=== PATIENT | female | born 1955 | race Caucasian/White ===

== ENCOUNTER 2019-08-27 11:19 | Outpatient (CLI) | payer MEDICARE, SELFPAY ==
--- NOTE | ~2019-08-27 | MM_ITS ---
EXAMINATION: MM diagnostic prashanth BI w tosha HISTORY: Breast pain. Left breast lump. TECHNIQUE: ML, MLO and cc 3-D tomosynthesis images of both breasts were performed and synthetic 2-D i mages were generated. CAD analysis was submitted and interpreted. COMPARISON: Serial mammographic examinations dating back to 05/24/2014 BREAST PARENCHYMAL COMPOSITION: There are scattered areas of fibroglandular density. FINDINGS: There is a circumscribed stable 7.5 mm mass situated anteriorly in the inner aspect of the lower outer quadrant of the right breast, not significantly changed since 05/24/2014. There are some b enign calcifications associated with this mass. This is likely a benign calcified fibroadenoma. No suspicious mass, architectural distortion, malignant calcification, skin thickening or retraction of either breast is evident. There is a biopsy marker in the upper outer quadrant of the right breast. There are occasional benign calcifications of each breast. IMPRESSION: 1. No mammographic evidence of malignancy 2. Routine annual mammographic screening follow-up is recommended BI-RADS Category 2: Benign finding(s). Reviewed, dictated and finalized at location A.
== END 2019-08-27 11:20 | disposition home or self-care (01) ==
LOC: ANHIMG 11:24
PROVIDERS: Visit Provider Family Medicine
DX: N64.4 Mastodynia (principal)
CPT/HCPCS: 77062; 77066; G0279

== ENCOUNTER 2020-08-30 08:37 | Outpatient (CLI) | payer MEDICARE, SELFPAY ==
--- NOTE | ~2020-08-30 | MM_ITS ---
EXAMINATION: MM screening prashanth BI w tosha HISTORY: Screening TECHNIQUE: Craniocaudal and mediolateral oblique 3-D tomosynthesis images were obtained and synthetic 2-D images were generated. CAD analysis was submitted and interpreted. COMPARISON: Comparison to multiple prior studies sequentially, with oldest reviewed study dated 05/24. BREAST PARENCHYMAL COMPOSITION: Breast composed of scattered areas of fibroglandular density FINDINGS: There are developing bilateral breast masses in the lower central right breast anteriorly i n the subareolar location of the left breast. IMPRESSION: 1. Developing bilateral breast masses. 2. Additional mammographic views and possible breast ultrasound are recommended. BI-RADS Category 0: Incomplete: Needs additional imaging evaluation. Reviewed, dictated and finalized at location A. IMPRESSION: 1. Developing bilateral breast masses. 2. Additional mammographic views and possible breast ultrasound are recommended . BI-RADS Category 0: Incomplete: Needs additional imaging evaluation.
== END 2020-08-30 08:38 | disposition home or self-care (01) ==
LOC: ANHIMG 08:41
PROVIDERS: Visit Provider Family Medicine
DX: Z12.31 Encounter for screening mammogram for malignant neoplasm of breast (principal); R92.8 Other abnormal and inconclusive findings on diagnostic imaging of breast
CPT/HCPCS: 77063; 77067

== ENCOUNTER 2020-09-29 13:13 | Outpatient (CLI) | payer MEDICARE, SELFPAY ==
--- NOTE | ~2020-09-29 | MM_ITS ---
EXAMINATION: MM diagnostic mammo BI HISTORY: Bilateral breast masses on screening mammogram TECHNIQUE: Additional 3-D tomosynthesis images of the breasts were performed and synthetic 2-D images were generated. CAD analysis was submitted and interpreted. COMPARISON: Prior mammograms dating back to 02/14/2011 BREAST PARENCHYMAL COMPOSITION: There are scattered areas of fibroglandular density. FINDINGS: Spot compression views of the breasts demonstrate bilateral stable masses in the anterior t hirds of the breasts without suspicious interval change. No suspicious mass, calcification, or angie ectural distortion are identified. IMPRESSION: 1. No mammographic evidence of malignancy. 2. Recommend routine screening mammography in one year. BI-RADS Category 2: Benign finding(s). Reviewed, dictated and finalized at location A.
== END 2020-09-29 13:14 | disposition home or self-care (01) ==
PROVIDERS: Visit Provider Family Medicine
DX: R92.8 Other abnormal and inconclusive findings on diagnostic imaging of breast (principal)
CPT/HCPCS: 77066

== ENCOUNTER 2020-10-13 16:21 | Outpatient (CLI) | payer MEDICARE, SELFPAY ==
--- NOTE | ~2020-10-13 | US_ITS ---
EXAMINATION: US thyroid EXAM DATE: 10/13/2020 17:09 INDICATION: Single thyroid nodule. Follow-up. TECHNIQUE: Multiple grayscale and Doppler images of the thyroid were obtained (by a technologist who performed the scan) and subsequently reviewed. Individual nodules and recommendations may be reporte d in accordance with TI-RADS system as designated by the 2017 ACR White Paper TI-RADS committee. Comp rosalino is made to prior examination from 08/14/2012. FINDINGS: The right thyroid lobe measures 3.9 x 2.0 x 1.3 cm, the left measuring 4.9 x 1.9 x 1.7 cm. Moderately diffusely heterogeneous thyroid echogenicity with multiple scattered thyroid nodules measuring up to 1.2 cm, category TR 3 and 4 lesions. Most demonstrated modest interval increase in size along with g eneralized thyroid parenchyma, except for the largest solid nodule on the left measuring up to 1.3 cm which appears unchanged. IMPRESSION: 1. Multinodular goiter, likely benign. Reviewed, dictated and finalized at location A.
== END 2020-10-13 16:22 | disposition home or self-care (01) ==
PROVIDERS: Visit Provider Family Medicine
DX: E04.2 Nontoxic multinodular goiter (principal)
CPT/HCPCS: 76536

== ENCOUNTER → 2021-04-11 02:35 | Outpatient (CLI) | payer MEDICARE, SELFPAY ==
[2021-04-11 21:06] LABS: SARS-CoV-2 RNA PCR Negative
== END ==
PROVIDERS: Visit Provider Nurse Practitioner Adult Health
DX: R68.89 Other general symptoms and signs (principal); Z20.822 Contact with and (suspected) exposure to COVID-19
CPT/HCPCS: C9803; U0003; U0005

== ENCOUNTER → 2021-04-25 03:01 | Outpatient (CLI) | payer MEDICARE, SELFPAY ==
[2021-04-25 21:18] LABS: SARS-CoV-2 RNA PCR Positive
== END ==
PROVIDERS: Visit Provider Family Medicine
DX: U07.1 COVID-19 (principal)
CPT/HCPCS: C9803; U0003; U0005

== ENCOUNTER → 2021-08-22 12:48 | Outpatient (CLI) | payer MEDICARE, SELFPAY ==
--- NOTE | ~2021-08-22 | CT_ITS ---
EXAMINATION: CT abdomen pelvis wo con DATE: 08/22/2021 13:05 INDICATION: Abdominal pain. Nausea. Umbilical and pelvic pain. Abdominal bloating. TECHNIQUE: Computed tomography (CT) of the abdomen and pelvis was performed without intravenous contr ast. Automated exposure control and iterative reconstruction technique were employed. Exam dose: 428 .66 mGy-cm total exam DLP. COMPARISON: 04/02/2019 PET/CT/CT scan 09/25/2012 CT abdomen pelvis FINDINGS: The lung bases are clear of infiltrate or consolidation. Normal heart size. No pericardial or pleural effusion. Approximately 1.4 x 1.9 cm right hepatic dome hypoattenuating lesion, likely a cyst. Smaller approxim ately 4 mm probable medial segment left hepatic cyst. The gallbladder is present. No gallbladder wall thickening or pericholecystic fluid or fat stranding. No bile duct or pancreatic duct dilatation. No pancreatic mass lesion or calcification. Normal splen ic size. Normal morphology of the adrenal glands. Approximately 2.5 mm nonobstructing lower pole right renal calculus. There are 2 lower pole right renal cyst measuring approximately 11 mm or smaller, stable since 013. Up to approximately 2 x 5.5 mm nonobstructing lower pole left renal calculus. Several small cysts of the left kidney noted on 09/25/2012 are not readily demonstrated on this limited noncontrast examinati on. No ureteral calculus or hydroureteronephrosis is noted on either side. There is calcification but normal caliber of the abdominal aorta and iliac arteries. No intraperitone al or retroperitoneal or pelvic mass lesion or adenopathy or ascites. Moderately prominent right fat-containing inguinal hernia. Very small fat-containing umbilical hernia. Retroverted uterus. The urinary bladder is relatively evacuated. No bowel obstruction, bowel wall thickening, pneumatosis or intraperitoneal free air is evident. Norm al appendix. There is degenerative change at the apophyseal joints with associated grade 1 anterolisthesis at L4-5 and to a lesser extent L5-S1. No suspicious osteolytic or osteoblastic lesions are noted. IMPRESSION: Normal appendix Probable hepatic and renal cysts Minimal bilateral nonobstructive nephrolithiasis Retroverted uterus Moderately prominent right fat-containing inguinal hernia Reviewed, dictated and finalized at Location A. Reviewed, dictated and finalized at location B.
== END ==
PROVIDERS: PCP Family Medicine; Visit Provider Family Medicine
DX: M47.817 Spondylosis without myelopathy or radiculopathy, lumbosacral region (principal); R10.9 Unspecified abdominal pain; N85.4 Malposition of uterus; K40.90 Unilateral inguinal hernia, without obstruction or gangrene, not specified as recurrent
CPT/HCPCS: 74176

== ENCOUNTER 2021-11-02 08:33 | Outpatient (CLI) | payer MEDICARE, SELFPAY ==
--- NOTE | ~2021-11-02 | MM_ITS ---
EXAMINATION: MM screening [facility] BI w tosha HISTORY: Screening TECHNIQUE: Craniocaudal and mediolateral oblique 3-D tomosynthesis images were obtained and synthetic 2-D images were generated. CAD analysis was submitted and interpreted. COMPARISON: Comparison to multiple prior studies sequentially, with oldest reviewed study dated 09/27. BREAST PARENCHYMAL COMPOSITION: There are scattered areas of fibroglandular density. FINDINGS: Bilateral benign-appearing breast masses are stable. There is no evidence of suspicious mas s, calcification, or architectural distortion to suggest malignancy in either breast. There has been no suspicious interval change. IMPRESSION: 1. No mammographic evidence of malignancy. 2. Recommend routine screening mammography in one year. BI-RADS Category 2: Benign finding(s). Reviewed, dictated and finalized at location A.
== END 2021-11-02 08:34 | disposition home or self-care (01) ==
LOC: ANHIMG 08:34
PROVIDERS: PCP Family Medicine; Visit Provider Family Medicine
DX: Z12.31 Encounter for screening mammogram for malignant neoplasm of breast (principal)
CPT/HCPCS: 77063; 77067

== ENCOUNTER 2022-07-26 10:28 | Inpatient (IN) | payer MEDICARE, SELFPAY ==
--- NOTE | 2022-07-19 09:33 | PC.NURSE ---
Report to the Outpatient Waiting Room, entrance under the green pavilion located off [facility], at time __1130 on date __07/25/22 . Planned Procedure Time: ___1330 . Time changes happen often and if your time is changed the preop area will call you the afternoon before. - You and your visitor will be asked to self-screen and do not enter if you have any COVID symptoms. - A mask is optional within the hospital at this time. Patients may have clear liquids (water, carbonated beverages, clear teas, apple juice) until 3 hours prior to surgery with a maximum of 20 ounces. - No food from midnight until time of surgery - Infants may have breast milk until 4 hours before surgery, infant formula 6 hours prior to surgery. - Children will be allowed to drink immediately following surgery. If applicable, please bring a bottle or sippy cup to assist with drinking. Juice, water, soda, and popsicles are readily available. For infants on formula, please bring formula the day of surgery. Pacifiers are allowed. Take the following medications with a SIP of water the morning of surgery: ___CAPECTIABINE,_FLUOXETINE,AND CLONAZEPAM IF NEEDED DO NOT STOP ANY OF YOUR OTHER PRESCRIPTION MEDICATIONS PRIOR TO SURGERY ?EXCEPT THE FOLLOWING Medications to discontinue per physician NONE Date to take last dose Please no make-up, nail luxembourgish, hairspray, perfume, deodorant, or body powder the day of surgery. No jewelry (including any body piercings) or valuables the day of surgery, leave them at home. Please take a shower or bath the night before, or the morning of, surgery with an antibacterial soap. Wear comfortable, loose fitting clothing. Children are encouraged to wear pajamas. - Jewelry must be removed prior to entering the operating room. Rings and piercings that are not removed may be cut off. - The hospital will not accept responsibility for valuables. - Please leave all valuables, including medications, at home the day of surgery. If you are going home after surgery, a licensed water truck driver must drive you home. - NO public transportation without another adult if you receive anesthesia. - We recommend that an adult stay with you for 24 hours following discharge. - We also recommend that you do not drive, make important decision, drink alcoholic beverages, or take any drugs that were not prescribed by your health care provider for at least 24 hours after your discharge time. For Pediatric surgeries, we recommend two adults accompany the child home. Follow any additional instructions given to you from your surgeon. If you or anyone in your household have experienced Covid symptoms in the past week, please notify your surgeon or the nurse liaison at the phone number below for possible testing. Telephone instructions given to __PATIENT and asked if any additional questions and then verbalized understanding. Patient advised to call surgeon office or pre surgery nurse liaison [phone] if any additional questions.
[2022-07-19 09:42] VITALS: BMI 21.6
--- NOTE | 2022-07-23 14:40 | PM.SD2 ---
Same Day Admit/Disch: HPI History of Present Illness Chief complaint: malignant neoplasm ascending colon Narrative: Loulou Lanier is a 67 year old female who has stage III invasive colon cancer of the ascending colon. She is to have chemotherapy. She is taken to surgery now for placement of a Port-A-Cath for chemotherapy administration. [facility] Past Medical History Medical History (Updated 07/27/22 @ 13:32 by Eyal Hood MD) Anxiety Arthritis Colon cancer Depression Hyperlipidemia Malignant neoplasm of ascending colon Surgical History Surgical History H/O foot surgery History of colon resection Family History Family History Mother Hypertension Sibling Patient's sister is in good health Father Family history of heart disease in male family member before age 55 Other Family history of cardiovascular disease Social History Social History Smoking status: Never smoker Second hand tobacco smoke exposure: No Alcohol intake: never Alcohol use details: seldom Substance use: never Substance use type: does not use Lack of Transportation: No Lack of Food: Never True Current Housing: I Have Housing Concerned About Future Housing: No Difficulty Paying Gas/Electric Bills: No Difficulty Paying for Meds: No Currently Unemployed: No Education: High School Diploma/GED Difficulty w/ Childcare or Family Care: No Living arrangements: with family Gender identity (if verbalized by the patient): Female Sexual Orientation (if Verbalized by the Patient): Straight or Heterosexual Spiritual care concerns: No Same Day Admit/Disch: Med Pre-admit Medications Home Medications Medication Instructions Recorded Confirmed Type fluoxetine 10 mg capsule 30 mg PO DAILY 04/03/22 07/19/22 History omeprazole 40 mg capsule,delayed 40 mg PO DAILY 04/03/22 07/19/22 History release simvastatin 40 mg tablet 40 mg PO DAILY 04/03/22 07/19/22 History trazodone 50 mg tablet 50 mg PO QHS PRN Insomnia 04/03/22 07/25/22 History capecitabine 150 mg tablet 900 mg PO BID 07/19/22 07/25/22 History capecitabine 500 mg tablet 500 mg PO BID 07/19/22 07/19/22 History clonazepam 0.5 mg tablet 0.5 mg PO PRN PRN Anxiety 07/19/22 07/19/22 History ibuprofen 600 mg tablet 600 mg PO Q6H PRN pain #14 tabs 07/25/22 Rx oxycodone-acetaminophen 5 mg-325 1 - 2 tablet PO Q6H PRN pain #15 07/25/22 Rx mg tablet (Percocet) tabs metronidazole 500 mg tablet 500 mg PO Q8H 10 days #30 tabs 07/27/22 Rx Exam Const: General: comfortable, no acute distress, alert and awake HENMT: Head: normocephalic and atraumatic Mouth: Yes Normal oral and palatal mucosa present Eyes: Conjunctivae: conjunctivae normal Pupils: Equal, round and reactive pupils present EOM: EOMs intact bilaterally Neck: Neck: normal visual inspection, no lymphadenopathy and nontender Resp: Effort & Inspection: normal respiratory effort Auscultation: clear to auscultation bilaterally Cardio: Rate: regular rate Rhythm: regular rhythm Heart sounds: no gallops, no murmurs and no rubs GI: Inspection: non-distended GI Palp: Yes Soft to palpation, No Tenderness to palpation present (GI), No Hepatomegaly present and No Splenomegaly present Skin: Lesions: no lesions Rashes: no rashes Neuro: General: no focal motor deficits and CN's II-XI intact bilaterally Cranial nerves: Yes Equal, round and reactive pupils present, Yes Bilaterally intact EOM present, Yes facial symmetry and Yes Midline tongue present Speech: normal speech Motor exam (neuro): 5/5 motor strength present throughout and Motor abnormalities not present Extrem: General: no clubbing, cyanosis or edema and edema Psych: Affect: normal affect Thought process: Normal thought process present Insight: Good insight present (Psych)
[2022-07-25] VITALS (12 sets, daily range): BP systolic 104–138; BP diastolic 68–88; PULSE 76–88; RESP 12–20; TEMP 36.4–36.6; O2SAT 97–100; BMI 22.2
--- NOTE | 2022-07-25 11:27 | P.PNAN_ITS ---
Anes - Initial Pre Proc Eval Procedure: Operation Date: 07/25/22 13:30 Proposed Procedures p Insertion Santhosh Cath - Kamron Erwin MD Date/Time: 07/25/22 11:27 Surgeon: Kamron Erwin MD Pre Op Diagnosis: malignant neoplasm ascending colon Patient Data Age: 67 Gender: F Height: 1.57 m Weight: 53.55 kg Allergies Allergy/AdvReac Type Severity Reaction Status Date / Time poison randi extract Allergy Unknown Rash Verified 07/19/22 09:22 Home Medications Medication Instructions Recorded Confirmed Type fluoxetine 10 mg capsule 30 mg PO DAILY 04/03/22 07/19/22 History omeprazole 40 mg capsule,delayed 40 mg PO DAILY 04/03/22 07/19/22 History release simvastatin 40 mg tablet 40 mg PO DAILY 04/03/22 07/19/22 History trazodone 50 mg tablet 25 mg PO QHS PRN Insomnia 04/03/22 07/19/22 History capecitabine 150 mg tablet 150 mg PO BID 07/19/22 07/19/22 History capecitabine 500 mg tablet 500 mg PO BID 07/19/22 07/19/22 History clonazepam 0.5 mg tablet 0.5 mg PO PRN PRN Anxiety 07/19/22 07/19/22 History Patient hx anesthesia problems: none Family hx anesthesia problems: none Results Review: All pre-operative results and documents have been reviewed as part of the pre- operative evaluation. [facility] Past Medical History Medical History (Updated 07/25/22 @ 11:28 by Eze Lakhani MD) Anxiety Arthritis Colon cancer Depression Hyperlipidemia Malignant neoplasm of ascending colon Surgical History Surgical History H/O foot surgery Family History Family History Mother Hypertension Sibling Patient's sister is in good health Father Family history of heart disease in male family member before age 55 Other Family history of cardiovascular disease Social History Social History Smoking status: Never smoker Second hand tobacco smoke exposure: No Alcohol intake: current Alcohol use details: seldom Substance use: never Living arrangements: with family Gender identity (if verbalized by the patient): Female Sexual Orientation (if Verbalized by the Patient): Straight or Heterosexual Spiritual care concerns: No Anes - Eval Final PreProcedure Day of Procedure 07/25/22 11:27 Patient weight: normal Heart: regular rate and rhythm Lungs: clear to auscultation and normal air movement Airway: Mallampati scale class II Neurological: alert and oriented Last oral intake: >/= 8 hours ASA classification: III Emergent: no Anesthetic plan: proceed Anesthesia type and monitoring: general GIVS Results Review: All pre-operative results and documents have been reviewed as part of the pre- operative evaluation. Informed Consent: The patient's anesthetic plan and its attendant risks and benefits were discussed with the patient/family/POA. Questions were solicited and answers provided to the satisfaction of the patient/family/POA.
--- NOTE | 2022-07-25 12:21 | WPDHPUPDATE1 ---
History and Physical Update Update Date/Time: 07/25/22 12:21 History and Physical has been reviewed, including an updated exam of the patient. There are NO changes in the patient's condition. Risks, benefits, and alternatives have been discussed and questions answered. Patient agrees to proceed with procedure.
[2022-07-25 12:36] LABS: INR 1.1; Partial Thromboplastin Time 26.9 SECONDS (22.3-36.8); Prothrombin Time 13.6 Seconds (11.1-14.7)
[2022-07-25] MEDS: LACTATED RINGERS 1,000 ML 30 ML IV CONT ×2 (13:00→15:40)
[2022-07-25] MEDS: KETOROLAC 15 MG/ML VIAL (*BKC) IV PUSH (13:00)
[2022-07-25] MEDS: ceFAZolin 2 GM/D5W 50 ML 2 GM/50 ML BAG IVPB (13:50)
[2022-07-25] MEDS: HEPARIN SODIUM 5,000 UNITS/ML VIAL 1000 UNITS IRRIGATION (14:12)
[2022-07-25] MEDS: BUPIVACAINE/EPINEPHRINE 0.5% 50 ML VIAL INFILTRATE (14:12)
--- NOTE | 2022-07-25 15:44 | W.PM.PROC2 ---
Procedure Note - Detailed Date of Procedure 07/25/22 Pre-op Diagnosis Stage III colon cancer, inadequate venous access Post-op Diagnosis Same Procedure Performed Placement left subclavian Port-A-Cath under fluoroscopy, ultrasound utilization Surgeon Kamron Erwin MD Bottom Turning Lathe Tender Helen Mora METAL PAINTER Anesthesia MAC and Local (0.5% Marcaine with epinephrine) Indications Patient underwent colon resection and found to have stage III colon cancer. She will be having chemotherapy. She is taken to surgery now for placement of a Port-A-Cath as requested by her oncologist. Findings This was a very difficult placement. The subclavian vein was cannulated more laterally than usual. The initial placement resulted in more of an angulation of the Port-A-Cath tubing than is usually seen. This was however working well until the wound was closed at which time we were unable to aspirate blood and the wound had to be reopened. I attempted to replace the Port-A-Cath by repositioning the reservoir but this did not work either. I then removed the initial Port-A-Cath and additional subclavian puncture and, with ultrasound guidance, internal jugular puncture was performed. Internal jugular vein was on top of the carotid artery and despite Trendelenburg I could not get a guidewire to pass. Eventually subclavian puncture was again performed with good placement of a guidewire and satisfactory positioning of the Port-A-Cath. The procedure was much more bloody and lasted 3 times longer than usual. The procedure lasted almost 90 minutes which typically this procedure takes 20-30 minutes. The incision had to be lengthened in the subclavian position. Blood loss was also 3 or 4 times more than usual. The procedure was exceptionally more difficult and lengthy than usual. Description of Procedure Patient was taken to surgery and placed in a supine position. IV sedation was administered. Prep and drape of the left subclavian and left neck was carried out. The proposed left subclavian incision was marked on the skin. Local anesthetic was infiltrated into the skin and the deeper subcutaneous tissues. Cautery was used for hemostasis. Incision was made dissection was carried down through the subcutaneous and through the pectoralis major fascia. I dissected the pectoralis major fascia off the pectoralis muscle and then created a subfascial pocket. Additional local was infiltrated into the area under the left clavicle as well as into the pectoralis and the subcutaneous pocket. I then made several attempts but finally cannulated the left subclavian vein somewhat laterally in the pocket. C-arm fluoroscopy was then used and the guidewire was passed through the needle and into the superior vena cava. I then used fluoroscopy to measure the length of Port-A-Cath that would be needed. Port-A-Cath was cut to the appropriate length. Under fluoroscopy, an introducer and sheath were passed over the guidewire. The introducer and the guidewire removed. The Port-A-Cath was passed through the sheath and into the superior vena cava. The sheath was removed in the Port-A-Cath tip was in good position. However there was some angulation of the Port-A-Cath from the reservoir towards the shoulder and then back towards the mediastinum. We straightened this and manipulated the tubing of the Port-A-Cath to minimize this angulation. Port-A-Cath aspirated blood and flushed easily with heparin. I went ahead and sutured the Port-A-Cath to the pectoralis major muscle. I recheck the Port-A-Cath and again it aspirated blood and flushed easily with heparin. I closed the wound with layered closure of 2-0 Vicryl. I recheck the Port-A-Cath again cannulating it through the skin and on this occasion I had difficulty aspirating blood. I tried to or 3 times in got the same result. I then reopened the wound and removed the sutures that had been placed persist previously. I then infiltrated additional l
--- NOTE | 2022-07-25 16:11 | SUR.PHASEII ---
1555 PORTABLE CXR DONE.
--- NOTE | 2022-07-25 16:43 | SUR.PHASEII ---
[address] AND BACK TO ROOM 16 VIA STRETCHER. PT TOLERATED CT WITHOUT DIFFICULTY. PATIENT HAS DECREASED ABILITY TO MOVE EXTREMITIES BUT IS ABLE TO SQUEEZE HANDS, FLEX AND EXTEND ANKLES AND ANSWER QUESTIONS APPROPRIATELY.
--- NOTE | 2022-07-25 17:07 | SUR.PHASEII ---
DR. KONG HERE TO DISCUSS PLAN TO ADMIT TO IMU. MEDICAL TRANSCRIPTIONIST CALLED.
--- NOTE | 2022-07-25 17:35 | SUR.PHASEII ---
DINNER ORDERED. AWAITING ROOM ASSIGNMENT.
--- NOTE | 2022-07-25 19:37 | PHAR ---
RX [id number] IDENTIFIED TO CONTAIN: DRUG NAME: CAPECITABINE INGREDIENTS: CAPECITABINE -- 500 MG COLOR: LIGHT ORANGE SHAPE: OVAL IMPRINT: 500 FORM: ORAL TABLET RX [id number] IDNEIFIED TO CONTAIN: DRUG NAME: CAPECITABINE INGREDIENTS: CAPECITABINE -- 150 MG COLOR: LIGHT ORANGE SHAPE: OVAL IMPRINT: 150 FORM: ORAL TABLET
--- NOTE | 2022-07-25 20:27 | ADMGEN ---
This patient, Loulou Lanier, was admitted to IMU Room 206-02. Patient/family oriented to hospital policies and general routines including ID bracelet, bed and alarms, visiting hours, pain management, procedures, bathroom and other care routines, personal items, smoking policy, room service/diet, and visiting hours. Information on how to activate the Rapid Response Team has been discussed. Patient/Family are encouraged to report perceived risks to care and to ask questions if they do not understand what they are told or what they should do.
[2022-07-25] MEDS: HYDROcodone/acetaminophen (*CRX) 7.5-325 MG TABLET 1 TAB PO (21:44)
[2022-07-25] MEDS: clonazePAM (*CRX) 0.5 MG TABLET PO (21:44)
[2022-07-25] MEDS: LACTATED RINGERS 1,000 ML 100 ML IV CONT (21:45)
[2022-07-25] MEDS: traZODone HCL 50 MG TABLET PO (21:50)
[2022-07-25 22:44] LABS: Hematocrit 28.8 % (37.0-47.0); Hemoglobin 9.4 g/dL (12.0-15.0)
[2022-07-26] VITALS (15 sets, daily range): BP systolic 112–130; BP diastolic 70–98; PULSE 81–131; RESP 16–20; TEMP 36.2–37.1; O2SAT 97–99; BMI 22.2
--- NOTE | ~2022-07-26 | XR_ITS ---
EXAMINATION: XR chest 1V portable 07/26/2022 16:21 INDICATION: Follow-up pneumothorax. PROCEDURE: AP portable chest COMPARISON: 07/26/2022 FINDINGS: The lungs are clear. Stable small left apical pneumothorax. Portacatheter tip in the SVC. T he cardiomediastinal silhouette is within normal limits. There are no pleural effusions. There is n o pneumothorax suspected. Mildly prominent mediastinum less apparent on current examination. IMPRESSION: 1: Stable small left apical pneumothorax.. Reviewed, dictated and finalized at location B.
--- NOTE | ~2022-07-26 | XR_ITS ---
EXAMINATION: XR chest 1V portable INDICATION: Mediastinal hematoma, pneumothorax TECHNIQUE: Portable AP chest at 0536 hours COMPARISON: 07/26/2022 FINDINGS: There is a small persistent left apical pneumothorax without significant change. There is s table widening of the superior mediastinum, consistent with hematoma. The heart size is normal. There are minimal airspace opacities of the left lung base. A left subclavian Port-A-Cath ends with its ti p in the superior vena cava. No pleural effusion is identified. IMPRESSION: 1. Small left apical pneumothorax without significant change. 2. Stable widening of the superior mediastinum, consistent with hematoma. Reviewed, dictated and finalized at location A.
--- NOTE | ~2022-07-26 | CT_ITS ---
EXAMINATION: CT diagnostic chest w con DATE: 07/25/2022 16:38 INDICATION: Abnormal chest radiograph post Port-A-Cath insertion TECHNIQUE: Transaxial computed tomographic images of the chest were obtained after the administration of 75 cc of Omnipaque 350 intravenous contrast. The dose-length product (DLP) was 145.83 mGy-cm. Ite rative reconstruction was used. COMPARISON: None FINDINGS: A left subclavian Port-A-Cath ends with its tip in the distal superior vena cava. There is ill-defined fat stranding in the anterior aspect of the left upper mediastinum. No definite active co ntrast extravasation is identified. There is mild dependent atelectasis. There is a tiny left-sided p neumothorax. No pleural effusion is identified. There is subcutaneous gas in the left upper chest wal l surrounding the Port-A-Cath insertion site. The heart size is normal. There are no pathologically e nlarged thoracic lymph nodes. There is a 1.8 cm cyst of the liver. IMPRESSION: 1. Findings suspicious for acute hematoma in the anterior mediastinum. Although no active contrast ex travasation is identified, observation and repeat imaging are recommended. 2. Small left pneumothorax. These findings and recommendations were discussed with Dr. Kamron patrick MD at 1653 hours on 07/25/2022. Reviewed, dictated and finalized at location F. IMPRESSION: 1. Findings suspicious for acute hematoma in the anterior mediastinum. Although no active contrast extravasation is identified, observation and repeat imaging are recommended. 2. Small left pneumothorax. These findings and recommendations [facility] Kamron Erwin MD at 1653 hours on 07/25/2022.
--- NOTE | ~2022-07-26 | XR_ITS ---
Portable chest x-ray Comparison: 07/25/2022 Clinical History: Mediastinal hematoma Findings: Left-sided Mediport is unchanged. Stable abnormal density silhouetting the aortic knob. Le ft apical pneumothorax present. Right lung is clear. Bones and soft tissues are unremarkable. Impression: Stable density somewhat silhouetting the aortic knob. This could be consistent with a cephalhematoma as seen on recent CT scan. Left apical pneumothorax. Left-sided Mediport. Reviewed, dictated and finalized at [facility]. Impression: Stable density somewhat silhouetting the aortic knob. This could be consistent with a cephalhematoma as seen on recent CT scan. Left apical pneumothorax. Left-sided Mediport.
--- NOTE | ~2022-07-26 | XR_ITS ---
EXAMINATION: XR chest 1V portable DATE: 07/26/2022 10:23 INDICATION: Left pneumothorax. TECHNIQUE: A single frontal view of the chest was obtained. COMPARISON: Chest single view at 5:36 AM FINDINGS: There is a small left pneumothorax. No pneumonia or pleural effusion. The heart size is nor mal. There is widening of the superior mediastinum. There is a left subclavian port with tip in super ior vena cava. IMPRESSION: 1. Stable small left pneumothorax. 2. Stable widening of the superior mediastinum, consistent with hematoma. Reviewed, dictated and finalized at location A.
--- NOTE | ~2022-07-26 | XR_ITS ---
XR chest port-a-cath/central, XR fl guide central line place 07/25/2022 15:55 (accession [id number]), 07/25/2022 15:46 (accession [id number]) Indication: Insertion of portacatheter Procedure: Single fluoroscopic view of the chest. Postprocedure portable chest. Comparison: Pet/CT dated 04/06/2019 Findings: Portacatheter tip in the SVC. Heart size normal. There is prominence of the AP window. Jonah ot exclude vascular abnormality or lymph node enlargement. Recommend correlation with CT with contras t. Left basilar atelectasis. No pneumothorax. No acute osseous abnormality. Impression: 1: Prominent AP window soft tissue which may be due to lymphadenopathy or vascular abnormality. Recom mend correlation with contrast-enhanced CT chest. 2: Left basilar atelectasis/scarring. Reviewed, dictated and finalized at location L. Impression: 1: Prominent AP window soft tissue which may be due to lymphadenopathy or vascu lar abnormality. Recommend correlation with contrast-enhanced CT chest. 2: Left basilar atelectasis/scarring. Impression: 1: Prominent AP window soft tissue which may be due to lymphadenopathy or vascu lar abnormality. Recommend correlation with contrast-enhanced CT chest. 2: Left basilar atelectasis/scarring.
[2022-07-26 04:53] LABS: Hemoglobin 9.5 g/dL (12.0-15.0); Mean Corpuscular HGB Conc 31.7 g/dl (32-36); Mean Corpuscular Hemoglobin 27.6 pg (26-34); Mean Corpuscular Volume 87.2 fl (80-100); Mean Platelet Volume 9.1 fl (7.4-10.4); Platelet Count Result 264 k/mm3 (150-375); Red Blood Count 3.44 M/mm3 (4.2-5.4); Red Cell Distribution Width 14.3 % (11.5-14.5); White Blood Count 6.6 K/mm3 (4.5-10.0)
[2022-07-26 05:02] LABS: Anion Gap 4 mmol/L (8-16); Blood Urea Nitrogen 15 mg/dL (7-17); Calcium 8.1 mg/dL (8.4-10.2); Carbon Dioxide 27 mmol/L (22-30); Chloride 106 mmol/L (98-107); Estimated CRCL calculation 74 ml/min; Estimated Glomerular Filt Rate > 60; Glucose 100 mg/dL (65-110); Potassium 3.1 mmol/L (3.4-5.0); Sodium 137 mmol/L (137-145)
[2022-07-26] MEDS: HYDROcodone/acetaminophen (*CRX) 5-325 MG TABLET 1 TAB PO (06:13)
[2022-07-26] MEDS: POTASSIUM CHLORIDE 20 MEQ PACKET (FOR LIQUID) 40 MEQ PO (06:14)
[2022-07-26] MEDS: LACTATED RINGERS 1,000 ML 100 ML IV CONT (08:08)
[2022-07-26] MEDS: PANTOPRAZOLE 40 MG TABLET PO (08:09)
[2022-07-26] MEDS: FLUoxetine HCL 10 MG CAPSULE 30 MG PO (08:09)
[2022-07-26] MEDS: SIMVASTATIN 20 MG TABLET 40 MG PO (08:09)
--- NOTE | 2022-07-26 09:40 | PM.PNGS ---
Progress Note: A&P Assessment and Plan (1) Mediastinal hematoma: Code(s): S27.892A - Contusion of other specified intrathoracic organs, initial encounter Status: Acute Assessment and Plan: Stable from yesterday. Today's film actually looks less dense in the mediastinum than yesterday's chest x-ray did. No evidence of extravasation on CT scan. No evidence of worsening on today's plain film. No symptoms of mediastinal injury (2) Pneumothorax on left: Code(s): J93.9 - Pneumothorax, unspecified Status: Acute Assessment and Plan: Larger from yesterday but still less than 20%. Will get follow-up film at 2:00 p.m. today. Explained to patient that she may need chest tube and will need to stay in the hospital again tonight. (3) History of infusaport central venous catheter insertion: Code(s): Z98.890 - Other specified postprocedural states Status: Acute Assessment and Plan: Tender. Patient was taking Percocet at home. Will change her [place] to Percocet for better pain control. Up walking today. Port-A-Cath in good position by chest x-ray. (4) Malignant neoplasm of ascending colon: Code(s): C18.2 - Malignant neoplasm of ascending colon Status: Chronic Assessment and Plan: Receiving oral chemotherapy agents. Subjective Subjective Date/Time Seen: 07/26/22 09:40 Post Op day: 1 Patient reports: still having pain (Pain is at Port-A-Cath insertion site, no substernal chest pain, back pain, or pain on deep breath.), no bowel movement, diarrhea (Had some loose stools after pain medication) and afebrile Review of Systems Review of Systems: All systems reviewed & are unremarkable except as noted in HPI and below (HPI) Exam Const: General: comfortable and no acute distress; No confusion Orientation/consciousness: patient oriented x3 and No confusion Neck: Neck: normal visual inspection, trachea midline, no anterior neck swelling and nontender Chest: Chest palpation & inspection: abnormal inspection of the chest (Port-A-Cath site healing normally), no crepitus and tenderness (Very tender at Port-A-Cath site and incision) Resp: Effort & Inspection: normal respiratory effort Auscultation: clear to auscultation bilaterally Cardio: Rate: regular rate Rhythm: regular rhythm Neuro: General: patient oriented x3, no focal motor deficits and No confusion Extrem: General: no calf tenderness and no edema Psych: Affect: normal affect Insight: Good insight present (Psych) Judgement: Good judgement present (Psych) Objective Data Vital Signs Vital Signs: Vital Signs - 24 hr 07/25/22 12:30 07/25/22 15:40 07/25/22 16:10 Temperature 36.6 C 36.4 C Pulse Rate 84 82 77 Respiratory Rate 14 12 12 Blood Pressure 129/88 104/68 117/70 Pulse Oximetry 100 97 98 Oxygen Delivery Room Air Room Air Room Air 07/25/22 16:40 07/25/22 17:10 07/25/22 17:40 Temperature Pulse Rate 78 77 80 Respiratory Rate 12 12 12 Blood Pressure 130/71 130/71 135/73 Pulse Oximetry 98 98 98 Oxygen Delivery Room Air Room Air Room Air 07/25/22 18:10 07/25/22 18:45 07/25/22 20:41 Temperature 36.4 C Pulse Rate 78 84 76 Respiratory Rate 14 12 20 Blood Pressure 128/68 114/78 111/79 Pulse Oximetry 100 100 98 Oxygen Delivery Room Air Room Air 07/25/22 22:00 07/25/22 20:00 07/25/22 23:34 Temperature 36.5 C Pulse Rate 88 76 Respiratory Rate 20 Blood Pressure 138/73 Pulse Oximetry 98 Oxygen Delivery Room Air 07/25/22 20:00 07/26/22 00:00 07/26/22 00:00 Temperature Pulse Rate 87 81 Respiratory Rate Blood Pressure Pulse Oximetry Oxygen Delivery Room Air 07/26/22 02:00 07/26/22 04:32 07/26/22 04:00 Temperature 36.4 C Pulse Rate 128 H 84 86 Respiratory Rate 20 Blood Pressure 128/75 Pulse Oximetry 99 Oxygen Delivery 07/26/22 04:00 07/26/22 06:00 07/26/22 08:00 Temperature 37.1 C Pulse Rate 90 102 H Respiratory Rate
[2022-07-26] MEDS: LOPERAMIDE HCL 2 MG CAPSULE PO ×4 (10:30→20:16)
[2022-07-26] MEDS: POTASSIUM CHLORIDE 20 MEQ TABLET 40 MEQ PO (10:31)
[2022-07-26] MEDS: oxyCODONE/ACETAMINOPHEN (*CRX) 5-325 MG TABLET 1 TABLET PO (10:36)
[2022-07-26] MEDS: clonazePAM (*CRX) 0.5 MG TABLET PO ×2 (10:36→20:16)
--- NOTE | 2022-07-26 13:40 | WPDANESPN ---
Anes - Prog Note Post-Op Date/Time: 07/26/22 13:40 Cardiovascular status: normal Respiratory status: normal Airway patency: baseline Mental status: baseline Post-Op hydration status: normal Vital Signs: Last Vital Signs Temp 97.3 F L 07/26/22 12:00 Pulse 104 H 07/26/22 12:00 Resp 18 07/26/22 12:00 BP 112/70 07/26/22 12:00 Pulse Ox 97 07/26/22 12:00 O2 Del Method Room Air 07/26/22 04:00 Pain Score (VAS): 3 I/O: Intake & Output 07/25/22 07/26/22 07/26/22 23:59 07:59 15:59 Intake Total 1000 1400 Output Total 1000 Balance 1000 400 Laboratory Tests 07/26/22 04:43 07/26/22 04:43 07/25/22 07/26/22 07/26/22 22:28 04:43 04:43 WBC 6.6 RBC 3.44 L Hgb 9.4 L 9.5 L Hct 28.8 L 30.0 L MCV 87.2 MCH 27.6 MCHC 31.7 L RDW 14.3 Plt Count 264 MPV 9.1 Sodium 137 Potassium 3.1 L Chloride 106 Carbon Dioxide 27 Anion Gap 4 L BUN 15 D Creatinine 0.50 L Estim Creat Clear Calc 74 Estimated GFR > 60 Glucose 100 Calcium 8.1 L Patient Feedback: Patient satisfied with anesthetic care.pt continues to be monitored for pneumothorax
[2022-07-26] MEDS: ONDANSETRON INJ 4 MG/2 ML VIAL IV PUSH (15:02)
--- NOTE | 2022-07-26 16:38 | PM.IMCN ---
Assessment and Plan Assessment and plan (1) History of infusaport central venous catheter insertion: Code(s): Z98.890 - Other specified postprocedural states Status: Acute (2) Pneumothorax on left: Code(s): J93.9 - Pneumothorax, unspecified Status: Acute (3) Mediastinal hematoma: Code(s): S27.892A - Contusion of other specified intrathoracic organs, initial encounter Status: Acute (4) Colon cancer: Code(s): C18.9 - Malignant neoplasm of colon, unspecified Status: Acute (5) Diarrhea: Code(s): R19.7 - Diarrhea, unspecified Status: Acute Plan Patient has been admitted to IMU for close observation from the mediastinal hematoma. Hemoglobin was 11.5 prior to admission but was 9.4 on admission. This may be confusing since patient has started chemotherapy so he anemia may be related somewhat to the chemotherapy. Repeat hemoglobin has been stable at 9.5. Will continue to closely monitor H and H. Check stool for C diff and stool culture. Home medications have been resumed. She is on regular diet. She is already up ambulating. She is not on oxygen. Continue supportive care. Thank you so much for allowing me to be a part of this patient's care. Will continue to follow along with you. HPI Data of Consult Consult date: 07/26/22 Requesting Physician: Kamron Eriwn MD Primary Care Provider: Donal GranadosMD Consult Narrative Narrative: Loulou Lanier is a 67 year old female with colon cancer here for port-a-cath placement that was complicated by a PTX and mediastinal hematoma. Patient was diagnosed with colon cancer about 3 months ago. She has undergone a partial colon resection. She started her 1st round of chemotherapy about 2 weeks ago. She follows with Dr. Napoles for her oncology treatment. Patient was admitted yesterday for Port-A-Cath placement. It was a very difficult placement. Please see operative note for details. Post-procedure CXR showed prominent soft tissue and recommend CT of the chest. CT of the chest showed findings suspicious for acute hematoma in the anterior mediastinum. There is also small left pneumothorax. Repeat imaging showing persistent small left pneumothorax but mediastinum not enlarging. Hospital service was consulted for medical management. Patient complaining of stool urgency with diarrhea today. This began earlier today. Stools are watery. No melena or hematochezia. She has not had this before. No dysuria or hematuria. No nausea or vomiting. No recent antibiotic exposure. No recent travel. She does have a frontal headache as well. No fever or chills. No chest pain but she is sore in the left upper chest from the procedure. She has been up walking to the bathroom without difficulty. No ataxia or falls. She does mention that she has lost about 22 lb over the past 2 months. Review of Systems Review of Systems: All systems reviewed & are unremarkable except as noted in HPI and below PMFSH Past Medical History Medical History (Updated 07/26/22 @ 16:43 by Eyal Hood MD) Anxiety Arthritis Colon cancer Depression Hyperlipidemia Malignant neoplasm of ascending colon Surgical History Surgical History H/O foot surgery History of colon resection Family History Family History Mother Hypertension Sibling Patient's sister is in good health Father Family history of heart disease in male family member before age 55 Other Family history of cardiovascular disease Social History Social History Smoking status: Never smoker Second hand tobacco smoke exposure: No Alcohol intake: never Alcohol use details: seldom Substance use: never Substance use type: does not use Lack of Transportation: No Lack of Food: Never Josiah
[2022-07-26] MEDS: MORPHINE SULFATE (*CRX) 2 MG/ML INJ IV PUSH ×2 (17:02→20:17)
[2022-07-26] MEDS: POTASSIUM CHLORIDE 20 MEQ TABLET.ER PO (17:03)
[2022-07-26 17:43] LABS: IFOB Positive Control Positive; Immunochemical Fecal Occult Bl Positive (N)
[2022-07-26] MEDS: traZODone HCL 50 MG TABLET PO (20:16)
[2022-07-27] VITALS (8 sets, daily range): BP systolic 123–128; BP diastolic 74–83; PULSE 96–123; RESP 18–20; TEMP 36.3–37; O2SAT 96–98
[2022-07-27] MEDS: oxyCODONE/ACETAMINOPHEN (*CRX) 10-325 MG TABLET 1 TAB PO (00:06)
[2022-07-27] MEDS: LACTATED RINGERS 1,000 ML 60 ML IV CONT (00:08)
[2022-07-27 00:10] LABS: Toxigenic C. Diff POSITIVE (NEGATIVE)
[2022-07-27] MEDS: metroNIDAZOLE 250 MG TABLET 500 MG PO ×2 (00:50→05:31)
[2022-07-27 05:41] LABS: Hemoglobin 9.3 g/dL (12.0-15.0); Mean Corpuscular HGB Conc 32.1 g/dl (32-36); Mean Corpuscular Volume 84.3 fl (80-100); Mean Platelet Volume 8.8 fl (7.4-10.4); Platelet Count Result 279 k/mm3 (150-375); Red Blood Count 3.44 M/mm3 (4.2-5.4); Red Cell Distribution Width 14.3 % (11.5-14.5); White Blood Count 5.9 K/mm3 (4.5-10.0)
[2022-07-27] MEDS: ACETAMINOPHEN 500 MG TABLET PO (05:53)
[2022-07-27 05:58] LABS: Anion Gap 2 mmol/L (8-16); Blood Urea Nitrogen 9 mg/dL (7-17); Calcium 7.9 mg/dL (8.4-10.2); Carbon Dioxide 29 mmol/L (22-30); Chloride 107 mmol/L (98-107); Estimated CRCL calculation 74 ml/min; Estimated Glomerular Filt Rate > 60; Glucose 98 mg/dL (65-110); Potassium 3.4 mmol/L (3.4-5.0); Sodium 138 mmol/L (137-145)
[2022-07-27] MEDS: VANCOMYCIN ORAL 500 MG/10 ML SYRUP PO ×2 (09:55→12:47)
[2022-07-27] MEDS: FLUoxetine HCL 10 MG CAPSULE 30 MG PO (09:57)
[2022-07-27] MEDS: POTASSIUM CHLORIDE 20 MEQ TABLET.ER PO (09:57)
[2022-07-27] MEDS: PANTOPRAZOLE 40 MG TABLET PO (09:57)
[2022-07-27] MEDS: SIMVASTATIN 20 MG TABLET 40 MG PO (09:57)
[2022-07-27] MEDS: LOPERAMIDE HCL 2 MG CAPSULE PO (12:48)
[2022-07-27] MEDS: ONDANSETRON INJ 4 MG/2 ML VIAL IV PUSH (12:48)
--- NOTE | 2022-07-27 13:21 | PM.IMPN ---
Progress Note: A&P Assessment and Plan (1) C. difficile diarrhea: Code(s): A04.72 - Enterocolitis due to Clostridium difficile, not specified as recurrent Status: Acute (2) History of infusaport central venous catheter insertion: Code(s): Z98.890 - Other specified postprocedural states Status: Acute (3) Pneumothorax on left: Code(s): J93.9 - Pneumothorax, unspecified Status: Acute (4) Mediastinal hematoma: Code(s): S27.892A - Contusion of other specified intrathoracic organs, initial encounter Status: Acute (5) Colon cancer: Code(s): C18.9 - Malignant neoplasm of colon, unspecified Status: Acute Plan Patient stools are positive for C diff. Stools also positive occult blood but is not unexpected given her history of colon cancer and ongoing infection. Her diarrhea has improved since starting Flagyl last evening. Will switch to the oral vancomycin. Chest x-ray shows no change in the small left apical pneumothorax and the widened mediastinum. Offered patient continued monitoring here in the hospital for another day to ensure that her diarrhea continues to improve but patient is agreeable with discharge. She feels she can manage this at home affectively. Discussed concerns that would prompt her to return to the emergency room such as rectal bleeding, abdominal distension, increasing abdominal pain, or worsening diarrhea. She voices understanding of this. Okay for discharge from medical standpoint and should be discharged with oral vancomycin to complete a 10 day course. I did educate her about the fact that this infection could return after stopping antibiotics and to contact her physician if she has recurrent diarrhea off antibiotics. Thank you so much for allowing me be part of patient's care Subjective Date/time seen: 07/27/22 13:21 Interval history: 67yo female with colon cancer here for port-a-cath placement that was complicated by a PTX and mediastinal hematoma.? She feels well. She had 15 bowel movements yesterday. she has had only 2 today. still having liquid stool but feels it is better. Exam Narrative: AF 97.7 128/80 98 18 98% ra Gen - NARD Chest - CTA bilaterally. Left upper chest incision is clean, dry and intact CV - RRR S1/S2. Tele showing no significant dysrhythmias Abd - soft, mild diffuse tenderness. +BS Ext - no pedal edema Psych - depressed mood Skin - warm and dry. Objective Data Vital Signs Vital Signs: Vital Signs - 24 hr 07/26/22 16:00 07/26/22 14:00 07/26/22 16:00 Temperature 98.6 F Pulse Rate 103 H 98 121 H Respiratory Rate 16 Blood Pressure 124/98 H Pulse Oximetry 97 Oxygen Delivery 07/26/22 16:00 07/26/22 18:00 07/26/22 21:08 Temperature 97.2 F L Pulse Rate 98 104 H Respiratory Rate 20 Blood Pressure 130/78 Pulse Oximetry 97 Oxygen Delivery Room Air 07/26/22 20:00 07/26/22 20:00 07/26/22 22:00 Temperature Pulse Rate 115 H 99 Respiratory Rate Blood Pressure Pulse Oximetry Oxygen Delivery Room Air 07/26/22 23:30 07/27/22 00:00 07/27/22 00:00 Temperature 97.3 F L Pulse Rate 89 98 Respiratory Rate 20 Blood Pressure 128/74 Pulse Oximetry 97 Oxygen Delivery Room Air 07/27/22 02:00 07/27/22 04:41 07/27/22 04:00 Temperature 97.3 F L Pulse Rate 96 96 Respiratory Rate 20 Blood Pressure 123/74 Pulse Oximetry 98 Oxygen Delivery Room Air 07/27/22 04:00 07/27/22 06:00 07/27/22 08:00 Temperature Pulse Rate 100 97 123 H Respiratory Rate Blood Pressure Pulse Oximetry Oxygen Delivery 07/27/22 08:00 07/27/22 10:00 07/27/22 12:00 Temperature 98.6 F Pulse Rate 106 H 98 117 H Respiratory Rate 18 Blood Pressure 128/83 Pulse Oximetry 96 Oxygen Delivery 07/27/22 12:00 Temperature 97.7 F Pulse Rate 98 Respiratory Rate 18 Blood Pressure 128/80 Pulse Oximetry 98 Oxygen Delivery Inta
--- NOTE | 2022-08-02 08:28 | PC.NURSE ---
Stool cx is negative. Dr. Erwin condon.
== END 2022-07-27 16:20 | disposition home or self-care (01) | DRG 372 ==
LOC: ANHSURGERY 11:02 → ANHIMU 11:02
PROVIDERS: Internal Medicine; Admitting Provider Surgery; PCP Family Medicine; Visit Provider Surgery
PROC: 0JH63WZ Insertion of Totally Implantable Vascular Access Device into Chest Subcutaneous Tissue and Fascia, Percutaneous Approach (ICD-10-PCS; principal; 2022-07-25 13:30)
DX: A04.72 Enterocolitis due to Clostridium difficile, not specified as recurrent (principal); C18.2 Malignant neoplasm of ascending colon; J93.9 Pneumothorax, unspecified; S27.892A Contusion of other specified intrathoracic organs, initial encounter; Z98.890 Other specified postprocedural states
CPT/HCPCS: 36415; 71045; 71260; 77001; 80048; 82274; 85014; 85018; 85027; 85610; 85730; 87045; 87427; 87493; A9270; C1788; J0690; J1644; J1885; J2250; J2270; J2405; J2704; J3010; J7030; J7050; J7120; Q9967

== ENCOUNTER 2023-02-17 15:06 | Outpatient (CLI) | payer MEDICARE, SELFPAY ==
--- NOTE | ~2023-02-17 | CT_ITS ---
CT of the Abdomen and Pelvis: Indication: Colon cancer Technique: 2.5 mm axial scans were obtained through the abdomen and pelvis following intravenous adm inistration of 100 cc of Omnipaque 350. Dose reduction technique was used on this scan by utilizing a utomated exposure control and iterative reconstruction technique. The dose-length product (DLP) was 1 72.99 mGy-cm. COMPARISON: 08/22/2021 Findings: Scans through the lung bases are unremarkable. Stable hepatic cysts are noted. The spleen, pancreas, gallbladder, adrenals and kidneys are within no rmal limits. There are atherosclerotic calcifications of the aorta. No lymphadenopathy. No bowel obstruction or bowel wall thickening. There is evidence of prior partial right colectomy. Images through the pelvis were performed. Urinary bladder unremarkable. No adnexal mass seen. No asci oanh. Small fat-containing right inguinal hernia noted. Impression: No evidence for active malignancy or metastatic disease. Prior partial right colectomy. Small fat-containing right inguinal hernia. Reviewed, dictated and finalized at location . 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 Prior partial right co lectomy. Small fat-containing right inguinal hernia.
[2023-02-17 15:30] LABS: Estimated Glomerular Filt Rate > 60
== END 2023-02-17 15:07 | disposition home or self-care (01) ==
PROVIDERS: PCP Family Medicine; Visit Provider Internal Medicine Hematology & Oncology
DX: C18.2 Malignant neoplasm of ascending colon (principal); K40.90 Unilateral inguinal hernia, without obstruction or gangrene, not specified as recurrent
CPT/HCPCS: 74177; Q9967

== ENCOUNTER 2023-06-16 00:53 | Day surgery (SDC) | payer MEDICARE, SELFPAY ==
[2023-05-23 09:58] VITALS: BMI 19.8
--- NOTE | 2023-06-13 12:25 | SUR.PREOP ---
Patient called regarding upcoming procedure. Reviewed preop instructions, appointment times, and procedure prep.
--- NOTE | 2023-06-13 14:42 | PM.HPGS ---
History of Present Illness History of Present Illness Consent: Risks, benefits, and alternatives have been discussed and questions answered. Patient agrees to proceed with procedure. Chief complaint: Malignant neoplasm of ascending colon Narrative: Loulou Lanier is a 68 year old female Referred for colon cancer screening. She had carcinoma of the ascending colon diagnosed and resected 1 year ago. Review of Systems Review of Systems: All systems reviewed & are unremarkable except as noted in HPI and below PMFSH Past Medical History Medical History Anxiety Arthritis Colon cancer Depression Hyperlipidemia Malignant neoplasm of ascending colon Surgical History Surgical History H/O foot surgery History of colon resection Family History Family History Mother Hypertension Sibling Patient's sister is in good health Father Family history of heart disease in male family member before age 55 Other Family history of cardiovascular disease Social History Social History Smoking status: Never smoker Second hand tobacco smoke exposure: No Alcohol intake: never Alcohol use details: seldom Substance use: never Substance use type: does not use Lack of Transportation: No Lack of Food: Never True Current Housing: I Have Housing Concerned About Future Housing: No Difficulty Paying Gas/Electric Bills: No Difficulty Paying for Meds: No Currently Unemployed: No Education: High School Diploma/GED Difficulty w/ Childcare or Family Care: No Living arrangements: with family Gender identity (if verbalized by the patient): Female Sexual Orientation (if Verbalized by the Patient): Straight or Heterosexual Spiritual care concerns: No Meds Home Medications and Allergies Home Medications Medication Instructions Recorded Confirmed Type fluoxetine 10 mg capsule 30 mg PO DAILY 04/03/22 06/16/23 History omeprazole 40 mg capsule,delayed 40 mg PO DAILY 04/03/22 06/16/23 History release trazodone 50 mg tablet 50 mg PO QHS PRN Insomnia 04/03/22 06/16/23 History clonazepam 0.5 mg tablet 0.5 mg PO PRN PRN Anxiety 07/19/22 06/16/23 History ibuprofen 600 mg tablet 600 mg PO Q6H PRN pain #14 tabs 07/25/22 06/16/23 Rx Allergies Allergy/AdvReac Type Severity Reaction Status Date / Time poison randi extract Allergy Unknown Rash Verified 06/16/23 09:27 Exam Const: General: alert Orientation/consciousness: patient oriented x3 Resp: Auscultation: clear to auscultation bilaterally Cardio: Rhythm: regular rhythm GI: GI Palp: Yes Soft to palpation and No Tenderness to palpation present (GI) Neuro: General: patient oriented x3 Assessment and Plan Assessment and plan (1) Family history of colon cancer: Code(s): Z80.0 - Family history of malignant neoplasm of digestive organs Status: Acute Assessment and Plan: Colonoscopy with possible biopsy or polypectomy or cautery or injection of substances. (2) Malignant neoplasm of ascending colon: Code(s): C18.2 - Malignant neoplasm of ascending colon Status: Chronic
[2023-06-16 09:29] VITALS: BP 112/81; PULSE 92; RESP 16; TEMP 36.1; O2SAT 100
[2023-06-16] MEDS: LACTATED RINGERS 1,000 ML 150 ML IV CONT (09:39)
--- NOTE | 2023-06-16 10:26 | WPDANESEPPF ---
Anes - Initial Pre Proc Eval Procedure: Operation Date: 06/16/23 10:30 Proposed Procedures p Colonoscopy - Eduardo Schuler MD Date/Time: 06/16/23 10:26 Surgeon: Eduardo Schuler MD Pre Op Diagnosis: Malignant neoplasm of ascending colon Patient Data Age: 68 Gender: F Height: 1.57 m Weight: 54.9 kg Last Vital Signs Temp 97.0 F L 06/16/23 09:29 Pulse 92 06/16/23 09:29 Resp 16 06/16/23 09:29 BP 112/81 06/16/23 09:29 Pulse Ox 100 06/16/23 09:29 O2 Del Method Room Air 06/16/23 09:29 Allergies Allergy/AdvReac Type Severity Reaction Status Date / Time poison randi extract Allergy Unknown Rash Verified 06/16/23 09:27 Home Medications Medication Instructions Recorded Confirmed Type fluoxetine 10 mg capsule 30 mg PO DAILY 04/03/22 06/16/23 History omeprazole 40 mg capsule,delayed 40 mg PO DAILY 04/03/22 06/16/23 History release trazodone 50 mg tablet 50 mg PO QHS PRN Insomnia 04/03/22 06/16/23 History clonazepam 0.5 mg tablet 0.5 mg PO PRN PRN Anxiety 07/19/22 06/16/23 History ibuprofen 600 mg tablet 600 mg PO Q6H PRN pain #14 tabs 07/25/22 06/16/23 Rx Patient hx anesthesia problems: none Family hx anesthesia problems: none Results Review: All pre-operative results and documents have been reviewed as part of the pre-operative evaluation. [facility] Past Medical History Medical History Anxiety Arthritis Colon cancer Depression Hyperlipidemia Malignant neoplasm of ascending colon Surgical History Surgical History H/O foot surgery History of colon resection Family History Family History Mother Hypertension Sibling Patient's sister is in good health Father Family history of heart disease in male family member before age 55 Other Family history of cardiovascular disease Social History Social History Smoking status: Never smoker Second hand tobacco smoke exposure: No Alcohol intake: never Alcohol use details: seldom Substance use: never Substance use type: does not use Lack of Transportation: No Lack of Food: Never True Current Housing: I Have Housing Concerned About Future Housing: No Difficulty Paying Gas/Electric Bills: No Difficulty Paying for Meds: No Currently Unemployed: No Education: High School Diploma/GED Difficulty w/ Childcare or Family Care: No Living arrangements: with family Gender identity (if verbalized by the patient): Female Sexual Orientation (if Verbalized by the Patient): Straight or Heterosexual Spiritual care concerns: No Anes - Eval Final PreProcedure Day of Procedure 06/16/23 10:26 Patient weight: normal Heart: regular rate and rhythm Lungs: clear to auscultation Airway: Mallampati scale class II Neurological: alert and oriented Last oral intake: >/= 8 hours ASA classification: III Emergent: no Anesthetic plan: proceed Anesthesia type and monitoring: general GIVS and standard monitoring Results Review: All pre-operative results and documents have been reviewed as part of the pre-operative evaluation. Informed Consent: The patient's anesthetic plan and its attendant risks and benefits were discussed with the patient/family/POA. Questions were solicited and answers provided to the satisfaction of the patient/family/POA.
[2023-06-16 10:47] VITALS: BP 116/74; PULSE 78; RESP 18; O2SAT 97
[2023-06-16 10:57] VITALS: BP 121/76; PULSE 68; RESP 18; O2SAT 100
[2023-06-16 11:07] VITALS: BP 130/83; PULSE 70; RESP 18; O2SAT 100
== END 2023-06-16 11:25 | disposition home or self-care (01) ==
PROVIDERS: PCP Family Medicine; Visit Provider Internal Medicine Gastroenterology
PROC: 0DJD8ZZ Inspection of Lower Intestinal Tract, Via Natural or Artificial Opening Endoscopic (ICD-10-PCS; CPT 45378; principal; 2023-06-16 10:30)
DX: Z08 Encounter for follow-up examination after completed treatment for malignant neoplasm (principal); K62.1 Rectal polyp; D12.8 Benign neoplasm of rectum; K64.8 Other hemorrhoids; F41.9 Anxiety disorder, unspecified; F32.A Depression, unspecified; E78.5 Hyperlipidemia, unspecified; Z98.890 Other specified postprocedural states; Z85.038 Personal history of other malignant neoplasm of large intestine; Z82.49 Family history of ischemic heart disease and other diseases of the circulatory system
CPT/HCPCS: 45380; 88305; J2704; J7120

== ENCOUNTER 2023-06-30 10:34 | Outpatient (CLI) | payer MEDICARE, SELFPAY ==
--- NOTE | ~2023-06-30 | CT_ITS ---
Clinical Indication: Colon cancer CT Scan of the Chest, Abdomen, and Pelvis with Contrast: Technique: Contiguous sections were acquired throughout the chest, abdomen, and pelvis after intraven ous administration of 100 cc of Omnipaque 350. Dose reduction technique was used on this scan by alejandrina barnes automated exposure control and iterative reconstruction technique. The dose-length product (DL P) was 305.91 mGy-cm. COMPARISON: 02/17/2023 Findings: There is no evidence of any significant mediastinal, hilar or axillary lymphadenopathy. The mediastin al soft tissues and vascular structures appear normal. Left-sided Mediport present. There is no evidence of pleural or pericardial effusion. The lungs are clear. No pulmonary nodules or infiltrates are noted. Stable hepatic cyst. The spleen, pancreas, gallbladder, and adrenal glands are within normal limits. Stable probable renal cysts. There are atherosclerotic calcifications of the aorta. No lymphadenopat hy. No bowel obstruction. Questionable mild wall thickening of the gastric antrum versus peristalsis. Griselda dence of prior right partial colectomy. Urinary bladder is unremarkable. No pelvic mass evident. No ascites. Impression: No evidence for active malignancy or metastatic disease. Prior partial right colectomy. Reviewed, dictated and finalized at location . Impression: No evidence for active malignancy or metastatic disease. Prior partial right co lectomy.
[2023-06-30 11:00] LABS: Estimated Glomerular Filt Rate > 60
== END 2023-06-30 10:35 | disposition home or self-care (01) ==
PROVIDERS: PCP Family Medicine; Visit Provider Internal Medicine Hematology & Oncology
DX: C18.2 Malignant neoplasm of ascending colon (principal)
CPT/HCPCS: 36415; 71260; 74177; Q9967

== ENCOUNTER 2023-11-07 10:48 | Outpatient (CLI) | payer MEDICARE, SELFPAY ==
[2023-11-07 11:07] LABS: Basophils Percent Auto 0.6 % (0.2-1.2); Eosinophils Absolute Auto 0.1 K/mm3 (0-0.3); Eosinophils Percent Auto 1.2 % (0-4.4); Hematocrit 39.2 % (37.0-47.0); Hemoglobin 12.5 g/dL (12.0-15.0); Immature Granulocyte Absolute 0.01 K/mm3 (0.00-0.031); Immature Granulocyte Percent A 0.2 % (0-0.5); Lymphocytes Absolute Auto 3.14 K/mm3 (0.9-3.2); Lymphocytes Percent Auto 47.5 % (18.3-44.2); Mean Corpuscular HGB Conc 31.9 g/dl (32-36); Mean Corpuscular Hemoglobin 29.8 pg (26-34); Mean Corpuscular Volume 93.3 fl (80-100); Mean Platelet Volume 9.7 fl (7.4-10.4); Monocytes Absolute Auto 0.4 K/mm3 (0.1-0.6); Monocytes Percent Auto 5.6 % (2.6-8.5); Neutrophils Percent Auto 44.9 % (45.5-73.1); Platelet Count Result 325 k/mm3 (150-375); Red Cell Distribution Width 13.9 % (11.5-14.5); White Blood Count 6.6 K/mm3 (4.5-10.0)
[2023-11-07 11:13] LABS: Blood Urea Nitrogen 23 mg/dL (8-26); Carbon Dioxide 26 mmol/L (22-30); Chloride 105 mmol/L (98-109); Estimated Glomerular Filt Rate > 60; Glucose 113 mg/dL (70-105); Ionized Calcium (POC) 1.19 mmol/L (1.11-1.31); Sodium 142 mmol/L (138-146)
[2023-11-07 15:29] LABS: Alanine Aminotransferase 14 U/L (6-35); Albumin Level 4.5 g/dL (3.5-5.1); Alkaline Phosphatase 67 U/L (38-126); Anion Gap 10 mmol/L (4-12); Aspartate Amino Transferase 22 U/L (14-36); Bilirubin,Total 0.4 mg/dL (0.2-1.3); Blood Urea Nitrogen 25 mg/dL (7-17); Calcium 9.4 mg/dL (8.4-10.2); Carbon Dioxide 28 mmol/L (22-30); Chloride 102 mmol/L (98-107); Estimated Glomerular Filt Rate > 60; Glucose 108 mg/dL (65-110); Potassium 4.1 mmol/L (3.4-5.0); Sodium 140 mmol/L (137-145)
[2023-11-07 16:01] LABS: Carcinoembryonic Antigen 0.9 ng/mL (0.0-3.0)
== END 2023-11-07 10:49 | disposition home or self-care (01) ==
LOC: ANHLAB 10:50
PROVIDERS: PCP Family Medicine; Visit Provider Internal Medicine Hematology & Oncology
DX: C18.2 Malignant neoplasm of ascending colon (principal)
CPT/HCPCS: 36415; 80047; 80053; 82378; 85025

== ENCOUNTER 2024-03-29 09:02 | Outpatient (CLI) | payer MEDICARE, SELFPAY ==
--- NOTE | ~2024-03-29 | CT_ITS ---
CT of the Abdomen and Pelvis: Indication: Colon cancer Technique: 2.5 mm axial scans were obtained through the abdomen and pelvis following intravenous adm inistration of 100 cc of Omnipaque 350. Dose reduction technique was used on this scan by utilizing a utomated exposure control and iterative reconstruction technique. The dose-length product (DLP) was 2 09.13 mGy-cm. COMPARISON: 06/30/2023 Findings: Scans through the lung bases are unremarkable. Hepatic cyst present. The spleen, pancreas, gallbladder, adrenals and kidneys are within normal limit s. No evidence of aortic aneurysm. No lymphadenopathy. No bowel obstruction or bowel wall thickening. Status post partial right colectomy. Images through the pelvis were performed. Urinary bladder unremarkable. No pelvic mass seen. No ascit es. Very small right inguinal hernia contains fat. Impression: No acute abnormality. No evidence for active malignancy or metastatic disease. Small fat-containing right inguinal hernia. Reviewed, dictated and finalized at location . 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 No evidence for active malignancy or metastatic disease. Small fat-containing right inguinal hernia.
[2024-03-29 09:26] LABS: Estimated Glomerular Filt Rate > 60
--- OUTSIDE RECORDS SUMMARY | 2024-04-04 23:28 | XMS_ITS | Encounter Summary ---
Author Organization [facility] Address [address] [place] [address] Care Team Providers Care Extension Edger Name Role Phone Bc Samuels MD Unavailable [phone] Donal Granados MD Primary Care Provider [phone] Encounter Details Date Type Department Care Team (Late st Contact Info) Description 08/18/2022 Orders Only [facility] [address] [place] [address] Bc Samuels MD [address] [place] [address] Malignant neoplasm of hepatic flexure (HCC) Social History Tobacco Use Types Packs/Day Years Used Date Smoking Tobacco: Never Smokeless Tobacco: Never Alcohol Use Standard Drinks/Week Comments Never 0 (1 standard drink = 0.6 oz pur e alcohol) Overall Financial Resource Strain (CARDIA) Answe r Date Recorded How hard is it for you to pa y for the very basics like food, housing, medical care, and heating? Not hard at all 05/27/2022 [facility] - Occupational Stress Questionnaire Answer Date Recorded Do you feel stress - tense, restless, nervous, or anxious, or unable to sleep at night because your mind is troubled all the time - these days? Only a little 05/27/2022 Hunger Vital Sign Answer Date Recorded Within the past 12 months, y ou worried that your food would run out before you got the money to buy more. Never true 02/13/20 23 Within the past 12 months, t he food you bought just didn't last and you didn't have money to get more. Never true 05/27/2022 PRAPARE - Transportation Answer Date Re corded In the past 12 months, has l ack of transportation kept you from medical appointments or from getting medications? No 05/15 In the past 12 months, has l ack of transportation kept you from meetings, work, or from getting things needed for daily living? No 05/27/2022 Housing Stability Vital Sign Answer Maurice e Recorded In the last 12 months, was t here a time when you were not able to pay the mortgage or rent on time? No 05/27/2022 In the last 12 months, how many places have you lived? 1 05/27/2022 In the last 12 months, was t here a time when you did not have a steady place to sleep or slept in a long-term (including now)? No 05/27/2022 Sex and Gender Information Value Date Recorded Sex Assigned at Not on file Gender Identity Not on file Sexual Orientation Not on file documented as of this encounter Functional Status Functional Status Response Date of Assess ment Is person deaf or have serious hearing difficult y? No 05/27/2022 Is person blind or have serious difficulty seein g? No 05/27/2022 Does person have serious dif ficulty walking/climbing stairs? No 05/27/2022 Does person have difficulty dressing/bathing? No 05/27/2022 Does person have difficulty doing errands alone? No 05/27/2022 Cognitive Status Response Date of Assessm ent Does person have difficulty concentrating/remembering/making decisions? No 05/27/2022 documented as of this encounter Plan of Treatment Not on file documented as of this encounter Visit Diagnoses Diagnosis Malignant neoplasm of hepatic flexure (HCC) Malignant neoplasm of hepatic flexure documented in this encounter Care Teams Extension Edger Relationship Specialty Start Date End Date Donal Granados MD [facility] [place] [address] PCP - General Family Medicine 06/18/22 Bc Samuels MD [address] [place] [phone] Surgeon Colon and Rectal Surgery 04/09/22 documented as of this encounter
--- OUTSIDE RECORDS SUMMARY | 2024-04-04 23:28 | XMS_ITS | Encounter Summary ---
Author Organization [facility] Address [address] [place] [address] Care Team Providers Care Insecticide Expert Name Role Phone Bc Samuels MD Unavailable [phone] Donal Granados MD Primary Care Provider [phone] Reason for Visit * Auth/Cert (Routine) Specialty Diagnoses / Procedures Referred By Angie vidal Referred To Contact Procedures LAPAROSCOPIC PARTIAL/ELEUTERIO COLECTOMY Referral ID Status Reason Start Date Expiration Date Visits Re quested Visits Authorized [id number] 1 1 Encounter Details Date Type Department Care Team (Late st Contact Info) Description 05/27/2022 1:43 PM SALES CLERK SUPERVISOR - 05/27/2022 3:26 PM SALES CLERK SUPERVISOR Surgery [facility] Op [address] [place] [address] Bc Samuels MD [address] [facility] [address] [phone] LAPAROSCOPIC ASCENDING COLECTOMY Surgery Details Date/Time Status Location OR Service Patient Class Case Class Case Type Trauma Case? 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 Not hard at all 05/27/2022 [facility] - Occupational Stress [...] the money to buy more. Never true 05/27/19 23 Within the past 12 months, t [...] place to sleep or slept in a long term (including now)? No 05/27/2022 Sex and Gender Information Value Date Recorded Sex Assigned at Not on file Gender Identity Not on file Sexual Orientation Not on file COVID-19 Exposure Response Date Recorded In the last 10 days, have yo u been in contact with someone who was confirmed or suspected to have Coronavirus/COVID-19? Unable to assess 05/17/2022 8:40 AM SALES CLERK SUPERVISOR documented as of this encounter Last Filed Vital Signs Vital Sign Reading Time Taken Comments Blood Pressure 129/64 05/27/2022 3:25 PM SALES CLERK SUPERVISOR Pulse 57 05/27/2022 3:25 PM SALES CLERK SUPERVISOR Temperature 36.9 ??C (98.5 ??F) 05/27/2022 3:00 PM CS T Respiratory Rate 14 05/27/2022 3:25 PM SALES CLERK SUPERVISOR Oxygen Saturation 100% 05/27/2022 3:25 PM SALES CLERK SUPERVISOR Inhaled Oxygen Concentration - - Weight 59.9 kg (132 lb) 05/27/2022 11:54 AM SALES CLERK SUPERVISOR Height 157.5 cm (5' 2 ) 05/27/2022 11:54 AM SALES CLERK SUPERVISOR Body Mass Index 24.14 05/27/2022 11:54 AM SALES CLERK SUPERVISOR documented in this encounter Functional Status Functional Status Response [...] No 05/27/2022 documented as of this encounter Discharge Summaries * Khoi Alexis APRN-CNP - 06/01/2022 6:43 PM CST Images from the original note were not included. Hospitalist Discharge Summary Patient ID: Loulou Leger. female. [id number] JANE: [id number] Admit date: 05/27/2022 10:14 AM Discharge date: 06/01/22 Admitting Physician: Bc Samuels MD Attending Physician: Bc Samuels MD Primary Care Physician: Donal Granados MD Discharge Physician: JANNET Velazquez Discharged Condition: Stable Indication for Admission: No chief complaint on file. Reason for hospitalization: colon mass Discharge Diagnosis: Colon mass Status post colon resection Discharge Disposition: home Follow up Instructions: follow up with Dr. Samuels as OP Risk Factors for Mortality Present at Time of Admission This patient does not have diagnoses most commonly associated with increased mortality risk Hospital Course: Loulou Leger??is a 67 year old??female, who?has a past medical history of Anal pruritus, Anemia, Anxiety disorder, Colonoscopy (04/17/2022), Depression, GERD (gastroesophageal reflux disease), Hematochezia, Hemorrhoids, High cholesterol, and Personal history of colonic polyps.,?has a past surgical history that includes colonoscopy (02/28/2022); colonoscopy (04/2022); and foot surgery (Right, 2007).??Who presents for a laparoscopic ascending colectomy secondary to a colon tumor.?? Patient advanced to full liquid diet on 05.29.22 and became nauseous and had emesis x1 subsequently placed back on clear liquid diet. A/P Pt now able to advance diet to low residue diet. GS ok to be discharged home. Will follow up in theoffice as instructed. Discharge Exam: BP 154/85 Pulse 75 Temp 97.7 ??F (36.5 ??C) (Oral) Resp 18 Ht 1.575 m (5' 2 ) Wt 59.9 kg (132 lb) SpO2 96% General: No acute distress, speaking in full sentences, no use of accessory muscles HEENT: Pupils equal and reactive to light and accommodation, oropharynx is clear Neck: Supple, no lymphadenopathy, no JVD Lungs: Clear to auscultation bilaterally Cardiovascular: Regular rate and rhythm with normal S1 and S2 Abdomen: Soft, nontender, nondistended, normoactive bowel sounds. Surgical incision intact Extremities: No cyanosis clubbing or edema Neuro: Nonfocal, A&O x3 Psych: Normal affect Consults: IP CONSULT TO NUTRITIONAL SERV IP CONSULT TO HOSPITALIST Code Status: Prior Significant Diagnostic Studies: Recent Labs Lab Units 06/01/22 0554 05/31/22 0430 05/30/22 04305/29/22 0441 SODIUM mmol/L 143 143 142 141 POTASSIUM mmol/L 3.6 3.8 3.4* 3.5 CHLORIDE mmol/L 107 105 103 105 CO2 mmol/L 23 30 27 27 BUN mg/dL 17 19 18 10 CREATININE mg/dL 0.65 0.69 0.71 0.72 GLUCOSE mg/dL 88 108* 100 108* CALCIUM mg/dL 8.3* 8.8 8.9 9.2 MAGNESIUM mg/dL -- -- -- 1.9 Recent Labs Lab Units 06/01/22 0553 05/31/22 0430 02/16/23 0437 WBC x10E9/L 7.6 8.7 12.6* RBC x10E12/L 3.30* 3.41* 3.55* HGB gm/dL 9.3* 9.4* 10.0* HCT % 29.5* 30.2* 31.4* MCV fl 89.4 88.6 88.5 MCH pg 28.2 27.6 28.2 MCHC gm/dL 31.5 31.1 31.8 MPV fl 9.6 9.8 10.7 No results for input(s): CK, CKTOTAL, CKMB, CKMBUL, CKMBNGML, TROPONIN, TROPONINI, TROPONINT in thelast 168 hours. No results for input(s): CHOLESTEROL, TRIGLYCERIDE, HDL, LDL, NONHDL in the last 168 hours. No results for input(s): HGBA1C, A1C, TGMEJVBZJ2Y, EAG in the last 168 hours. No results for input(s): AST, ALT in the last 168 hours. Invalid input(s): TOTALBILLIRUBIN, ALK No results for input(s): APT, INR, PTT in the last 168 hours. No results for input(s): FIO2, PH, PCO2, BE, HCO3, PO2, O2SAT in the last 168 hours. No results for input(s): LACTICACID in the last 168 hours. Invalid input(s): PROCT Social Determinants of Health Tobacco Use: Low Risk ??? Smoking Tobacco Use: Never ??? Smokeless Tobacco Use: Never ??? Passive Exposure: Not on file Alcohol Use: Not on file Financial Resource Strain: Low Risk ??? Difficulty of Paying Living Expenses: Not hard at all Food Insecurity: No Food Insecurity ??? Worried About Running Out of Food in the Last Year: Never true ??? Ran Out of Food in the Last Year: Never true Transportation Needs: No Transportation Needs ??? Lack of Transportation (Medical): No ??? Lack of Transportation (Non-Medical): No Stress: No Stress Concern Present ??? Feeling of Stress : Only a little Depression: Not on file Housing Stability: Low Risk ??? Unable to Pay for Housing in the Last Year: No ??? Number of Places Lived in the Last Year: 1 ??? Unstable Housing in the Last Year: No Radiology Reports : No results found. Discharge Medications: Medication List START taking these medications HYDROcodone-acetaminophen 5-325 MG tablet Commonly known as: Boling Take 1 (one) tablet by mouth every 6 hours as needed for Pain CONTINUE taking these medications CALCIUM PO clonazePAM 0.5 MG tablet Commonly known as: KlonoPIN FLUoxetine 20 MG capsule Commonly known as: PROzac multivitamin daily tablet oxwtmehl-dsvmmsldb-hhlyqshn ophthalmic suspension Commonly known as: Maxitrol omeprazole 40 MG capsule Commonly known as: PriLOSEC ondansetron 4 MG tablet Commonly known as: Zofran Take one tablet at 12:00pm and 7:00pm the day before surgery simvastatin 40 MG tablet Commonly known as: Zocor traZODone 50 MG tablet Commonly known as: Desyrel STOP taking these medications Advil 200 MG tablet Generic drug: ibuprofen metroNIDAZOLE 500 MG tablet Commonly known as: Flagyl Where to Get Your Medications These medications were sent to [place] [address] [place] [address] ?? HYDROcodone-acetaminophen 5-325 MG tablet Medications Discontinued during this hospitalization: Medications Discontinued During This Encounter Medication Reason ??? lactated ringers infusion Patient Transfer ??? alvimopan (Entereg) capsule 12 mg Patient Transfer ??? lidocaine (Xylocaine) 1 % injection 0.2 mL Patient Transfer ??? naloxone (Narcan) injection 0.04 mg Patient Transfer ??? fentaNYL (PF) (Sublimaze) injection 25 mcg Patient Transfer ??? HYDROmorphone (Dilaudid) injection 0.2 mg Patient Transfer ??? HYDROmorphone (Dilaudid) injection 0.5 mg Patient Transfer ??? 0.9% NaCl infusion Patient Transfer ??? morphine 50 mg/50 mL STAVE SAW OPERATOR ??? morphine injection 2 mg ??? ibandronate (Boniva) 150 MG tablet No Pharm No AVS ??? neomycin (Mycifradin) 500 MG tablet No Pharm No AVS ??? metroNIDAZOLE (Flagyl) 500 MG tablet Yes Pharm/AVS ??? ibuprofen (Advil) 200 MG tablet Yes Pharm/AVS ??? pantoprazole EC (Protonix) tablet 40 mg Patient Discharge ??? xswxbvgb-igxqadise-dglcowstgmp (Maalox; Mylanta) suspension 15 mL Patient Discharge ??? oxyCODONE-acetaminophen (Percocet) 5-325 MG tablet 1 tablet Patient Discharge ??? metoclopramide (Reglan) injection 10 mg Patient Discharge ??? enoxaparin (Lovenox) injection 40 mg Patient Discharge ??? ondansetron (Zofran) injection 4 mg Patient Discharge ??? ondansetron (disintegrating) (Zofran ODT) tablet 4 mg Patient Discharge ??? acetaminophen (Tylenol) tablet 1,000 mg Patient Discharge ??? 0.9% NaCl injection 1-10 mL Patient Discharge ??? 0.9% NaCl injection 3 mL Patient Discharge ??? lactated ringers infusion Patient Discharge ??? naloxone (Narcan) injection 0.2 mg Patient Discharge ??? traZODone (Desyrel) tablet 50 mg Patient Discharge ??? FLUoxetine (PROzac) capsule 30 mg Patient Discharge ??? clonazePAM (KlonoPIN) tablet 0.5 mg Patient Discharge Patient Instructions: Activity: as tolerated. Diet: DIETARY NUTRITION SUPPLEMENTS DIET LOW FIBER Therapy Ordered: No therapy plan of the specified type found. Follow-up appointments: No follow-ups on file. Time Spent on discharge was greater than 30 minutes. [facility]se Provider Update ?(Yes/No/Not applicable) No Khoi Alexis APRN-MADDISON 06/02/2022 11:49 AM S CLERK SUPERVISOR Associated attestation - Dayron Holt MD - 06/02/2022 12:15 PM SALES CLERK SUPERVISOR I have personally and independently examined the patient and reviewed the chart and all pertinent data including imaging and labs. I agree with the Advanced Practic Provider with the note and treatment plan for this patient. documented in this encounter Discharge Instructions * Discharge Instr - Diet* Bruce Bellamy Graduate Nurse - 06/01/2022 5:17 PM SALES CLERK SUPERVISOR Assessment/Plan Post op day #5 for colon resection Low residue diet for dinner. If ok after that then can leave F/U with Dr. Samuels in about 1 week (call [phone] for appt) Low residue diet at home No lifting over 10 lbs for 6 weeks from surgery. Call MD for temp >101, pain uncontrolled with medications, Nausea, Vomiting or redness or discharge from incisions S CLERK SUPERVISOR documented in this encounter Medications at Time of Discharge Medication Sig Dispensed Refills Start Date End Date CALCIUM PO Take 1 tablet by mouth once daily clonazePAM (KlonoPIN) 0.5 MG tablet clonazepam 0.5 mg tablet TAKE ONE TABLET TWICE DAILY NEEDED FLUoxetine (PROzac) 20 MG capsule Take 30 mg by mouth once daily multivitamin daily tablet Take 1 (one) tablet by mouth daily with food lsgluehy-lymawgrht-hmc ameth (Maxitrol) ophthalmic suspension Instill 1 (one) drop into both eyes once daily omeprazole (PriLOSEC) 40 MG capsule Take 1 (one) capsule by mouth at bedtime ondansetron (Zofran) 4 MG tablet Take one tablet at 12:00pm and 7:00pm the day before surgery 2 tablet 05/02/2022 simvastatin (Zocor) 40 MG tablet Take 1 (one) tablet by mouth at bedtime traZODone (Desyrel) 50 MG tablet Take 1 (one) tablet by mouth at bedtime HYDROcodone-acetaminop hen (Boling) 5-325 MG tabletIndications: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),Diagnosis unknown,Ileus (HCC) Take 1 (one) tablet by mouth every 6 hours as needed for Pain 12 tablet 06/01/2022 07/01/2022 documented as of this encounter Progress Notes * Bruce Bellamy Graduate Nurse - 06/01/2022 6:42 PM CST Problem: Pain/Discomfort Goal: Patient exhibits reduced pain/discomfort as evidenced by pain scores 06/01/20221841 by Bruce Bellamy Graduate Nurse Outcome: Adequate for Discharge 06/01/2022 184 by Bruce Bellamy Graduate Nurse Outcome: Adequate for Discharge 06/01/2022 1518 by Bruce Bellamy Graduate Nurse Outcome: Progressing Goal: Patient uses pharmacological and non-pharmacological pain management strategies. 06/01/2022 184 by Bruce Bellamy Graduate Nurse Outcome: Adequate for Discharge 06/01/2022 184 by Bruce Bellamy Graduate Nurse Outcome: Adequate for Discharge 06/01/2022 1518 by Bruce Bellamy Graduate Nurse Outcome: Progressing Goal: Patient verbalizes acceptable level of pain relief and ability to engage in desired activity. 06/01/2022 184 by Bruce Bellamy Graduate Nurse Outcome: Adequate for Discharge 06/01/2022 184 by Bruce Bellamy Graduate Nurse Outcome: Adequate for Discharge 06/01/2022 1518 by Bruce Bellamy Graduate Nurse Outcome: Progressing Problem: Fall Risk Goal: Fall risk and fall related injury risk are minimized (interventions related to the fall risk can be found in the flowsheet documentation) 06/01/20221841 by Bruce Bellamy Graduate Nurse Outcome: Adequate for Discharge 06/01/2022 184 by Bruce Bellamy Graduate Nurse Outcome: Adequate for Discharge 06/01/2022 1518 by Bruce Bellamy Graduate Nurse Outcome: Adequate for Discharge Problem: Mobility Goal: STG - Patient will ambulate Description: Without AD for at least 150ft. Independently 06/01/20221841 by Bruce Bellamy Graduate Nurse Outcome: Adequate for Discharge 06/01/2022 184 by Bruce Bellamy Graduate Nurse Outcome: Adequate for Discharge Goal: STG - Patient will ascend and descend four to six stairs Description: With rails and Mod. Independently 06/01/20221841 by Bruce Bellamy Graduate Nurse Outcome: Adequate for Discharge 06/01/2022 184 by Bruce Bellamy Graduate Nurse Outcome: Adequate for Discharge Problem: General Goal: STG-Patient will Description: Complete LBD with SBA with adapted tech, LH a/e prn. 06/01/20221841 by Bruce Bellamy Graduate Nurse Outcome: Adequate for Discharge 06/01/20221841 by Bruce Bellamy Graduate Nurse Outcome: Adequate for Discharge Goal: STG-Patient will Description: Complete toilet transfers with SBA or better with equipment. 06/01/2022 184 by Bruce Bellamy Graduate Nurse Outcome: Adequate for Discharge 06/01/2022 184 by Bruce Bellamy Graduate Nurse Outcome: Adequate for Discharge Problem: Nutrient: Increased nutrient needs (specify) Goal: Total intake will meet estimated nutrient needs Description: Estimated Needs: KCAL: 2277-1882 (25-30 kcal/kg ABW) Protein (g): 72-84 (1.2-1.4 g/kg ABW) 06/01/2022 184 by Bruce Bellamy Graduate Nurse Outcome: Adequate for Discharge 06/01/2022 184 by Bruce Bellamy Graduate Nurse Outcome: Adequate for Discharge 06/01/2022 1518 by Bruce Bellamy Graduate Nurse Outcome: Progressing Problem: Procedural Site (Incision) Care Goal: Incision remains intact with edges well approximated 06/01/20221841 by Bruce Bellamy Graduate Nurse Outcome: Adequate for Discharge 06/01/2022 184 by Bruce Bellamy Graduate Nurse Outcome: Adequate for Discharge 06/01/2022 1518 by Bruce Bellamy Graduate Nurse Outcome: Adequate for Discharge Goal: Incision is free of infection. 06/01/2022 184 by Bruce Bellamy Graduate Nurse Outcome: Adequate for Discharge 06/01/2022 184 by Bruce Bellamy Graduate Nurse Outcome: Adequate for Discharge 06/01/2022 1518 by Bruce Bellamy Graduate Nurse Outcome: Adequate for Discharge Problem: Oxygenation/Respiratory Function Goal: Patient will achieve/maintain baseline respiratory rate/effort 06/01/2022 184 by Bruce Bellamy Graduate Nurse Outcome: Adequate for Discharge 06/01/2022 184 by Bruce Bellamy Graduate Nurse Outcome: Adequate for Discharge 06/01/2022 1518 by Bruce Bellamy Graduate Nurse Outcome: Adequate for Discharge Problem: Mobility Goal: Early mobilization is achieved 06/01/2022 184 by Bruce Bellamy Graduate Nurse Outcome: Adequate for Discharge 06/01/2022 1842 by Bruce Bellamy Graduate Nurse Outcome: Adequate for Discharge Problem: Elimination--Bowel Goal: Elimination patterns are normal or improving 06/01/20221841 by Bruce Bellamy Graduate Nurse Outcome: Adequate for Discharge 06/01/20221841 by Bruce Bellamy Graduate Nurse Outcome: Adequate for Discharge S CLERK SUPERVISOR * Bruce Bellamy Graduate Nurse - 06/01/2022 3:20 PM CST Problem: Pain/Discomfort Goal: Patient exhibits reduced pain/discomfort as evidenced by pain scores Outcome: Progressing Goal: Patient uses pharmacological and non-pharmacological pain management strategies. Outcome: Progressing Goal: Patient verbalizes acceptable level of pain relief and ability to engage in desired activity. Outcome: Progressing Problem: Nutrient: Increased nutrient needs (specify) Goal: Total intake will meet estimated nutrient needs Description: Estimated Needs: KCAL: 4549-5446 (25-30 kcal/kg ABW) Protein (g): 72-84 (1.2-1.4 g/kg ABW) Outcome: Progressing Problem: Fall Risk Goal: Fall risk and fall related injury risk are minimized (interventions related to the fall risk can be found in the flowsheet documentation) Outcome: Adequate for Discharge Problem: Procedural Site (Incision) Care Goal: Incision remains intact with edges well approximated Outcome: Adequate for Discharge Goal: Incision is free of infection. Outcome: Adequate for Discharge Problem: Oxygenation/Respiratory Function Goal: Patient will achieve/maintain baseline respiratory rate/effort Outcome: Adequate for Discharge S CLERK SUPERVISOR * Bc Samuels MD - 06/01/2022 3:12 PM CST Colorectal Surgery Progress Note Admit Date: 05/27/2022 10:14 AM Hospital Day: 5 Subjective Doing ok Moving bowels No nausea by her report On full liqudis Objective No data found.Supplemental Oxygen (last filed value): O2 L/M: 2 (05/28/22 0433) Intake/Output Summary (Last 24 hours) at 06/01/2022 1513 Last data filed at 06/01/2022 1330 Gross per 24 hour Intake 660 ml Output -- Net 660 ml Recent Labs Component Name 06/01/22 0553 05/31/22 0430 05/30/227 WBC 7.6 8.7 12.6* HGB 9.3* 9.4* 10.0* HCT 29.5* 30.2* 31.4* PLTCOUNT 389 384 367 Recent Labs Component Name 06/01/22 0554 05/31/22 0430 05/30/22436 SODIUM 143 143 142 POTASSIUM 3.6 3.8 3.4* CHLORIDE 107 105 103 CO2 23 30 27 BUN 17 18 CREATININE 0.65 0.69 0.71 GLUCOSE 88 108* 100 CALCIUM 8.3* 8.8 8.9 REVIEW OF SYSTEMS: A comprehensive review of systems was negative except as described in HPI. Physical Exam Patient Vitals for the past 24 hrs: Temp Pulse Resp BP 06/01/22 1110 97.7 ??F (36.5 ??C) 75 18 154/85 06/01/22 0805 97.8 ??F (36.6 ??C) 80 18 146/79 06/01/22 0237 98.5 ??F (36.9 ??C) 75 16 142/71 05/31/22 2333 98.7 ??F (37.1 ??C) 74 16 123/64 05/31/22 1930 98.2 ??F (36.8 ??C) 79 18 141/80 05/31/22 1537 97.8 ??F (36.6 ??C) 66 18 153/85 Abd soft/ND/JESSICA Incisions C/D/I Assessment/Plan Post op day #5 for colon resection Low residue diet for dinner. If ok after that then can leave F/U with Dr. Samuels in about 1 week (call [phone] for appt) Low residue diet at home No lifting over 10 lbs for 6 weeks from surgery. Call for temp >101, pain uncontrolled with medications, Nausea, Vomiting or redness or discharge from incisions Bc Samuels MD FACS FASCRS associate professor of kinesiology [facility] [address] S CLERK SUPERVISOR * Khoi Alexis APRN-MADDISON - 06/01/2022 12:07 PM CST Images from the original note were not included. Hospitalist Service Progress Note JANE: [id number] Chief Complaint : No chief complaint on file. Subjective: Loulou Leger is a 67 year old female, who has a past medical history of Anal pruritus, Anemia, Anxiety disorder, Colonoscopy (04/17/2022), Depression, GERD (gastroesophageal reflux disease), Hematochezia, Hemorrhoids, High cholesterol, and Personal history of colonic polyps., has a past surgical history that includes colonoscopy (02/28/2022); colonoscopy (04/2022); and foot surgery (Right, 2007). Who presents for a laparoscopic ascending colectomy secondary to a colon tumor. Patient advanced to full liquid diet on 05.29.22 and became nauseous and had emesis x1 subsequently placed back on clear liquid diet. 05/29: pt c/o left abd gas pains this AM. Encouraged ambulation > she has ambulated multiple times already. Unable to tolerate FLD 2/2 pain > back to CLD. 05/31/2022 I resumed care from MORENA Carrera under supervision of Dr. Topete. Pt is sitting up in chair. +flattus. On full liquid today. 06/01/2022 sleeping in bed. Abdominal pain has been improving but appetite has been poor. Assessment / Plan: Ascending Colon Tumor s/p R Colectomy on 05/27/2022 - on full liquid diet - Encourage mobility - Management per colorectal surgery - pain control on oral pain medication Hypokalemia, resolved - K+ 3.8 - Replacing - BMP in the AM GERD/GI PPX: - PPI NGOC - Cont home meds VTE Prophylaxis: VTE Chemical Prophylaxis Orders (From admission, onward) Ordered Start Stop 05/27/22 1637 enoxaparin (Lovenox) injection 40 mg 40 mg, Subcutaneous, DAILY 05/28/22 0900 -- VTE Mechanical Prophylaxis Orders (From admission, onward) Ordered Start 05/27/22 1637 SEQUENTIAL COMPRESSION DEVICE (IMPLEMENT) CONTINUOUS Start Time: 05/27/221644 Order ID: [id number] Status: Sent 05/27/221644 Social Determinants of Health Tobacco Use: Low Risk ??? Smoking Tobacco Use: Never ??? Smokeless Tobacco Use: Never ??? Passive Exposure: Not on file Alcohol Use: Not on file Financial Resource Strain: Low Risk ??? Difficulty of Paying Living Expenses: Not hard at all Food Insecurity: No Food Insecurity ??? Worried About Running Out of Food in the Last Year: Never true ??? Ran Out of Food in the Last Year: Never true Transportation Needs: No Transportation Needs ??? Lack of Transportation (Medical): No ??? Lack of Transportation (Non-Medical): No Stress: No Stress Concern Present ??? Feeling of Stress : Only a little Depression: Not on file Housing Stability: Low Risk ??? Unable to Pay for Housing in the Last Year: No ??? Number of Places Lived in the Last Year: 1 ??? Unstable Housing in the Last Year: No Objective: BP 146/79 Pulse 80 Temp 97.8 ??F (36.6 ??C) (Oral) Resp 18 Ht 1.575 m (5' 2 ) Wt 59.9 kg (132 lb) SpO2 94% Vital Signs Temp: 97.8 ??F (36.6 ??C) Temp src: Oral Pulse: 80 Resp: 18 BP: 146/79 Physical Exam: General: No acute distress, speaking in full sentences, no use of accessory muscles HEENT: Pupils equal and reactive to light and accommodation, oropharynx is clear Neck: Supple, no lymphadenopathy, no JVD Lungs: Clear to auscultation bilaterally Cardiovascular: Regular rate and rhythm with normal S1 and S2 Abdomen: Soft, distended, left sided TTP, Incision CDI, open to air. Hypoactive bs x 4. Extremities: No cyanosis clubbing or edema Neuro: Nonfocal, A&O x3 Psych: Normal affect MEDICATIONS FOR CURRENT ENCOUNTER: SCHEDULED MEDICATIONS: 0.9% NaCl injection 3 mL, Intracatheter, q8h acetaminophen (Tylenol) tablet 1,000 mg, Oral, q6h enoxaparin (Lovenox) injection 40 mg, Subcutaneous, QDAY FLUoxetine (PROzac) capsule 30 mg, Oral, QDAY metoclopramide (Reglan) injection 10 mg, Intravenous, q6h pantoprazole EC (Protonix) tablet 40 mg, Oral, QDAY traZODone (Desyrel) tablet 50 mg, Oral, AT BEDTIME ?? [COMPLETED] gabapentin (Neurontin) capsule 300 mg, Oral, AT BEDTIME CONTINUOUS MEDICATIONS: ?? lactated ringers infusion, Intravenous, Continuous PRN MEDICATIONS: Or 0.9% NaCl injection 1-10 mL, Intracatheter, PRN dblflctx-fplsceoxn-idoqfqxhlpq (Maalox; Mylanta) suspension 15 mL, Oral, q6h PRN clonazePAM (KlonoPIN) tablet 0.5 mg, Oral, BID PRN naloxone (Narcan) injection 0.2 mg, Intravenous, PRN ondansetron (disintegrating) (Zofran ODT) tablet 4 mg, Oral, q6h PRN ondansetron (Zofran) injection 4 mg, Intravenous, q6h PRN ?? oxyCODONE-acetaminophen (Percocet) 5-325 MG tablet 1 tablet, Oral, q4h PRN LAB: Recent Labs Lab Units 06/01/22 0554 05/31/22 0430 05/30/22 0437 05/29/2244005/28/22 0429 SODIUM mmol/L 143 143 142 141 140 POTASSIUM mmol/L 3.6 3.8 3.4* 3.5 3.8 CHLORIDE mmol/L 107 105 103 105 106 CO2 mmol/L 23 30 27 27 24 BUN mg/dL 17 19 18 10 16 CREATININE mg/dL 0.65 0.69 0.71 0.72 0.69 GLUCOSE mg/dL 88 108* 100 108* 136* CALCIUM mg/dL 8.3* 8.8 8.9 9.2 8.8 MAGNESIUM mg/dL -- -- -- 1.9 -- Recent Labs Lab Units 06/01/22 0553 05/31/22 0430 05/30/22 0437 05/29/22 0441 05/28/22 0429 WBC x10E9/L 7.6 8.7 12.6* 11.6* 14.5* RBC x10E12/L 3.30* 3.41* 3.55* 3.57* 3.46* HGB gm/dL 9.3* 9.4* 10.0* 10.2* 9.8* HCT % 29.5* 30.2* 31.4* 31.9* 31.0* MCV fl 89.4 88.6 88.5 89.4 89.6 MCH pg 28.2 27.6 28.2 28.6 28.3 MCHC gm/dL 31.5 31.1 31.8 32.0 31.6 MPV fl 9.6 9.8 10.7 10.3 10.4 No results for input(s): CK, CKTOTAL, CKMB, CKMBUL, CKMBNGML, TROPONIN, TROPONINI, TROPONINT in thelast 168 hours. No results for input(s): CHOLESTEROL, TRIGLYCERIDE, HDL, LDL, NONHDL in the last 168 hours. No results for input(s): HGBA1C, A1C, JQINNVQIW2U, EAG in the last 168 hours. No results for input(s): AST, ALT in the last 168 hours. Invalid input(s): TOTALBILLIRUBIN, ALK No results for input(s): APT, INR, PTT in the last 168 hours. No results for input(s): FIO2, PH, PCO2, BE, HCO3, PO2, O2SAT in the last 168 hours. No results for input(s): LACTICACID in the last 168 hours. Invalid input(s): PROCT IMAGING: No results found. [facility] Provider Update Khoi Alexis APRN-MADDISON 06/01/2022 12:07 PM S CLERK SUPERVISOR Associated attestation - Dayron Holt MD - 06/01/2022 1:26 PM SALES CLERK SUPERVISOR I have personally and independently examined the patient and reviewed the chart and all pertinent data including imaging and labs. I agree with the Advanced Practic Provider with the note and treatment plan for this patient. * Whitney Boland RN - 05/31/2022 8:40 PM CST Problem: Pain/Discomfort Goal: Patient exhibits reduced pain/discomfort as evidenced by pain scores Outcome: Progressing Goal: Patient uses pharmacological and non-pharmacological pain management strategies. Outcome: Progressing Goal: Patient verbalizes acceptable level of pain relief and ability to engage in desired activity. Outcome: Progressing Problem: Fall Risk Goal: Fall risk and fall related injury risk are minimized (interventions related to the fall risk can be found in the flowsheet documentation) Outcome: Progressing Problem: Procedural Site (Incision) Care Goal: Incision remains intact with edges well approximated Outcome: Progressing Goal: Incision is free of infection. Outcome: Progressing Problem: Mobility Goal: Early mobilization is achieved Outcome: Progressing Problem: Elimination--Bowel Goal: Elimination patterns are normal or improving Outcome: Progressing S CLERK SUPERVISOR * Cathi Kothari, PT - 05/31/2022 5:52 PM CST Physical Therapy Treatment Summary Chart review completed. Nursing consented for PT. Explained purpose of PT and patient consented to participate in therapy. PPE worn by staff: gloves;mask - procedural PPE worn by patient: mask - procedural SUBJECTIVE: Subjective: Pt. agreeable to PT Patient's Primary Concern: abdominal pain/tightness Patient's Goal for the Day: None stated Pain Assessment: Pain Location #1 Pain Scale/Observation: Numeric (0-10) Pain Rating Score #1: 8 Goal Numeric Pain Scale: 2 Pain Location : Abdomen Pain Orientation: Right;Left;Lower Pain Quality: Discomfort (tightness) Aggravating Factors: Movement;Activity Relieved By: Medications OBJECTIVE: Orientation Level: Oriented X4 Precautions: Fall risk is minimal Abdominal precautions Bed Mobility: Pt. Had performed before I arrived Transfers: Sit to Stand: Complete Bates Stand to Sit: Supervision Mobility: Distance Ambulated: 500 FEET Ambulation: Assistive Device: Gait Belt;Walker-2 Wheeled Ambulation: Level of Assistance: Supervision Ambulation: Gait Deviations: Antalgic;Elsa - Decreased;Increased Weight Bearing through Upper Extremity;Hip/knee flexion during swing phase-- decreased;Step Length - Decreased Balance: Sitting - Static: Good Standing - Static: Good Standing - Dynamic: Good -;With Both Upper Extremity's Support Activity Tolerance and O2 Requirements: Activity Tolerance: Tolerates ADLs without rest breaks $ O2 DEVICE: Room Air ASSESSMENT: Pt. Responded to this therapy session well. She was initially amb. Out of her room and into the hallway when I arrived. She amb. an additional 500ft with the ww and supervision. She was independent for sit to stand and supervision only for stand to sit. She reported having no trouble with log rolling and supine to sit transfers. She amb. Later in the day with her and no ww. Call light and phone in reach. All lines, monitors, IV's, equipment in place and intact pre and post visit. Pt re- educated in PT plan of care, fall precautions, and benefits of OOB activity. RN, Danish, notified of patient's performance/location end of session.. Please refer to the Filed Flowsheet for further details. Refer to Plan of Care for PT goals. RECOMMENDATIONS/PLAN: Pt. Will continue to amb. On her own and at this time, no further PT recommended due to her level of independence. If there should be a change in her status, please feel free toreorder our service. If this is the last Physical Therapy visit, this note serves as the discharge summary. Cathi Kothari PT x [phone] S CLERK SUPERVISOR * Cathi Kothari, PT - 05/31/2022 5:52 PM CST Problem: Mobility Goal: STG - Patient will ambulate Description: Without AD for at least 150ft. Independently Outcome: Progressing Goal: STG - Patient will ascend and descend four to six stairs Description: With rails and Mod. Independently Outcome: Progressing S CLERK SUPERVISOR * Alison Vences RN - 05/31/2022 2:44 PM CST Case Management Progress Note Anticipated level of care at discharge: Home Discharge Plan: Home Chart reviewed. Patient continues on a full liquid diet today. Plans are that patient will be goinghome once medically stable for discharge. Patient voices no concerns for any discharge needs at this time. [facility] will continue to follow for any discharge needs. Readmission: No Readmission Risk: READMISSION RISK SCORE is 7 at 2:44 PM 05/31/2022. Anticipated Discharge Date: Anticipated Discharge Date: 06/02/22 Patient/Family provided with list of resources? Yes Preferred Provider / High Quality Network List given?: Yes Reason for provider choice: Pt. choice - Pt. choice Transportation at Discharge: Family ( -- Nikos at [phone]) Transportation to MD:Drives self Equipment at Home: Equipment at Home: None Hunger Screening: Within the past 12 months, you worried that your food would run out before you got the money to buymore.: Never true Within the past 12 months, the food you bought just didn't last and you didn't have money to get more.: Never true [employer] Resources Provided: Not offered to the patient Medication affordability concerns: No Auth Number (if required) NH: DME: Medications: Transportation: Name: Alison Vences RN S CLERK SUPERVISOR * Khoi Alexis, GRANULATOR MACHINE OPERATOR-DIRECTOR OF SOCIAL MEDIA MARKETING - 05/31/2022 12:28 PM CST Images from the original note were not included. Hospitalist Service Progress Note JANE: [id number] Chief Complaint : No chief complaint on file. Subjective: Loulou Leger is a 67 year old female, who has a past medical history of Anal pruritus, Anemia, Anxiety disorder, Colonoscopy (04/17/2022), Depression, GERD (gastroesophageal reflux disease), Hematochezia, Hemorrhoids, High cholesterol, and Personal history of colonic polyps., has a past surgical history that includes colonoscopy (02/28/2022); colonoscopy (04/2022); and foot surgery (, 2007). Who presents for a laparoscopic ascending colectomy secondary to a colon tumor. Patient advanced to full liquid diet on 05.29.22 and became nauseous and had emesis x1 subsequently placed back on clear liquid diet. 05/29: pt c/o left abd gas pains this AM. Encouraged ambulation > she has ambulated multiple times already. Unable to tolerate FLD 2/2 pain > back to CLD. 05/31/2022 I resumed care from MORENA Carrera under supervision of Dr. Topete. Pt is sitting up in chair. +flattus. On full liquid today. Assessment / Plan: Ascending Colon Tumor s/p R Colectomy on 05/27/2022 - on full liquid diet - Encourage mobility - Management per colorectal surgery - pain control on oral pain medication Hypokalemia, resolved - K+ 3.8 - Replacing - BMP in the AM GERD/GI PPX: - PPI NGOC - Cont home meds VTE Prophylaxis: VTE Chemical Prophylaxis Orders (From admission, onward) Ordered Start Stop 05/27/22 1637 enoxaparin (Lovenox) injection 40 mg 40 mg, Subcutaneous, DAILY 05/28/22 0900 -- VTE Mechanical Prophylaxis Orders (From admission, onward) Ordered Start 05/27/22 1637 SEQUENTIAL COMPRESSION DEVICE (IMPLEMENT) CONTINUOUS Start Time: 05/27/22 1645 Order ID: [id number] Status: Sent 05/27/22 1645 Social Determinants of Health Tobacco Use: Low Risk ??? Smoking Tobacco Use: Never ??? Smokeless Tobacco Use: Never ??? Passive Exposure: Not on file Alcohol Use: Not on file Financial Resource Strain: Low Risk ??? Difficulty of Paying Living Expenses: Not hard at all Food Insecurity: No Food Insecurity ??? Worried About Running Out of Food in the Last Year: Never true ??? Ran Out of Food in the Last Year: Never true Transportation Needs: No Transportation Needs ??? Lack of Transportation (Medical): No ??? Lack of Transportation (Non-Medical): No Stress: No Stress Concern Present ??? Feeling of Stress : Only a little Depression: Not on file Housing Stability: Low Risk ??? Unable to Pay for Housing in the Last Year: No ??? Number of Places Lived in the Last Year: 1 ??? Unstable Housing in the Last Year: No Objective: BP 137/74 Pulse 74 Temp 98.7 ??F (37.1 ??C) (Oral) Resp 18 Ht 1.575 m (5' 2 ) Wt 59.9 kg (132 lb) SpO2 92% Vital Signs Temp: 98.7 ??F (37.1 ??C) Temp src: Oral Pulse: 74 Resp: 18 BP: 137/74 Physical Exam: General: No acute distress, speaking in full sentences, no use of accessory muscles HEENT: Pupils equal and reactive to light and accommodation, oropharynx is clear Neck: Supple, no lymphadenopathy, no JVD Lungs: Clear to auscultation bilaterally Cardiovascular: Regular rate and rhythm with normal S1 and S2 Abdomen: Soft, distended, left sided TTP, Incision CDI, open to air. Hypoactive bs x 4. Extremities: No cyanosis clubbing or edema Neuro: Nonfocal, A&O x3 Psych: Normal affect MEDICATIONS FOR CURRENT ENCOUNTER: SCHEDULED MEDICATIONS: 0.9% NaCl injection 3 mL, Intracatheter, q8h acetaminophen (Tylenol) tablet 1,000 mg, Oral, q6h enoxaparin (Lovenox) injection 40 mg, Subcutaneous, QDAY FLUoxetine (PROzac) capsule 30 mg, Oral, QDAY gabapentin (Neurontin) capsule 300 mg, Oral, AT BEDTIME metoclopramide (Reglan) injection 10 mg, Intravenous, q6h traZODone (Desyrel) tablet 50 mg, Oral, AT BEDTIME ?? [COMPLETED] potassium chloride ER (Klor-Con) tablet 40 mEq, Oral, Once CONTINUOUS MEDICATIONS: ?? lactated ringers infusion, Intravenous, Continuous PRN MEDICATIONS: Or 0.9% NaCl injection 1-10 mL, Intracatheter, PRN lbsrzckc-ifzxsqapk-fqksovbsktb (Maalox; Mylanta) suspension 15 mL, Oral, q6h PRN clonazePAM (KlonoPIN) tablet 0.5 mg, Oral, BID PRN naloxone (Narcan) injection 0.2 mg, Intravenous, PRN ondansetron (disintegrating) (Zofran ODT) tablet 4 mg, Oral, q6h PRN ondansetron (Zofran) injection 4 mg, Intravenous, q6h PRN ?? oxyCODONE-acetaminophen (Percocet) 5-325 MG tablet 1 tablet, Oral, q4h PRN LAB: Recent Labs Lab Units 05/31/22 0430 05/30/22 0437 05/29/22 0441 05/28/22 0429 SODIUM mmol/L 143 142 141 140 POTASSIUM mmol/L 3.8 3.4* 3.5 3.8 CHLORIDE mmol/L 105 103 105 106 CO2 mmol/L 30 27 27 24 BUN mg/dL 19 18 10 16 CREATININE mg/dL 0.69 0.71 0.72 0.69 GLUCOSE mg/dL 108* 100 108* 136* CALCIUM mg/dL 8.8 8.9 9.2 8.8 MAGNESIUM mg/dL -- -- 1.9 -- Recent Labs Lab Units 05/31/22 0430 05/30/22 0437 05/29/22 0441 05/28/22 0429 WBC x10E9/L 8.7 12.6* 11.6* 14.5* RBC x10E12/L 3.41* 3.55* 3.57* 3.46* HGB gm/dL 9.4* 10.0* 10.2* 9.8* HCT % 30.2* 31.4* 31.9* 31.0* MCV fl 88.6 88.5 89.4 89.6 MCH pg 27.6 28.2 28.6 28.3 MCHC gm/dL 31.1 31.8 32.0 31.6 MPV fl 9.8 10.7 10.3 10.4 No results for input(s): CK, CKTOTAL, CKMB, CKMBUL, CKMBNGML, TROPONIN, TROPONINI, TROPONINT in thelast 168 hours. No results for input(s): CHOLESTEROL, TRIGLYCERIDE, HDL, LDL, NONHDL in the last 168 hours. No results for input(s): HGBA1C, A1C, [id number], EAG in the last 168 hours. No results for input(s): AST, ALT in the last 168 hours. Invalid input(s): TOTALBILLIRUBIN, ALK No results for input(s): APT, INR, PTT in the last 168 hours. No results for input(s): FIO2, PH, PCO2, BE, HCO3, PO2, O2SAT in the last 168 hours. No results for input(s): LACTICACID in the last 168 hours. Invalid input(s): PROCT IMAGING: No results found. [facility] Provider Update JANNET Velazquez 05/31/2022 7:22 AM S CLERK SUPERVISOR Associated attestation - Zee Topete MD - 06/04/2022 6:55 AM SALES CLERK SUPERVISOR Collaborating Physician Supervisory Note Patient was evaluated and cared for in conjunction with an Advanced Practice Provider Khoi Alexis CNP on 05/31. I have personally and independently examined the patient and reviewed the chart and allpertinent data including imaging and labs and agree and discussed with the Advanced Practice Provider. Please refer to her progress note for complete assessment, testing results and agreed upon plan of care for the patient. Zee Topete MD * Bc Samuels MD - 05/31/2022 9:29 AM CST Colorectal Surgery Progress Note Admit Date: 05/27/2022 10:14 AM Hospital Day: 4 Subjective Some nausea Pain controlled Some BMs and flatus Objective No data found.Supplemental Oxygen (last filed value): O2 L/M: 2 (05/28/22432) Intake/Output Summary (Last 24 hours) at 05/31/2022 0930 Last data filed at 05/30/20222024 Gross per 24 hour Intake 350 ml Output -- Net 350 ml Recent Labs Component Name 05/31/2242905/30/2243605/29/22440 WBC 8.7 12.6* 11.6* HGB 9.4* 10.0* 10.2* HCT 30.2* 31.4* 31.9* PLTCOUNT 384 367 343 Recent Labs Component Name 05/31/2242905/30/2243605/29/22440 SODIUM 143 142 141 POTASSIUM 3.8 3.4* 3.5 CHLORIDE 105 103 105 CO2 30 27 27 BUN 19 18 10 CREATININE 0.69 0.71 0.72 GLUCOSE 108* 100 108* CALCIUM 8.8 8.9 9.2 REVIEW OF SYSTEMS: A comprehensive review of systems was negative except as described in HPI. Physical Exam Patient Vitals for the past 24 hrs: Temp Pulse Resp BP 05/31/22436 98.7 ??F (37.1 ??C) 74 18 137/74 05/30/22 2302 98.4 ??F (36.9 ??C) 96 18 138/89 05/30/222028 98.1 ??F (36.7 ??C) -- -- -- 05/30/222024 -- 81 18 141/91 05/30/22 1601 98.2 ??F (36.8 ??C) 81 16 142/89 05/30/22 1150 98.4 ??F (36.9 ??C) 83 18 143/86 Abd soft/ND/JESSICA Incisions C/D/I Assessment/Plan Post op day #4 for colon resection Ambulate Repeat OBS Liquids for now. Will review films Bc Samuels MD FACS FASCCANDACE associate professor of kinesiology [place] [phone] S CLERK SUPERVISOR * Carolyn Cortes RN - 05/31/2022 12:00 AM CST Problem: Pain/Discomfort Goal: Patient exhibits reduced pain/discomfort as evidenced by pain scores Outcome: Progressing Goal: Patient uses pharmacological and non-pharmacological pain management strategies. Outcome: Progressing Goal: Patient verbalizes acceptable level of pain relief and ability to engage in desired activity. Outcome: Progressing Problem: Fall Risk Goal: Fall risk and fall related injury risk are minimized (interventions related to the fall risk can be found in the flowsheet documentation) Outcome: Progressing Problem: Mobility Goal: STG - Patient will ambulate Description: Without AD for at least 150ft. Independently Outcome: Progressing Goal: STG - Patient will ascend and descend four to six stairs Description: With rails and Mod. Independently Outcome: Progressing Problem: Transfers Goal: STG - Patient to transfer to and from sit to supine Description: Log roll technique independently Outcome: Progressing Goal: STG - Patient will perform bed mobility Description: Log rolling left and right independently Outcome: Progressing Goal: STG - Patient will transfer sit to and from stand Description: Mod Independently Outcome: Progressing Problem: General Goal: STG-Patient will Description: Complete LBD with SBA with adapted tech, LH a/e prn. Outcome: Progressing Goal: STG-Patient will Description: Complete toilet transfers with SBA or better with equipment. Outcome: Progressing Problem: Nutrient: Increased nutrient needs (specify) Goal: Total intake will meet estimated nutrient needs Description: Estimated Needs: KCAL: [id number] (25-30 kcal/kg ABW) Protein (g): 72-84 (1.2-1.4 g/kg ABW) Outcome: Progressing Problem: Procedural Site (Incision) Care Goal: Incision remains intact with edges well approximated Outcome: Progressing Goal: Incision is free of infection. Outcome: Progressing Problem: Oxygenation/Respiratory Function Goal: Patient will achieve/maintain baseline respiratory rate/effort Outcome: Progressing Problem: Mobility Goal: Early mobilization is achieved Outcome: Progressing Problem: Elimination--Bowel Goal: Elimination patterns are normal or improving Outcome: Progressing S CLERK SUPERVISOR * Aminah Johnson, OT - 05/30/2022 2:54 PM CST OK per RN for OT this date and pt agreed, lights out and pt resting in bed upon OT's entry. Pt agreed to increasing activity and mobility, reporting she needed to use the bathroom. Sup>sit: min A for R LE per pt's request while logrolling. Sit>stand from EOB: SBA, from tall toilet with L grabbar: min A with cues. Stand>sit: min A to toilet and EOB with cues for ww placement and to back up to both surfaces prior to sitting. Pt completed toileting with min A with ww standing, SBA seated. Pt flushed the toilet before OT could check for BM and pt reported having gas, reporting a little BM today, less than yesterday, however, OT could not check. Hand hygiene at the sink: min A with ww initially with cues for ww placement progressing to SBA, then pt leaned on elbows when brushing teeth. Pt required min A with ww and cues for ww placement during turns as pt got ww stuck on the leg ofthe 3-in-1 in the bathroom and when amb past the bed to make room for ww, pt scissoring LE's at time, but no LOB. Pt presented with decreased motor planning with ww and pt attributed it to having theIV pole which OT was managing. Sit>sup: SBA. Call light, phone, and table in reach, with bed alarm on. Pt declined a splint or ice when OT offered. Pt requested lights off upon OT's departure, although rec lights on and increased activity during the day. RN aware of amb with pt again which pt reported she would do when not needing IV. Details of pt's functional status in doc flow sheet. Thank you. ([id number]) S CLERK SUPERVISOR * Moni Carrera APRN-MADDISON - 05/30/2022 1:47 PM CST Images from the original note were not included. Hospitalist Service Progress Note JANE: [id number] Chief Complaint : No chief complaint on file. Subjective: Loulou Leger is a 67 year old female, who has a past medical history of Anal pruritus, Anemia, Anxiety disorder, Colonoscopy (04/17/2022), Depression, GERD (gastroesophageal reflux disease), Hematochezia, Hemorrhoids, High cholesterol, and Personal history of colonic polyps., has a past surgical history that includes colonoscopy (02/28/2022); colonoscopy (04/2022); and foot surgery (, 2007). Who presents for a laparoscopic ascending colectomy secondary to a colon tumor. Patient advanced to full liquid diet on 05.29.22 and became nauseous and had emesis x1 subsequently placed back on clear liquid diet. 05/29: pt c/o left abd gas pains this AM. Encouraged ambulation > she has ambulated multiple times already. Unable to tolerate FLD 2/2 pain > back to CLD. Assessment / Plan: Ascending Colon Tumor s/p R Colectomy - remains on clear - Encourage mobility - Management per colorectal surgery - pain control Hypokalemia - K+ 3.4 - Replacing - BMP in the AM - Check Mg+ GERD/GI PPX: - PPI NGOC - Cont home meds VTE PPX - Lovenox VTE Prophylaxis: VTE Chemical Prophylaxis Orders (From admission, onward) Ordered Start Stop 05/27/22 1637 enoxaparin (Lovenox) injection 40 mg 40 mg, Subcutaneous, DAILY 05/28/22 0900 -- VTE Mechanical Prophylaxis Orders (From admission, onward) Ordered Start 05/27/22 163 SEQUENTIAL COMPRESSION DEVICE (IMPLEMENT) CONTINUOUS Start Time: 05/27/221644 Order ID: [id number] Status: Sent 05/27/221644 Social Determinants of Health Tobacco Use: Low Risk ??? Smoking Tobacco Use: Never ??? Smokeless Tobacco Use: Never ??? Passive Exposure: Not on file Alcohol Use: Not on file Financial Resource Strain: Low Risk ??? Difficulty of Paying Living Expenses: Not hard at all Food Insecurity: No Food Insecurity ??? Worried About Running Out of Food in the Last Year: Never true ??? Ran Out of Food in the Last Year: Never true Transportation Needs: No Transportation Needs ??? Lack of Transportation (Medical): No ??? Lack of Transportation (Non-Medical): No Stress: No Stress Concern Present ??? Feeling of Stress : Only a little Depression: Not on file Housing Stability: Low Risk ??? Unable to Pay for Housing in the Last Year: No ??? Number of Places Lived in the Last Year: 1 ??? Unstable Housing in the Last Year: No Objective: BP 143/86 Pulse 83 Temp 98.4 ??F (36.9 ??C) (Oral) Resp 18 Ht 1.575 m (5' 2 ) Wt 59.9 kg (132 lb) SpO2 93% Vital Signs Temp: 98.4 ??F (36.9 ??C) Temp src: Oral Pulse: 83 Resp: 18 BP: 143/86 Physical Exam: General: No acute distress, speaking in full sentences, no use of accessory muscles HEENT: Pupils equal and reactive to light and accommodation, oropharynx is clear Neck: Supple, no lymphadenopathy, no JVD Lungs: Clear to auscultation bilaterally Cardiovascular: Regular rate and rhythm with normal S1 and S2 Abdomen: Soft, distended, left sided TTP, Incision CDI. Hypoactive bs x 4. Extremities: No cyanosis clubbing or edema Neuro: Nonfocal, A&O x3 Psych: Normal affect MEDICATIONS FOR CURRENT ENCOUNTER: SCHEDULED MEDICATIONS: 0.9% NaCl injection 3 mL, Intracatheter, q8h acetaminophen (Tylenol) tablet 1,000 mg, Oral, q6h enoxaparin (Lovenox) injection 40 mg, Subcutaneous, QDAY FLUoxetine (PROzac) capsule 30 mg, Oral, QDAY gabapentin (Neurontin) capsule 300 mg, Oral, AT BEDTIME metoclopramide (Reglan) injection 10 mg, Intravenous, q6h traZODone (Desyrel) tablet 50 mg, Oral, AT BEDTIME ?? [COMPLETED] potassium chloride ER (Klor-Con) tablet 40 mEq, Oral, Once CONTINUOUS MEDICATIONS: ?? lactated ringers infusion, Intravenous, Continuous PRN MEDICATIONS: Or 0.9% NaCl injection 1-10 mL, Intracatheter, PRN clonazePAM (KlonoPIN) tablet 0.5 mg, Oral, BID PRN naloxone (Narcan) injection 0.2 mg, Intravenous, PRN ondansetron (disintegrating) (Zofran ODT) tablet 4 mg, Oral, q6h PRN ondansetron (Zofran) injection 4 mg, Intravenous, q6h PRN ?? oxyCODONE-acetaminophen (Percocet) 5-325 MG tablet 1 tablet, Oral, q4h PRN LAB: Recent Labs Lab Units 05/30/2243605/29/2244005/28/22 042 SODIUM mmol/L 142 141 140 POTASSIUM mmol/L 3.4* 3.5 3.8 CHLORIDE mmol/L 103 105 106 CO2 mmol/L 27 27 24 BUN mg/dL 18 10 16 CREATININE mg/dL 0.71 0.72 0.69 GLUCOSE mg/dL 100 108* 136* CALCIUM mg/dL 8.9 9.2 8.8 MAGNESIUM mg/dL -- 1.9 -- Recent Labs Lab Units 05/30/2243605/29/2244005/28/229 WBC x10E9/L 12.6* 11.6* 14.5* RBC x10E12/L 3.55* 3.57* 3.46* HGB gm/dL 10.0* 10.2* 9.8* HCT % 31.4* 31.9* 31.0* MCV fl 88.5 89.4 89.6 MCH pg 28.2 28.6 28.3 MCHC gm/dL 31.8 32.0 31.6 MPV fl 10.7 10.3 10.4 No results for input(s): CK, CKTOTAL, CKMB, CKMBUL, CKMBNGML, TROPONIN, TROPONINI, TROPONINT in thelast 168 hours. No results for input(s): CHOLESTEROL, TRIGLYCERIDE, HDL, LDL, NONHDL in the last 168 hours. No results for input(s): HGBA1C, A1C, [id number], EAG in the last 168 hours. No results for input(s): AST, ALT in the last 168 hours. Invalid input(s): TOTALBILLIRUBIN, ALK No results for input(s): APT, INR, PTT in the last 168 hours. No results for input(s): FIO2, PH, PCO2, BE, HCO3, PO2, O2SAT in the last 168 hours. No results for input(s): LACTICACID in the last 168 hours. Invalid input(s): PROCT IMAGING: No results found. [facility] Provider Update Moni Carrera APRN-MADDISON 05/30/2022 1:48 PM S CLERK SUPERVISOR Associated attestation - Zee Topete MD - 05/31/2022 7:10 AM SALES CLERK SUPERVISOR Collaborating Physician Supervisory Note Patient was evaluated and cared for in conjunction with an Advanced Practice Provider Moni Herr. I have personally and independently examined the patient and reviewed the chart and all pertinent data including imaging and labs and agree and discussed with the Advanced Practice Provider. Please refer to her progress note for complete assessment, testing results and agreed upon plan of carefor the patient. Zee Topete MD * Flor Dsouza RN - 05/30/2022 12:10 PM CST Problem: Pain/Discomfort Goal: Patient exhibits reduced pain/discomfort as evidenced by pain scores Outcome: Progressing Goal: Patient uses pharmacological and non-pharmacological pain management strategies. Outcome: Progressing Goal: Patient verbalizes acceptable level of pain relief and ability to engage in desired activity. Outcome: Progressing Problem: Fall Risk Goal: Fall risk and fall related injury risk are minimized (interventions related to the fall risk can be found in the flowsheet documentation) Outcome: Progressing Problem: Procedural Site (Incision) Care Goal: Incision remains intact with edges well approximated Outcome: Progressing Goal: Incision is free of infection. Outcome: Progressing Problem: Oxygenation/Respiratory Function Goal: Patient will achieve/maintain baseline respiratory rate/effort Outcome: Progressing Problem: Mobility Goal: Early mobilization is achieved Outcome: Progressing Problem: Elimination--Bowel Goal: Elimination patterns are normal or improving Outcome: Progressing S CLERK SUPERVISOR * Cathi Kothari, PT - 05/30/2022 10:42 AM CST Physical Therapy Treatment Summary Chart review completed. Nursing consented for PT. Explained purpose of PT and patient consented to participate in therapy. PPE worn by staff: gloves;mask - procedural PPE worn by patient: mask - procedural SUBJECTIVE:Subjective: Pt. agreeable to PT Patient's Primary Concern: abdominal pain/tightness Patient's Goal for the Day: To walk Pain Assessment: Pain Location #1 Pain Scale/Observation: Numeric (0-10) Pain Rating Score #1: 8 Goal Numeric Pain Scale: (pt. did not rate her pain this visit, but reported vomitting earlier thisAM and recently having an xray) Pain Location : Abdomen Pain Orientation: Right;Left;Lower Pain Quality: Discomfort (tightness) Aggravating Factors: Activity (and rest) Relieved By: Medications (she declined ice) OBJECTIVE: Orientation Level: Oriented X4 Precautions: Fall and Abdominal precautions Bed Mobility: Rolling: Stand By Assist (use of rail and log roll technique) Supine to Sit: Stand By Assist Transfers: Sit to Stand: Stand By Assist Stand to Sit: Stand By Assist Mobility: Distance Ambulated: 500 FEET Ambulation: Assistive Device: Gait Belt;Walker-2 Wheeled (and for short distance, pt. amb. without the AD and reported feeling more comfortable with the ww and she was more guarded without the deviceas well.) Ambulation: Level of Assistance: Stand By Assist Ambulation: Gait Deviations: Antalgic;Elsa - Decreased;Base of Support - Decreased;Increased Weight Bearing through Upper Extremity;Step Length - Decreased Stairs: Number: 4 Stairs: Assistive Device: Gait Belt Stairs: Use of Rails: Both Stairs: Level of Assistance: Contact Guard Assist Curb: Assistive Device: Gait Belt;Walker-2 Wheeled Curb: Level of Assistance: Contact Guard Assist Balance: Sitting - Static: Good Standing - Static: With Both Upper Extremity's Support;Good - Standing - Dynamic: With Both Upper Extremity's Support;Good - Activity Tolerance and O2 Requirements: Activity Tolerance: Tolerates ADLs without rest breaks $ O2 DEVICE: Room Air ASSESSMENT: Pt. Responded to PT fairly well with tightness and pressure in her abdomen. She performed log rolling to her left with use of bed rail and sba and then came to sit with sba. She amb. In the hallway with ww and sba with smoother, more comfortable gait pattern. She amb. Some without the ww and she had a more guarded gait pattern and was more cautious with smaller step length. She preferred the ww for comfort. She declined ice for her abdomen at elaine of this session.Call light and phonein reach All lines, monitors, IV's, equipment in place and intact pre and post visit. Pt. educated in PT plan of care, fall precautions, and benefits of OOB activity. RNKlaus, notified of patient's performance/location end of session. Please refer to the Filed Flowsheet for further details. Refer to Plan of Care for PT goals. RECOMMENDATIONS/PLAN: Pt. Will continue with PT per plan and she was again encouraged to amb. Frequently in the hallway with her or nursing and to sit up more often in the chair. If this is the last Physical Therapy visit, this note serves as the discharge summary. Cathi Kothari, PT x [phone] S CLERK SUPERVISOR * Bc Samuels MD - 05/30/2022 8:37 AM CST Colorectal Surgery Progress Note Admit Date: 05/27/2022 10:14 AM Hospital Day: 3 Subjective Some nausea last night with emesis Neuro: A colorectal surgery Pain controlled Ambulating Some bowel function Objective Patient Vitals for the past 2 hrs: BP Temp Pulse Resp SpO2 $ O2 DEVICE 05/30/22 0728 124/77 98.4 ??F (36.9 ??C) 84 18 91 % Room Air Supplemental Oxygen (last filed value): O2 L/M: 2 (05/28/22432) Intake/Output Summary (Last 24 hours) at 05/30/2022 0838 Last data filed at 05/29/2022 1705 Gross per 24 hour Intake 480 ml Output 200 ml Net 280 ml Recent Labs Component Name 05/30/22 0437 05/29/22 0441 05/28/22 0429 WBC 12.6* 11.6* 14.5* HGB 10.0* 10.2* 9.8* HCT 31.4* 31.9* 31.0* PLTCOUNT 367 343 328 Recent Labs Component Name 05/30/22 0437 05/29/22 0441 05/28/22 0429 SODIUM 142 141 140 POTASSIUM 3.4* 3.5 3.8 CHLORIDE 103 105 106 CO2 27 27 24 BUN 18 10 16 CREATININE 0.71 0.72 0.69 GLUCOSE 100 108* 136* CALCIUM 8.9 9.2 8.8 REVIEW OF SYSTEMS: A comprehensive review of systems was negative except as described in HPI. Physical Exam Patient Vitals for the past 24 hrs: Temp Pulse Resp BP 05/30/22 0728 98.4 ??F (36.9 ??C) 84 18 124/77 05/30/22 0449 97.9 ??F (36.6 ??C) 79 18 127/70 05/30/22 0021 98.7 ??F (37.1 ??C) 83 18 134/84 05/29/22 2018 97.5 ??F (36.4 ??C) 104 18 (!) 150/100 05/29/22 1710 -- -- -- 147/99 05/29/22 1654 98.5 ??F (36.9 ??C) 104 18 (!) 148/111 05/29/22 1130 97.5 ??F (36.4 ??C) 108 16 137/94 Abdomen soft, nondistended, incisional tenderness only Incisions clean dry and intact Assessment/Plan Post op day #3 for colon resection Obstructive series Liquids only for now Ambulate Morphine discontinued Bc Samuels MD [facility] associate professor of kinesiology [place] [phone] S CLERK SUPERVISOR * Jose Chavira RN - 05/30/2022 1:26 AM CST Problem: Pain/Discomfort Goal: Patient exhibits reduced pain/discomfort as evidenced by pain scores 05/30/2022124 by Jose Chavira, PALOMO Outcome: Progressing 05/30/2022124 by Jose Chavira RN Outcome: Progressing Goal: Patient uses pharmacological and non-pharmacological pain management strategies. 05/30/2022124 by Jose Chavira RN Outcome: Progressing 05/30/2022124 by Jose Chavira RN Outcome: Progressing Goal: Patient verbalizes acceptable level of pain relief and ability to engage in desired activity. 05/30/2022124 by Jose Chavira RN Outcome: Progressing 05/30/2022124 by Jose Chavira RN Outcome: Progressing Problem: Fall Risk Goal: Fall risk and fall related injury risk are minimized (interventions related to the fall risk can be found in the flowsheet documentation) 05/30/2022124 by Jose Chavira RN Outcome: Progressing 05/30/2022124 by Jose Chavira RN Outcome: Progressing Problem: Mobility Goal: STG - Patient will ambulate Description: Without AD for at least 150ft. Independently 05/30/2022124 by Jose Chavira RN Outcome: Progressing 05/30/2022124 by Jose Chavira RN Outcome: Progressing Goal: STG - Patient will ascend and descend four to six stairs Description: With rails and Mod. Independently 05/30/2022124 by Jose Chavira RN Outcome: Progressing 05/30/2022124 by Jose Chavira RN Outcome: Progressing Problem: Transfers Goal: STG - Patient to transfer to and from sit to supine Description: Log roll technique independently 05/30/2022124 by Jose Chavira RN Outcome: Progressing 05/30/2022124 by Jose Chavira RN Outcome: Progressing Goal: STG - Patient will perform bed mobility Description: Log rolling left and right independently 05/30/2022124 by Jose Chavira RN Outcome: Progressing 05/30/2022124 by Jose Chavira RN Outcome: Progressing Goal: STG - Patient will transfer sit to and from stand Description: Mod Independently 05/30/2022124 by Jose Chavira RN Outcome: Progressing 05/30/2022124 by Jose Chavira RN Outcome: Progressing Problem: General Goal: STG-Patient will Description: Complete LBD with SBA with adapted tech, LH a/e prn. 05/30/2022124 by Jose Chavira RN Outcome: Progressing 05/30/2022124 by Jose Chavira RN Outcome: Progressing Goal: STG-Patient will Description: Complete toilet transfers with SBA or better with equipment. 05/30/2022124 by Jose Chavira RN Outcome: Progressing 05/30/2022124 by Jose Chavira RN Outcome: Progressing Problem: Nutrient: Increased nutrient needs (specify) Goal: Total intake will meet estimated nutrient needs Description: Estimated Needs: KCAL: 5153-2940 (25-30 kcal/kg ABW) Protein (g): 72-84 (1.2-1.4 g/kg ABW) 05/30/2022124 by Jose Chavira RN Outcome: Progressing 05/30/2022124 by Jose Chavira RN Outcome: Progressing Problem: Procedural Site (Incision) Care Goal: Incision remains intact with edges well approximated 05/30/2022124 by Jose Chavira RN Outcome: Progressing 05/30/2022124 by Jose Chavira RN Outcome: Progressing Goal: Incision is free of infection. 05/30/2022124 by Jose Chavira RN Outcome: Progressing 05/30/2022124 by Jose Chavira RN Outcome: Progressing Problem: Oxygenation/Respiratory Function Goal: Patient will achieve/maintain baseline respiratory rate/effort 05/30/2022124 by Jose Chavira RN Outcome: Progressing 05/30/2022124 by Jose Chavira RN Outcome: Progressing Problem: Mobility Goal: Early mobilization is achieved 05/30/2022124 by Jose Chavira RN Outcome: Progressing 05/30/2022124 by Jose Chavira RN Outcome: Progressing Problem: Elimination--Bowel Goal: Elimination patterns are normal or improving 05/30/2022124 by Jose Chavira RN Outcome: Progressing 05/30/2022124 by Jose Chavira RN Outcome: Progressing S CLERK SUPERVISOR * Flor Dsouza RN - 05/29/2022 12:27 PM CST Problem: Pain/Discomfort Goal: Patient exhibits reduced pain/discomfort as evidenced by pain scores Outcome: Progressing Goal: Patient uses pharmacological and non-pharmacological pain management strategies. Outcome: Progressing Goal: Patient verbalizes acceptable level of pain relief and ability to engage in desired activity. Outcome: Progressing Problem: Fall Risk Goal: Fall risk and fall related injury risk are minimized (interventions related to the fall risk can be found in the flowsheet documentation) Outcome: Progressing Problem: Nutrient: Increased nutrient needs (specify) Goal: Total intake will meet estimated nutrient needs Description: Estimated Needs: KCAL: 5154-5586 (25-30 kcal/kg ABW) Protein (g): 72-84 (1.2-1.4 g/kg ABW) Outcome: Progressing S CLERK SUPERVISOR * Cheyenne Mendoza, EVELINE-DIRECTOR OF SOCIAL MEDIA MARKETING - 05/29/2022 10:53 AM CST Images from the original note were not included. Hospitalist Service Progress Note JANE: [id number] Chief Complaint : No chief complaint on file. Subjective: Loulou Leger is a 67 year old female, who has a past medical history of Anal pruritus, Anemia, Anxiety disorder, Colonoscopy (04/17/2022), Depression, GERD (gastroesophageal reflux disease), Hematochezia, Hemorrhoids, High cholesterol, and Personal history of colonic polyps., has a past surgical history that includes colonoscopy (02/28/2022); colonoscopy (04/2022); and foot surgery (, 2007). Who presents for a laparoscopic ascending colectomy secondary to a colon tumor. Patient is resting bed denies postoperative nausea vomiting. She has been sipping fluid. Reports abdominal pain of 5/10, taken Tylenol, encouraged her to use the STAVE SAW OPERATOR pump. She denies chest pains and shortness of breath. She is on CO2 monitor. 05/29: pt c/o left abd gas pains this AM. Encouraged ambulation > she has ambulated multiple times already. Unable to tolerate FLD 2/2 pain > back to [facility]. Assessment / Plan: Ascending Colon Tumor s/p R Colectomy - Unable to tolerate FLD > back to [facility] - Encourage mobility - Mgmt per CRS Hypokalemia - K+ 3.5 - Replacing - BMP in the AM - Check Mg+ GERD - PPI NGOC - Cont home meds PPX - Lovenox VTE Prophylaxis: VTE Chemical Prophylaxis Orders (From admission, onward) Ordered Start Stop 05/27/22 1637 enoxaparin (Lovenox) injection 40 mg 40 mg, Subcutaneous, DAILY 05/28/22 0900 -- VTE Mechanical Prophylaxis Orders (From admission, onward) Ordered Start 05/27/22 163 SEQUENTIAL COMPRESSION DEVICE (IMPLEMENT) CONTINUOUS Start Time: 05/27/22 164 Order ID: [id number] Status: Sent 05/27/22 1645 Social Determinants of Health Tobacco Use: Low Risk ??? Smoking Tobacco Use: Never ??? Smokeless Tobacco Use: Never ??? Passive Exposure: Not on file Alcohol Use: Not on file Financial Resource Strain: Low Risk ??? Difficulty of Paying Living Expenses: Not hard at all Food Insecurity: No Food Insecurity ??? Worried About Running Out of Food in the Last Year: Never true ??? Ran Out of Food in the Last Year: Never true Transportation Needs: No Transportation Needs ??? Lack of Transportation (Medical): No ??? Lack of Transportation (Non-Medical): No Stress: No Stress Concern Present ??? Feeling of Stress : Only a little Depression: Not on file Housing Stability: Low Risk ??? Unable to Pay for Housing in the Last Year: No ??? Number of Places Lived in the Last Year: 1 ??? Unstable Housing in the Last Year: No Objective: BP 123/89 Comment: after amb. with PT Pulse 102 Temp 97.9 ??F (36.6 ??C) (Oral) Resp 18 Ht 1.575 m (5' 2 ) Wt 59.9 kg (132 lb) SpO2 95% Vital Signs Temp: 97.9 ??F (36.6 ??C) Temp src: Oral Pulse: 102 Resp: 18 BP: 123/89 (after amb. with PT) Physical Exam: General: No acute distress, speaking in full sentences, no use of accessory muscles HEENT: Pupils equal and reactive to light and accommodation, oropharynx is clear Neck: Supple, no lymphadenopathy, no JVD Lungs: Clear to auscultation bilaterally Cardiovascular: Regular rate and rhythm with normal S1 and S2 Abdomen: Soft, distended, left sided TTP, normoactive bowel sounds. Incision CDI. Extremities: No cyanosis clubbing or edema Neuro: Nonfocal, A&O x3 Psych: Normal affect MEDICATIONS FOR CURRENT ENCOUNTER: ?? SCHEDULED MEDICATIONS: ?? 0.9% NaCl injection 3 mL, Intracatheter, q8h ?? acetaminophen (Tylenol) tablet 1,000 mg, Oral, q6h ?? enoxaparin (Lovenox) injection 40 mg, Subcutaneous, QDAY ?? FLUoxetine (PROzac) capsule 30 mg, Oral, QDAY ?? gabapentin (Neurontin) capsule 300 mg, Oral, AT BEDTIME ?? metoclopramide (Reglan) injection 10 mg, Intravenous, q6h ?? traZODone (Desyrel) tablet 50 mg, Oral, AT BEDTIME ?? [COMPLETED] lactated ringers IV bolus, Intravenous, Once ?? CONTINUOUS MEDICATIONS: ?? lactated ringers infusion, Intravenous, Continuous ?? PRN MEDICATIONS: ?? Or ?? 0.9% NaCl injection 1-10 mL, Intracatheter, PRN ?? clonazePAM (KlonoPIN) tablet 0.5 mg, Oral, BID PRN ?? morphine injection 2 mg, Intravenous, q4h PRN ?? naloxone (Narcan) injection 0.2 mg, Intravenous, PRN ?? ondansetron (disintegrating) (Zofran ODT) tablet 4 mg, Oral, q6h PRN ?? ondansetron (Zofran) injection 4 mg, Intravenous, q6h PRN ?? oxyCODONE-acetaminophen (Percocet) 5-325 MG tablet 1 tablet, Oral, q4h PRN LAB: Recent Labs Lab Units 05/29/2244005/28/22 0429 SODIUM mmol/L 141 140 POTASSIUM mmol/L 3.5 3.8 CHLORIDE mmol/L 105 106 CO2 mmol/L 27 24 BUN mg/dL 10 16 CREATININE mg/dL 0.72 0.69 GLUCOSE mg/dL 108* 136* CALCIUM mg/dL 9.2 8.8 Recent Labs Lab Units 05/29/2244005/28/22 0429 WBC x10E9/L 11.6* 14.5* RBC x10E12/L 3.57* 3.46* HGB gm/dL 10.2* 9.8* HCT % 31.9* 31.0* MCV fl 89.4 89.6 MCH pg 28.6 28.3 MCHC gm/dL 32.0 31.6 MPV fl 10.3 10.4 No results for input(s): CK, CKTOTAL, CKMB, CKMBUL, CKMBNGML, TROPONIN, TROPONINI, TROPONINT in thelast 168 hours. No results for input(s): CHOLESTEROL, TRIGLYCERIDE, HDL, LDL, NONHDL in the last 168 hours. No results for input(s): HGBA1C, A1C, VEUOVIKIK8R, EAG in the last 168 hours. No results for input(s): AST, ALT in the last 168 hours. Invalid input(s): TOTALBILLIRUBIN, ALK No results for input(s): APT, INR, PTT in the last 168 hours. No results for input(s): FIO2, PH, PCO2, BE, HCO3, PO2, O2SAT in the last 168 hours. No results for input(s): LACTICACID in the last 168 hours. Invalid input(s): PROCT IMAGING: No results found. [facility] Provider Update Cheyenne Mendoza APRN-MADDISON 05/29/2022 10:49 AM S CLERK SUPERVISOR Associated attestation - Zee Topete MD - 05/29/2022 2:47 PM SALES CLERK SUPERVISOR Collaborating Physician Supervisory Note Patient was evaluated and cared for in conjunction with an Advanced Practice Provider Cheyenne Mendoza CNP. I have personally and independently examined the patient and reviewed the chart and all pertinent data including imaging and labs and agree and discussed with the Advanced Practice Provider. Please refer to her progress note for complete assessment, testing results and agreed upon plan of care for the patient. Zee Topete MD * Cathi Kothari, PT - 05/29/2022 8:45 AM CST Problem: Mobility Goal: STG - Patient will ambulate Description: Without AD for at least 150ft. Independently Outcome: Progressing Goal: STG - Patient will ascend and descend four to six stairs Description: With rails and Mod. Independently Outcome: Progressing Problem: Transfers Goal: STG - Patient to transfer to and from sit to supine Description: Log roll technique independently Outcome: Progressing Goal: STG - Patient will perform bed mobility Description: Log rolling left and right independently Outcome: Progressing Goal: STG - Patient will transfer sit to and from stand Description: Mod Independently Outcome: Progressing S CLERK SUPERVISOR * Cathi Kothari PT - 05/29/2022 8:41 AM CST Physical Therapy Treatment Summary Chart review completed. Nursing consented for PT. Explained purpose of PT and patient consented to participate in therapy. PPE worn by staff: gloves;mask - procedural PPE worn by patient: mask - procedural SUBJECTIVE: Subjective: Pt. agreeable to PT Patient's Primary Concern: abdominal pain and pressure Patient's Goal for the Day: To feel better with amb. encouraged Pain Assessment: Pain Location #1 Pain Scale/Observation: Numeric (0-10) Pain Rating Score #1: 8 Pain Location : Abdomen Pain Orientation: Right;Left;Lower Pain Quality: Pressure Aggravating Factors: Activity (and rest) Relieved By: Medications (she declined ice) OBJECTIVE: Orientation Level: Oriented X4 Precautions: Fall and Abdominal Precautions, IV Bed Mobility: Rolling: Stand By Assist;Requires Verbal Cues for Safety;Requires Verbal Cues for Technique (use ofbed rail and log roll technique) Supine to Sit: Activity Does Not Occur Transfers: Sit to Stand: Stand By Assist;Requires Verbal Cues for Safety;Requires Verbal Cues for Technique Stand to Sit: Stand By Assist;Requires Verbal Cues for Technique;Requires Verbal Cues for Safety Mobility: Distance Ambulated: 350 FEET Ambulation: Assistive Device: Gait Belt;Walker-2 Wheeled Ambulation: Level of Assistance: Stand By Assist;Requires Verbal Cues for Safety;Requires Verbal Cues for Technique Ambulation: Gait Deviations: Antalgic;Base of Support - Decreased;Elsa - Decreased;Heel Strike -Decreased;Hip/knee flexion during swing phase-- decreased;Increased Trunk Flexion;Increased Weight Bearing through Upper Extremity;Step Length - Decreased (improved gait distance) Balance: Sitting - Static: Good Standing - Static: Fair +;With Both Upper Extremity's Support Standing - Dynamic: Fair +;With Both Upper Extremity's Support Activity Tolerance and O2 Requirements: Activity Tolerance: Tolerates ADLs without rest breaks $ O2 DEVICE: Room Air Vital Signs: SpO2: 95 % Pulse: 102 BP: 123/89 (after amb. with PT) Exercise: Pt. Instructed in AP, LAQ, and sitting hip flex. To also help increase gas release and bowel function ASSESSMENT:Pt. Responded to this therapy session fair with moderate lower abdominal pain at rest and with activity. She was also nauseated earlier and her RN provided meds. she transferred sit to/from stand with sba and she amb. In the hallway with improved distance noted. She continued to use the ww for comfort and support and with sba of 1. She was reinstructed in use of ice, splinting her pain, and use of IS and log rolling for bed mobility. She declined ice at the end of the session. Call light and phone in reach with chair alarm activated. All lines, monitors, IV's, equipment in place and intact pre and post visit. Pt re- educated in PT plan of care, fall precautions, and benefits of OOB activity. RNKlaus, notified of patient's performance/location end of session. Please refer to the Filed Flowsheet for further details. Refer to Plan of Care for PT goals. RECOMMENDATIONS/PLAN: Pt. Will be seen for PT per plan and pt. Encouraged to amb. More throughout the day with her nursing staff. If this is the last Physical Therapy visit, this note serves as the discharge summary. Cathi Kothari, PT x [phone] S CLERK SUPERVISOR * Bc Samuels MD - 05/29/2022 7:19 AM CST Colorectal Surgery Progress Note Admit Date: 05/27/2022 10:14 AM Hospital Day: 2 Subjective Doing ok Pain controlled Some belching No N/v/F/C Objective No data found.Supplemental Oxygen (last filed value): O2 L/M: 2 (05/28/22 0433) Intake/Output Summary (Last 24 hours) at 05/29/2022 0720 Last data filed at 05/28/20222010 Gross per 24 hour Intake 1200 ml Output 1650 ml Net -450 ml Recent Labs Component Name 05/29/22 0441 05/28/22 0429 05/22/22 0907 WBC 11.6* 14.5* 7.2 HGB 10.2* 9.8* 11.7* HCT 31.9* 31.0* 37.0 PLTCOUNT 343 328 382 Recent Labs Component Name 05/29/22 0441 05/28/22 0429 05/22/22 0907 SODIUM 141 140 142 POTASSIUM 3.5 3.8 4.3 CHLORIDE 105 106 104 CO2 27 24 27 BUN 10 16 18 CREATININE 0.72 0.69 0.77 GLUCOSE 108* 136* 84 CALCIUM 9.2 8.8 9.5 REVIEW OF SYSTEMS: A comprehensive review of systems was negative except as described in HPI. Physical Exam Patient Vitals for the past 24 hrs: Temp Pulse Resp BP 05/29/228 98.7 ??F (37.1 ??C) 74 16 135/75 05/29/22 0037 98.1 ??F (36.7 ??C) 78 16 118/71 05/28/22 1958 99.2 ??F (37.3 ??C) 66 16 107/64 05/28/22 1601 98.5 ??F (36.9 ??C) 79 20 125/71 05/28/22 1537 98.5 ??F (36.9 ??C) 79 -- 125/71 05/28/22 1201 98.6 ??F (37 ??C) 77 22 124/72 05/28/22 0907 -- 68 -- 121/70 05/28/22 0854 -- 72 -- 124/72 05/28/22 0827 98.7 ??F (37.1 ??C) 62 24 119/62 Abd soft/ND/JESSICA Incisions C/D/I Assessment/Plan Post op day #2 for colon resection Ambulate Back down to clears Await bowel fxn AM labs Bc Samuels MD FACS [facility] associate professor of kinesiology [address] [id number] S CLERK SUPERVISOR * Abbie Billingsley RN - 05/29/2022 5:50 AM CST Patient complaining of increased gas like pressure/pain in abdomen and bilateral sides. Encouraged ambulation and patient did walk in chavira with this RN. Medication with morphine. Abdomen is soft but round. Belching often but no flatus. Problem: Pain/Discomfort Goal: Patient exhibits reduced pain/discomfort as evidenced by pain scores Outcome: Progressing Goal: Patient uses pharmacological and non-pharmacological pain management strategies. Outcome: Progressing Goal: Patient verbalizes acceptable level of pain relief and ability to engage in desired activity. Outcome: Progressing Problem: Fall Risk Goal: Fall risk and fall related injury risk are minimized (interventions related to the fall risk can be found in the flowsheet documentation) Outcome: Progressing S CLERK SUPERVISOR * Kiera Matos RN - 05/28/2022 6:01 PM CST VSS, on RA, no tele, c/o ABD.incisional pain and gas pain. Incisional pain covered with PRN pain meds, relief reported. Gas pain, educated pt on importance of ambulating frequently verbalized understanding, but reports no relief 3 walks taken in hallway with gait belt and walker, minimal 1 p assist. Denies passing gas, asked for a stool softener as she reports chronic constipation, MD notified ofpt request, request denied.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 [facility] CO2 30 23 - 31 mmol/L 05/31/2022 5:10 AM [facility] Calcium 8.8 8.4 - 10.4 mg/dL 05/31/2022 5:10 AM [facility] Anion Gap 8 8 - 18 mmol/L 05/31/2022 5:10 AM [facility] BUN 19 9.8 - 20.1 mg/dL 05/31/2022 5:10 AM [facility] Creatinine 0.69 0.57 - 1.11 mg/dL 05/31/2022 5:10 AM [facility] eGFR by CKD-EPI >90 >=90 mL/min/1.7 3 m2 05/31/2022 5:10 AM [facility] Blood BLOOD SPECIMEN / Unknown Lab Venipuncture / Unknown 05/31/2022 4:30 AM SALES CLERK SUPERVISOR 05/31/2022 4:47 AM SALES CLERK SUPERVISOR Bc Samuels MD LAB - CHEMISTRY DARLENE COY [facility] Organization Address City/State/ZIP Co de Phone Number [facility] [address] [place] [address] * XR ABD OBSTRUCTION SERIES 2VW (05/30/2022 9:32 AM SALES CLERK SUPERVISOR) Anatomical Region Laterality Modality Abdomen Radiographic Pratibha ging 05/30/2022 9:41 AM SALES CLERK SUPERVISOR Impressions 05/30/2022 9:42 AM SALES CLERK SUPERVISOR IMPRESSION: Small bowel distention with air-fluid levels present and little distal bowel gas observed findings are suggestive of early or partial small bowel obstruction. No free intraperitoneal air is seen. > Interpreting Provider: Ashley Arana MD on 05/30/2022 9:42 AM Narrative 05/30/2022 9:42 AM SALES CLERK SUPERVISOR PROCEDURE: ??XR ABD OBSTRUCTION SERIES 2VW, DATE/TIME OF EXAM: ??05/30/2022 9:32 AM, LOCATION ??[facility] INDICATION: K56.7: Ileus, unspecified (CMS/HCC) ADDITIONAL CLINICAL INFORMATION: Ordering Provider Reason For Exam: Technologist Note: Additional: COMPARISON: None. FINDINGS: Distended small bowel loops are seen throughout the abdomen. Small amount of gas is present in the distal colon. Air-fluid levels are seen in the small bowel. No free intraperitoneal air is evident. Findings are suggestive of early or partial small bowel obstruction. Procedure Note Ashley Arana MD - 05/30/2022 PROCEDURE: XR ABD OBSTRUCTION SERIES 2VW, DATE/TIME OF EXAM: 05/30/2022 9:32 AM, LOCATION [facility] INDICATION: K56.7: Ileus, unspecified ([facility]) ADDITIONAL CLINICAL INFORMATION: Ordering Provider Reason For Exam: Technologist Note: Additional: COMPARISON: None. FINDINGS: Distended small bowel loops are seen throughout the abdomen. Smallamount of gas is present in the distal colon. Air-fluid levels are seen in the small bowel. No free intraperitoneal air is evident. Findings are suggestive of early or partial small bowel obstruction. IMPRESSION: Small bowel distention with air-fluid levels present and little distal bowel gas observed findings are suggestive of early or partial smallbowel obstruction. No free intraperitoneal air is seen. > Interpreting Provider: Ashley Arana MD on 05/30/2022 9:42 AM Bc Samuels MD DIAGNOSTIC IMAGING O RDERABLES * (ABNORMAL) BASIC METABOLIC PANEL (CALCIUM TOTAL) (05/30/2022 4:37 AM SALES CLERK SUPERVISOR) Glucose 100 70 - 105 mg/dL 05/30/2022 6:05 AM [facility] Sodium 142 136 - 145 mmol/L 05/30/2022 6:05 AM [facility] Potassium 3.4(L) 3.5 - 5.1 mmol/L 05/30/2022 6:05 AM [facility] Chloride 103 98 - 107 mmol/L 05/30/2022 6:05 AM [facility] CO2 27 23 - 31 mmol/L 05/30/2022 6:05 AM [facility] Calcium 8.9 8.4 - 10.4 mg/dL 05/30/2022 6:05 AM [facility] Anion Gap 12 8 - 18 mmol/L 05/30/2022 6:05 AM [facility] BUN 18 9.8 - 20.1 mg/dL 05/30/2022 6:05 AM [facility] Creatinine 0.71 0.57 - 1.11 mg/dL 05/30/2022 6:05 AM [facility] eGFR by CKD-EPI >90 >=90 mL/min/1.7 3 m2 05/30/2022 6:05 AM [facility] Blood BLOOD SPECIMEN / Unknown Lab Venipuncture / Unknown 05/30/2022 4:37 AM SALES CLERK SUPERVISOR 05/30/2022 5:41 AM SALES CLERK SUPERVISOR Bc Samuels MD LAB - CHEMISTRY DARLENE COY [facility] Organization Address City/State/ZIP Co de Phone Number [facility] [address] [place] [address] * (ABNORMAL) CBC W AUTO DIFFERENTIAL (05/30/2022 4:37 AM [facility] [[email or web address]]) WBC 12.6(H) 4.4 - 10.7 x10E9/L 05/30/2022 5:45 AM [facility] WBC Corrected 05/30/2022 5:45 AM [facility] RBC 3.55(L) 3.80 - 5.20 x10E12/L 05/30/2022 5:45 AM [facility] Hemoglobin 10.0(L) 12.0 - 15.6 gm/dL 05/30/2022 5:45 AM [facility] Hematocrit 31.4(L) 35.9 - 45.5 % 05/30/2022 5:45 AM [facility] MCV 88.5 80.7 - 98.3 fl 05/30/2022 5:45 AM [facility] MCH 28.2 26.7 - 34.0 pg 05/30/2022 5:45 AM [facility] MCHC 31.8 30.8 - 35.9 gm/dL 05/30/2022 5:45 AM [facility] Platelet Count 367 153 - 416 x10E9/L 05/30/2022 5:45 AM [facility] RDW-CV 13.8 12.1 - 14.9 % 05/30/2022 5:45 AM [facility] MPV 10.7 9.4 - 12.9 fl 05/30/2022 5:45 AM [facility] Neutrophils % 72.0 44.0 - 73.0 % 05/30/2022 5:45 AM [facility] Lymphocytes % 19.8(L) 20.0 - 43.0 % 05/30/2022 5:45 AM [facility] Monocytes % 7.4 5.0 - 13.0 % 05/30/2022 5:45 AM [facility] Eosinophils % 0.1 0.0 - 6.0 % 05/30/2022 5:45 AM [facility] Basophils % 0.2 0.0 - 2.0 % 05/30/2022 5:45 AM [facility] Immature Granulocytes 0.5 0 - 1 % 05/30/2022 5:45 AM [facility] Neutrophil Absolute 9.04(H) 2.01 - 7.14 x10E9/L 05/30/2022 5:45 AM [facility] Lymphocytes Absolute 2.49 1.07 - 3.94 x10E9/L 05/30/2022 5:45 AM [facility] Monocytes Absolute 0.93 0.26 - 1.07 x10E9/L 05/30/2022 5:45 AM [facility] Eosinophils Absolute 0.01 0 - 0.47 x10E9/L 05/30/2022 5:45 AM [facility] Basophils Absolute 0.03 0 - 0.08 x10E9/L 05/30/2022 5:45 AM [facility] Immature Granulocytes Absolute 0.06 0.00 - 0.06 x10E9/L 05/30/2022 5:45 AM [facility] nRBC Auto 0 /100 WBC 05/30/2022 5:45 AM [facility] Blood BLOOD SPECIMEN / Unknown Lab Venipuncture / Unknown 05/30/2022 4:37 AM SALES CLERK SUPERVISOR 05/30/2022 5:41 AM [facility] [[email or web address]] Bc Samuels MD LAB - HEMATOLOGY ORD ERABLES [facility] [address] [address] * MAGNESIUM BLOOD (05/29/2022 4:41 AM [facility] [[email or web address]]) Pathologist [facility] Magnesium 1.9 1.6 - 2.6 mg/dL 05/29/2022 11:11 AM [facility] Blood BLOOD SPECIMEN / Unknown Lab Venipuncture / Unknown 05/29/2022 4:41 AM SALES CLERK SUPERVISOR 05/29/2022 4:54 AM SALES CLERK SUPERVISOR Cheyenne Mendoza GRANULATOR MACHINE OPERATOR-DIRECTOR OF SOCIAL MEDIA MARKETING LAB - JOB COST ESTIMATOR RY ORDERABLES [facility] [address] [place] [address] * (ABNORMAL) CBC W AUTO DIFFERENTIAL (05/29/2022 4:41 AM [facility] [[email or web address]]) [facility] WBC 11.6(H) 4.4 - 10.7 x10E9/L 05/29/2022 5:06 AM [facility] WBC Corrected 05/29/2022 5:06 AM [facility] RBC 3.57(L) 3.80 - 5.20 x10E12/L 05/29/2022 5:06 AM [facility] Hemoglobin 10.2(L) 12.0 - 15.6 gm/dL 05/29/2022 5:06 AM [facility] Hematocrit 31.9(L) 35.9 - 45.5 % 05/29/2022 5:06 AM [facility] MCV 89.4 80.7 - 98.3 fl 05/29/2022 5:06 AM [facility] MCH 28.6 26.7 - 34.0 pg 05/29/2022 5:06 AM [facility] MCHC 32.0 30.8 - 35.9 gm/dL 05/29/2022 5:06 AM [facility] Platelet Count 343 153 - 416 x10E9/L 05/29/2022 5:06 AM [facility] RDW-CV 13.7 12.1 - 14.9 % 05/29/2022 5:06 AM [facility] MPV 10.3 9.4 - 12.9 fl 05/29/2022 5:06 AM [facility] Neutrophils % 70.0 44.0 - 73.0 % 05/29/2022 5:06 AM [facility] Lymphocytes % 22.9 20.0 - 43.0 % 05/29/2022 5:06 AM [facility] Monocytes % 6.2 5.0 - 13.0 % 05/29/2022 5:06 AM [facility] Eosinophils % 0.3 0.0 - 6.0 % 05/29/2022 5:06 AM [facility] Basophils % 0.3 0.0 - 2.0 % 05/29/2022 5:06 AM [facility] Immature Granulocytes 0.3 0 - 1 % 05/29/2022 5:06 AM [facility] Neutrophil Absolute 8.07(H) 2.01 - 7.14 x10E9/L 05/29/2022 5:06 AM [facility] Lymphocytes Absolute 2.65 1.07 - 3.94 x10E9/L 05/29/2022 5:06 AM [facility] Monocytes Absolute 0.72 0.26 - 1.07 x10E9/L 05/29/2022 5:06 AM [facility] Eosinophils Absolute 0.03 0 - 0.47 x10E9/L 05/29/2022 5:06 AM [facility] Basophils Absolute 0.04 0 - 0.08 x10E9/L 05/29/2022 5:06 AM [facility] Immature Granulocytes Absolute 0.04 0.00 - 0.06 x10E9/L 05/29/2022 5:06 AM [facility] nRBC Auto 0 /100 WBC 05/29/2022 5:06 AM [facility] Blood BLOOD SPECIMEN / Unknown Lab Venipuncture / Unknown 05/29/2022 4:41 AM SALES CLERK SUPERVISOR 05/29/2022 4:54 AM [facility] [[email or web address]] Bc Samuels MD LAB - HEMATOLOGY ORD ERABLES [facility] [address] [place] [address] * (ABNORMAL) BASIC METABOLIC PANEL (CALCIUM TOTAL) (05/29/2022 4:41 AM [facility] [[email or web address]]) Glucose 108(H) 70 - 105 mg/dL 05/29/2022 5:12 AM [facility] Sodium 141 136 - 145 mmol/L 05/29/2022 5:12 AM [facility] Potassium 3.5 3.5 - 5.1 mmol/L 05/29/2022 5:12 AM [facility] Chloride 105 98 - 107 mmol/L 05/29/2022 5:12 AM [facility] CO2 27 23 - 31 mmol/L 05/29/2022 5:12 AM [facility] Calcium 9.2 8.4 - 10.4 mg/dL 05/29/2022 5:12 AM [facility] Anion Gap 9 8 - 18 mmol/L 05/29/2022 5:12 AM [facility] BUN 10 9.8 - 20.1 mg/dL 05/29/2022 5:12 AM [facility] Creatinine 0.72 0.57 - 1.11 mg/dL 05/29/2022 5:12 AM [facility] eGFR by CKD-EPI >90 >=90 mL/min/1.7 3 m2 05/29/2022 5:12 AM [facility] Blood BLOOD SPECIMEN / Unknown Lab Venipuncture / Unknown 05/29/2022 4:41 AM SALES CLERK SUPERVISOR 05/29/2022 4:54 AM [facility] [[email or web address]] Bc Samuels MD LAB - CHEMISTRY DARLENE COY [facility] Organization Address City/State/ZIP Co de Phone Number [facility] [place] [address] * (ABNORMAL) CBC W AUTO DIFFERENTIAL (05/28/2022 4:29 AM [facility] [[email or web address] WBC 14.5(H) 4.4 - 10.7 x10E9/L 05/28/2022 4:58 AM [facility] WBC Corrected 05/28/2022 4:58 AM [facility] RBC 3.46(L) 3.80 - 5.20 x10E12/L 05/28/2022 4:58 AM [facility] Hemoglobin 9.8(L) 12.0 - 15.6 gm/dL 05/28/2022 4:58 AM [facility] Hematocrit 31.0(L) 35.9 - 45.5 % 05/28/2022 4:58 AM [facility] MCV 89.6 80.7 - 98.3 fl 05/28/2022 4:58 AM [facility] MCH 28.3 26.7 - 34.0 pg 05/28/2022 4:58 AM [facility] MCHC 31.6 30.8 - 35.9 gm/dL 05/28/2022 4:58 AM [facility] Platelet Count 328 153 - 416 x10E9/L 05/28/2022 4:58 AM [facility] RDW-CV 13.4 12.1 - 14.9 % 05/28/2022 4:58 AM [facility] MPV 10.4 9.4 - 12.9 fl 05/28/2022 4:58 AM [facility] Neutrophils % 80.2(H) 44.0 - 73.0 % 05/28/2022 4:58 AM [facility] Lymphocytes % 12.4(L) 20.0 - 43.0 % 05/28/2022 4:58 AM [facility] Monocytes % 6.9 5.0 - 13.0 % 05/28/2022 4:58 AM [facility] Eosinophils % 0.0 0.0 - 6.0 % 05/28/2022 4:58 AM [facility] Basophils % 0.1 0.0 - 2.0 % 05/28/2022 4:58 AM [facility] Immature Granulocytes 0.4 0 - 1 % 05/28/2022 4:58 AM [facility] Neutrophil Absolute 11.61(H) 2.01 - 7.14 x10E9/L 05/28/2022 4:58 AM [facility] Lymphocytes Absolute 1.80 1.07 - 3.94 x10E9/L 05/28/2022 4:58 AM [facility] Monocytes Absolute 1.00 0.26 - 1.07 x10E9/L 05/28/2022 4:58 AM [facility] Eosinophils Absolute 0.00 0 - 0.47 x10E9/L 05/28/2022 4:58 AM [facility] Basophils Absolute 0.02 0 - 0.08 x10E9/L 05/28/2022 4:58 AM [facility] Immature Granulocytes Absolute 0.06 0.00 - 0.06 x10E9/L 05/28/2022 4:58 AM [facility] nRBC Auto 0 /100 WBC 05/28/2022 4:58 AM [facility] Blood BLOOD SPECIMEN / Unknown Lab Venipuncture / Unknown 05/28/2022 4:29 AM SALES CLERK SUPERVISOR 05/28/2022 4:55 AM [facility] [[email or web address]] Bc Samuels MD LAB - HEMATOLOGY ORD ERABLES [facility] [address] [place] [address] * (ABNORMAL) BASIC METABOLIC PANEL (CALCIUM TOTAL) (05/28/2022 4:29 AM [facility] [[email or web address] Glucose 136(H) 70 - 105 mg/dL 05/28/2022 5:16 AM [facility] Sodium 140 136 - 145 mmol/L 05/28/2022 5:16 AM [facility] Potassium 3.8 3.5 - 5.1 mmol/L 05/28/2022 5:16 AM [facility] Chloride 106 98 - 107 mmol/L 05/28/2022 5:16 AM [facility] CO2 24 23 - 31 mmol/L 05/28/2022 5:16 AM [facility] Calcium 8.8 8.4 - 10.4 mg/dL 05/28/2022 5:16 AM [facility] Anion Gap 10 8 - 18 mmol/L 05/28/2022 5:16 AM [facility] BUN 16 9.8 - 20.1 mg/dL 05/28/2022 5:16 AM [facility] Creatinine 0.69 0.57 - 1.11 mg/dL 05/28/2022 5:16 AM [facility] eGFR by CKD-EPI >90 >=90 mL/min/1.7 3 m2 05/28/2022 5:16 AM [facility] Blood BLOOD SPECIMEN / Unknown Lab Venipuncture / Unknown 05/28/2022 4:29 AM SALES CLERK SUPERVISOR 05/28/2022 4:55 AM SALES CLERK SUPERVISOR Bc Samuels MD LAB - CHEMISTRY DARLENE GALLARDOALIE [facility] [address] [address] * PATHOLOGY TISSUE EXAM (STL) (05/27/2022 2:17 PM SALES CLERK SUPERVISOR) Case Report Surgical Pathology Report ? Case: [id number] ? Authorizing Provider: ??Bc Samuels MD ? Collected: ? 05/27/2022 02:17 PM ? Ordering Location: ? [facility] ? Received: ?05/28/2022 10:48 AM ? Pathologist: ? Juliana Arzola MD ? Specimen: ?Colon Ascending, Ascending colon ? 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 The external surface of the small bowel is smooth. The external surface of the large bowel is smooth. The small bowel is opened to show unremarkable mucosal folds. The large bowel is opened to show a 3.5 x 3.5 x 0.6 cm pale maddox, firm, centrally ulcerated mass that is 5 cm from the distal resection margin and 15 cm from the proximal resection margin. Sectioning through the mass shows it grossly appears to extend through the muscularis propria and into the attached pericolonic fat. The mass is 0.3 cm from the serosal surface and 4.5 cm from the mesenteric resection margin. The remainder of the large bowel consists of unremarkable mucosal folds. The external surface of the appendix has a 1.5 x 1.5 x 1 cm markedly firm distal tip that is adhesed to the attached adipose tissue. The mesenteric resection margin corresponding to the appendix is marked with blue ink. The appendix is sectioned to show a markedly firm pale maddox distal tip that comes to within 2.5 cm from the appendiceal orifice. The remainder of the appendix is grossly unremarkable. Sectioning through the attached pericolonic fat shows several lymph node candidates measuring up to 1.0 cm in greatest dimension. Cassette Summary: A1 - Proximal resection margin en face and sales representative church furniture sections of unremarkable omentum. A2 - Distal resection margin en face. A3 - Mesenteric resection margin en face. A4 - Mass to serosal surface. A5 - Mass possibly extending into attached pericolonic fat. A6 - Mass to unremarkable large bowel. A7 - Distal tip of appendix with blue inked probable mesenteric margin. A8 - Additional sections of appendix. A9 - Six possible lymph nodes. A10 - Six possible lymph nodes. Kitty 05/31/2022 9:41 AM [facility] Microscopic Description Histologic sections show 3.5 cm in greatest dimension invasive moderately differentiated adenocarcinoma composed of expanded and cribriform glandular structures with enlarged nuclei and prominent nucleoli. Tumor focally invades through the muscularis propria into pericolonic soft tissue. Lymph-vascular invasion is not identified. The surgical resection margins are negative. Metastatic adenocarcinoma is identified in one of fifteen identified pericolonic lymph nodes. There is an incidental small periappendiceal abscess at the distal tip of the appendix with patchy acute inflammation of the appendiceal mucosa. 05/31/2022 9:41 AM [facility] Disclaimer All histochemical and/or immunohistochemical results are interpreted with controls that demonstrate appropriate staining reactions before reporting results. Note on use of immunocytochemistry reagents: This test was developed and its performance characteristic determined by [facility], Department of Laboratory Medicine. It has not been cleared or approved by the [place]. Food and Drug Administration (FDA). The FDA has determined that such clearance or approval is not necessary. The test is used for clinical purpose. It should not be regarded as investigational or for research. This laboratory is certified to perform high complexity testing. The performance characteristics of the IHC/KINGA assays have been validated on formalin-fixed paraffin embedded tissues only. The assays have not been validated on decalcified tissues. Results should be interpreted with caution. 05/31/2022 9:41 AM [facility] Synoptic Report COLON AND RECTUM: Resection, Including Transanal Disk Excision of Rectal Neoplasms COLON AND RECTUM: RESECTION - All Specimens 8th Edition - Protocol posted: 10/03/2021 SPECIMEN ?? Procedure: ?laparoscopic ascending colectomy TUMOR ?? Tumor Site: ?Hepatic flexure ?? Histologic Type: ?Adenocarcinoma ?? Histologic Grade: ?G2, moderately differentiated ?? Tumor Size: ?Greatest dimension (Centimeters): 3.5 cm ?? Tumor Extent: ?Invades through muscularis propria into the pericolonic or perirectal tissue ?? Macroscopic Tumor Perforation: ?Not identified ?? Lymphovascular Invasion: ?Not identified ?? Perineural Invasion: ?Not identified ?? Treatment Effect: ?No known presurgical therapy MARGINS ?? Margin Status for Invasive Carcinoma: ?All margins negative for invasive carcinoma ? Closest Margin(s) to Invasive Carcinoma: ?Radial (circumferential) or mesenteric ? Distance from Invasive Carcinoma to Closest Margin: ?4.5 cm ? Distance from Invasive Carcinoma to Radial (Circumferential) Margin: ?Distance already reported as closest margin ?? Margin Status for Non-Invasive Tumor: ?All margins negative for high-grade dysplasia / intramucosal carcinoma and low-grade dysplasia REGIONAL LYMPH NODES ?? Regional Lymph Node Status: ? : ?Tumor present in regional lymph node(s) ? Number of Lymph Nodes with Tumor: ?1 ? Number of Lymph Nodes Examined: ?15 ?? Tumor Deposits: ?Not identified PATHOLOGIC STAGE CLASSIFICATION (pTNM, AJCC 8th Edition) ?? Reporting of pT, pN, and (when applicable) pM categories is based on information available to the pathologist at the time the report is issued. As per the AJCC (Chapter 1, 8th Ed.) it is the managing physician's responsibility to establish the final pathologic stage based upon all pertinent information, including but potentially not limited to this pathology report. ?? pT Category: ?pT3 ?? pN Category: ?pN1a 05/31/2022 9:41 AM SALES CLERK SUPERVISOR [facility] Embedded Images 05/31/2022 9:41 AM SALES CLERK SUPERVISOR [facility] Pathology/Cytolo gy ASCENDING COLON STRUCTURE / Unknown 05/27/2022 2:17 PM SALES CLERK SUPERVISOR 05/28/2022 10:48 AM SALES CLERK SUPERVISOR Bc Samuels MD LAB - PATHOLOGY/CYTO LOGY ORDERABLES Performing Organization Address City/State/[facility] Co de Phone Number [facility] [place] [address] * TYPE + SCREEN PANEL (05/27/2022 12:16 PM SALES CLERK SUPERVISOR) ABO Rh A POS 05/27/2022 1:44 PM SALES CLERK SUPERVISOR [facility] Comment:No history; collect retype. Antibody Screen NEG 1:44 PM [facility] Blood Bank BLOOD SPECIMEN / Unknown Venipuncture / Unknown 05/27/2022 12:16 PM SALES CLERK SUPERVISOR 05/27/2022 12:23 PM SALES CLERK SUPERVISOR Bc Samuels MD LAB - BLOOD BANK ORD ERABLES [facility] [address] [place] [address], [facility] [phone] * BLOOD TYPE VERIFICATION (05/27/2022 12:00 PM SALES CLERK SUPERVISOR) ABO Rh A POS 05/27/2022 1:4 4 PM SALES CLERK SUPERVISOR [facility] Blood Bank BLOOD SPECIMEN / Unknown Lab Venipuncture / Unknown 05/27/2022 12:00 PM SALES CLERK SUPERVISOR 05/27/2022 12:40 PM SALES CLERK SUPERVISOR Bc Samuels MD LAB - BLOOD BANK ORD ERABLES [facility] [address] [address], [facility] [phone] documented in this encounter Visit Diagnoses Not on filedocumented in this encounter Administered Medications Inactive Administered Medications - up to 3 most recent administrations Medication Order MAR Action Action Date Dose Rate Site 0.9% NaCl injection 1-10 mL 1-10 mL, Intracatheter, PRN, Other, peripheral line flush, Starting on Fri05/27/22 at 1637, Until 06/01/22 at 1943, Flush peripheral IV catheter with 1-10 mL of normal saline before and after medications and prn to clear blood from the line or to verify patency., Post-op 0.9% NaCl injection 3 mL 3 mL, Intracatheter, EVERY 8 HOURS, First dose on Fri05/27/22 at 1645, Until Discontinued, Flush peripheral IV catheter with 3 mL of normal saline every 8 hours., Post-op $ Given 06/01/2022 2:32 PM SALES CLERK SUPERVISOR 3 mL $ Given 06/01/2022 6:56 AM SALES CLERK SUPERVISOR 3 mL $ Given 05/31/2022 8:38 PM SALES CLERK SUPERVISOR 3 mL ierhyahp-etpylfvsx-rvxtmapdtbr (Maalox; Mylanta) suspension 15 mL 15 mL, Oral, EVERY 6 HOURS PRN, Heartburn, Starting on Fri05/31/22 at 0236, Until 06/01/22 at 1943, Shake well before using. $ Given 05/31/2022 2:12 PM SALES CLERK SUPERVISOR 15 mL $ Given 05/31/2022 2:51 AM SALES CLERK SUPERVISOR 15 mL clonazePAM (KlonoPIN) tablet 0.5 mg 0.5 mg, Oral, 2 TIMES DAILY PRN, Anxiety, Starting on Fri05/27/22 at 1637, Until 06/01/22 at 1943 $ Given 06/01/2022 2:55 AM SALES CLERK SUPERVISOR 0.5 mg $ Given 05/31/2022 6:17 PM SALES CLERK SUPERVISOR 0.5 mg $ Given 05/30/2022 8:25 PM SALES CLERK SUPERVISOR 0.5 mg enoxaparin (Lovenox) injection 40 mg 40 mg, Subcutaneous, DAILY, First dose on Fri05/28/22 at 0900, Until Discontinued, (for prefilled syringes) do not expel air bubble from the syringe prior to the injection Remind Patient to not rub injection site. Could cause hematoma., Post-op $ Given 06/01/2022 8:46 AM SALES CLERK SUPERVISOR 40 mg Abdominal Tissue $ Given 05/31/2022 8:11 AM SALES CLERK SUPERVISOR 40 mg Ab dominal Tissue $ Given 05/30/2022 8:45 AM SALES CLERK SUPERVISOR 40 mg Ab dominal Tissue FLUoxetine (PROzac) capsule 30 mg 30 mg, Oral, DAILY, First dose on Fri05/27/22 at 1645, Until Discontinued $ Given 06/01/2022 8:46 AM SALES CLERK SUPERVISOR 30 mg $ Given 05/31/2022 8:11 AM SALES CLERK SUPERVISOR 30 mg $ Given 05/30/2022 8:45 AM SALES CLERK SUPERVISOR 30 mg lactated ringers infusion at 50 mL/hr, Intravenous, CONTINUOUS, Starting on Fri05/27/22 at 1645, Until 06/01/22 at 1943, Post-op $ New Bag/Syringe 05/31/2022 5:22 AM SALES CLERK SUPERVISOR 5 0 mL/hr $ New Bag/Syringe 05/30/2022 11:03 AM SALES CLERK SUPERVISOR 50 mL /hr $ New Bag/Syringe 05/29/2022 2:01 PM SALES CLERK SUPERVISOR 50 mL/ hr metoclopramide (Reglan) injection 10 mg 10 mg, Intravenous, EVERY 6 HOURS, First dose on Fri05/27/22 at 1800, Until Discontinued $ Given 06/01/2022 12:26 PM SALES CLERK SUPERVISOR 10 mg $ Given 06/01/2022 6:56 AM SALES CLERK SUPERVISOR 10 mg $ Given 06/01/2022 12:03 AM SALES CLERK SUPERVISOR 10 mg ondansetron (disintegrating) (Zofran ODT) tablet 4 mg 4 mg, Oral, EVERY 6 HOURS PRN, Nausea/Vomiting, Starting on Fri05/27/22 at 1637, Until 06/01/22 at 1943, Dissolved orally on tongue Dissolved orally on tongue, Post-op ondansetron (Zofran) injection 4 mg 4 mg, Intravenous, EVERY 6 HOURS PRN, Nausea/Vomiting, Starting on Fri05/27/22 at 1637, Until 06/01/22 at 1943, Administer IV if patient is NPO, actively vomiting, or unable to swallow., Post-op $ Given 05/31/2022 8:16 AM SALES CLERK SUPERVISOR 4 mg $ Given 05/30/2022 8:32 PM SALES CLERK SUPERVISOR 4 mg $ Given 05/29/2022 7:52 PM SALES CLERK SUPERVISOR 4 mg oxyCODONE-acetaminophen (Percocet) 5-325 MG tablet 1 tablet 1 tablet, Oral, EVERY 4 HOURS PRN, Moderate Pain, Starting on Fri05/28/22 at 0832, Until 06/01/22 at 1943, Patient preference for lesser PRN pain meds may be honored when the patient requests a less strong medication, a lower dose, or a less intrusive route of administration when the lesser drug, dose and route have been ordered for the patient. This patient request must be documented in the MAR. $ Given 06/01/2022 6:15 PM SALES CLERK SUPERVISOR 1 tablet $ Given 05/31/2022 8:39 PM SALES CLERK SUPERVISOR 1 tablet $ Given 05/31/2022 5:20 AM SALES CLERK SUPERVISOR 1 tablet pantoprazole EC (Protonix) tablet 40 mg 40 mg, Oral, DAILY, First dose on Fri05/31/22 at 1500, Until Discontinued, Do not crush, chew, or cut in half. $ Given 06/01/2022 8:46 AM SALES CLERK SUPERVISOR 40 mg $ Given 05/31/2022 6:17 PM SALES CLERK SUPERVISOR 40 mg traZODone (Desyrel) tablet 50 mg 50 mg, Oral, AT BEDTIME, First dose on Fri05/27/22 at 2100, Until Discontinued $ Given 05/31/2022 8:39 PM SALES CLERK SUPERVISOR 50 mg $ Given 05/30/2022 8:25 PM SALES CLERK SUPERVISOR 50 mg $ Given 05/29/2022 8:59 PM SALES CLERK SUPERVISOR 50 mg documented in this encounter Active and Recently Administered Medications Times are shown in SALES CLERK SUPERVISOR. Scheduled Medication Order 05/30/2022 05/31/2022 06/01/2022 0.9% NaCl injection 3 mL(Linked Group 1) 3 mL, Intracatheter, EVERY 8 HOURS, First dose on Fri05/27/22 at 1645, Until Discontinued, Flush peripheral IV catheter with 3 mL of normal saline every 8 hours., Post-op 0444 ($ Given - Provider: Jose Chavira RN)1202 (Not Administered - Provider: Flor Dsouza RN - Reason: IV Currently Infusing)2025 (Canceled Entry - Provider: Carolyn Cortes RN) 0519 (Canceled Entry - Provider: Carolyn Cortes RN)1413 ($ Given - Provider: Danish Su RN)2037 ($ Given - Provider: Whitney Boland RN) 0656 ($ Given - Provider: Whitney Boland RN)1432 ($ Given - Provider: Bruce Bellamy, Graduate Nurse) acetaminophen (Tylenol) tablet 1,000 mg (CANCELED) 1,000 mg, Oral, EVERY 6 HOURS, 20 doses, First dose on Fri05/27/22 at 1900, Last dose on Fri06/01/22 at 1300, Patient preference for lesser PRN pain meds may be honored when the patient requests a less strong medication, a lower dose, or a less intrusive route of administration when the lesser drug, dose and route have been ordered for the patient. This patient request must be documented in the MAR., Post-op 0020 ($ Given - Provider: Jose Chavira RN)0626 ($ Given - Provider: Jose Chavira RN)1202 (Not Administered - Provider: Flor Dsouza RN - Reason: Refused-Patient)2024 ($ Given - Provider: Carolyn Cortes RN)2348 (Canceled Entry - Provider: Carolyn Cortes RN) 0811 ($ Given - Provider: Caren Scanlon)1410 ($ Given - Provider: Danish Su, PALOMO)203 ($ Given - Provider: Whitney Boland RN) 0004 ($ Given - Provider: Whitney Boland, RN)0655 ($ Given - Provider: Whitney Boland RN)1224 (Held - Provider: Bruce Bellamy, Graduate Nurse - Reason: Per Administration Instructions) enoxaparin (Lovenox) injection 40 mg 40 mg, Subcutaneous, DAILY, First dose on Fri05/28/22 at 0900, Until Discontinued, (for prefilled syringes) do not expel air bubble from the syringe prior to the injection Remind Patient to not rub injection site. Could cause hematoma., Post-op 0845 ($ Given - Provider: Flor Dsouza RN) 0811 ($ Given - Provider: Caren Scanlon) 0846 ($ Given - Provider: Umu Yoder, PALOMO) FLUoxetine (PROzac) capsule 30 mg 30 mg, Oral, DAILY, First dose on Fri05/27/22 at 1645, Until Discontinued 0845 ($ Given - Provider: Flor Dsouza RN) 0811 ($ Given - Provider: Caren Scanlon) 0846 ($ Given - Provider: Umu Yoder, PALOMO) gabapentin (Neurontin) capsule 300 mg (COMPLETED) 300 mg, Oral, AT BEDTIME, 5 doses, First dose on Fri05/27/22 at 2100, Last dose on Fri05/31/22 at 2100, Post-op 2024 ($ Given - Provider: Carolyn Cortes RN) 2038 ($ Given - Provider: Whitney Boland RN) metoclopramide (Reglan) injection 10 mg 10 mg, Intravenous, EVERY 6 HOURS, First dose on Fri05/27/22 at 1800, Until Discontinued 0020 ($ Given - Provider: Jose Chavira RN)0443 ($ Given - Provider: Jose Chavira RN)1102 ($ Given - Provider: Flor Dsouza RN)1722 ($ Given - Provider: Flor sDouza RN)2301 ($ Given - Provider: Carolyn Cortes RN) 0520 ($ Given - Provider: Carolyn Cortes RN)1410 ($ Given - Provider: Danish Su RN)2038 ($ Given - Provider: Whitney Boland RN) 0003 ($ Given - Provider: Whitney Boland RN)0656 ($ Given - Provider: Whitney Boland RN)1226 ($ Given - Provider: Bruce Bellamy, Graduate Nurse)1816 (Not Administered - Provider: Bruce Bellamy, Graduate Nurse - Reason: Loss of Access) pantoprazole EC (Protonix) tablet 40 mg 40 mg, Oral, DAILY, First dose on Fri05/31/22 at 1500, Until Discontinued, Do not crush, chew, or cut in half. 181 ($ Given - Provider: Caren Scanlon) 0846 ($ Given - Provider: Umu Yoder, PALOMO) potassium chloride ER (Klor-Con) tablet 40 mEq (COMPLETED) 40 mEq, Oral, ONCE, 1 dose, On Annette 05/30/22 at 0730, Swallow whole, do not crush, chew or break. 0845 ($ Given - Provider: Flor Dsouza RN) traZODone (Desyrel) tablet 50 mg 50 mg, Oral, AT BEDTIME, First dose on Fri05/27/22 at 2100, Until Discontinued 2024 ($ Given - Provider: Carolyn Cortes RN) 2038 ($ Given - Provider: Whitney Boland, PALOMO) Continuous Medication Order 05/30/2022 05/31/2022 06/01/2022 lactated ringers infusion at 50 mL/hr, Intravenous, CONTINUOUS, Starting on Fri05/27/22 at 1645, Until 06/01/22 at 1943, Post-op 1103 ($ New Bag/Syringe - Provider: Flor Dsouza RN) 0522 ($ New Bag/Syringe - Provider: Carolyn Cortes RN) PRN Medication Order 05/30/2022 05/31/2022 06/01/2022 0.9% NaCl injection 1-10 mL(Linked Group 1) 1-10 mL, Intracatheter, PRN, Other, peripheral line flush, Starting on Fri05/27/22 at 1637, Until 06/01/22 at 1943, Flush peripheral IV catheter with 1-10 mL of normal saline before and after medications and prn to clear blood from the line or to verify patency., Post-op liasdnuh-rumlebqek-ohepn hicone (Maalox; Mylanta) suspension 15 mL 15 mL, Oral, EVERY 6 HOURS PRN, Heartburn, Starting on Fri05/31/22 at 0236, Until 06/01/22 at 194, Shake well before using. 0251 ($ Given - Provider: Carolyn Cortes RN)1412 ($ Given - Provider: Danish Su RN) clonazePAM (KlonoPIN) tablet 0.5 mg 0.5 mg, Oral, 2 TIMES DAILY PRN, Anxiety, Starting on Fri05/27/22 at 1637, Until 06/01/22 at [id number] ($ Given - Provider: Carolyn Cortes, PALOMO) 181 ($ Given - Provider: Caren Scanlon) 0255 ($ Given - Provider: Whitney Boland, PALOMO) morphine injection 2 mg (CANCELED) 2 mg, Intravenous, EVERY 4 HOURS PRN, Severe Pain, Starting on Tu05/28/22 at 0832, Until Annette 05/30/22 at 0837, Patient preference for lesser PRN pain meds may be honored when the patient requests a less strong medication, a lower dose, or a less intrusive route of administration when the lesser drug, dose and route have been ordered for the patient. This patient request must be documented in the MAR. 0023 ($ Given - Provider: Jose Chavira, PALOMO)0443 ($ Given - Provider: Jose Chavira RN) naloxone (Narcan) injection 0.2 mg 0.2 mg, Intravenous, PRN, Other, If unable to arouse patient or if respiratory depression is present., 4 doses, Starting on Fri05/27/22 at 1637, Until 06/01/22 at 194, Mix 0.4 mg Naloxone in 9 mL Normal Saline for slow IV push. Administer dilute Naloxone solution IV very slowly (5 mL over 2 minutes) while observing the patient response and titrating to effect. If no response, call Rapid Response, continue IV Naloxone at the same rate up to a total of 0.8 mg or 20 mL of diluted Naloxone, and notify physician immediately. ondansetron (disintegrating) (Zofran ODT) tablet 4 mg(Linked Group 2) 4 mg, Oral, EVERY 6 HOURS PRN, Nausea/Vomiting, Starting on Fri05/27/22 at 1637, Until 06/01/22 at 194, Dissolved orally on tongue Dissolved orally on tongue, Post-op 2031 (See Alternative - Provider: Carolyn Cortes RN) 0816 (See Alternative - Provider: Caren Scanlon) ondansetron (Zofran) injection 4 mg(Linked Group 2) 4 mg, Intravenous, EVERY 6 HOURS PRN, Nausea/Vomiting, Starting on Fri05/27/22 at 1637, Until 06/01/22 at 1943, Administer IV if patient is NPO, actively vomiting, or unable to swallow., Post-op 2031 ($ Given - Provider: Carolyn Cortes RN) 0816 ($ Given - Provider: Caren Scanlon) oxyCODONE-acetaminophen (Percocet) 5-325 MG tablet 1 tablet 1 tablet, Oral, EVERY 4 HOURS PRN, Moderate Pain, Starting on Fri05/28/22 at 0832, Until 06/01/22 at 1943, Patient preference for lesser PRN pain meds may be honored when the patient requests a less strong medication, a lower dose, or a less intrusive route of administration when the lesser drug, dose and route have been ordered for the patient. This patient request must be documented in the MAR. 134 ($ Given - Provider: Flor Dsouza RN)2301 ($ Given - Provider: Carolyn Cortes RN) 0520 ($ Given - Provider: Carolyn Cortes RN)203 ($ Given - Provider: Whitney Boland, PALOMO) 1815 ($ Given - Provider: Bruce Bellamy, Graduate Nurse) Linked Groups Order Group 1: SALINE LOCK, INSERT AND MAINTAIN (CANCELED) Routine, CONTINUOUS, Starting on Fri05/27/22 at 1645, Until Specified, Post-op, New collection And 0.9% NaCl injection 3 mLJump to med 3 mL, Intracatheter, EVERY 8 HOURS, First dose on Fri05/27/22 at 1645, Until Discontinued, Flush peripheral IV catheter with 3 mL of normal saline every 8 hours., Post-op And 0.9% NaCl injection 1-10 mLJump to med 1-10 mL, Intracatheter, PRN, Other, peripheral line flush, Starting on Fri05/27/22 at 1637, Until 06/01/22 at 1943, Flush peripheral IV catheter with 1-10 mL of normal saline before and after medications and prn to clear blood from the line or to verify patency., Post-op Group 2: ondansetron (disintegrating) (Zofran ODT) tablet 4 mgJump to med 4 mg, Oral, EVERY 6 HOURS PRN, Nausea/Vomiting, Starting on 05/27/22 at 1637, Until 06/01/22 at 1943, Dissolved orally on tongue Dissolved orally on tongue, Post-op Or ondansetron (Zofran) injection 4 mgJump to med 4 mg, Intravenous, EVERY 6 HOURS PRN, Nausea/Vomiting, Starting on 05/27/22 at 1637, Until 06/01/22 at 1943, Administer IV if patient is NPO, actively vomiting, or unable to swallow., Post-op documented in this encounter Care Teams Insecticide Expert Relationship Specialty Start Date End Date Donal Granados MD [facility] [place] [address] PCP - General Family Medicine 05/22/22 06/17/22 Bc Samuels MD [address] [place] [address] Surgeon Colon and Rectal Surgery 04/09/22 documented as of this encounter
--- OUTSIDE RECORDS SUMMARY | 2024-04-04 23:28 | XMS_ITS | Referral Summary ---
Author Organization [facility] Address [address] [place] [address] Care Team Providers Care Principal Examiner Name Role Phone Bc Samuels MD Unavailable [phone] Donal Granados MD Primary Care Provider [phone] Source Comments [facility],non-owned Affiliates and Associated Physician Practices is amultiple site organization consisting of ambulatory clinics and hospital sitesin [place], [place], [place] and [place]. This disclosure is being madepursuant to the Care Everywhere program and may not contain all information available regarding this patient. Last updated 18.[facility] Allergies No known active allergies Medications * Be aware that medications may not be up to date on this document. Alwaysverify current medications with the patient. Medication Sig Dispensed Refills Start Date End Date Status omeprazole (PriLOSEC) 40 MG capsule Take 1 (one) capsule by mouth at bedtime Active simvastatin (Zocor) 40 MG tablet Take 1 (one) tablet by mouth at bedtime Active traZODone (Desyrel) 50 MG tablet Take 1 (one) tablet by mouth at bedtime Active clonazePAM (KlonoPIN) 0.5 MG tablet clonazepam 0.5 mg tablet TAKE ONE TABLET TWICE DAILY NEEDED Active FLUoxetine (PROzac) 20 MG capsule Take 30 mg by mouth once daily Active ondansetron (Zofran) 4 MG tablet Take one tablet at 12:00pm and 7:00pm the day before surgery 2 tablet 05/02/2022 Active fbpnawfq-eliddwxqg-j exameth (Maxitrol) ophthalmic suspension Instill 1 (one) drop into both eyes once daily Active multivitamin daily tablet Take 1 (one) tablet by mouth daily with food Active CALCIUM PO Take 1 tablet by mouth once daily Active Active Problems Problem Noted Date Diagnosed Date 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 Not hard at all 05/27/2022 [facility] - Occupational Stress [...] place to sleep or slept in a jail (including now)? No 05/27/2022 Sex and Gender Information Value Date Recorded Sex Assigned at Not on file Gender Identity Not on file Sexual Orientation Not on file Last Filed Vital Signs Vital Sign Reading Time Taken Comments Blood Pressure 154/85 06/01/2022 11:10 AM NAILER OPERATOR Pulse 75 06/01/2022 11:10 AM NAILER OPERATOR Temperature 36.5 ??C (97.7 ??F) 06/01/2022 11:[address] Respiratory Rate 18 06/01/2022 11:10 AM NAILER OPERATOR Oxygen Saturation 96% 06/01/2022 11:10 AM NAILER OPERATOR Inhaled Oxygen Concentration - - Weight 56.7 kg (125 lb) 06/18/2022 9:29 AM NAILER OPERATOR Height 157.5 cm (5' 2 ) 06/18/2022 9:29 AM NAILER OPERATOR Body Mass Index 22.86 06/18/2022 9:29 AM NAILER OPERATOR Functional Status Functional Status Response Date of [...] person have difficulty concentrating/remembering/making decisions? No 05/27/2022 Plan of Treatment Not on file Procedures Procedure Name Priority Date/Time Associated Diagnosis Comments COLONOSCOPY Routine 04/17/2022 from Last 3 Months or Most Recently Relevant to Health Maintenance Results * COLONOSCOPY (04/17/2022) Historical Provider MD SCANNING ONLY from Last 3 Months or Most Recently Relevant to Health Maintenance Advance Directives * Full Code (Latest Code Status on File) Date Activated Date Inactivated Comments 05/27/2022 4:37 PM 06/01/2022 7:48 PM Care Teams Principal Examiner Relationship Specialty Start Date End Date Donal Granados MD [address] [place] [address] [address] [place] [id number] PCP - General Family Medicine 06/18/22 Bc Samuels MD [address] [place] [address] [address] [address] Surgeon Colon and Rectal Surgery 04/09/22
--- OUTSIDE RECORDS SUMMARY | 2024-04-04 23:28 | XMS_ITS | Encounter Summary ---
Author Organization [facility] Address [address] [place] [address] Care Team Providers Care Box Office Agent Name Role Phone Bc Samuels MD Unavailable [phone] Donal Granados MD Primary Care Provider [phone] Reason for Visit * Reason Comments Post-Op Encounter Details Date Type Department Care Team (Late st Contact Info) Description 06/18/2022 9:45 AM C CONSULTANT Office Visit [facility] [address] [place] [address] Bc Samuels MD [address] [place] [address] Malignant neoplasm of hepatic flexure (HCC) (Primary Dx) Social History Tobacco Use Types Packs/Day Years [...] and heating? Not hard at all 05/27/2022 [facility] Occupat ional [facility] - Occupational Stress [...] place to sleep or slept in a chcf (including now)? No 05/27/2022 Sex and Gender Information Value Date Recorded Sex Assigned at Not on file Gender Identity Not on file Sexual Orientation Not on file documented as of this encounter Last Filed Vital Signs Vital Sign Reading Time Taken Comments Blood Pressure - - Pulse - - Temperature - - Respiratory Rate - - Oxygen Saturation - - Inhaled Oxygen Concentration - - Weight 56.7 kg (125 lb) 06/18/2022 9:29 AM C CONSULTANT Height 157.5 cm (5' 2 ) 06/18/2022 9:29 AM C CONSULTANT Body Mass Index 22.86 06/18/2022 9:29 AM C CONSULTANT documented in this encounter Functional Status Functional [...] No 05/27/2022 documented as of this encounter Patient Instructions * Patient Instructions* Pily Hale MA - 06/18/2022 9:32 AM C CONSULTANT Thank you for visiting [facility]. We appreciate your confidence in allowing us to participate in your health care. You may receive a survey about your visit with us today. Making our patients happy isn't just happy talk; it's our mission. Please tell us if we made the right impression on you and how we can serve you better. Please SAVE the information below, it will assist you when it's time for you to contact us. To MAKE - CHANGE - CANCEL an office appointment If you become ill, need to be seen before your next scheduled appointment, or need to cancel or reschedule an appointment, please call our office at [phone] Friday through 8:30 am to 4:30 pm. and Friday from 8:30 am to 4:00 pm. You can also request a routine appointment through your my chart.[employer] account. Prescription Refills Contact your pharmacy to request all refills. The pharmacy will need to fax the request to us at . Please allow a minimum of 48-72 hours for your prescription to be completed. Your pharmacy will notify you when your prescription is ready to be picked up. Medical Emergency / After Hours Contact Information If you have a medical emergency, please call 911 or go to the nearest emergency room. For urgent medical calls which cannot wait until the office opens, please call the medical exchangeat and ask the interceptor operator to page the Col[facility]Rectal physician consumer lending manager. *Caller ID blocking service will need to be turned off for your call to be returned. We specialize in anorectal disease, cancers, surgeries, and so much more. Visit our website at [email or web address] for information about our practice and an interactive health encyclopedia. C CONSULTANT documented in this encounter Progress Notes * Pily Hale MA - 06/18/2022 9:45 AM CST Colorectal H&P Note Bc Samuels MD [facility] Board Certified Colorectal Surgeon 06/18/2022 Patient's Primary Care Physician: Wilian Berkowitz MD Patient Name: Loulou Lanier Age: [age] year old Sex: female Surgical procedure: Laparoscopic and Right colectomy The procedure was performed on 05/27/2022. Time from surgery: a little over 3 week(s) Diagnosis: colon cancer Cancer pathology: moderately-differentiated adenocarcinoma Disease location: ascending colon TNM: T3 and N1a AJCC: Stage IIIB Status: having some pain and having some nausea Bowel function: having some bowel difficulty Inpatient complications: none Pt stated since her surgery she is having a hard time mentally. She is having a hard time eating and completing her daily activities. Past Medical History: Diagnosis Date ??? Anal [...] Social Determinants of Health Financial Resource Strain: Low Risk ??? Difficulty [...] Feeling of Stress : Only a little Housing Stability: Low Risk ??? Unable to Pay for Housing in the Last Year: No ??? Number of Places Lived in the Last Year: 1 ??? Unstable Housing in the Last Year: No Current Outpatient Medications: ??? CALCIUM PO, Take 1 tablet by mouth once daily, Disp: , Rfl: ??? clonazePAM (KlonoPIN) 0.5 MG tablet, clonazepam 0.5 mg tablet TAKE ONE TABLET TWICE DAILY NEEDED, Disp: , Rfl: ??? FLUoxetine (PROzac) 20 MG capsule, Take 30 mg by mouth once daily, Disp: , Rfl: ??? HYDROcodone-acetaminophen ([place]) 5-325 MG tablet, Take 1 (one) tablet by mouth every 6 hours as needed for Pain, Disp: 12 tablet, Rfl: 0 ??? multivitamin daily tablet, Take 1 (one) tablet by mouth daily with food, Disp: , Rfl: ??? gadddair-zfogkpltu-yghpjncf (Maxitrol) ophthalmic suspension, Instill 1 (one) drop [...] except as described in HPI. PHYSICAL EXAM: General appearance: alert, cooperative, no distress Neck: range of motion is intact, no masses, thyroid not enlarged, no adenopathy Lungs: breath sounds normal and symmetric; no rales or wheezes Heart: regular rhythm, normal S1 and S2, without murmurs, gallops or rubs Abdomen: soft without mass, non-tender, with normal bowel sounds. Incisions are clean dry and intact Extremities: no clubbing, cyanosis or edema Circulation: Carotid, femoral and pedal pulses are intact and symmetrical, aorta is not enlarged, no carotid bruits Neurologic: mental status normal; alert and oriented X 3; cranial nerves II - XII are grossly intact Labs: Lab Results Component Value Date WBC 7.6 06/01/2022 HGB 9.3 (L) 06/01/2022 HCT 29.5 (L) 06/01/2022 MCV 89.4 06/01/2022 Lab Results Component Value Date CO2 23 06/01/2022 Lab Results Component Value Date CREATININE 0.65 06/01/2022 I have reviewed the admission labs, imaging studies, Assessment/Plan: Status post laparoscopic ascending colectomy. She does have stage III cancer. She will need to see Oncology. She wants to stay closer to her house. I will see her back in 3 months Bc Samuels MD [facility] reclamation furnace operator [place] [phone] C CONSULTANT documented in this encounter Miscellaneous Notes * Addendum Note - Tamara Workman - 06/18/2022 9:43 AM CSTAddended by: TAMARA WORKMAN on: 06/18/2022 09:43 AM Modules accepted: Orders C CONSULTANT documented in this encounter Plan of Treatment Scheduled Orders Name Type Priority Associated Diagnoses Orde r Schedule CBC WITH DIFFERENTIAL Lab Routine Malignant neoplasm of hepatic flexure (HCC) Expected: 08/18/2022, Expires: 07/13/2023 COMPREHENSIVE METABOLIC PANEL Lab Routine Malignant neoplasm of hepatic flexure (HCC) Expected: 08/18/2022, Expires: 07/13/2023 CEA BLOOD Lab Routine Malignant neoplasm of hepatic flexure (HCC) Expected: 08/18/2022, Expires: 07/20/2023 documented as of this encounter Visit Diagnoses Diagnosis Malignant neoplasm of hepatic flexure (HCC)- Primary Malignant neoplasm of hepatic flexure documented in this encounter Care Teams Box Office Agent Relationship Specialty Start Date End Date Donal Granados MD [address] [place] [address] PCP - General Family Medicine 06/18/22 Bc Samuels MD [address] [place] [id number] Surgeon Colon and Rectal Surgery 04/09/22 documented as of this encounter
--- OUTSIDE RECORDS SUMMARY | 2024-04-04 23:28 | XMS_ITS | Encounter Summary ---
Author Organization [facility] Address [address] [place] [address] Care Team Providers Care Weld Engineer Name Role Phone Bc Samuels MD Unavailable [phone] Donal Granados MD Primary Care Provider [phone] Reason for Visit * Auth/Cert (Routine) Specialty Diagnoses / Procedures Referred By Contfarzad t Referred To Contact Procedures LAPAROSCOPIC PARTIAL/ELEUTERIO COLECTOMY Referral ID Status Reason Start Date Expiration Date Visits Re quested Visits Authorized [id number] 1 1 Encounter Details Date Type Department Care Team (Latest Contact Info) Description 05/27/2022 10:14 AM MANAGER PIPELINE - 06/01/2022 6:43 PM MANAGER PIPELINE Hospital Encounter [facility] [address] [phone] Bc Samuels MD [address] [place] [address] [address] [phone] Surgery General Discharge Disposition: Home or Self Care Social History Tobacco Use Types Packs/Day Years [...] and heating? Not hard at all 05/27/2022 [facility] Occupat ional Health - Occupational Stress [...] Coronavirus/COVID-19? Unable to assess 05/17/2022 8:40 AM MANAGER PIPELINE documented as of this encounter Last Filed Vital Signs Vital Sign Reading Time Taken Comments Blood Pressure 154/85 06/01/2022 11:10 AM MANAGER PIPELINE Pulse 75 06/01/2022 11:10 AM MANAGER PIPELINE Temperature 36.5 ??C (97.7 ??F) 06/01/2022 11:[address] Respiratory Rate 18 06/01/2022 11:10 AM MANAGER PIPELINE Oxygen Saturation 96% 06/01/2022 11:10 AM MANAGER PIPELINE Inhaled Oxygen Concentration - - Weight 59.9 kg (132 lb) 05/27/2022 11:54 AM MANAGER PIPELINE Height 157.5 cm (5' 2 ) 05/27/2022 11:54 AM MANAGER PIPELINE Body Mass Index 24.14 05/27/2022 11:54 AM MANAGER PIPELINE documented in this encounter Functional Status Functional [...] Summary Patient ID: Loulou Leger. female. [id number]. [id number] JANE: [id number] Admit date: 05/27/2022 10:14 AM Discharge date: [...] (02/28/2022); colonoscopy (04/2022); and foot surgery (, 2007).??Who presents for a laparoscopic ascending colectomy [...] Units 06/01/22 0554 05/31/22 0430 05/30/22 0437 05/29/22 0441 SODIUM mmol/L 143 143 142 141 POTASSIUM mmol/L 3.6 3.8 3.4* 3.5 CHLORIDE mmol/L 107 105 103 105 CO2 mmol/L 23 30 27 27 BUN mg/dL 17 19 18 10 CREATININE mg/dL 0.65 0.69 0.71 0.72 GLUCOSE mg/dL 88 108* 100 108* CALCIUM mg/dL 8.3* 8.8 8.9 9.2 MAGNESIUM mg/dL -- -- -- 1.9 Recent Labs Lab Units 06/01/22 0553 05/31/22 0430 05/30/22436 WBC x10E9/L 7.6 8.7 12.6* RBC x10E12/L [...] hours. No results for input(s): HGBA1C, A1C, MDCUGKSYB1E, EAG in the last 168 hours. No [...] HYDROcodone-acetaminophen 5-325 MG tablet Commonly known as: [place] Take 1 (one) tablet by mouth every 6 hours as needed for Pain CONTINUE taking these medications CALCIUM PO clonazePAM 0.5 MG tablet Commonly known as: KlonoPIN FLUoxetine 20 MG capsule Commonly known as: PROzac multivitamin daily tablet srhrebht-hjhuuomzi-iwrimhpf ophthalmic suspension Commonly known as: Maxitrol omeprazole [...] Your Medications These medications were sent to [place] [address] [place] [facility] [address] [place], [place] [id number] [address] [place] [address] ?? HYDROcodone-acetaminophen 5-325 MG tablet Medications Discontinued [...] Patient Transfer ??? morphine 50 mg/50 mL SALES COORDINATOR ??? morphine injection 2 mg ??? ibandronate (Boniva) 150 MG tablet No Pharm No AVS ??? neomycin (Mycifradin) 500 MG tablet No Pharm No AVS ??? metroNIDAZOLE (Flagyl) 500 MG tablet Yes Pharm/AVS ??? ibuprofen (Advil) 200 MG tablet Yes Pharm/AVS ??? pantoprazole EC (Protonix) tablet 40 mg Patient Discharge ??? qxwwtqyo-aimsmwlut-tygbwqvkngy (Maalox; Mylanta) suspension 15 mL Patient Discharge [...] No Khoi Alexis APRN-MADDISON 06/02/2022 11:49 AM GER PIPELINE Associated attestation - Dayron Holt MD - 06/02/2022 12:15 PM MANAGER PIPELINE I have personally and independently examined the patient and reviewed the chart and all pertinent data including imaging and labs. I agree with the Advanced Practic Provider with the note and treatment plan for this patient. documented in this encounter Discharge Instructions * Discharge Instr - Diet* Bruce Bellamy Graduate Nurse - 06/01/2022 5:17 PM MANAGER PIPELINE Assessment/Plan Post op day #5 for colon resection Low residue diet for dinner. If ok after that then can leave F/U with Dr. Samuels in about 1 week (call [phone] for appt) Low residue diet at home No lifting over 10 lbs for 6 weeks from surgery. Call MD for temp >101, pain uncontrolled with medications, Nausea, Vomiting or redness or discharge from incisions GER PIPELINE documented in this encounter Medications at Time [...] (one) tablet by mouth daily with food vjptunol-obfvqybmm-xxv ameth (Maxitrol) ophthalmic suspension Instill 1 (one) [...] tablet by mouth at bedtime HYDROcodone-acetaminop hen ([place]) 5-325 MG tabletIndications:Analy gnant neoplasm of hepatic [...] uses pharmacological and non-pharmacological pain management strategies. 06/01/20221841 by Bruce Bellamy Graduate Nurse Outcome: [...] can be found in the flowsheet documentation) 06/01/2022 184 by Bruce Bellamy Graduate Nurse Outcome: Adequate for Discharge 06/01/2022 184 by Bruce Bellamy Graduate Nurse Outcome: Adequate for Discharge 06/01/2022 151 by Bruce Bellamy Graduate Nurse Outcome: Adequate [...] transfers with SBA or better with equipment. 06/01/20221841 by Bruce Bellamy Graduate Nurse Outcome: Adequate for Discharge 06/01/20221841 by Bruce Bellamy Graduate Nurse Outcome: Adequate for Discharge Problem: Nutrient: Increased nutrient needs (specify) Goal: Total intake will meet estimated nutrient needs Description: Estimated Needs: KCAL: [id number] (25-30 kcal/kg ABW) Protein (g): 72-84 (1.2-1.4 g/kg ABW) 06/01/2022 1842 by Bruce Bellamy Graduate Nurse Outcome: Adequate for Discharge 06/01/2022 1842 by Bruce Bellamy Graduate Nurse Outcome: Adequate for Discharge 06/01/2022 1518 by Bruce Bellamy Graduate Nurse Outcome: Progressing Problem: Procedural Site (Incision) Care Goal: Incision remains intact with edges well approximated 06/01/2022 184 by Bruce Bellamy Graduate Nurse Outcome: Adequate for Discharge 06/01/2022 1842 by Bruce Bellamy Graduate Nurse Outcome: Adequate for Discharge 06/01/2022 1518 by Bruce Bellamy Graduate Nurse Outcome: Adequate for Discharge Goal: Incision is free of infection. 06/01/2022 1842 by Bruce Bellamy Graduate Nurse [...] Goal: Elimination patterns are normal or improving 06/01/2022 184 by Bruce Bellamy Graduate Nurse Outcome: Adequate for Discharge 06/01/2022 1842 by Bruce Bellamy Graduate Nurse Outcome: Adequate for Discharge GER PIPELINE * Bruce Bellamy Graduate Nurse - 06/01/2022 [...] estimated nutrient needs Description: Estimated Needs: KCAL: [phone] (25-30 kcal/kg ABW) Protein (g): 72-84 (1.2-1.4 [...] baseline respiratory rate/effort Outcome: Adequate for Discharge GER PIPELINE * Bc Samuels MD - 06/01/2022 3:12 PM CST Colorectal Surgery Progress Note Admit Date: 05/27/2022 10:14 AM Hospital Day: 5 Subjective Doing ok Moving bowels No nausea by her report On full liqudis Objective No data found.Supplemental Oxygen (last filed value): O2 L/M: 2 (05/28/22 043) Intake/Output Summary (Last 24 hours) at 06/01/2022 1513 Last data filed at 06/01/2022 1330 Gross per 24 hour Intake 660 ml Output -- Net 660 ml Recent Labs Component Name 06/01/22 0553 05/31/22 0430 05/30/22 0437 WBC 7.6 8.7 12.6* HGB 9.3* 9.4* 10.0* HCT 29.5* 30.2* 31.4* PLTCOUNT 389 384 367 Recent Labs Component Name 06/01/22 0554 05/31/22 0430 05/30/22 0437 SODIUM 143 143 142 POTASSIUM 3.6 3.8 3.4* CHLORIDE 107 105 103 CO2 23 30 27 BUN 17 19 18 CREATININE 0.65 0.69 0.71 GLUCOSE 88 [...] Dr. Samuels in about 1 week (call [phone] for appt) Low residue diet at home No lifting over 10 lbs for 6 weeks from surgery. Call MD for temp >101, pain uncontrolled with medications, Nausea, Vomiting or redness or discharge from incisions Bc Samuels MD FACS FASCRS schedule clerk [place] [phone] GER PIPELINE * Khoi Alexis APRN-OPTICAL BRIGHTENER MAKER HELPER - 06/01/2022 12:07 PM CST Images from the original note were not included. Hospitalist Service Progress Note JANE: [id number] Chief Complaint : No chief complaint on [...] Orders (From admission, onward) Ordered Start Stop 05/27/221636 enoxaparin (Lovenox) injection 40 mg 40 mg, Subcutaneous, DAILY 05/28/22 0900 -- VTE Mechanical Prophylaxis Orders (From admission, onward) Ordered Start 05/27/22 163 SEQUENTIAL COMPRESSION DEVICE (IMPLEMENT) CONTINUOUS Start Time: 05/27/221644 Order ID: [id number] Status: Sent 05/27/221644 Social Determinants of Health [...] 0.9% NaCl injection 1-10 mL, Intracatheter, PRN xtkmcbvq-sulnhasnt-mycrkwkmzgu (Maalox; Mylanta) suspension 15 mL, Oral, q6h PRN clonazePAM (KlonoPIN) tablet 0.5 mg, Oral, BID PRN naloxone (Narcan) injection 0.2 mg, Intravenous, PRN ondansetron (disintegrating) (Zofran ODT) tablet 4 mg, Oral, q6h PRN ondansetron (Zofran) injection 4 mg, Intravenous, q6h PRN ?? oxyCODONE-acetaminophen (Percocet) 5-325 MG tablet 1 tablet, Oral, q4h PRN LAB: Recent Labs Lab Units 06/01/22 0554 05/31/22 0430 05/30/22 0437 05/29/22 0441 05/28/22 0429 SODIUM mmol/L 143 143 142 141 [...] hours. No results for input(s): HGBA1C, A1C, OGAPQTAOL3F, EAG in the last 168 hours. No [...] Update Khoi Alexis APRN-MADDISON 06/01/2022 12:07 PM GER PIPELINE Associated attestation - Dayron Holt MD - 06/01/2022 1:26 PM MANAGER PIPELINE I have personally and independently examined the [...] patterns are normal or improving Outcome: Progressing GER PIPELINE * Cathi Kothari, PT - 05/31/2022 5:52 [...] I arrived Transfers: Sit to Stand: Complete Marble Stand to Sit: Supervision Mobility: Distance Ambulated: [...] discharge summary. Cathi Kothari, PT x [phone] GER PIPELINE * Cathi Kothari, PT - 05/31/2022 5:52 PM CST Problem: Mobility Goal: STG - Patient will ambulate Description: Without AD for at least 150ft. Independently Outcome: Progressing Goal: STG - Patient will ascend and descend four to six stairs Description: With rails and Mod. Independently Outcome: Progressing GER PIPELINE * Alison Vences RN - 05/31/2022 2:44 PM CST Case Management Progress Note Anticipated level of care at discharge: Home Discharge Plan: Home Chart reviewed. Patient continues on a full liquid diet today. Plans are that patient will be goinghome once medically stable for discharge. Patient voices no concerns for any discharge needs at this time. County Or City Auditor will continue to follow for any discharge needs. Readmission: No Readmission Risk: READMISSION RISK SCORE is 7 at 2:44 PM 05/31/2022. Anticipated Discharge Date: Anticipated Discharge Date: 06/02/22 Patient/Family provided with list of resources? Yes Preferred Provider / High Quality Network List given?: Yes Reason for provider choice: Pt. choice - Pt. choice Transportation at Discharge: Family ( -- Nikos at [phone]) Transportation to MD:Drives self Equipment at Home: Equipment at Home: None Hunger Screening: Within the past 12 months, you worried that your food would run out before you got the money to buymore.: Never true Within the past 12 months, the food you bought just didn't last and you didn't have money to get more.: Never true Food Bank Resources Provided: Not offered to the patient Medication affordability concerns: No Auth Number (if required) NH: DME: Medications: Transportation: Name: Alison Vences RN GER PIPELINE * Khoi Alexis APRN-OPTICAL BRIGHTENER MAKER HELPER - 05/31/2022 12:28 PM CST Images from the original note were not included. Hospitalist Service Progress Note JANE: [id number] Chief Complaint : No chief complaint on [...] CONTINUOUS Start Time: 05/27/22 164 Order ID: [id number] Status: Sent 05/27/22 1645 Social Determinants of [...] 0.9% NaCl injection 1-10 mL, Intracatheter, PRN sysldtkv-qsdrqemzh-azpuzbkbzqm (Maalox; Mylanta) suspension 15 mL, Oral, q6h PRN clonazePAM (KlonoPIN) tablet 0.5 mg, Oral, BID PRN naloxone (Narcan) injection 0.2 mg, Intravenous, PRN ondansetron (disintegrating) (Zofran ODT) tablet 4 mg, Oral, q6h PRN ondansetron (Zofran) injection 4 mg, Intravenous, q6h PRN ?? oxyCODONE-acetaminophen (Percocet) 5-325 MG tablet 1 tablet, Oral, q4h PRN LAB: Recent Labs Lab Units 05/31/22 04305/30/22 04305/29/2244005/28/22 042 SODIUM mmol/L 143 142 141 140 POTASSIUM mmol/L 3.8 3.4* 3.5 3.8 CHLORIDE mmol/L 105 103 105 106 CO2 mmol/L 30 27 27 24 BUN mg/dL 19 18 10 16 CREATININE mg/dL 0.69 0.71 0.72 0.69 GLUCOSE mg/dL 108* 100 108* 136* CALCIUM mg/dL 8.8 8.9 9.2 8.8 MAGNESIUM mg/dL -- -- 1.9 -- Recent Labs Lab Units 05/31/22 0430 05/30/22 04305/29/22 04405/28/22 042 WBC x10E9/L 8.7 12.6* 11.6* 14.5* RBC [...] hours. No results for input(s): HGBA1C, A1C, WMBOCNECG1C, EAG in the last 168 hours. No [...] Provider Update JANNET Velazquez 05/31/2022 7:22 AM GER PIPELINE Associated attestation - Zee Topete MD - 06/04/2022 6:55 AM MANAGER PIPELINE Collaborating Physician Supervisory Note Patient was evaluated [...] 384 367 343 Recent Labs Component Name 05/31/220 05/30/2243605/29/22440 SODIUM 143 142 141 POTASSIUM 3.8 3.4* [...] Will review films Bc Samuels MD FACS FASCRS schedule clerk [address] [address] GER PIPELINE * Carolyn Cortes RN - 05/31/2022 12:00 [...] estimated nutrient needs Description: Estimated Needs: KCAL: [phone] (25-30 kcal/kg ABW) Protein (g): 72-84 (1.2-1.4 [...] patterns are normal or improving Outcome: Progressing GER PIPELINE * Aminah Johnson OT - 05/30/2022 2:54 PM CST OK [...] status in doc flow sheet. Thank you. (2013) GER PIPELINE * Moni Carrera APRN-MADDISON - 05/30/2022 1:47 PM CST Images from the original note were not included. Hospitalist Service Progress Note JANE: [id number] Chief Complaint : No chief complaint on [...] multiple times already. Unable to tolerate FLD / pain > back to [facility]D. Assessment / [...] (From admission, onward) Ordered Start Stop 05/27/22 163 enoxaparin (Lovenox) injection 40 mg 40 mg, Subcutaneous, DAILY 05/28/22 0900 -- VTE Mechanical Prophylaxis Orders (From admission, onward) Ordered Start 05/27/22 1637 SEQUENTIAL COMPRESSION DEVICE (IMPLEMENT) CONTINUOUS Start Time: 05/27/221644 Order ID: [id number] Status: Sent 05/27/22 164 Social Determinants of [...] q4h PRN LAB: Recent Labs Lab Units 05/30/2243605/29/2244005/28/229 SODIUM mmol/L 142 141 140 POTASSIUM mmol/L 3.4* 3.5 3.8 CHLORIDE mmol/L 103 105 106 CO2 mmol/L 27 27 24 BUN mg/dL 18 10 16 CREATININE mg/dL 0.71 0.72 0.69 GLUCOSE mg/dL 100 108* 136* CALCIUM mg/dL 8.9 9.2 8.8 MAGNESIUM mg/dL -- 1.9 -- Recent Labs Lab Units 05/30/2243605/29/2244005/28/22428 WBC x10E9/L 12.6* 11.6* 14.5* RBC x10E12/L [...] hours. No results for input(s): HGBA1C, A1C, GSGIPIGBQ4C, EAG in the last 168 hours. No [...] Update Moni Carrera APRN-MADDISON 05/30/2022 1:48 PM GER PIPELINE Associated attestation - Zee Topete MD - 05/31/2022 7:10 AM MANAGER PIPELINE Collaborating Physician Supervisory Note Patient was evaluated [...] the patient. Zee Topete MD * Flor Dsouza, RN - 05/30/2022 12:10 PM CST Problem: [...] patterns are normal or improving Outcome: Progressing GER PIPELINE * Cathi Kothari PT - 05/30/2022 10:42 AM CST Physical [...] discharge summary. Cathi Kothari, PT x [phone] GER PIPELINE * Bc Samuels MD - 05/30/2022 8:37 [...] Net 280 ml Recent Labs Component Name 05/30/2243605/29/2244005/28/22428 WBC 12.6* 11.6* 14.5* HGB 10.0* 10.2* 9.8* HCT 31.4* 31.9* 31.0* PLTCOUNT 367 343 328 Recent Labs Component Name 05/30/2243605/29/2244005/28/22428 SODIUM 142 141 140 POTASSIUM 3.4* 3.5 [...] now Ambulate Morphine discontinued Bc Samuels MD [place] [address] GER PIPELINE * Jose Chavira RN - 05/30/2022 1:26 AM CST Problem: Pain/Discomfort Goal: Patient exhibits reduced pain/discomfort as evidenced by pain scores 05/30/2022124 by Jose Chavira RN Outcome: Progressing [...] estimated nutrient needs Description: Estimated Needs: KCAL: 4714-9780 (25-30 kcal/kg ABW) Protein (g): 72-84 (1.2-1.4 [...] 05/30/2022124 by Jose Chavira RN Outcome: Progressing GER PIPELINE * Flor Dsouza RN - 05/29/2022 12:27 [...] estimated nutrient needs Description: Estimated Needs: KCAL: 4973-4129 (25-30 kcal/kg ABW) Protein (g): 72-84 (1.2-1.4 g/kg ABW) Outcome: Progressing GER PIPELINE * Reji Cheyenne Butts, WEB PRESS ROLL TENDER-OPTICAL BRIGHTENER MAKER HELPER - 05/29/2022 10:53 AM CST Images from the original note were not included. Hospitalist Service Progress Note JANE: [id number] Chief Complaint : No chief complaint on [...] taken Tylenol, encouraged her to use the SALES COORDINATOR pump. She denies chest pains and shortness [...] (IMPLEMENT) CONTINUOUS Start Time: 05/27/221644 Order ID: [id number] Status: Sent 05/27/221644 Social Determinants of Health [...] q4h PRN LAB: Recent Labs Lab Units 05/29/22 0441 05/28/22 0429 SODIUM mmol/L 141 140 POTASSIUM mmol/L 3.5 3.8 CHLORIDE mmol/L 105 106 CO2 mmol/L 27 24 BUN mg/dL 10 16 CREATININE mg/dL 0.72 0.69 GLUCOSE mg/dL 108* 136* CALCIUM mg/dL 9.2 8.8 Recent Labs Lab Units 05/29/22 0441 05/28/22 0429 WBC x10E9/L 11.6* 14.5* RBC x10E12/L [...] hours. No results for input(s): HGBA1C, A1C, RQEXMLEHO5E, EAG in the last 168 hours. No [...] Update Cheyenne Mendoza APRN-MADDISON 05/29/2022 10:49 AM GER PIPELINE Associated attestation - Zee Topete MD - 05/29/2022 2:47 PM MANAGER PIPELINE Collaborating Physician Supervisory Note Patient was evaluated [...] from stand Description: Mod Independently Outcome: Progressing GER PIPELINE * Cathi Kothari, PT - 05/29/2022 8:41 AM CST Physical [...] discharge summary. Cathi Kothari, PT x [phone] GER PIPELINE * Bc Samuels MD - 05/29/2022 7:19 AM CST Colorectal Surgery Progress Note Admit Date: 05/27/2022 10:14 AM Hospital Day: 2 Subjective Doing ok Pain controlled Some belching No N/v/F/C Objective No data found.Supplemental Oxygen (last filed value): O2 L/M: 2 (05/28/22432) Intake/Output Summary (Last 24 hours) at 05/29/2022 0720 Last data filed at 05/28/20222010 Gross per 24 hour Intake 1200 ml Output 1650 ml Net -450 ml Recent Labs Component Name 05/29/22 04405/28/22 04205/22/22 0907 WBC 11.6* 14.5* 7.2 HGB 10.2* 9.8* 11.7* HCT 31.9* 31.0* 37.0 PLTCOUNT 343 328 382 Recent Labs Component Name 05/29/22 0441 05/28/22 04205/22/22 0907 SODIUM 141 140 142 POTASSIUM 3.5 3.8 4.3 CHLORIDE 105 106 104 CO2 27 24 27 BUN 10 16 18 CREATININE 0.72 0.69 0.77 GLUCOSE 108* 136* 84 CALCIUM 9.2 8.8 9.5 REVIEW OF SYSTEMS: A comprehensive review of systems was negative except as described in HPI. Physical Exam Patient Vitals for the past 24 hrs: Temp Pulse Resp BP 05/29/22 0428 98.7 ??F (37.1 ??C) 74 16 135/75 [...] AM labs Bc Samuels MD FACS FASCRS schedule clerk [place] [phone] GER PIPELINE * Abbie Billingsley RN - 05/29/2022 5:50 [...] found in the flowsheet documentation) Outcome: Progressing GER PIPELINE * Kiera Matos RN - 05/28/2022 6:01 [...] LR running @ 50 ml/hr through PIV. GER PIPELINE * Gladis Renteria MD - 05/28/2022 12:19 PM CST Images from the original note were not included. Hospitalist Service Progress Note JANE: [id number] Chief Complaint : elective rt colectomy Subjective: [...] CONTINUOUS Start Time: 05/27/22 1645 Order ID: [id number] Status: Sent 05/27/22 1645 Social Determinants of [...] PRN LAB: Recent Labs Lab Units 05/28/22 04205/22/22 0907 SODIUM mmol/L 140 142 POTASSIUM mmol/L [...] hours. No results for input(s): HGBA1C, A1C, DTXJELPXB5I, EAG in the last 168 hours. Recent [...] applicable) Gladis Renteria MD 05/28/2022 12:19 PM GER PIPELINE * Aminah Johnson, OT - 05/28/2022 10:52 AM CST Order [...] without any surface for UE support, active EMERGENCY PHYSICIAN. Functional Impairments: LE dressing, Toileting and Mobility [...] stated understanding and agreed. Aminah Johnson OTR/L GER PIPELINE * Cathi Kothari, PT - 05/28/2022 9:24 [...] is assistance provided?: pt. has been independent EMERGENCY PHYSICIAN Activity at Home: Active Oxygen at Home: [...] place and intact pre and post visit. [place], notified of patient's performance/location end of session. [...] discharge summary. Cathi Kothari, PT x [phone] GER PIPELINE * Bc Samuels MD - 05/28/2022 8:32 AM CST Colorectal Surgery Progress Note Admit Date: 05/27/2022 10:14 AM Hospital Day: 1 September Pain control No nausea, vomiting, fevers or chills Received a bolus for decreased urine output Objective No data found.Supplemental Oxygen (last filed value): O2 L/M: 2 (05/28/22 043) Intake/Output Summary (Last 24 hours) at 05/28/2022 0833 Last data filed at 05/28/2022 0615 Gross per 24 hour Intake 1400 ml Output 220 ml Net 1180 ml Recent Labs Component Name 05/28/2242805/22/22 0907 WBC 14.5* 7.2 HGB 9.8* 11.7* HCT 31.0* 37.0 PLTCOUNT 328 382 Recent Labs Component Name 05/28/2242805/22/22 0907 SODIUM 140 142 POTASSIUM 3.8 4.3 [...] Morning labs Trial full liquid diet Discontinue SALES COORDINATOR Oral pain medications Bc Samuels MD [place] [address] GER PIPELINE * Abbie Billingsley RN - 05/28/2022 4:00 AM CST Denies pain this shift. Verbalized some feelings of pressure in abdomen after drinking protein drink. Lap sites intact and ROSIO with skin glue. SALES COORDINATOR still active although patient is using it minimally. Problem: Pain/Discomfort Goal: Patient exhibits reduced pain/discomfort as evidenced by pain scores Outcome: Progressing Problem: Fall Risk Goal: Fall risk and fall related injury risk are minimized (interventions related to the fall risk can be found in the flowsheet documentation) Outcome: Progressing GER PIPELINE * Angella Hernandez RN - 05/27/2022 4:55 [...] found in the flowsheet documentation) Outcome: Progressing GER PIPELINE * Alison Vences RN - 05/27/2022 4:49 PM CST Case Management Initial Assessment Case Management screen completed Anticipated Discharge Date: 05/29/22 Transportation at Discharge: Family ( -- Nikos at [phone]) Anticipated level of care at discharge: Home [...] for any discharge needs at this time. County Or City Auditor will callie shahanae to follow for any discharge needs. Lives with: Spouse;Daughter Physical Limitations: None Requires Assistance With: None Insurance: Payer/Plan Subscriber Name Rel Member # Group # [id number] * LOULOU LEGER Self [id number] [address] [address] Readmission: No Readmission Risk: READMISSION RISK SCORE is 3 at 4:51 PM 05/27/2022. Met with patient and spouse Family Support (name and phone): Extended Emergency Contact Information Primary Emergency Contact: Nikos Leger Mobile Relation: Spouse Patient or human resources representative requests care coordination reach out to family or caregiver listed above regarding discharge planning and at time of discharge? No Patient/Family provided with list of resources? Yes Preferred Provider / High Quality Network List given?: Yes Reason for provider choice: Pt. choice - Pt. choice Equipment at Home: None Rehabilitation Tech Referral: No Will continue to follow. For any questions or needs please contact: County Or City Auditor Name/Phone number: Alison Vences RN/County Or City Auditor ( ) GER PIPELINE documented in this encounter H&P Notes * [...] beforesurgery, Disp: 6 tablet, Rfl: 0 ??? hpphgyyp-oviwuyiyh-zimiwkmv (Maxitrol) ophthalmic suspension, Instill 1 (one) drop [...] and include but are not limited to [place], stroke, , other anesthesia complications, bleeding, infection, anastomotic leak, possible ostomy, DVT/PE, injuries to other organs and the need for further surgery. The patient does agree, understand and wishes to proceed. Bc Samuels MD FACS FASCRS schedule clerk [place] [address] [place] [address] GER PIPELINE documented in this encounter Consult Notes * DavidnidaEstelita, RD/LD - 05/28/2022 12:47 PM CSTAssociated Order(s): [...] to confirm. Education p rovided on Low Fiber/[place] diet s/p surgery along with increasing protein for healing and recovery.Provided Nutrition Guidelines for [place]-Rectal Surgery Recovery handout. Reports drinking Ensure Surgery [...] index is 24.14 kg/m??. Estimated Needs: KCAL: 2982-6589 (25-30 kcal/kg ABW) Protein (g): 72-84 (1.2-1.4 [...] results for input(s): PHOS in the last 94835 hours.No results for input(s): HGBA1C in the last 67267 hours. No results for input(s): PREALBUMIN in the last 36506 hours. No data found. PERTINENT MEDICATIONS FOR [...] of compliance: Good Education provided on Low Fiber/[place] diet s/p surgery along with increasing protein for healing and recovery. Provided Nutrition Guidelines for [place] Recovery handout. Discussed limiting acidic, spicy, [...] Goal Progress: New goal established Ulises Levy RD/LD 05/28/2022 12:51 PM Ascom [id number] GER PIPELINE * Tyrone Landaverde, WEB PRESS ROLL TENDER-OPTICAL BRIGHTENER MAKER HELPER - 05/27/2022 6:04 PM CSTAssociated Order(s): IP CONSULT TO HOSPITALIST Images from the original note were not included. Hospitalist Consult Note Patient: Loulou Leger Date: 05/27/2022 female, 67 year old Admit Date: 05/27/2022 Attending: Bc Samuels MD JANE: [phone] Assessment & Plan: Laparoscopic ascending colectomy: Lovenox [...] (IMPLEMENT) CONTINUOUS Start Time: 05/27/221644 Order ID: [id number] Status: Sent 05/27/221644 REASON FOR CONSULT: I [...] taken Tylenol, encouraged her to use the SALES COORDINATOR pump. She denies chest pains and shortness [...] Reported on 05/27/2022) 6 tablet 0 ??? [id number] (Maxitrol) ophthalmic suspension Instill 1 (one) drop [...] OF SYSTEMS: General: Drowsy GI: Abdominal pain 08/21 A 14 point review of systems was [...] patient. We shall follow with you. Tyrone Landaverde APRN-MADDISON 05/27/2022 6:04 PM GER PIPELINE Associated attestation - Arina Lopez MD - 05/27/2022 7:41 PM MANAGER PIPELINE Collaborating Physician Supervisory Note Patient was evaluated [...] Loulou Leger Female, 67 year old, 1955 E#:??[id number] Date of Surgery: 05-27-2022 PREPROCEDURE DIAGNOSIS: Colon [...] vessels at their base with a powered [place] 60 mm endovascular stapler with a vascular load. I then worked from medial to lateral approach and also sacrificed the mesentery of the terminal ileum with the EnSeal device. The terminal ileum itself was divided with a powered [place] 60 mm endovascular stapler with a blue load. The right branch of the middle colic vessels was sacrificed with an Eth[place] 60 mm endovascular stapler with a vascular load. I made a [id number] functional end-to-end anastomosis between theterminal ileum and [...] hemicolectomy - ileocolic, right colic (if present) GER PIPELINE * Brief Op Note - Bc Samuels [...] Samuels MD 05/27/2022 1417 Bc Samuels MD GER PIPELINE documented in this encounter Miscellaneous Notes * Coding Query - Bc Samuels MD - 06/01/2022 6:43 PM CST DOCUMENTATION CLARIFICATION REQUEST Select ???Edit note?? and use the F2 function rawls to complete the query. Click on ???Sign?? to file the note. TO: Dr. Samuels FROM: Rupali Hallman, Deputy Jailer Patient Name: Loulou Leger Please review the [...] CARDIAC RHYTHM STRIP ORDER 06/03/2022 10:55 PM MANAGER PIPELINE BASIC METABOLIC PANEL (CALCIUM TOTAL) AM Draw 06/01/2022 5:54 AM MANAGER PIPELINE CBC W AUTO DIFFERENTIAL AM Draw 06/01/2022 5:53 AM MANAGER PIPELINE XR ABD OBSTRUCTION SERIES 2VW STAT 05/31/2022 8:56 AM MANAGER PIPELINE Ileus (HCC) CBC W AUTO DIFFERENTIAL AM Draw 05/31/2022 4:30 AM MANAGER PIPELINE BASIC METABOLIC PANEL (CALCIUM TOTAL) AM Draw 05/31/2022 4:30 AM MANAGER PIPELINE XR ABD OBSTRUCTION SERIES 2VW STAT 05/30/2022 9:32 AM MANAGER PIPELINE Ileus (HCC) CBC W AUTO DIFFERENTIAL AM Draw 05/30/2022 4:37 AM MANAGER PIPELINE BASIC METABOLIC PANEL (CALCIUM TOTAL) AM Draw 05/30/2022 4:37 AM MANAGER PIPELINE CBC W AUTO DIFFERENTIAL AM Draw 05/29/2022 4:41 AM MANAGER PIPELINE BASIC METABOLIC PANEL (CALCIUM TOTAL) AM Draw 05/29/2022 4:41 AM MANAGER PIPELINE MAGNESIUM BLOOD Add on 05/29/2022 4:41 AM MANAGER PIPELINE CBC W AUTO DIFFERENTIAL AM Draw 05/28/2022 4:29 AM MANAGER PIPELINE BASIC METABOLIC PANEL (CALCIUM TOTAL) AM Draw 05/28/2022 4:29 AM MANAGER PIPELINE PATHOLOGY TISSUE EXAM (STL) Routine 05/27/2022 2:17 PM MANAGER PIPELINE Diagnosis unknown LAPAROSCOPIC PARTIAL/ELEUTERIO COLECTOMY 05/27/2022 1:30 PM MANAGER PIPELINE Special Needs 60 MINS, METERS SUPERINTENDENT, ERAS TYPE + SCREEN PANEL STAT 05/27/2022 1 2:16 PM MANAGER PIPELINE Pre-op testing BLOOD TYPE VERIFICATION Routine 05/27/2022 12:00 PM MANAGER PIPELINE documented in this encounter Results * CARDIAC RHYTHM STRIP ORDER (06/03/2022 10:55 PM MANAGER PIPELINE) Narrative 06/03/2022 10:55 PM MANAGER PIPELINE Ordered by an unspecified provider. Scanned Document CARDIAC SERVICES ORD ERABLES * (ABNORMAL) BASIC METABOLIC PANEL (CALCIUM TOTAL) (06/01/2022 5:54 AM MANAGER PIPELINE) Glucose 88 70 - 105 mg/dL 06/01/2022 6:26 AM MANAGER PIPELINE [facility] Sodium 143 136 - 145 mmol/L 06/01/2022 6:26 AM [facility] Potassium 3.6 3.5 - 5.1 mmol/L 06/01/2022 6:26 AM [facility] Chloride 107 98 - 107 mmol/L 06/01/2022 6:26 AM [facility] CO2 23 23 - 31 mmol/L 06/01/2022 6:26 AM [facility] Calcium 8.3(L) 8.4 - 10.4 mg/dL 06/01/2022 6:26 AM [facility] Anion Gap 13 8 - 18 mmol/L 06/01/2022 6:26 AM [facility] BUN 17 9.8 - 20.1 mg/dL 06/01/2022 6:26 AM [facility] Creatinine 0.65 0.57 - 1.11 mg/dL 06/01/2022 6:26 AM [facility] eGFR by CKD-EPI >90 >=90 mL/min/1.7 3 m2 06/01/2022 6:26 AM [facility] Blood BLOOD SPECIMEN / Unknown Lab Venipuncture / Unknown 06/01/2022 5:54 AM MANAGER PIPELINE 06/01/2022 6:04 AM [facility] Bc Samuels MD LAB - CHEMISTRY DARLENE COY [facility] Organization Address City/State/ZIP Co de Phone Number [facility] [address] [place] [address] * (ABNORMAL) CBC W AUTO DIFFERENTIAL (06/01/2022 5:53 AM [facility]) [facility] WBC 7.6 4.4 - 10.7 x10E9/L 06/01/2022 6:10 AM [facility] WBC Corrected 06/01/2022 6:10 AM [facility] RBC 3.30(L) 3.80 - 5.20 x10E12/L 06/01/2022 6:10 AM [facility] Hemoglobin 9.3(L) 12.0 - 15.6 gm/dL 06/01/2022 6:10 AM [facility] Hematocrit 29.5(L) 35.9 - 45.5 % 06/01/2022 6:10 AM [facility] MCV 89.4 80.7 - 98.3 fl 06/01/2022 6:10 AM [facility] MCH 28.2 26.7 - 34.0 pg 06/01/2022 6:10 AM [facility] MCHC 31.5 30.8 - 35.9 gm/dL 06/01/2022 6:10 AM [facility] Platelet Count 389 153 - 416 x10E9/L 06/01/2022 6:10 AM [facility] RDW-CV 14.0 12.1 - 14.9 % 06/01/2022 6:10 AM [facility] MPV 9.6 9.4 - 12.9 fl 06/01/2022 6:10 AM [facility] Neutrophils % 64.5 44.0 - 73.0 % 06/01/2022 6:10 AM [facility] Lymphocytes % 27.2 20.0 - 43.0 % 06/01/2022 6:10 AM [facility] Monocytes % 6.8 5.0 - 13.0 % 06/01/2022 6:10 AM [facility] Eosinophils % 0.7 0.0 - 6.0 % 06/01/2022 6:10 AM [facility] Basophils % 0.4 0.0 - 2.0 % 06/01/2022 6:10 AM [facility] Immature Granulocytes 0.4 0 - 1 % 06/01/2022 6:10 AM [facility] Neutrophil Absolute 4.91 2.01 - 7.14 x10E9/L 06/01/2022 6:10 AM [facility] Lymphocytes Absolute 2.07 1.07 - 3.94 x10E9/L 06/01/2022 6:10 AM [facility] Monocytes Absolute 0.52 0.26 - 1.07 x10E9/L 06/01/2022 6:10 AM [facility] Eosinophils Absolute 0.05 0 - 0.47 x10E9/L 06/01/2022 6:10 AM [facility] Basophils Absolute 0.03 0 - 0.08 x10E9/L 06/01/2022 6:10 AM [facility] Immature Granulocytes Absolute 0.03 0.00 - 0.06 x10E9/L 06/01/2022 6:10 AM MANAGER PIPELINE [facility] nRBC Auto 0 /100 WBC 06/01/2022 6:10 AM MANAGER PIPELINE [facility] Blood BLOOD SPECIMEN / Unknown Lab Venipuncture / Unknown 06/01/2022 5:53 AM MANAGER PIPELINE 06/01/2022 6:04 AM MANAGER PIPELINE Bc Samuels MD LAB - HEMATOLOGY ORD ERABLES [facility] [address] [id number] * XR ABD OBSTRUCTION SERIES 2VW (05/31/2022 8:56 AM MANAGER PIPELINE) Anatomical Region Laterality Modality Abdomen Radiographic Pratibha ging 05/31/2022 9:01 AM MANAGER PIPELINE Narrative 05/31/2022 9:03 AM MANAGER PIPELINE Exam: Supine and upright AP views of [...] CBC W AUTO DIFFERENTIAL (05/31/2022 4:30 AM MANAGER PIPELINE) [facility] WBC 8.7 4.4 - 10.7 x10E9/L 05/31/2022 4:50 AM [facility] WBC Corrected 05/31/2022 4:50 AM [facility] RBC 3.41(L) 3.80 - 5.20 x10E12/L 05/31/2022 4:50 AM [facility] Hemoglobin 9.4(L) 12.0 - 15.6 gm/dL 05/31/2022 4:50 AM [facility] Hematocrit 30.2(L) 35.9 - 45.5 % 05/31/2022 4:50 AM [facility] MCV 88.6 80.7 - 98.3 fl 05/31/2022 4:50 AM [facility] MCH 27.6 26.7 - 34.0 pg 05/31/2022 4:50 AM [facility] MCHC 31.1 30.8 - 35.9 gm/dL 05/31/2022 4:50 AM [facility] Platelet Count 384 153 - 416 x10E9/L 05/31/2022 4:50 AM [facility] RDW-CV 14.0 12.1 - 14.9 % 05/31/2022 4:50 AM [facility] MPV 9.8 9.4 - 12.9 fl 05/31/2022 4:50 AM [facility] Neutrophils % 75.8(H) 44.0 - 73.0 % 05/31/2022 4:50 AM [facility] Lymphocytes % 15.7(L) 20.0 - 43.0 % 05/31/2022 4:50 AM [facility] Monocytes % 7.8 5.0 - 13.0 % 05/31/2022 4:50 AM [facility] Eosinophils % 0.1 0.0 - 6.0 % 05/31/2022 4:50 AM [facility] Basophils % 0.3 0.0 - 2.0 % 05/31/2022 4:50 AM [facility] Immature Granulocytes 0.3 0 - 1 % 05/31/2022 4:50 AM [facility] Neutrophil Absolute 6.57 2.01 - 7.14 x10E9/L 05/31/2022 4:50 AM [facility] Lymphocytes Absolute 1.36 1.07 - 3.94 x10E9/L 05/31/2022 4:50 AM [facility] Monocytes Absolute 0.68 0.26 - 1.07 x10E9/L 05/31/2022 4:50 AM [facility] Eosinophils Absolute 0.01 0 - 0.47 x10E9/L 05/31/2022 4:50 AM [facility] Basophils Absolute 0.03 0 - 0.08 x10E9/L 05/31/2022 4:50 AM [facility] Immature Granulocytes Absolute 0.03 0.00 - 0.06 x10E9/L 05/31/2022 4:50 AM [facility] nRBC Auto 0 /100 WBC 05/31/2022 4:50 AM [facility] Blood BLOOD SPECIMEN / Unknown Lab Venipuncture / Unknown 05/31/2022 4:30 AM MANAGER PIPELINE 05/31/2022 4:47 AM [facility] Bc Samuels MD LAB - HEMATOLOGY ORD ERABLES [facility] [address] [place] [address] * (ABNORMAL) BASIC METABOLIC PANEL (CALCIUM TOTAL) (05/31/2022 4:30 AM [facility]) [facility] Signature Glucose 108(H) 70 - 105 mg/dL 05/31/2022 5:10 AM [facility] Sodium 143 136 - 145 mmol/L 05/31/2022 5:10 AM [facility] Potassium 3.8 3.5 - 5.1 mmol/L 05/31/2022 5:10 AM [facility] Chloride 105 98 - 107 mmol/L 05/31/2022 5:10 AM [facility] CO2 30 23 - 31 mmol/L 05/31/2022 5:10 AM [facility] Calcium 8.8 8.4 - 10.4 mg/dL 05/31/2022 5:10 AM [facility] Anion Gap 8 8 - 18 mmol/L 05/31/2022 5:10 AM [facility] BUN 19 9.8 - 20.1 mg/dL 05/31/2022 5:10 AM MANAGER PIPELINE [facility] Creatinine 0.69 0.57 - 1.11 mg/dL 05/31/2022 5:10 AM MANAGER PIPELINE [facility] eGFR by CKD-EPI >90 >=90 mL/min/1.7 3 m2 05/31/2022 5:10 AM MANAGER PIPELINE [facility] Blood BLOOD SPECIMEN / Unknown Lab Venipuncture / Unknown 05/31/2022 4:30 AM MANAGER PIPELINE 05/31/2022 4:47 AM MANAGER PIPELINE Bc Samuels MD LAB - CHEMISTRY DARLENE COY [facility] Organization Address City/State/ZIP Co de Phone Number [facility] [address] [place] [address] * XR ABD OBSTRUCTION SERIES 2VW (05/30/2022 9:32 AM MANAGER PIPELINE) Anatomical Region Laterality Modality Abdomen Radiographic Pratibha ging 05/30/2022 9:41 AM MANAGER PIPELINE Impressions 05/30/2022 9:42 AM MANAGER PIPELINE IMPRESSION: Small bowel distention with air-fluid levels present and little distal bowel gas observed findings are suggestive of early or partial small bowel obstruction. No free intraperitoneal air is seen. > Interpreting Provider: Ashley Arana MD on 05/30/2022 9:42 AM Narrative 05/30/2022 9:42 AM MANAGER PIPELINE PROCEDURE: ??XR ABD OBSTRUCTION SERIES 2VW, DATE/TIME OF EXAM: ??05/30/2022 9:32 AM, LOCATION ??[facility] INDICATION: K56.7: Ileus, unspecified (CMS/HCC) ADDITIONAL CLINICAL [...] DATE/TIME OF EXAM: 05/30/2022 9:32 AM, LOCATION [facility] INDICATION: K56.7: Ileus, unspecified (CMS/HCC) ADDITIONAL CLINICAL [...] METABOLIC PANEL (CALCIUM TOTAL) (05/30/2022 4:37 AM MANAGER PIPELINE) Glucose 100 70 - 105 mg/dL 05/30/2022 6:05 AM [facility] Sodium 142 136 - 145 mmol/L 05/30/2022 6:05 AM [facility] Potassium 3.4(L) 3.5 - 5.1 mmol/L 05/30/2022 6:05 AM [facility] Chloride 103 98 - 107 mmol/L 05/30/2022 6:05 AM [facility] CO2 27 23 - 31 mmol/L 05/30/2022 6:05 AM [facility] Calcium 8.9 8.4 - 10.4 mg/dL 05/30/2022 6:05 AM [facility] Anion Gap 12 8 - 18 mmol/L 05/30/2022 6:05 AM [facility] BUN 18 9.8 - 20.1 mg/dL 05/30/2022 6:05 AM [facility] Creatinine 0.71 0.57 - 1.11 mg/dL 05/30/2022 6:05 AM [facility] eGFR by CKD-EPI >90 >=90 mL/min/1.7 3 m2 05/30/2022 6:05 AM [facility] Blood BLOOD SPECIMEN / Unknown Lab Venipuncture / Unknown 05/30/2022 4:37 AM MANAGER PIPELINE 05/30/2022 5:41 AM MANAGER PIPELINE Bc Samuels MD LAB - CHEMISTRY DARLENE COY [facility] Organization Address City/State/ZIP Co de Phone Number [facility] [address] [id number] * (ABNORMAL) CBC W AUTO DIFFERENTIAL (05/30/2022 4:37 AM MANAGER PIPELINE) WBC 12.6(H) 4.4 - 10.7 x10E9/L 05/30/2022 5:45 AM [facility] WBC Corrected 05/30/2022 5:45 AM [facility] RBC 3.55(L) 3.80 - 5.20 x10E12/L 05/30/2022 5:45 AM [facility] Hemoglobin 10.0(L) 12.0 - 15.6 gm/dL 05/30/2022 5:45 AM [facility] Hematocrit 31.4(L) 35.9 - 45.5 % 05/30/2022 5:45 AM [facility] MCV 88.5 80.7 - 98.3 fl 05/30/2022 5:45 AM [facility] MCH 28.2 26.7 - 34.0 pg 05/30/2022 5:45 AM [facility] MCHC 31.8 30.8 - 35.9 gm/dL 05/30/2022 5:45 AM [facility] Platelet Count 367 153 - 416 x10E9/L 05/30/2022 5:45 AM [facility] RDW-CV 13.8 12.1 - 14.9 % 05/30/2022 5:45 AM [facility] MPV 10.7 9.4 - 12.9 fl 05/30/2022 5:45 AM [facility] Neutrophils % 72.0 44.0 - 73.0 % 05/30/2022 5:45 AM [facility] Lymphocytes % 19.8(L) 20.0 - 43.0 % 05/30/2022 5:45 AM [facility] Monocytes % 7.4 5.0 - 13.0 % 05/30/2022 5:45 AM [facility] Eosinophils % 0.1 0.0 - 6.0 % 05/30/2022 5:45 AM [facility] Basophils % 0.2 0.0 - 2.0 % 05/30/2022 5:45 AM [facility] Immature Granulocytes 0.5 0 - 1 % 05/30/2022 5:45 AM [facility] Neutrophil Absolute 9.04(H) 2.01 - 7.14 x10E9/L 05/30/2022 5:45 AM [facility] Lymphocytes Absolute 2.49 1.07 - 3.94 x10E9/L 05/30/2022 5:45 AM [facility] Monocytes Absolute 0.93 0.26 - 1.07 x10E9/L 05/30/2022 5:45 AM [facility] Eosinophils Absolute 0.01 0 - 0.47 x10E9/L 05/30/2022 5:45 AM [facility] Basophils Absolute 0.03 0 - 0.08 x10E9/L 05/30/2022 5:45 AM [facility] Immature Granulocytes Absolute 0.06 0.00 - 0.06 x10E9/L 05/30/2022 5:45 AM [facility] nRBC Auto 0 /100 WBC 05/30/2022 5:45 AM [facility] Blood BLOOD SPECIMEN / Unknown Lab Venipuncture / Unknown 05/30/2022 4:37 AM MANAGER PIPELINE 05/30/2022 5:41 AM MANAGER PIPELINE Bc Samuels MD LAB - HEMATOLOGY ORD ERABLES Performing Organization Address City/State/[facility] Co de Phone Number [facility] [address] [place] [address] * MAGNESIUM BLOOD (05/29/2022 4:41 AM MANAGER PIPELINE) Magnesium 1.9 1.6 - 2.6 mg/dL 05/29/2022 11:11 AM [facility] Blood BLOOD SPECIMEN / Unknown Lab Venipuncture / Unknown 05/29/2022 4:41 AM MANAGER PIPELINE 05/29/2022 4:54 AM MANAGER PIPELINE Cheyenne Mendoza WEB PRESS ROLL TENDER-OPTICAL BRIGHTENER MAKER HELPER LAB - RESIDUE FURNACE OPERATOR RY ORDERABLES [facility] [address] [id number] * (ABNORMAL) CBC W AUTO DIFFERENTIAL (05/29/2022 4:41 AM [facility]) WBC 11.6(H) 4.4 - 10.7 x10E9/L 05/29/2022 5:06 AM [facility] WBC Corrected 05/29/2022 5:06 AM [facility] RBC 3.57(L) 3.80 - 5.20 x10E12/L 05/29/2022 5:06 AM [facility] Hemoglobin 10.2(L) 12.0 - 15.6 gm/dL 05/29/2022 5:06 AM [facility] Hematocrit 31.9(L) 35.9 - 45.5 % 05/29/2022 5:06 AM [facility] MCV 89.4 80.7 - 98.3 fl 05/29/2022 5:06 AM [facility] MCH 28.6 26.7 - 34.0 pg 05/29/2022 5:06 AM [facility] MCHC 32.0 30.8 - 35.9 gm/dL 05/29/2022 5:06 AM [facility] Platelet Count 343 153 - 416 x10E9/L 05/29/2022 5:06 AM [facility] RDW-CV 13.7 12.1 - 14.9 % 05/29/2022 5:06 AM [facility] MPV 10.3 9.4 - 12.9 fl 05/29/2022 5:06 AM [facility] Neutrophils % 70.0 44.0 - 73.0 % 05/29/2022 5:06 AM [facility] Lymphocytes % 22.9 20.0 - 43.0 % 05/29/2022 5:06 AM [facility] Monocytes % 6.2 5.0 - 13.0 % 05/29/2022 5:06 AM [facility] Eosinophils % 0.3 0.0 - 6.0 % 05/29/2022 5:06 AM [facility] Basophils % 0.3 0.0 - 2.0 % 05/29/2022 5:06 AM [facility] Immature Granulocytes 0.3 0 - 1 % 05/29/2022 5:06 AM [facility] Neutrophil Absolute 8.07(H) 2.01 - 7.14 x10E9/L 05/29/2022 5:06 AM [facility] Lymphocytes Absolute 2.65 1.07 - 3.94 x10E9/L 05/29/2022 5:06 AM [facility] Monocytes Absolute 0.72 0.26 - 1.07 x10E9/L 05/29/2022 5:06 AM [facility] Eosinophils Absolute 0.03 0 - 0.47 x10E9/L 05/29/2022 5:06 AM [facility] Basophils Absolute 0.04 0 - 0.08 x10E9/L 05/29/2022 5:06 AM [facility] Immature Granulocytes Absolute 0.04 0.00 - 0.06 x10E9/L 05/29/2022 5:06 AM [facility] nRBC Auto 0 /100 WBC 05/29/2022 5:06 AM [facility] Blood BLOOD SPECIMEN / Unknown Lab Venipuncture / Unknown 05/29/2022 4:41 AM MANAGER PIPELINE 05/29/2022 4:54 AM [facility] Bc Samuels MD LAB - HEMATOLOGY ORD ERABLES [facility] [address] [place] [id number] * (ABNORMAL) BASIC METABOLIC PANEL (CALCIUM TOTAL) (05/29/2022 4:41 AM [facility]) Pathologist [facility] [place] Glucose 108(H) 70 - 105 mg/dL 05/29/2022 5:12 AM [facility] Sodium 141 136 - 145 mmol/L 05/29/2022 5:12 AM [facility] Potassium 3.5 3.5 - 5.1 mmol/L 05/29/2022 5:12 AM [facility] Chloride 105 98 - 107 mmol/L 05/29/2022 5:12 AM [facility] CO2 27 23 - 31 mmol/L 05/29/2022 5:12 AM [facility] Calcium 9.2 8.4 - 10.4 mg/dL 05/29/2022 5:12 AM [facility] Anion Gap 9 8 - 18 mmol/L 05/29/2022 5:12 AM [facility] BUN 10 9.8 - 20.1 mg/dL 05/29/2022 5:12 AM [facility] Creatinine 0.72 0.57 - 1.11 mg/dL 05/29/2022 5:12 AM [facility] eGFR by CKD-EPI >90 >=90 mL/min/1.7 3 m2 05/29/2022 5:12 AM [facility] Blood BLOOD SPECIMEN / Unknown Lab Venipuncture / Unknown 05/29/2022 4:41 AM MANAGER PIPELINE 05/29/2022 4:54 AM [facility] Bc Samuels MD LAB - CHEMISTRY DARLENE COY [facility] Organization Address City/State/[facility] Co de Phone Number [facility] [address] [place], [place] [address] * (ABNORMAL) CBC W AUTO DIFFERENTIAL (05/28/2022 4:29 AM [facility]) WBC 14.5(H) 4.4 - 10.7 x10E9/L 05/28/2022 4:58 AM [facility] WBC Corrected 05/28/2022 4:58 AM [facility] RBC 3.46(L) 3.80 - 5.20 x10E12/L 05/28/2022 4:58 AM [facility] Hemoglobin 9.8(L) 12.0 - 15.6 gm/dL 05/28/2022 4:58 AM [facility] Hematocrit 31.0(L) 35.9 - 45.5 % 05/28/2022 4:58 AM [facility] MCV 89.6 80.7 - 98.3 fl 05/28/2022 4:58 AM [facility] MCH 28.3 26.7 - 34.0 pg 05/28/2022 4:58 AM [facility] MCHC 31.6 30.8 - 35.9 gm/dL 05/28/2022 4:58 AM [facility] Platelet Count 328 153 - 416 x10E9/L 05/28/2022 4:58 AM [facility] RDW-CV 13.4 12.1 - 14.9 % 05/28/2022 4:58 AM [facility] MPV 10.4 9.4 - 12.9 fl 05/28/2022 4:58 AM [facility] Neutrophils % 80.2(H) 44.0 - 73.0 % 05/28/2022 4:58 AM [facility] Lymphocytes % 12.4(L) 20.0 - 43.0 % 05/28/2022 4:58 AM [facility] Monocytes % 6.9 5.0 - 13.0 % 05/28/2022 4:58 AM [facility] Eosinophils % 0.0 0.0 - 6.0 % 05/28/2022 4:58 AM [facility] Basophils % 0.1 0.0 - 2.0 % 05/28/2022 4:58 AM [facility] Immature Granulocytes 0.4 0 - 1 % 05/28/2022 4:58 AM [facility] Neutrophil Absolute 11.61(H) 2.01 - 7.14 x10E9/L 05/28/2022 4:58 AM [facility] Lymphocytes Absolute 1.80 1.07 - 3.94 x10E9/L 05/28/2022 4:58 AM [facility] Monocytes Absolute 1.00 0.26 - 1.07 x10E9/L 05/28/2022 4:58 AM [facility] Eosinophils Absolute 0.00 0 - 0.47 x10E9/L 05/28/2022 4:58 AM [facility] Basophils Absolute 0.02 0 - 0.08 x10E9/L 05/28/2022 4:58 AM [facility] Immature Granulocytes Absolute 0.06 0.00 - 0.06 x10E9/L 05/28/2022 4:58 AM [facility] nRBC Auto 0 /100 WBC 05/28/2022 4:58 AM [facility] Blood BLOOD SPECIMEN / Unknown Lab Venipuncture / Unknown 05/28/2022 4:29 AM MANAGER PIPELINE 05/28/2022 4:55 AM MANAGER PIPELINE Bc Samuels MD LAB - HEMATOLOGY [place] [facility] [address] [id number] * (ABNORMAL) BASIC METABOLIC PANEL (CALCIUM TOTAL) (05/28/2022 4:29 AM MANAGER PIPELINE) Glucose 136(H) 70 - 105 mg/dL 05/28/2022 5:16 AM [facility] Sodium 140 136 - 145 mmol/L 05/28/2022 5:16 AM [facility] Potassium 3.8 3.5 - 5.1 mmol/L 05/28/2022 5:16 AM [facility] Chloride 106 98 - 107 mmol/L 05/28/2022 5:16 AM [facility] CO2 24 23 - 31 mmol/L 05/28/2022 5:16 AM [facility] Calcium 8.8 8.4 - 10.4 mg/dL 05/28/2022 5:16 AM [facility] Anion Gap 10 8 - 18 mmol/L 05/28/2022 5:16 AM [facility] BUN 16 9.8 - 20.1 mg/dL 05/28/2022 5:16 AM [facility] Creatinine 0.69 0.57 - 1.11 mg/dL 05/28/2022 5:16 AM [facility] eGFR by CKD-EPI >90 >=90 mL/min/1.7 3 m2 05/28/2022 5:16 AM [facility] Blood BLOOD SPECIMEN / Unknown Lab Venipuncture / Unknown 05/28/2022 4:29 AM MANAGER PIPELINE 05/28/2022 4:55 AM MANAGER PIPELINE Bc Samuels MD LAB - CHEMISTRY DARLENE COY [facility] [address] [id number] * PATHOLOGY TISSUE EXAM (STL) (05/27/2022 2:17 PM MANAGER PIPELINE) Case Report Surgical Pathology Report ? Case: [id number] ? Authorizing Provider: ??Bc Samuels MD ? Collected: ? 05/27/2022 02:17 PM ? Ordering Location: ? [facility] ? Received: ?05/28/2022 10:48 AM ? Pathologist: ? Juliana Arzola MD ? Specimen: ?Colon Ascending, Ascending colon ? 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 A2 - Distal [...] possible lymph nodes. Kitty 05/31/2022 9:41 AM [facility] Microscopic Description Histologic sections [...] patchy acute inflammation of the appendiceal mucosa. MADDY 05/31/2022 9:41 AM [facility] Disclaimer All histochemical and/or immunohistochemical results are interpreted with controls that demonstrate appropriate staining reactions before reporting results. Note on use of immunocytochemistry reagents: This test was developed and its performance characteristic determined by [facility], Department of Laboratory Medicine. It has not [...] be interpreted with caution. 05/31/2022 9:41 AM MANAGER PIPELINE [facility] Synoptic Report COLON AND RECTUM: Resection, [...] ?? pN Category: ?pN1a 05/31/2022 9:41 AM MANAGER PIPELINE [facility] Embedded Images 05/31/2022 9:41 AM MANAGER PIPELINE [facility] Pathology/Cytolo gy ASCENDING COLON STRUCTURE / Unknown 05/27/2022 2:17 PM MANAGER PIPELINE 05/28/2022 10:48 AM MANAGER PIPELINE Bc Samuels MD LAB - PATHOLOGY/CYTO LOGY ORDERABLES Performing Organization Address [facility] Co de Phone Number [facility] [address] [place] [address] * TYPE + SCREEN PANEL (05/27/2022 12:16 PM MANAGER PIPELINE) ABO Rh A POS 05/27/2022 1:44 PM MANAGER PIPELINE [facility] Comment:No history; collect retype. Antibody Screen NEG 1:44 PM MANAGER PIPELINE [facility] Blood Bank BLOOD SPECIMEN / Unknown Venipuncture / Unknown 05/27/2022 12:16 PM MANAGER PIPELINE 05/27/2022 12:23 PM MANAGER PIPELINE Bc Samuels MD LAB - BLOOD BANK ORD ERABLES Performing Organization Address [facility] Co de Phone Number [facility] [address] [facility] 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 hepatic flexure Diagnosis unknown Other unknown and unspecified cause of morbidity or mortality Ileus (HCC) Paralytic ileus Malignant neoplasm of hepatic flexure (HCC) Malignant neoplasm of hepatic flexure documented in this encounter Administered Medications Inactive Administered Medications - up to 3 most recent administrations Medication Order MAR Action Action Date Dose Rate Site 0.9% NaCl infusion at 20 mL/hr, Intravenous, CONTINUOUS, Starting on Fri05/27/22 at 1330, Until Fri05/27/22 at 1637, Pre-op $ New Bag/Syringe 05/27/2022 4:18 PM MANAGER PIPELINE 20 mL/hr $ New Bag/Syringe 05/27/2022 12:56 PM MANAGER PIPELINE 20 mL /hr 0.9% NaCl injection 1-10 mL 1-10 mL, Intracatheter, PRN, Other, peripheral line flush, Starting on Fri05/27/22 at 1637, Until Fri06/01/22 at 1943, Flush peripheral IV catheter with [...] hours., Post-op $ Given 06/01/2022 2:32 PM MANAGER PIPELINE 3 mL $ Given 06/01/2022 6:56 AM MANAGER PIPELINE 3 mL $ Given 05/31/2022 8:38 PM MANAGER PIPELINE 3 mL acetaminophen (Tylenol) tablet 1,000 mg 1,000 mg, Oral, ONCE, 1 dose, On Fri05/27/22 at 1145, Patient preference for lesser PRN pain meds may be honored when the patient requests a less strong medication, a lower dose, or a less intrusive route of administration when the lesser drug, dose and route have been ordered for the patient. This patient request must be documented in the MAR., Pre-op $ Given 05/27/2022 12:54 PM MANAGER PIPELINE 1,000 mg acetaminophen (Tylenol) tablet 1,000 mg 1,000 mg, Oral, EVERY 6 HOURS, 20 [...] must be documented in the MAR., Post-op $ Given 06/01/2022 6:55 AM MANAGER PIPELINE 1,000 mg $ Given 06/01/2022 12:04 AM MANAGER PIPELINE 1,000 mg $ Given 05/31/2022 8:38 PM MANAGER PIPELINE 1,000 mg mjqgzgww-gxafhpqki-ntzpmsvdzax (Maalox; Mylanta) suspension 15 mL 15 mL, Oral, EVERY 6 HOURS PRN, Heartburn, Starting on Fri05/31/22 at 0236, Until 06/01/22 at 1943, Shake well before using. $ Given 05/31/2022 2:12 PM MANAGER PIPELINE 15 mL $ Given 05/31/2022 2:51 AM MANAGER PIPELINE 15 mL clonazePAM (KlonoPIN) tablet 0.5 mg 0.5 mg, Oral, 2 TIMES DAILY PRN, Anxiety, Starting on Fri05/27/22 at 1637, Until 06/01/22 at 1943 $ Given 06/01/2022 2:55 AM MANAGER PIPELINE 0.5 mg $ Given 05/31/2022 6:17 PM MANAGER PIPELINE 0.5 mg $ Given 05/30/2022 8:25 PM MANAGER PIPELINE 0.5 mg enoxaparin (Lovenox) injection 40 mg 40 mg, Subcutaneous, DAILY, First dose on Fri05/28/22 at 0900, Until Discontinued, (for prefilled syringes) do not expel air bubble from the syringe prior to the injection Remind Patient to not rub injection site. Could cause hematoma., Post-op $ Given 06/01/2022 8:46 AM MANAGER PIPELINE 40 mg Abdominal Tissue $ Given 05/31/2022 8:11 AM MANAGER PIPELINE 40 mg Ab dominal Tissue $ Given 05/30/2022 8:45 AM MANAGER PIPELINE 40 mg Ab dominal Tissue famotidine (Pepcid) tablet 20 mg 20 mg, Oral, PRE-OP ONCE, 1 dose, On Fri05/27/22 at 1300, Pre-op $ Given 05/27/2022 12:54 PM MANAGER PIPELINE 20 mg FLUoxetine (PROzac) capsule 30 mg 30 mg, Oral, DAILY, First dose on Fri05/27/22 at 1645, Until Discontinued $ Given 06/01/2022 8:46 AM MANAGER PIPELINE 30 mg $ Given 05/31/2022 8:11 AM MANAGER PIPELINE 30 mg $ Given 05/30/2022 8:45 AM MANAGER PIPELINE 30 mg gabapentin (Neurontin) capsule 300 mg 300 mg, Oral, ONCE, 1 dose, On Fri05/27/22 at 1145, Pre-op $ Given 05/27/2022 12:53 PM MANAGER PIPELINE 300 mg gabapentin (Neurontin) capsule 300 mg 300 mg, Oral, AT BEDTIME, 5 doses, First dose on Fri05/27/22 at 2100, Last dose on Fri05/31/22 at 2100, Post-op $ Given 05/31/2022 8:39 PM MANAGER PIPELINE 300 mg $ Given 05/30/2022 8:25 PM MANAGER PIPELINE 300 mg $ Given 05/29/2022 8:59 PM MANAGER PIPELINE 300 mg HYDROmorphone (Dilaudid) injection 0.2 mg 0.2 mg, Intravenous, EVERY 15 MIN PRN, Moderate Pain, 5 doses, Starting on Fri05/27/22 at 1451, Until Fri05/27/22 at 1637, Maximum total of 5 doses If patient reaches max total dose, please consult anesthesiologist prior to further administration of pain meds. Hold pain meds if there are signs of hypoventilation. Patient preference for lesser PRN pain meds may be honored when the patient requests a less strong medication, a lower dose, or a less intrusive route of administration when the lesser drug, dose and route have been ordered for the patient. This patient request must be documented in the MAR., PACU $ Given 05/27/2022 4:01 PM MANAGER PIPELINE 0.2 mg $ Given 05/27/2022 3:42 PM MANAGER PIPELINE 0.2 mg lactated ringers infusion at 50 mL/hr, Intravenous, CONTINUOUS, Starting on Fri05/27/22 at 1645, Until 06/01/22 at 1943, Post-op $ New Bag/Syringe 05/31/2022 5:22 AM MANAGER PIPELINE 5 0 mL/hr $ New Bag/Syringe 05/30/2022 11:03 AM MANAGER PIPELINE 50 mL /hr $ New Bag/Syringe 05/29/2022 2:01 PM MANAGER PIPELINE 50 mL/ hr lactated ringers IV bolus 1,000 mL, at 983.61 mL/hr, Administer over 61 Minutes, ONCE, 1 dose, On Fri05/28/22 at 0730 $ New Bag/Syringe 05/28/2022 9:19 AM MANAGER PIPELINE 1,000 mL 983.61 mL/hr metoclopramide (Reglan) injection 10 mg 10 mg, Intravenous, EVERY 6 HOURS, First dose on Fri05/27/22 at 1800, Until Discontinued $ Given 06/01/2022 12:26 PM MANAGER PIPELINE 10 mg $ Given 06/01/2022 6:56 AM MANAGER PIPELINE 10 mg $ Given 06/01/2022 12:03 AM MANAGER PIPELINE 10 mg morphine 50 mg/50 mL SALES COORDINATOR SALES COORDINATOR Dose: 1 mg, SALES COORDINATOR Lockout Interval: 10 Minutes, One Hour Limit\Max Limit: 6 mg, Clinician Bolus (Load): 0 mg, Intravenous, CONTINUOUS, Starting on Fri05/27/22 at 1500, Until Fri05/28/22 at 0832, SALES COORDINATOR Pump Therapy: Normal Risk (SALES COORDINATOR only) $ New Bag/Syringe 05/27/2022 3:46 PM MANAGER PIPELINE morphine injection 2 mg 2 mg, Intravenous, EVERY 4 HOURS PRN, Severe Pain, Starting on Fri05/28/22 at 0832, Until Annette 05/30/22 at 0837, Patient preference for lesser PRN pain meds may be honored when the patient requests a less strong medication, a lower dose, or a less intrusive route of administration when the lesser drug, dose and route have been ordered for the patient. This patient request must be documented in the MAR. $ Given 05/30/2022 4:43 AM MANAGER PIPELINE 2 mg $ Given 05/30/2022 12:23 AM MANAGER PIPELINE 2 mg $ Given 05/29/2022 1:59 PM MANAGER PIPELINE 2 mg ondansetron (disintegrating) (Zofran ODT) tablet 4 mg 4 mg, Oral, PRE-OP ONCE, 1 dose, On Fri05/27/22 at 1300, Dissolved orally on tongue, Pre-op $ Given 05/27/2022 12:54 PM MANAGER PIPELINE 4 mg ondansetron (disintegrating) (Zofran ODT) tablet 4 [...] swallow., Post-op $ Given 05/31/2022 8:16 AM MANAGER PIPELINE 4 mg $ Given 05/30/2022 8:32 PM MANAGER PIPELINE 4 mg $ Given 05/29/2022 7:52 PM MANAGER PIPELINE 4 mg oxyCODONE-acetaminophen (Percocet) 5-325 MG tablet [...] the MAR. $ Given 06/01/2022 6:15 PM MANAGER PIPELINE 1 tablet $ Given 05/31/2022 8:39 PM MANAGER PIPELINE 1 tablet $ Given 05/31/2022 5:20 AM MANAGER PIPELINE 1 tablet pantoprazole EC (Protonix) tablet 40 mg 40 mg, Oral, DAILY, First dose on Fri05/31/22 at 1500, Until Discontinued, Do not crush, chew, or cut in half. $ Given 06/01/2022 8:46 AM MANAGER PIPELINE 40 mg $ Given 05/31/2022 6:17 PM MANAGER PIPELINE 40 mg potassium chloride (Klor-Con) packet 20 mEq 20 mEq, Oral, ONCE, 1 dose, On Fri05/29/22 at 1115, DISSOLVE IN 120 ML OF COLD WATER OR JUICE AND DRINK SLOWLY $ Given 05/29/2022 12:05 PM MANAGER PIPELINE 20 mEq potassium chloride ER (Klor-Con) tablet 40 mEq 40 mEq, Oral, ONCE, 1 dose, On Annette 05/30/22 at 0730, Swallow whole, do not crush, chew or break. $ Given 05/30/2022 8:45 AM MANAGER PIPELINE 40 mEq traZODone (Desyrel) tablet 50 mg 50 mg, Oral, AT BEDTIME, First dose on Fri05/27/22 at 2100, Until Discontinued $ Given 05/31/2022 8:39 PM MANAGER PIPELINE 50 mg $ Given 05/30/2022 8:25 PM MANAGER PIPELINE 50 mg $ Given 05/29/2022 8:59 PM MANAGER PIPELINE 50 mg documented in this encounter Active and Recently Administered Medications Times are shown in MANAGER PIPELINE. Scheduled Medication Order 05/30/2022 05/31/2022 06/01/2022 0.9% [...] RN)1413 ($ Given - Provider: Danish Su RN)2038 ($ Given - Provider: Whitney Boland, PALOMO) 0656 ($ Given - Provider: Whitney Boland, RN)1432 ($ Given - Provider: Bruce Bellamy, [...] Refused-Patient)2024 ($ Given - Provider: Carolyn Cortes RN)234 (Canceled Entry - Provider: Carolyn Cortes RN) 0811 ($ Given - Provider: Caren Scanlon)1410 ($ Given - Provider: Danish Su RN)2037 ($ Given - Provider: Whitney Boland RN) 0004 ($ Given - Provider: Whitney Boland RN)0655 ($ Given - Provider: Whitney Boland RN)1224 (Held - Provider: Bruce Bellamy, Graduate Nurse - Reason: Per Administration Instructions) enoxaparin (Lovenox) injection 40 mg 40 mg, Subcutaneous, DAILY, First dose on Fri05/28/22 at 0900, Until Discontinued, (for prefilled syringes) do not expel air bubble from the syringe prior to the injection Remind Patient to not rub injection site. Could cause hematoma., Post-op 08 ($ Given - Provider: Flor Dsouza RN) [...] Chavira RN)1102 ($ Given - Provider: Flor Dsouza, PAL[place])1722 ($ Given - Provider: Flor Dsouza, PALOMO)2301 ($ Given - Provider: Carolyn Cortes, PALOM[place]) 0520 ($ Given - Provider: Carolyn Cortes, PALOMO)1410 ($ Given - Provider: Danish Su RN)203 ($ Given - Provider: Whitney Boland RN) [...] break. 0845 ($ Given - Provider: Flor Dsouza, PALOMO) traZODone (Desyrel) tablet 50 mg 50 mg, Oral, AT BEDTIME, First dose on Fri05/27/22 at 2100, Until Discontinued 2024 ($ Given - Provider: Carolyn Cortes RN) 2038 ($ Given - Provider: Whitney Boland RN) Continuous Medication Order 05/30/2022 05/31/2022 06/01/2022 lactated [...] the line or to verify patency., Post-op hxuytvix-qwjjagdtj-uepeq hicone (Maalox; Mylanta) suspension 15 mL 15 mL, Oral, EVERY 6 HOURS PRN, Heartburn, Starting on Fri05/31/22 at 0236, Until 06/01/22 at 1943, Shake well before using. 0251 ($ Given - Provider: Carolyn Cortes RN)1412 ($ Given - Provider: Danish Su RN) clonazePAM (KlonoPIN) tablet 0.5 mg 0.5 mg, Oral, 2 TIMES DAILY PRN, Anxiety, Starting on Fri05/27/22 at 1637, Until 06/01/22 at 1943 2024 ($ Given - Provider: Carolyn Cortes RN) 1817 ($ Given - Provider: Caren Scanoln) 0255 ($ Given - Provider: Whitney Boland, PAL[place]) morphine injection 2 mg (CANCELED) 2 mg, Intravenous, EVERY 4 HOURS PRN, Severe Pain, Starting on Fri05/28/22 at 0832, Until Annette 05/30/22 at 0837, [...] Fri05/27/22 at 1637, Until 06/01/22 at 194, Administer IV if patient is NPO, actively [...] request must be documented in the MAR. 1342 ($ Given - Provider: Folr Dsouza RN)2301 ($ Given - Provider: Carolyn Cortes RN) 0520 ($ Given - Provider: Carolyn Cortes RN)2038 ($ Given - Provider: Whitney Boland RN) 1815 ($ Given - Provider: Bruce Bellamy, [...] Post-op documented in this encounter Care Teams Weld Engineer Relationship Specialty Start Date End Date Donal Granados MD [facility] [place] [id number] PCP - General Family Medicine 05/22/22 06/17/22 Bc Samuels MD [address] [facility] [address] [place] [address] Surgeon Colon and Rectal Surgery 04/09/22 documented as of this encounter
--- OUTSIDE RECORDS SUMMARY | 2024-04-04 23:28 | XMS_ITS | Encounter Summary ---
Author Organization [facility] Address [address] [place] [address] Care Team Providers Care Pe Manager Name Role Phone Bc Samuels MD Unavailable [phone] Donal Granados MD Primary Care Provider Encounter Details Date Type Department Care Team (Late st Contact Info) Description 06/19/2022 Orders Only [facility] [address] [place] [address] Bc Samuels MD [address] [place] [address] Malignant neoplasm of hepatic flexure [...] and heating? Not hard at all 05/27/2022 [facility] [place] [facility] - Occupational Stress [...] place to sleep or slept in a half-way (including now)? No 05/27/2022 Sex and Gender [...] flexure documented in this encounter Care Teams Pe Manager Relationship Specialty Start Date End Date Donal Granados MD [facility] [place] [address] PCP - General Family Medicine 06/18/22 Bc Samuels MD [address] [place] [address] Surgeon Colon and Rectal Surgery 04/09/22 documented as of this encounter
--- OUTSIDE RECORDS SUMMARY | 2024-04-04 23:28 | XMS_ITS | Encounter Summary ---
Author Organization [facility] Address [address] [place] [address] Care Team Providers Care Printed Circuit Board Panels Deburrer Name Role Phone Wilian Berkowitz MD Primary Care Provider [phone] Bc Samuels MD Unavailable [phone] Encounter Details Date Type Department Care Team (Latest Contact Info) Description 04/17/2022 1:20 PM PROGRAM HOST - 04/17/2022 11:59 PM PROGRAM HOST Hospital Encounter [facility] [address] [place] [phone] Discharge Disposition: Home or Self Care Social History Tobacco Use Types Packs/Day Years Used Date Smoking Tobacco: Never Smokeless Tobacco: Never Alcohol Use Standard Drinks/Week Comments Never 0 (1 standard drink = 0.6 oz pur e alcohol) Sex and Gender Information Value Date Recorded Sex Assigned at Not on file Gender Identity Not on file Sexual Orientation Not on file documented as of this encounter Medications at Time of Discharge Medication Sig Dispensed Refills Start Date End Date clonazePAM (KlonoPIN) 0.5 MG tablet clonazepam 0.5 mg tablet TAKE ONE TABLET TWICE DAILY NEEDED FLUoxetine (PROzac) 20 MG capsule Take 30 mg by mouth once daily omeprazole (PriLOSEC) 40 MG capsule Take 1 (one) capsule by mouth at bedtime simvastatin (Zocor) 40 MG tablet Take 1 (one) tablet by mouth at bedtime traZODone (Desyrel) 50 MG tablet Take 1 (one) tablet by mouth at bedtime documented as of this encounter Progress Notes * Bc Samuels MD - 04/17/2022 11:[address] cheat and preop appt You can tell her bx came back + for cancer I told her that is what I suspected when looking at lesion RAM HOST * Abbie Chandra - 04/17/2022 11:59 PM CST done RAM HOST documented in this encounter Plan of Treatment Not on file documented as of this encounter Procedures Procedure Name Priority Date/Time Associated Diagnosis Comments PATHOLOGY TISSUE EXAM (STL) Routine 04/17/2022 12:00 AM PROGRAM HOST Rectal exam documented in this encounter Results * PATHOLOGY TISSUE EXAM (STL) (04/17/2022 12:00 AM PROGRAM HOST) Case Report Surgical Pathology Report ? Case: [id number] ? Authorizing Provider: ??Bc Samuels MD ? Collected: ? 04/17/2022 12:00 AM ? Ordering Location: ? [facility] ?Received: ?04/17/2022 01:28 PM ? Pathologist: ? Juliana Arzola MD ? Specimen: ?Colon Biopsy, hepatic flexure ? 04/19/2022 10:39 AM [facility] Final Diagnosis Large intestine, hepatic flexure, mass, endoscopic biopsy: - Moderately differentiated adenocarcinoma - See description KL 04/19/2022 10:39 AM [facility] Addendum 1 Immunohistochemical stains for mismatch repair (MMR) proteins (MLH-1, MSH2, MSH6, PMS2) show retained nuclear expression/normal pattern of expression (see comment). COMMENT:Immunostains for DNA mismatch repair proteins show a normal pattern of expression. The antibodies are directed against PMS2, MLH1, MSH2, and MSH6. These targets are expressed in normal cells. When expression is lost, the result is often micro-satellite instability. Thus, one may immunostain for these mismatch repair enzymes, as a surrogate for MSI testing. In cases such as this, where the immunostains show a normal pattern of expression, MSI is very unlikely. One can then reasonably skip the more expensive and time consuming process of MSI analysis in such cases. In contrast, cases with loss of expression are likely to manifest MSI, and the more rigorous testing may be worthwhile. Of course, this testing does not address other type of genetic cancer syndromes, and in some clinical situations, a genetic consultation and additional testing may still be warranted. 04/19/2022 10:39 AM [facility] Addendum electronically signed by Juliana Arzola MD on 04/19/2022 at 10:39 AM Gross Description Received in one formalin-filled container labeled with the patient's name, Loulou Lanier, and mass, hepatic flexure, colon . It consists of four maddox soft tissue fragments, ranging in greatest dimension from 0.1 to 0.2 cm. The specimen is marked with hematoxylin and entirely submitted in cassette A1. SD/na 04/19/2022 10:39 AM [facility] Microscopic Description Multiple level sections are examined and show moderately differentiated adenocarcinoma composed of expanded and cribriform glandular profiles which infiltrate in a fibrotic/desmoplastic stroma. Depth of invasion cannot be determined from the biopsy material. Please correlate with clinical and endoscopic findings. Immunohistochemical stains for mismatch repair (MMR) proteins are pending, and the results will be reported in an addendum. KL 04/19/2022 10:39 AM [facility] Disclaimer All histochemical and/or immunohistochemical results are interpreted with controls that demonstrate appropriate staining reactions before reporting results. Note on use of immunocytochemistry reagents: This test was developed and its performance characteristic determined by [facility], Department of Laboratory Medicine. It has not [...] tissues. Results should be interpreted with caution. 04/19/2022 10:39 AM [facility] Embedded Images 04/19/2022 10:39 AM [facility] Pathology/Cytolog y COLONIC BIOPSY SPECIMEN / Unknown 04/17/2022 04/17/2022 1:28 PM PROGRAM HOST Bc Samuels MD LAB - PATHOLOGY/CYTO LOGY ORDERABLES [facility] [address] [phone] documented in this encounter Visit Diagnoses Diagnosis Rectal exam- Primary Other specified examination documented in this encounter Care Teams Printed Circuit Board Panels Deburrer Relationship Specialty Start Date End Date Wilian Berkowitz MD [address] [place] [address] PCP - General 05/28/11 05/01/22 Bc Samuels MD [address] [facility] [address] [phone] Surgeon Colon and Rectal Surgery 04/09/22 documented as of this encounter
--- OUTSIDE RECORDS SUMMARY | 2024-04-04 23:28 | XMS_ITS | Clinical Summary ---
Author Organization [facility] Address [address] [place] [address] Care Team Providers Care Nurse Practitioner Physician Assistant Name Role Phone Bc Samuels MD Unavailable [phone] Donal Granados MD Primary Care Provider Source Comments [facility],non-owned Affiliates and Associated Physician Practices is amultiple site organization consisting of ambulatory clinics and hospital sitesin [place], [place], [place] and [place]. This disclosure is being madepursuant to the Care Everywhere program and may not contain all information available regarding this patient. Last updated 18.[facility] On[employer] Allergies No known active allergies Medications * [...] day before surgery 2 tablet 05/02/2022 Active azffrokj-rwhchlexh-k exameth (Maxitrol) ophthalmic suspension Instill 1 (one) drop into both eyes once daily Active multivitamin daily tablet Take 1 (one) tablet by mouth daily with food Active CALCIUM PO Take 1 tablet by mouth once daily Active Active Problems Problem Noted Date Diagnosed Date Malignant neoplasm of hepatic flexure 05/27/2022 Family History Medical History Relation Name Comments Colitis Mother Crohn's Disease Mother Ulcerative Colitis Mother Relation Name Status Comments Mother Social History Tobacco Use Types Packs/Day Years [...] and heating? Not hard at all 05/27/2022 [facility] [place] of Occupat ional Health - Occupational Stress [...] place to sleep or slept in a custodial (including now)? No 05/27/2022 Sex and Gender Information Value Date Recorded Sex Assigned at Not on file Gender Identity Not on file Sexual Orientation Not on file Last Filed Vital Signs Vital Sign Reading Time Taken Comments Blood Pressure 154/85 06/01/2022 11:10 AM LOADERS Pulse 75 06/01/2022 11:10 AM LOADERS Temperature 36.5 ??C (97.7 ??F) 06/01/2022 11:[address] Respiratory Rate 18 06/01/2022 11:10 AM LOADERS Oxygen Saturation 96% 06/01/2022 11:10 AM LOADERS Inhaled Oxygen Concentration - - Weight 56.7 kg (125 lb) 06/18/2022 9:29 AM LOADERS Height 157.5 cm (5' 2 ) 06/18/2022 9:29 AM LOADERS Body Mass Index 22.86 06/18/2022 9:29 AM LOADERS Plan of Treatment Health Maintenance Due Date Last Done Comments BONE DENSITY TESTING 1955 COLOGUARD (AGES 45-75) - COL ON CA SCREENING 1957 CT COLONOGRAPHY - COLON CA SCREENING 1955 FIT - COLON CA SCREENING 1955 FLEX SIG - COLON CA SCREENING 1955 MAMMOGRAM 1955 HEPATITIS C SCREENING 01/02/1975 DTAP/TDAP/TD VACCINES (1 - Tdap) 01/07/1976 ZOSTER VACCINE (1 of 2) 2007 PNEUMOCOCCAL VACCINE 65+ (1 of 1 - PCV) 2022 DEPRESSION SCREENING 04/14/2023 COLON MONITORING 04/17/2023 04/17/2022 Colorectal Cancer Screening 04/17/2023 COVID-19 VACCINE (1 - 2023-2 5 season) 2023 INFLUENZA VACCINE (#1) 2023 Respiratory Syncytial Virus (RSV) Vaccine Pt: or over 60 yrs (1 - 1-dose 75+ series) 01/07/2032 COLONOSCOPY - COLON CA SCREENING 04/17/2032 04/17/2022, 04/17/2022 HEPATITIS B VACCINE Aged Out No longe r eligible based on patient's age to complete this topic HIB VACCINE Aged Out No longer eligi ble based on patient's age to complete this topic HPV VACCINE Aged Out No longer eligi ble based on patient's age to complete this topic MENINGOCOCCAL VACCINE Aged Out No emilee bronson eligible based on patient's age to complete this topic Procedures Procedure Name Priority Date/Time Associated Diagnosis Comments COLONOSCOPY Routine 04/17/2022 from Last 3 Months or Most Recently Relevant to Health Maintenance Results * COLONOSCOPY (04/17/2022) Historical Provider SCANNING ONLY from Last 3 Months or Most Recently Relevant to Health Maintenance Advance Directives * Full Code (Latest Code Status on File) Date Activated Date Inactivated Comments 05/27/2022 4:37 PM 06/01/2022 7:48 PM Care Teams Nurse Practitioner Physician Assistant Relationship Specialty Start Date End Date Donal Granados MD [facility] [place] [address] PCP - General Family Medicine 06/18/22 Bc Samuels MD [address] [facility] [address] [address] Surgeon Colon and Rectal Surgery 04/09/22
--- OUTSIDE RECORDS SUMMARY | 2024-04-04 23:28 | XMS_ITS | Encounter Summary ---
Author Organization [facility] Address [address] [place] [address] Care Team Providers Care Commercial Hvac Technician Name Role Phone Bc Samuels MD Unavailable [phone] Donal Granados MD Primary Care Provider [phone] Encounter Details Date Type Department Care Team (Latest Contact Info) Description 05/22/2022 7:54 AM SUPERVISOR MULTIFOCAL LENS - 05/22/2022 11:59 PM SUPERVISOR MULTIFOCAL LENS Hospital Encounter [facility] PREADMISSION TESTING [address] [place] [id number] Bc Samuels MD [address] [place] [address] Colorectal Surgery Discharge Disposition: Home or Self Care Social [...] Coronavirus/COVID-19? Unable to assess 05/17/2022 8:40 AM SUPERVISOR MULTIFOCAL LENS documented as of this encounter Last Filed Vital Signs Vital Sign Reading Time Taken Comments Blood Pressure - - Pulse - - Temperature - - Respiratory Rate - - Oxygen Saturation - - Inhaled Oxygen Concentration - - Weight 59.9 kg (132 lb) 05/22/2022 8:14 AM SUPERVISOR MULTIFOCAL LENS Height 157.5 cm (5' 2 ) 05/22/2022 8:14 AM SUPERVISOR MULTIFOCAL LENS Body Mass Index 24.14 05/22/2022 8:14 AM SUPERVISOR MULTIFOCAL LENS documented in this encounter Medications at Time [...] (one) tablet by mouth daily with food owmtdocz-lewhnyyqv-zi xameth (Maxitrol) ophthalmic suspension Instill 1 (one) drop [...] 1 (one) tablet by mouth at bedtime HYDROcodone-acetamino phen ([place]) 5-325 MG tabletIndications: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),Diagnosis unknown,Ileus (HCC) Take 1 (one) tablet by mouth every 6 hours as needed for Pain 12 tablet 06/01/2022 07/01/2022 ibandronate (Boniva) 150 MG tablet ibandronate 150 mg tablet TAKE 1 TABLET EVERY MONTH 05/31/2022 ibuprofen (Advil) 200 MG tablet Take by mouth every 6 hours as needed for Pain 06/01/2022 metroNIDAZOLE (Flagyl) 500 MG tablet Take 1 tablet at 12:00pm, 3:00pm and 10:00pm the day before surgery 3 tablet 05/02/2022 06/01/2022 neomycin (Mycifradin) 500 MG tablet Take 2 tablet at 2:00pm, 3:00pm and 10:00pm the day before surgery 6 tablet 05/02/2022 05/31/2022 documented as of this encounter Progress Notes * Carrie Walker RN - 05/22/2022 9:04 AM CST Patient was seen for ascending colectomy. Medical history reviewed. Patient was given pre op instructions including DVT prophylaxis, post op management, equipment needed after surgery, normal recovery process from surgery, infection prevention, projected length of stay in hospital, importance of exercise regime, per Dr Alcaraz recover from surgery. Patient advised to avoid blood thinner, ASA NSAIDS, and any other supplements which may thin blood or as advised by physician in charge of medications. Patient instructed to drink ERAS ensures as instructed, reviewed and instructions given, given incentive spirometer and instructions return demonstration given, given chlorhexidine scrub per booklet and requested patient to read/review that information and call if any questions. Informed patient of potential wait in PACU after surgery. EKG done CMP and CBC done at lab buddy RVISOR MULTIFOCAL LENS documented in this encounter Plan of Treatment Not on file documented as of this encounter Procedures Procedure Name Priority Date/Time Associated Diagnosis Comments CBC W AUTO DIFFERENTIAL Routine 05/22/2022 9:07 AM SUPERVISOR MULTIFOCAL LENS Pre-op testing COMPREHENSIVE METABOLIC PANEL Routine 05/22/2022 9:07 AM SUPERVISOR MULTIFOCAL LENS Pre-op testing EKG 12-LEAD Routine 05/22/2022 8:34 AM SUPERVISOR MULTIFOCAL LENS Pre-op testing documented in this encounter Results * (ABNORMAL) COMPREHENSIVE METABOLIC PANEL (05/22/2022 9:07 AM SUPERVISOR MULTIFOCAL LENS) Glucose 84 70 - 105 mg/dL [facility] INSURANCE BILL BUN 18 9.8 - 20.1 mg/dL [facility] INSURANCE BILL Creatinine 0.77 0.57 - 1.11 mg/dL [facility] INSURANCE BILL eGFR by CKD-EPI 86(L) >=90 mL/min/1.7 3 m2 [facility] INSURANCE BILL Sodium 142 136 - 145 mmol/L [facility] INSURANCE BILL Potassium 4.3 3.5 - 5.1 mmol/L [facility] INSURANCE BILL Chloride 104 98 - 107 mmol/L [facility] INSURANCE BILL CO2 27 23 - 31 mmol/L [facility] INSURANCE BILL Calcium 9.5 8.4 - 10.4 mg/dL [facility] INSURANCE BILL Protein Total 7.3 6.4 - 8.3 gm/dL [facility] INSURANCE BILL Albumin 4.6 3.2 - 4.6 gm/dL [facility] INSURANCE BILL Bilirubin Total 0.2 0.2 - 1.2 mg/dL [facility] INSURANCE BILL Alkaline Phosphatase 65 40 - 150 U/L [facility] INSURANCE BILL AST 15 5 - 34 U/L [facility] INSURANCE BILL ALT 11 0 - 61 U/L [facility] INSURANCE BILL Blood BLOOD SPECIMEN / Unknown 05/22/2022 9:07 AM SUPERVISOR MULTIFOCAL LENS 05/22/2022 Narrative Resulting Agency Comment Lab Testing performed at: [place] [id number] [facility] ?? [place] [id number] Bc Samuels MD LAB - CHEMISTRY DARLENE COY [facility] Organization Address City/State/ZIP Co de Phone Number [facility] INSURANCE BILL [address] [place] [address] * (ABNORMAL) CBC W AUTO DIFFERENTIAL (05/22/2022 9:07 AM SUPERVISOR MULTIFOCAL LENS) WBC 7.2 4.4 - 10.7 x10E9/L [facility] INSURANCE BILL RBC 4.09 3.80 - 5.20 x10E12/L [facility] INSURANCE BILL Hemoglobin 11.7(L) 12.0 - 15.6 gm/dL [facility] INSURANCE BILL Hematocrit 37.0 35.9 - 45.5 % [facility] INSURANCE BILL MCV 90.5 80.7 - 98.3 fl [facility] INSURANCE BILL MCH 28.6 26.7 - 34.0 pg [facility] INSURANCE BILL MCHC 31.6 30.8 - 35.9 gm/dL [facility] INSURANCE BILL RDW 13.7 12.1 - 14.9 % [facility] INSURANCE BILL Platelet Count 382 153 - 416 x10E9/L [facility] INSURANCE BILL Comment:MPV FL BLOOD ([facility]) 1 0.4 fl 9.4-12.9 Granulocytes % 53.7 44.0 - 73.0 % [facility] INSURANCE BILL Lymphocytes % 35.7 20.0 - 43.0 % [facility] INSURANCE BILL Monocytes % 7.5 5.0 - 13.0 % [facility] INSURANCE BILL Eosinophils % 1.8 0.0 - 6.0 % [facility] INSURANCE BILL Basophils % 1.0 0.0 - 2.0 % [facility] INSURANCE BILL Granulocytes Absolute 3.85 2.01 - 7.14 x10E9/L [facility] INSURANCE BILL Lymphocytes Absolute 2.56 1.07 - 3.94 x10E9/L [facility] INSURANCE BILL Monocytes Absolute 0.54 0.26 - 1.07 x10E9/L [facility] INSURANCE BILL Eosinophils Absolute 0.13 0 - 0.47 x10E9/L [facility] INSURANCE BILL Basophils Absolute 0.07 0 - 0.08 x10E9/L [facility] INSURANCE BILL Immature Granulocytes 0.3 0 - 1 % [facility] INSURANCE BILL Immature Granulocytes Absolute 0.02 0.00 - 0.06 x10E9/L [facility] INSURANCE BILL nRBC 0 /100 WBC [facility] INSURANCE BILL Blood BLOOD SPECIMEN / Unknown 05/22/2022 9:07 AM SUPERVISOR MULTIFOCAL LENS 05/22/2022 Narrative Resulting Agency Comment Lab Testing performed at: [address] ?? [place] [id number] Bc Samuels MD LAB - HEMATOLOGY ORD ERABLES [facility] INSURANCE BILL [address] [place] [address] * EKG 12-LEAD (05/22/2022 8:34 AM SUPERVISOR MULTIFOCAL LENS) Ventricular Rate 75 BPM [facility] Atrial Rate 75 BPM [facility] P-R Interval 162 ms [facility] QRS Duration ms 94 ms [facility] Q-T Interval ms 412 ms [facility] QTC Calculation (Bezet) 460 ms [facility] Calculated P [place] 75 degrees [facility]USE Calculated R [place] 43 degrees [facility]USE Calculated T [place] 31 degrees [facility] Interpretation EKG Normal sinus rhythm Normal ECG No previous ECGs available Confirmed by MD ELVIRA, YAHAIRA ([id number]) on 05/22/2022 10:26:33 PM [facility] MUSE 05/22/2022 8:34 AM SUPERVISOR MULTIFOCAL LENS 05/22/2022 10:26 PM SUPERVISOR MULTIFOCAL LENS Bc Samuels MD ECG ORDERABLES [facility] MUSE documented in this encounter Visit Diagnoses Diagnosis Pre-op testing- Primary Preoperative examination, unspecified documented in this encounter Care Teams Commercial Hvac Technician Relationship Specialty Start Date End Date Donal Granados MD [facility] [place] [address] PCP - General Family Medicine 05/22/22 06/17/22 Bc Samuels MD [address] [facility] [place] [address] [address] Surgeon Colon and Rectal Surgery 04/09/22 documented as of this encounter
--- OUTSIDE RECORDS SUMMARY | 2024-04-04 23:28 | XMS_ITS | Encounter Summary ---
Author Organization [facility] Address [address] [place] [address] Care Team Providers Care Ecologist Technician Name Role Phone Bc Samuels MD Unavailable [phone] Donal Granados MD Primary Care Provider [phone] Reason for Visit * Reason Comments Pre-op Consult Encounter Details Date Type Department Care Team (Late st Contact Info) Description 05/02/2022 9:00 AM COIN COLLECTOR Office Visit [facility] [address] [place] [address] Bc Samuels MD [address] [place] [address] Malignant neoplasm of hepatic flexure [...] Sign Reading Time Taken Comments Blood Pressure 116/72 05/02/2022 8:58 AM COIN COLLECTOR Pulse 86 05/02/2022 8:58 AM COIN COLLECTOR Temperature - - Respiratory Rate - - Oxygen Saturation 97% 05/02/2022 8:58 AM COIN COLLECTOR Inhaled Oxygen Concentration - - Weight 62.1 kg (137 lb) 05/02/2022 8:58 AM COIN COLLECTOR Height 157.5 cm (5' 2 ) 05/02/2022 8:58 AM COIN COLLECTOR Body Mass Index 25.06 05/02/2022 8:58 AM COIN COLLECTOR documented in this encounter Patient Instructions * Patient Instructions* Tamara Workman - 05/02/2022 9:00 AM COIN COLLECTOR Images from the original note were not included. Thank you for visiting [facility] - ColoRectal Surgery. We appreciate your [...] an appointment, please call our office at [phone] Friday through 8:30 am to 4:30 pm. and Friday from 8:30 am to 4:00 pm. You can also request a routine appointment through your my chart.[employer] account. Prescription Refills Contact your pharmacy to [...] call the medical exchangeat and ask the binder operator to page the ColoRectal physician teacher education director. *Caller ID blocking service will need to be turned off for your call to be returned. We specialize in anorectal disease, cancers, surgeries, and so much more. Visit our website at [email or web address] for information about our practice and an interactive health encyclopedia. 05/02/2022 Loulou Lanier [address] [place] [address] COLON PREPARATION FOR SURGERY Date: 05/31/2022 Time of Arrival: 7:00am Time of Procedure: 9:00am Physician: Bc Samuels MD [facility]: [address] [place] [address], [place] [address] [address] THESE ARE TAKEN THE DAY BEFORE SURGERY WITH A CLEAR LIQUID DIET*. *CLEAR LIQUIDS: clear soups or broth, bouillon, Jell-O, soda, black coffee or tea, hard candies, popsicles, clear fruit juices. NO MILK or DAIRY products At your pharmacy, purchase Dulcolax 5mg tablets and Miralax (polyethylene glycol 238g) powder and fill the prescription sent to your pharmacy. If you are on ANY BLOOD THINNING MEDICATIONS (except 81mg Aspirin), contact your prescribing physician to find out when to STOP taking the medicine before the procedure. If you are on Insulin, please contact your prescribing physician for dosage modification instructions. BOWEL PREP - WITH MECHANICAL PREP TIME TO DO 12 Noon Mix the Miralax (polyethylene glycol 238g) powder (over the counter medication) in 32 oz of Gatorade or other sports drink (any color is fine). You will start this at 2 pm Take 1 Zofran (ondansetron) 4mg pill by mouth Take 2 Dulcolax 5mg tabs (over the counter medication) by mouth 2:00 PM Start the Miralax Prep- Drink 8 oz every 15-30 minutes until complete. Take 2 Neomycin 500mg tab by mouth (if pharmacy does not have disregard) Take 1 Metronidazole (Flagyl) 500mg pill by mouth 3:00 PM Take 2 Neomycin 500mg tab by mouth (if pharmacy does not have disregard) Take 1 Metronidazole (Flagyl) 500mg pill by mouth Take 2 Dulcolax 5mg tabs (over the counter medication) by mouth 7:00 PM Take 1 Zofran 4mg pill by mouth 8:00 PM Pre-Surgery Clear Carbohydrate Drink (Ensure 10oz): Drink 2 bottles between 8:00 pm and 10:00 pm 10:00 PM Take 2 Neomycin 500mg tab by mouth (if pharmacy does not have disregard) Take 1 Metronidazole (Flagyl) 500mg pill by mouth On the DAY OF surgery: You may take your usual medications with a small amount of water. No breakfast. Please arrive at the hospital, 2 hours prior to your surgery or as instructed by your doctor. For TWO DAYS prior to your surgery, DO NOT eat foods with seeds, nuts or corn. COLLECTOR documented in this encounter Progress Notes * Bc Samuels MD - 05/02/2022 9:00 AM CST Colorectal H&P Note Bc Samuels MD FACS FASCRS Board Certified Colorectal Surgeon 05/01/2022 Patient's Primary Care Physician: Wilian Berkowitz MD Patient Name: Loulou Lanier Age: [age] year old Sex: female Loulou Lanier is a 67 year old female white who presents with a chief complaint of colon polyp. A colonoscopy was performed on 04/17/2022 Symptoms: colon mass Colonic Mass Location: hepatic flexure and and the tumor location was MARKED with Delphine ink Description: moderately differentiated adenocarcinoma Labs and Radiology: Hgb level 11.9 on 01/01/2022 and Liver function tests are abnormal Albumin 4.5 on 01/01/2022. CT scan Abd/Pelvis revealed no Mets on 03/06/2022. CT scan Chest on 04/23/2022 showed stable pleural based 3-4 mm density superior segment of the right lower lobe compared with 09/19/2020. Current Symptoms: none. Lower back pain that travels down to the rectum. Bowel Habits: 1 per day and changed from 3 per day Pt here to discuss surgery. Past Medical History: Diagnosis Date ??? Anal pruritus ??? Anemia ??? Anxiety disorder ??? Colonoscopy 04/17/[address] Samuels ??? Depression ??? GERD (gastroesophageal reflux disease) ??? Hematochezia ??? Hemorrhoids ??? Personal history of colonic polyps Past Surgical History: Procedure Laterality Date ??? COLONOSCOPY 02/28/2022 colon polyps ??? OTHER SURGERY 2010 foot surgery per pt Family History Problem Relation Name Age of [...] Not on file Current Outpatient Medications: ??? clonazePAM (KlonoPIN) 0.5 MG tablet, clonazepam 0.5 mg tablet TAKE ONE TABLET TWICE DAILY NEEDED, Disp: , Rfl: ??? FLUoxetine (PROzac) 20 MG capsule, fluoxetine 20 mg capsule, Disp: , Rfl: ??? omeprazole (PriLOSEC) 40 MG capsule, omeprazole 40 mg capsule,delayed release TAKE 1 CAPSULE EVERY DAY, Disp: , Rfl: ??? simvastatin (Zocor) 40 MG tablet, simvastatin 40 mg tablet TAKE 1 TABLET BY MOUTH EVERY DAY, Disp: , Rfl: ??? traZODone (Desyrel) 50 MG tablet, trazodone 50 mg tablet, Disp: , Rfl: No Known Allergies REVIEW [...] sounds Extremities: no clubbing, cyanosis or edema Circulation: Carotid, femoral and pedal pulses are intact and symmetrical, aorta is not enlarged, no carotid bruits Neurologic: mental status normal; alert and oriented X 3; cranial nerves II - XII are grossly intact Assessment/Plan: Probable cancer at the hepatic flexure. Will need laparoscopic ascending colectomy. Will need cardiac clearance. The risks were explained as CA, stroke, , other anesthesia complications, bleeding, infection, anastomotic leak, possible ostomy, DVT/PE, injuries to other organs and the need for further surgery. The patient does agree, understand and wishes to proceed. 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 [place] [address] PCP - General Family Medicine 05/02/22 05/08/22 Bc Samuels MD [address] [place] [facility] [address], [place] [id number] Surgeon Colon and Rectal Surgery 04/09/22 documented as of this encounter
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
--- OUTSIDE RECORDS SUMMARY | 2024-04-04 23:28 | XMS_ITS | Encounter Summary ---
Author Organization [facility] Address [address] [place] [address] Care Team Providers Care Rn Procedures Name Role Phone Wilian Berkowitz MD Primary Care Provider [phone] Bc Samuels MD Unavailable Encounter Details Date Type Department Care Team (Late st Contact Info) Description 04/19/2022 Orders Only [facility] [address] [place] [address] Bc Samuels MD [address] [place] [address] Malignant neoplasm of hepatic flexure (HCC) ; Colonic mass Social History Tobacco Use Types Packs/Day Years Used Date Smoking Tobacco: Never Smokeless Tobacco: Never Alcohol Use Standard Drinks/Week Comments Never 0 (1 standard drink = 0.6 oz pur e alcohol) Sex and Gender Information Value Date Recorded Sex Assigned at Not on file Gender Identity Not on file Sexual Orientation Not on file documented as of this encounter Plan of Treatment Not on file documented as of this encounter Visit Diagnoses Diagnosis Malignant neoplasm of hepatic flexure (HCC)- Primary Malignant neoplasm of hepatic flexure Colonic mass Other specified disorder of intestines documented in this encounter Care Teams Rn Procedures Relationship Specialty Start Date End Date Wilian Berkowitz MD [address] [place], [place] [id number] PCP - General 05/28/11 05/01/22 Bc Samuels MD [address] [place] [address] Surgeon Colon and Rectal Surgery 04/09/22 documented as of this encounter
--- OUTSIDE RECORDS SUMMARY | 2024-04-04 23:28 | XMS_ITS | Patient Health Summary ---
Author Organization [facility] Address [address] [place] [address] Care Team Providers Care Division Traffic Superintendent Name Role Phone Bc Samuels MD Unavailable [phone] Donal Granados MD Primary Care Provider [phone] Note from [facility],non-owned Affiliates and Associated Physician Practices is amultiple site organization consisting of ambulatory clinics and hospital sitesin [place], [place], [place] and [place]. This disclosure is being madepursuant to the Care Everywhere program and may not contain all information available regarding this patient. Last updated 18.[facility] Allergies No known active allergies Medications * Be aware that medications may not be up to date on this document. Alwaysverify current medications with the patient. * omeprazole (PriLOSEC) 40 MG capsule Take 1 (one) capsule by mouth at bedtime * simvastatin (Zocor) 40 MG tablet Take 1 (one) tablet by mouth at bedtime * traZODone (Desyrel) 50 MG tablet Take 1 (one) tablet by mouth at bedtime * clonazePAM (KlonoPIN) 0.5 MG tablet clonazepam 0.5 mg tablet TAKE ONE TABLET TWICE DAILY NEEDED * FLUoxetine (PROzac) 20 MG capsule Take 30 mg by mouth once daily * ondansetron (Zofran) 4 MG tablet(Started 05/02/2022) Take one tablet at 12:00pm and 7:00pm the day before surgery * zrjlqxwy-hqqaymdpm-erawzdef (Maxitrol) ophthalmic suspension Instill 1 (one) drop into both eyes once daily * multivitamin daily tablet Take 1 (one) tablet by mouth daily with food * CALCIUM PO Take 1 tablet by mouth once daily Active Problems Problem Noted Date Diagnosed Date [...] Not hard at all 05/27/2022 [facility] [place] of Occupat ional Health - Occupational Stress [...] place to sleep or slept in a residential (including now)? No 05/27/2022 Sex and Gender Information Value Date Recorded Sex Assigned at Not on file Gender Identity Not on file Sexual Orientation Not on file Last Filed Vital Signs Vital Sign Reading Time Taken Comments Blood Pressure 154/85 06/01/2022 11:10 AM ASSISTANT OFFSET PRESS OPERATOR Pulse 75 06/01/2022 11:10 AM ASSISTANT OFFSET PRESS OPERATOR Temperature 36.5 ??C (97.7 ??F) 06/01/2022 11:[address] Respiratory Rate 18 06/01/2022 11:10 AM ASSISTANT OFFSET PRESS OPERATOR Oxygen Saturation 96% 06/01/2022 11:10 AM ASSISTANT OFFSET PRESS OPERATOR Inhaled Oxygen Concentration - - Weight 56.7 kg (125 lb) 06/18/2022 9:29 AM ASSISTANT OFFSET PRESS OPERATOR Height 157.5 cm (5' 2 ) 06/18/2022 9:29 AM ASSISTANT OFFSET PRESS OPERATOR Body Mass Index 22.86 06/18/2022 9:29 AM ASSISTANT OFFSET PRESS OPERATOR Procedures * CARDIAC RHYTHM STRIP ORDER(Performed 06/03/2022) * BASIC METABOLIC PANEL (CALCIUM TOTAL)(Performed 06/01/2022) * CBC W AUTO DIFFERENTIAL(Performed 06/01/2022) * XR ABD OBSTRUCTION SERIES 2VW(Performed 05/31/2022) Performed for Ileus (HCC) * CBC W AUTO DIFFERENTIAL(Performed 05/31/2022) * BASIC METABOLIC PANEL (CALCIUM TOTAL)(Performed 05/31/2022) * XR ABD OBSTRUCTION SERIES 2VW(Performed 05/30/2022) Performed for Ileus (HCC) * BASIC METABOLIC PANEL (CALCIUM TOTAL)(Performed 05/30/2022) * CBC W AUTO DIFFERENTIAL(Performed 05/30/2022) * MAGNESIUM BLOOD(Performed 05/29/2022) * CBC W AUTO DIFFERENTIAL(Performed 05/29/2022) * BASIC METABOLIC PANEL (CALCIUM TOTAL)(Performed 05/29/2022) * CBC W AUTO DIFFERENTIAL(Performed 05/28/2022) * BASIC METABOLIC PANEL (CALCIUM TOTAL)(Performed 05/28/2022) * PATHOLOGY TISSUE EXAM (STL)(Performed 05/27/2022) Performed for Diagnosis unknown * ENDOTRACHEAL TUBE NOTE(Performed 05/27/2022) * LAPAROSCOPIC PARTIAL/ELEUTERIO COLECTOMY(Performed 05/27/2022) * TYPE + SCREEN PANEL(Performed 05/27/2022) Performed for Pre-op testing * BLOOD TYPE VERIFICATION(Performed 05/27/2022) * COMPREHENSIVE METABOLIC PANEL(Performed 05/22/2022) Performed for Pre-op testing * CBC W AUTO DIFFERENTIAL(Performed 05/22/2022) Performed for Pre-op testing * EKG 12-LEAD(Performed 05/22/2022) Performed for Pre-op testing * PATHOLOGY TISSUE EXAM (STL)(Performed 04/17/2022) Performed for Rectal exam * COLONOSCOPY(Performed 04/17/2022) Results * CARDIAC RHYTHM STRIP ORDER (06/03/2022 10:55 PM ASSISTANT OFFSET PRESS OPERATOR) Narrative 06/03/2022 10:55 PM ASSISTANT OFFSET PRESS OPERATOR Ordered by an unspecified provider. Scanned Document CARDIAC SERVICES ORD ERABLES * (ABNORMAL) BASIC METABOLIC PANEL (CALCIUM TOTAL) (06/01/2022 5:54 AM ASSISTANT OFFSET PRESS OPERATOR) Only the most recent of5 resultswithin the time period is included. Glucose 88 70 - 105 mg/dL 06/01/2022 6:26 AM [facility] Sodium 143 136 - 145 mmol/L 06/01/2022 6:26 AM [facility] Potassium 3.6 3.5 - 5.1 mmol/L 06/01/2022 6:26 AM [facility] Chloride 107 98 - 107 mmol/L 06/01/2022 6:26 AM [facility] CO2 23 23 - 31 mmol/L 06/01/2022 6:26 AM [facility] Calcium 8.3(L) 8.4 - 10.4 mg/dL 06/01/2022 6:26 AM [facility] Anion Gap 13 8 - 18 mmol/L 06/01/2022 6:26 AM [facility] BUN 17 9.8 - 20.1 mg/dL 06/01/2022 6:26 AM [facility] Creatinine 0.65 0.57 - 1.11 mg/dL 06/01/2022 6:26 AM [facility] eGFR by CKD-EPI >90 >=90 mL/min/1.7 3 m2 06/01/2022 6:26 AM [facility] Blood BLOOD SPECIMEN / Unknown Lab Venipuncture / Unknown 06/01/2022 5:54 AM ASSISTANT OFFSET PRESS OPERATOR 06/01/2022 6:04 AM ASSISTANT OFFSET PRESS OPERATOR Bc Samuels MD LAB - CHEMISTRY DARLENE COY [facility] [address] [address] * (ABNORMAL) CBC W AUTO DIFFERENTIAL (06/01/2022 5:53 AM [facility]) Only the most recent of6 resultswithin the time period is included. WBC 7.6 4.4 - 10.7 x10E9/L 06/01/2022 6:10 AM [facility] WBC Corrected 06/01/2022 6:10 AM [facility] RBC 3.30(L) 3.80 - 5.20 x10E12/L 06/01/2022 6:10 AM [facility] Hemoglobin 9.3(L) 12.0 - 15.6 gm/dL 06/01/2022 6:10 AM [facility] Hematocrit 29.5(L) 35.9 - 45.5 % 06/01/2022 6:10 AM [facility] MCV 89.4 80.7 - 98.3 fl 06/01/2022 6:10 AM [facility] MCH 28.2 26.7 - 34.0 pg 06/01/2022 6:10 AM [facility] MCHC 31.5 30.8 - 35.9 gm/dL 06/01/2022 6:10 AM [facility] Platelet Count 389 153 - 416 x10E9/L 06/01/2022 6:10 AM [facility] RDW-CV 14.0 12.1 - 14.9 % 06/01/2022 6:10 AM [facility] MPV 9.6 9.4 - 12.9 fl 06/01/2022 6:10 AM [facility] Neutrophils % 64.5 44.0 - 73.0 % 06/01/2022 6:10 AM [facility] Lymphocytes % 27.2 20.0 - 43.0 % 06/01/2022 6:10 AM [facility] Monocytes % 6.8 5.0 - 13.0 % 06/01/2022 6:10 AM [facility] Eosinophils % 0.7 0.0 - 6.0 % 06/01/2022 6:10 AM [facility] Basophils % 0.4 0.0 - 2.0 % 06/01/2022 6:10 AM [facility] Immature Granulocytes 0.4 0 - 1 % 06/01/2022 6:10 AM [facility] Neutrophil Absolute 4.91 2.01 - 7.14 x10E9/L 06/01/2022 6:10 AM [facility] Lymphocytes Absolute 2.07 1.07 - 3.94 x10E9/L 06/01/2022 6:10 AM [facility] Monocytes Absolute 0.52 0.26 - 1.07 x10E9/L 06/01/2022 6:10 AM [facility] Eosinophils Absolute 0.05 0 - 0.47 x10E9/L 06/01/2022 6:10 AM [facility] Basophils Absolute 0.03 0 - 0.08 x10E9/L 06/01/2022 6:10 AM [facility] Immature Granulocytes Absolute 0.03 0.00 - 0.06 x10E9/L 06/01/2022 6:10 AM [facility] nRBC Auto 0 /100 WBC 06/01/2022 6:10 AM [facility] Blood BLOOD SPECIMEN / Unknown Lab Venipuncture / Unknown 06/01/2022 5:53 AM ASSISTANT OFFSET PRESS OPERATOR 06/01/2022 6:04 AM ASSISTANT OFFSET PRESS OPERATOR Bc Samuels MD LAB - HEMATOLOGY ORD ERABLES Performing Organization Address City/State/[facility] Co de Phone Number [facility] [address] [place] [address] * XR ABD OBSTRUCTION SERIES 2VW (05/31/2022 8:56 AM ASSISTANT OFFSET PRESS OPERATOR) Only the most recent of2 resultswithin the time period is included. Anatomical Region Laterality Modality Abdomen Radiographic Pratibha ging 05/31/2022 9:01 AM ASSISTANT OFFSET PRESS OPERATOR Narrative 05/31/2022 9:03 AM ASSISTANT OFFSET PRESS OPERATOR Exam: Supine and upright AP views of [...] Samuels MD DIAGNOSTIC IMAGING O RDERABLES * MAGNESIUM BLOOD (05/29/2022 4:41 AM ASSISTANT OFFSET PRESS OPERATOR) Pathologist [facility] Magnesium 1.9 1.6 - 2.6 mg/dL 05/29/2022 11:11 AM ASSISTANT OFFSET PRESS OPERATOR [facility] Blood BLOOD SPECIMEN / Unknown Lab Venipuncture / Unknown 05/29/2022 4:41 AM ASSISTANT OFFSET PRESS OPERATOR 05/29/2022 4:54 AM ASSISTANT OFFSET PRESS OPERATOR Cheyenne Mendoza APRN-APPRENTICESHIP CONSULTANT LAB - STICKER OPERATOR RY ORDERABLES [facility] [address] [place] [address] * PATHOLOGY TISSUE EXAM (STL) (05/27/2022 2:17 PM ASSISTANT OFFSET PRESS OPERATOR) Only the most recent of2 resultswithin the time period is included. Pathologist [facility] Case Report Surgical Pathology Report ? Case: [id number] ? Authorizing Provider: ??Bc Samuels MD ? Collected: ? 05/27/2022 02:17 PM ? Ordering Location: ? [facility] ? Received: ?05/28/2022 10:48 AM ? Pathologist: ? Juliana Arzola MD ? Specimen: ?Colon Ascending, Ascending colon ? 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 The remainder of the appendix is grossly unremarkable. Sectioning through the attached pericolonic fat shows several lymph node candidates measuring up to 1.0 cm in greatest dimension. Cassette Summary: A1 - Proximal resection margin en face and customer loyalty representative sections of unremarkable omentum. A2 - [...] possible lymph nodes. Kitty 05/31/2022 9:41 AM [facility] Microscopic Description Histologic sections show [...] the appendiceal mucosa. MADDY 05/31/2022 9:41 AM [facility] Disclaimer All histochemical and/or immunohistochemical [...] be interpreted with caution. 05/31/2022 9:41 AM ASSISTANT OFFSET PRESS OPERATOR [facility] Synoptic Report COLON AND RECTUM: [...] ?? pN Category: ?[id number] 05/31/2022 9:41 AM ASSISTANT OFFSET PRESS OPERATOR [facility] Embedded Images 05/31/2022 9:41 AM ASSISTANT OFFSET PRESS OPERATOR [facility] Pathology/Cytolo gy ASCENDING COLON STRUCTURE / Unknown 05/27/2022 2:17 PM ASSISTANT OFFSET PRESS OPERATOR 05/28/2022 10:48 AM ASSISTANT OFFSET PRESS OPERATOR Bc Samuels MD LAB - PATHOLOGY/CYTO LOGY ORDERABLES [facility] [address] [address] * ETT LINE PERFORMABLE (05/27/2022 1:34 PM ASSISTANT OFFSET PRESS OPERATOR) Narrative Ashley Lara APRN-CRNA - 05/27/2022 1:34 PM ASSISTANT OFFSET PRESS OPERATOR Ashley Lara APRN-CRNA ? 05/27/2022 ??1:44 PM Endotracheal Tube Placement: ? Patient Location: OR. Intubation Event Date/Time: ??05/27/2022 1:34 PM Procedure: intubation ([id number]). Procedure Section: ?? Sedation: under general anesthesia. [...] PM. Staff Section ? Anesthesia Provider: Ashley Lara APRN-CRNA, Performed the procedure Everardo Mills DO GENERAL ANESTHESIA ORDERABLES * TYPE + SCREEN PANEL (05/27/2022 12:16 PM ASSISTANT OFFSET PRESS OPERATOR) ABO Rh A POS 05/27/2022 1:44 PM ASSISTANT OFFSET PRESS OPERATOR [facility] Comment:No history; collect retype. Antibody Screen NEG 1:44 PM ASSISTANT OFFSET PRESS OPERATOR [facility] Blood Bank BLOOD SPECIMEN / Unknown Venipuncture / Unknown 05/27/2022 12:16 PM ASSISTANT OFFSET PRESS OPERATOR 05/27/2022 12:23 PM ASSISTANT OFFSET PRESS OPERATOR Bc Samuels MD LAB - BLOOD BANK ORD ERABLES [facility] [address] [phone] * BLOOD TYPE VERIFICATION (05/27/2022 12:00 PM ASSISTANT OFFSET PRESS OPERATOR) ABO Rh A POS 05/27/2022 1:4 4 PM ASSISTANT OFFSET PRESS OPERATOR [facility] Blood Bank BLOOD SPECIMEN / Unknown Lab Venipuncture / Unknown 05/27/2022 12:00 PM ASSISTANT OFFSET PRESS OPERATOR 05/27/2022 12:40 PM ASSISTANT OFFSET PRESS OPERATOR Bc Samuels MD LAB - BLOOD BANK ORD ERABLES [facility] [address] [place], [place] [id number] [place] [address] * (ABNORMAL) COMPREHENSIVE METABOLIC PANEL (05/22/2022 9:07 AM ASSISTANT OFFSET PRESS OPERATOR) Glucose 84 70 - 105 mg/dL [facility] [...] BLOOD SPECIMEN / Unknown 05/22/2022 9:07 AM ASSISTANT OFFSET PRESS OPERATOR 05/22/2022 Narrative Resulting Agency Comment Lab Testing performed at: [facility] [address] ?? Susy ODELL [id number] Bc Samuels MD LAB - CHEMISTRY ORDE ANNELIESE Performing Organization Address City/[facility] Co de Phone Number [facility] INSURANCE BILL [address] [place] [address] * EKG 12-LEAD (05/22/2022 8:34 AM ASSISTANT OFFSET PRESS OPERATOR) Ventricular Rate 75 BPM [facility] Atrial Rate 75 BPM [facility] P-R Interval 162 ms [facility] QRS Duration ms 94 ms [facility] Q-T Interval ms 412 ms [facility] QTC Calculation (Bezet) 460 ms [facility] Calculated P [place] 75 degrees [facility] Calculated R [place] 43 degrees [facility] Calculated T [place] 31 degrees [facility] Interpretation EKG Normal sinus rhythm Normal ECG No previous ECGs available Confirmed by MD FELIX ANDREA ([id number]) on 05/22/2022 10:26:33 PM [facility] 05/22/2022 8:34 AM ASSISTANT OFFSET PRESS OPERATOR 05/22/2022 10:26 PM ASSISTANT OFFSET PRESS OPERATOR Bc Samuels MD ECG ORDERABLES Performing Organization Address City/[facility] Co de Phone Number [facility] * COLONOSCOPY (04/17/2022) Historical Provider SCANNING ONLY Care Teams Division Traffic Superintendent Relationship Specialty Start Date End Date Donal Granados MD [address] [place] [address] [address] [place] [address] PCP - General Family Medicine 06/18/22 Bc Samuels MD [address] [facility] [address] [place] [id number] Surgeon Colon and Rectal Surgery 04/09/22
--- OUTSIDE RECORDS SUMMARY | 2024-04-04 23:28 | XMS_ITS | Encounter Summary ---
Author Organization [facility] Address [address] [place] [address] Care Team Providers Care Custom Stock Maker Name Role Phone Bc Samuels MD Unavailable Donal Granados MD Primary Care Provider [phone] Reason for Visit * Reason Onset Date Comments Surgical Followup 06/06/2022 PT CALLED REQU ESTING INFORMATION ON LOW RESIDUE DIET, INFORMED PT OF ITEMS SHE CAN EAT Encounter Details Date Type Department Care Team (Late st Contact Info) Description 06/06/2022 Telephone [facility] [address] [place] [address] Bc Samuels MD [address] [place] [address] Surgical Followup (PT CALLED REQUESTING INFORMATION ON LOW RESIDUE DIET, INFORMED PT OF ITEMS SHE CAN EAT) Social History Tobacco Use Types Packs/Day Years [...] and heating? Not hard at all 05/27/2022 [facility] of Occupat ional Health - Occupational Stress [...] money to buy more. Never true 05/27/19 Within the past 12 months, t he [...] place to sleep or slept in a [facility] (including now)? No 05/27/2022 Sex and Gender Information Value Date Recorded Sex Assigned at Not on file Gender Identity Not on file Sexual Orientation Not on file COVID-19 Exposure Response Date Recorded In the last 10 days, have yo u been in contact with someone who was confirmed or suspected to have Coronavirus/COVID-19? Unable to assess 05/17/2022 8:40 AM PEOPLESOFT documented as of this encounter Functional Status [...] No 05/27/2022 documented as of this encounter Miscellaneous Notes * Telephone Encounter - Caren Schofield - 06/06/2022 10:21 AM CST PT CALLED REQUESTING INFORMATION ON LOW RESIDUE DIET, INFORMED PT OF ITEMS SHE CAN EAT LESOFT documented in this encounter Plan of Treatment Not on file documented as of this encounter Visit Diagnoses Not on filedocumented in this encounter Care Teams Custom Stock Maker Relationship Specialty Start Date End Date oDnal Granados MD [facility] [place] [address] PCP - General Family Medicine 05/22/22 06/17/22 Bc Samuels MD [address] [facility] [address] [place] [address] Surgeon Colon and Rectal Surgery 04/09/22 documented as of this encounter
--- OUTSIDE RECORDS SUMMARY | 2024-04-04 23:28 | XMS_ITS | Encounter Summary ---
Author Organization [facility] Address [address] [place] [address] Care Team Providers Care Mail Censor Name Role Phone Bc Samuels MD Unavailable Wilian Berkowitz MD Primary Care Provider [phone] Encounter Details Date Type Department Care Team (Latest Contact Info) Description 05/17/2022 Travel Social History Tobacco Use Types Packs/Day Years [...] Coronavirus/COVID-19? Unable to assess 05/17/2022 8:40 AM CONSUMER INSIGHTS SPECIALIST documented as of this encounter Plan of Treatment Not on file documented as of this encounter Visit Diagnoses Not on filedocumented in this encounter Care Teams Mail Censor Relationship Specialty Start Date End Date Wilian Berkowitz MD [address] [place] [address] PCP - General 05/09/22 05/21/22 Bc Samuels MD [address] [place] [phone] Surgeon Colon and Rectal Surgery 04/09/22 documented as of this encounter
--- OUTSIDE RECORDS SUMMARY | 2024-04-04 23:30 | XMS_ITS | Encounter Summary ---
Author Organization [facility] Address [address] [place] [address] Care Team Providers Care Script Supervisor Name Role Phone Donal Granados MD Unavailable [phone] Batsheva Vergara Primary Care Provider [phone] Reason for Visit * Reason Onset Date Comments Covid-19 Home Monitoring 04/29/2022 Enrollm ent call day 1 Encounter Details Date Type Department Care Team (Late st Contact Info) Description 04/29/2022 Telephone [facility] Accountable Care Organization [address] [place] [address] Ana Salazar MA [address] [address] [place] [address] Covid-19 Home Monitoring (Enrollment call day 1 ) Social History Tobacco Use Types Packs/Day Years Used Date Smoking Tobacco: Never Assessed Comments Unknown Sex and Gender Information Value Date Recorded Sex Assigned at Not on file Legal Sex Female 10:14 AM CRYPTOLOGIST Gender Identity Not on file Sexual Orientation Not on file documented as of this encounter Miscellaneous Notes * Telephone Encounter - Ana Salazar MA - 04/29/2022 9:37 AM CST This patient was identified as a candidate for the [facility]/ COVID home monitoring program. The patient was contacted via phone for enrollment in the program. The patient has declined to participate in the automated MyChart Chronometer Tester Program, but has verbally agreed to the Phone Only Home Monitoring Program, which includes being contacted for a daily phone assessment by a [facility]/ staff member. The patient was informed that members of the healthcare team will contact them depending on the symptoms that they report. This call could come from a variety of phone numbers depending on which member of the healthcare team is contacting the patient, and the patient should be prepared to answer calls from a variety of phone numbers. If the patient is unable to be reached for 3 days, they will be disenrolled from the program. Patient is aware that we will try and reach them at every available phone number, including HIPAA contacts. After review, the patient declined to participate. The ???COVID19 Home Monitoring?? order was not placed to enroll the patient in the phone only version of the program. Patient states she does not have symptoms and she retested and the test was negative. TOLOGIST documented in this encounter Plan of Treatment Not on file documented as of this encounter Visit Diagnoses Not on filedocumented in this encounter Additional Health Concerns Infection Onset Date Last Indicated Resolved Time COVID19 04/28/2022 04/28/2022 05/08/2022 3:05 AM CRYPTOLOGIST documented as of this encounter Care Teams Script Supervisor Relationship Specialty Start Date End Date Batsheva Vergara [address] [facility] [address], [place] [address] PCP - General 04/28/22 Donal Granados MD [facility] [place] [address] Referring Physician Family Medicine 03/13/22 documented as of this encounter
--- OUTSIDE RECORDS SUMMARY | 2024-04-04 23:30 | XMS_ITS | Clinical Summary ---
Author Organization [facility] Address [address] [place] [id number] Care Team Providers Care Application Defense Manager Name Role Phone Donal Granados MD Unavailable [phone] Batsheva Vergara Primary Care Provider [phone] Allergies No known active allergies Medications No known medications Active Problems No known active problems Social History Tobacco Use Types Packs/Day Years Used Date Smoking Tobacco: Never Assessed Comments Unknown Sex and Gender Information Value Date Recorded Sex Assigned at Not on file Legal Sex Female 10:14 AM LEARNING AND DEVELOPMENT MANAGER Gender Identity Not on file Sexual Orientation Not on file Obstetrics History Last Filed Vital Signs Vital Sign Reading Time Taken Comments Blood Pressure 125/84 04/28/2022 11:00 AM LEARNING AND DEVELOPMENT MANAGER Pulse 91 04/28/2022 11:00 AM LEARNING AND DEVELOPMENT MANAGER Temperature 37.1 ??C (98.7 ??F) 04/28/2022 11:[address] Respiratory Rate 16 04/28/2022 11:00 AM LEARNING AND DEVELOPMENT MANAGER Oxygen Saturation 97% 04/28/2022 11:00 AM LEARNING AND DEVELOPMENT MANAGER Inhaled Oxygen Concentration - - Weight 61.2 kg (135 lb) 04/28/2022 11:00 AM LEARNING AND DEVELOPMENT MANAGER Height 157.5 cm (5' 2 ) 04/28/2022 11:00 AM LEARNING AND DEVELOPMENT MANAGER Body Mass Index 24.69 04/28/2022 11:00 AM LEARNING AND DEVELOPMENT MANAGER Plan of Treatment Health Maintenance Due Date Last Done Comments Breast Cancer Screening-Mammogram 1957 Colon Cancer Screening-Colonoscopy 1957 Depression Screening 1957 Fall Risk Assessment 1957 Hepatitis C Screening 1957 Osteoporosis Screening-Bone Density Scan 1957 Hepatitis B Screening 1975 Zoster Vaccine (2 of 3) 08/28/2016 07/03/2016 Pneumococcal vaccine 65+ (1 of 1 - PCV) 2022 Well Visit 65+ 2022 Influenza Vaccine (#1) 2023 01/01/2021 DTaP/Tdap/Td Vaccine (2 - Td or Tdap) 07/06/2028 Insurance [employer] MEDICARE HMO [employer] MEDICARE PPO [employer] MED[employer]ARE PPO Care Teams Application Defense Manager Relationship Specialty Start Date End Date Batsheva Vergara [address] [address] PCP - General 04/28/22 Donal Granados MD [facility] [place] [address] Referring Physician Family Medicine 03/13/22
--- OUTSIDE RECORDS SUMMARY | 2024-04-04 23:30 | XMS_ITS | Encounter Summary ---
Author Organization [facility] Address [address] [place] [address] Care Team Providers Care Motor Vehicle Assembler Name Role Phone Donal Granados MD Unavailable [phone] Batsheva Vergara Primary Care Provider Reason for Visit * Reason Comments Sore Throat Daughter had yeast i n throat, patient experiencing drainage. Encounter Details Date Type Department Care Team (Latest Contact Info) Description 04/28/2022 12:00 PM SALES CENTER ASSOCIATE Office Visit [facility] Out[facility] [address] [address] Waqas Nelson NP [address] [place] [address] [address] [place] [address] Acute nasopharyngitis (Primary Dx) Social History Tobacco Use Types Packs/Day Years Used Date Smoking Tobacco: Never Assessed Comments Unknown Sex and Gender Information Value Date Recorded Sex Assigned at Not on file Legal Sex Female 10:14 AM SALES CENTER ASSOCIATE Gender Identity Not on file Sexual Orientation Not on file documented as of this encounter Last Filed Vital Signs Vital Sign Reading Time Taken Comments Blood Pressure 125/84 04/28/2022 11:00 AM SALES CENTER ASSOCIATE Pulse 91 04/28/2022 11:00 AM SALES CENTER ASSOCIATE Temperature 37.1 ??C (98.7 ??F) 04/28/2022 11:[address] Respiratory Rate 16 04/28/2022 11:00 AM SALES CENTER ASSOCIATE Oxygen Saturation 97% 04/28/2022 11:00 AM SALES CENTER ASSOCIATE Inhaled Oxygen Concentration - - Weight 61.2 kg (135 lb) 04/28/2022 11:00 AM SALES CENTER ASSOCIATE Height 157.5 cm (5' 2 ) 04/28/2022 11:00 AM SALES CENTER ASSOCIATE Body Mass Index 24.69 04/28/2022 11:00 AM SALES CENTER ASSOCIATE documented in this encounter Patient Instructions * Patient Instructions* Waqas Nelson NP - 04/28/2022 12:00 PM SALES CENTER ASSOCIATE No results found for this or any previous visit. S CENTER ASSOCIATE documented in this encounter Progress Notes * Waqas Nelson NP - 04/28/2022 12:00 PM CST Images from the original note were not included. Subjective/Objective Patient ID: Loulou Lanier is a 67 y.o. female. Chief Complaint Sore Throat (Daughter had yeast in throat, patient experiencing drainage. ) Pt [facility] to [facility] Sore Throat This is a new problem. The current episode started today. The problem has been unchanged. Neither side of throat is experiencing more pain than the other. There has been no fever. The pain is at a severity of 1/10. The pain is mild. Pertinent negatives include no abdominal pain, congestion, coughing, diarrhea, ear discharge, ear pain, headaches, neck pain, shortness of breath or vomiting. She hashad no exposure to strep or mono. Exposure to: Patient's daughter had yeast in her throat. She has tried nothing for the symptoms. Review of Systems Constitutional: Negative for appetite change, chills, diaphoresis, fatigue and fever. HENT: Positive for postnasal drip, rhinorrhea and sore throat (1/10). Negative for congestion, ear discharge, ear pain, sinus pressure, sinus pain and sneezing. Respiratory: Negative for cough, chest tightness, shortness of breath and wheezing. Cardiovascular: Negative for chest pain. Gastrointestinal: Negative for abdominal pain, diarrhea, nausea and vomiting. Musculoskeletal: Negative for myalgias, neck pain and neck stiffness. Skin: Negative for rash. Neurological: Negative for dizziness and headaches. Hematological: Negative for adenopathy. Physical Exam Vitals and nursing note reviewed. Constitutional: General: She is awake. She is not in acute distress. Appearance: Normal appearance. HENT: Head: Normocephalic and atraumatic. Right Ear: Tympanic membrane and ear canal normal. Left Ear: Tympanic membrane and ear canal normal. Nose: No congestion or rhinorrhea. Right Sinus: No maxillary sinus tenderness or frontal sinus tenderness. Left Sinus: No maxillary sinus tenderness or frontal sinus tenderness. Mouth/Throat: Lips: Morton. Mouth: Mucous membranes are moist. Tongue: Tongue does not deviate from midline. Pharynx: Uvula midline. Posterior oropharyngeal erythema (minimal) present. No pharyngeal swelling,oropharyngeal exudate or uvula swelling. Tonsils: No tonsillar exudate or tonsillar abscesses. 0 on the right. 0 on the left. Eyes: General: Lids are normal. Pupils: Pupils are equal, round, and reactive to light. Cardiovascular: Rate and Rhythm: Normal rate and regular rhythm. Pulses: Normal pulses. Heart sounds: Normal heart sounds. Pulmonary: Effort: Pulmonary effort is normal. No respiratory distress. Breath sounds: Normal breath sounds. No decreased breath sounds, wheezing, rhonchi or rales. Musculoskeletal: Cervical back: Full passive range of motion without pain, normal range of motion and neck supple. Lymphadenopathy: Cervical: No cervical adenopathy. Skin: General: Skin is warm and dry. Neurological: Mental Status: She is alert and oriented to person, place, and time. Gait: Gait normal. Psychiatric: Behavior: Behavior is cooperative. Vitals: 04/28/22 1100 BP: 125/84 Pulse: 91 Resp: 16 Temp: 37.1 ??C (98.7 ??F) TempSrc: Oral SpO2: 97% Weight: 61.2 kg (135 lb) Height: 157.5 cm (5' 2 ) No results found. No past medical history on file. No current outpatient medications on file. No Known Allergies Social History Tobacco Use Smoking status: Not on file Smokeless tobacco: Not on file Substance and Sexual Activity Drug use: Not on file Sexual activity: Not on file Alcohol Use: Not on file No past surgical history on file. Assessment/Plan Diagnoses and all orders for this visit: Acute nasopharyngitis (Primary) - POCT rapid strep A - Throat culture Throat; Future - POC Influenza A/B, COVID-19 antigen - Mycology (fungal) culture Throat Oral; Future - Influenza A/B, RSV, and COVID-19 PCR Nasopharyngeal; Future Recent Results (from the past 4 hour(s)) POCT rapid strep A Collection Time: 04/28/22 11:41 AM Result Value Ref Range Rapid Strep A, POC Negative POC Influenza A/B, COVID-19 antigen Collection Time: 04/28/22 11:41 AM Result Value Ref Range Influenza A Ag, POC Negative Negative Influenza B Ag, POC Negative Negative COVID-19 Ag POC Presumptive Negative Presumptive Negative, Invalid Patient Education: The main treatment for respiratory infections of any kind is to rest, eat healthy, and drink plentyof fluids. Cold symptoms will likely last anywhere from 7-14 days with symptoms feeling much worse on days 3-5. Antibiotic medications do not cure a cold nor do antibiotic medications help to shortenthe symptoms of viral illness. -You may try: Nasal saline wash, either Neti Pot or Sinus Rinse DAILY or a saline nasal spray 3-4 times a day. Guaifenesin expectorants (Maximum Strength Mucinex, Robitussin, store brand) to loosen secretions. Warm salt water gargles as needed for sore throat. For cough you can use dextromethorphan (Delsym syrup, Robitussin cough capsules or store brand). Dextromethorphan is considered safe for and breast feeding women. You may try decongestants such as Sudafed (purchase at pharmacy) or Sudafed PE for congestion relief. Decongestants can keep you awake at night. Do not use decongestants if you have high blood pressure or if you are . If you have high blood pressure you can take otc Coricidin per package directions -Increase fluid intake: drink 2 liters (2 quarts) of non-caffeinated, non- alcoholic beverages daily, drinking alcohol causes nasal and sinus membranes to swell -Steam inhalation and warm compress to face often help relieve pressure -Avoid allergens and excessively dry heat -Sleep with head of bed elevated to encourage drainage. -Use of a humidifier if environment is heated by dry forced - air system -Avoid smoking, second-hand smoke and air pollutants. -If you are not improving within 2 weeks or worsening at anytime, follow up with your primary care provider, the [facility] and or the emergency room. Disposition Treatment plan including expectations, follow up, and return precautions discussed with patient/parent, verbalizes understanding. Medication dosage, use, and potential adverse reactions discussed with patient/parent. Advised to follow up with PCP if symptoms do not resolve as expected or sooner if condition worsens. Signs/symptoms warranting ER evaluation reviewed. Patient and/or guardian was given an opportunity to ask questions, questions answered. Waqas Nelson NP S CENTER ASSOCIATE documented in this encounter Plan of Treatment Not on file documented as of this encounter Procedures Procedure Name Priority Date/Time Associated Diagnosis Comments POC INFLUENZA A/B, COVID-19 ANTIGEN Routine 04/28/2022 11:41 AM SALES CENTER ASSOCIATE Acute nasopharyngitis POCT RAPID STREP Routine 04/28/2022 11:4 1 AM SALES CENTER ASSOCIATE Acute nasopharyngitis documented in this encounter Results * POC Influenza A/B, COVID-19 antigen (04/28/2022 11:41 AM SALES CENTER ASSOCIATE) Influenza A Ag, POC Negative Negative [facility] Influenza B Ag, POC Negative Negative [facility] COVID-19 Ag POC Presumptive Negative Presumptive Negative, Invalid [facility] Nasal 04/28/2022 11:4 1 AM SALES CENTER ASSOCIATE Waqas Nelson TEST CELL TECHNICIAN POINT OF CARE TEST ORDERABLES F inal Result Performing Organization Address City/State/[facility] Co de Phone Number [facility] [address] [place] [address] * POCT rapid strep A (04/28/2022 11:41 AM SALES CENTER ASSOCIATE) Pathologist [facility] Rapid Strep A, POC Negative Swab 04/28/2022 11:4 1 AM SALES CENTER ASSOCIATE Waqas Nelson NP POINT OF CARE TEST ORDERABLES F inal Result * (ABNORMAL) Influenza A/B, RSV, and COVID-19 PCR Nasopharyngeal (04/28/2022 11:02 AM SALES CENTER ASSOCIATE) Pathologist [facility] COVID-19 RNA Positive(A) Negative [facility] Influenza A RNA Negative Negative [facility] Influenza B RNA Negative Negative [facility] RSV RNA Negative Negative [facility] Comment: Interpretive data: This test is performed using the [employer] Xpert Xpress CoV-2/Flu/RSV plus assay. This is a multiplex, real-time reverse transcriptase PCR assay intended for the qualitative detection of nucleic acid from SARS-CoV-2, influenza A, influenza B, and respiratory syncytial virus. This assay has been reviewed by the FDA for Emergency Use Authorization (EUA). The performance characteristics have been verified by the performing laboratory. Results must be considered in the clinical context, and a negative result does not rule out infection. Interpretive Data last revised 2021. Nasopharyngeal 04/28/2022 11 :02 AM SALES CENTER ASSOCIATE 04/28/2022 2:01 PM SALES CENTER ASSOCIATE Narrative [facility] - 04/28/2022 3:11 PM SALES CENTER ASSOCIATE Is the Patient experiencing symptoms consistent with COVID?->Yes Date of Symptom Onset->04/26/22 Reason for testing?->Symptomatic Known exposure to confirmed or suspected COVID-19 case?->No Is the patient experiencing any symptoms consistent with COVID (eg. Fever, cough, shortness of breath)?->Yes What is the reason for testing?->Symptoms of COVID-19 in low-risk group (Batched) Waqas Nelson NP LAB MICROBIOLOGY - GENERAL ORDE ANNELIESE Final Result [facility] [address] Department [place] [address] * Mycology (fungal) culture Wound Oral (04/28/2022 11:02 AM SALES CENTER ASSOCIATE) Report Final Report: No growth of fungus [facility] Comment:Testing performed by : [facility], [address] [place]., [address] Wound (Oral) 04/28/2022 11:0 2 AM SALES CENTER ASSOCIATE 04/28/2022 5:53 PM SALES CENTER ASSOCIATE Narrative [facility] - 05/26/2022 8:57 AM SALES CENTER ASSOCIATE Specimen received on an ESwab. Testing performed by [facility] Microbiology Laboratory ([phone]). Waqas Nelson NP LAB MICROBIOLOGY - GENERAL ORDE RABALIE Final Result [facility] [address] [place] [address] * Throat culture Throat (04/28/2022 11:02 AM SALES CENTER ASSOCIATE) Report Final Report: No growth of pathogens. [facility] Comment:Testing performed by : [facility], [address] [place]., [address] Throat 04/28/2022 11:0 2 AM SALES CENTER ASSOCIATE 04/28/2022 5:01 PM SALES CENTER ASSOCIATE Narrative [facility] - 04/29/2022 12:18 PM SALES CENTER ASSOCIATE Testing performed by [facility] Microbiology Laboratory ([phone]). Waqas Nelson NP LAB MICROBIOLOGY - GENERAL ORDE ANNELIESE Final Result Performing Organization Address [facility] Co de Phone Number [facility] [address] [place] [address] documented in this encounter Visit Diagnoses Diagnosis Acute nasopharyngitis- Primary Acute nasopharyngitis (common cold) Acute nasopharyngitis Acute nasopharyngitis (common cold) documented in this encounter Care Teams Motor Vehicle Assembler Relationship Specialty Start Date End Date Batsheva Vergara [address] [facility] [address] [address] PCP - General 04/28/22 Donal Granados MD [address] [place] [address] [place] [address] Referring Physician Family Medicine 03/13/22 documented as of this encounter
--- OUTSIDE RECORDS SUMMARY | 2024-04-04 23:30 | XMS_ITS | Encounter Summary ---
Author Organization [facility] Address [address] [place] [address] Care Team Providers Care Briar Wood Sorter Name Role Phone Donal Granados MD Unavailable [phone] Reason for Visit * Reason Onset Date Comments Scheduling Appointments 03/13/2022 Encounter Details Date Type Department Care Team (Late st Contact Info) Description 03/13/[address] [address] Elyssa Rapp RN Scheduling Appointments Social History Tobacco Use Types Packs/Day Years Used Date Smoking Tobacco: Never Assessed Comments Unknown Sex and Gender Information Value Date Recorded Sex Assigned at Not on file Legal Sex Female 10:14 AM ROVING SIZER Gender Identity Not on file Sexual Orientation Not on file documented as of this encounter Miscellaneous Notes * Telephone Encounter - Elyssa Vee RN - 03/13/2022 8:38 AM CST External provider faxed referral for pt to be scheduled for a new colon mass. Pts insurance, [employer], is non-contracted. Referring physician made aware. NG SIZER documented in this encounter Plan of Treatment Not on file documented as of this encounter Visit Diagnoses Not on filedocumented in this encounter Care Teams Briar Wood Sorter Relationship Specialty Start Date End Date Donal Granados MD [address] [place] [address] [place] RE[place] [id number] Referring Physician Family Medicine 03/13/22 documented as of this encounter
--- OUTSIDE RECORDS SUMMARY | 2024-04-04 23:30 | XMS_ITS | Data Portability ---
Author Organization [place] [employer], Main Office Address [address] [place] [address] Assessment No assessment recorded. Plan of Treatment Reminders Order Date Submit Date Provider Last Modified By Organization Details Last Modified Time Details Appointments Follow Up 15 2024 11:00A CLEMENTE Valle Not available Not available Not available Lab TSH, serum or plasma [address] [place] [address], [address] [place] [address] [place], [address], 10/20/2023 08:14:40 vitamin B12, serum [address] [place] [address], [address] [place] [address] [place], [address], 10/20/2023 08:14:40 folate, serum [address] [place] [address], [address] [place] [address] [place], [address], 10/20/2023 08:14:41 iron + total iron-bind ing capacity (TIBC), serum [address] [place] [address], [address] [place] [address] [place], [address], 10/20/2023 08:14:41 CMP, serum or plasma [address] [place] [address], [address] [place] [address] [place], [address], 10/20/2023 08:14:41 vitamin D, 25-hydrox y, total, serum [address], [address] [place] [address] , [place], [address], 10/20/2023 08:14:41 T4, free, serum [address], [address] [place] [address] [place], [address], 10/20/2023 08:14:41 glycohemo globin, total, blood [address], [address] [place] [address] [place], [address], 10/20/2023 08:14:41 ferritin, serum or plasma [address], [address] [place] [address] [place], [address], 10/20/2023 08:14:42 urinalysi s, dipstick 2023 [email or web address] [id number] [facility] [address] [place], [place], [address], 02/12/2024 12:48:56 culture, urine + sensitivi ty 2023 [facility], [address] [place] [address] [place], [address], 02/16/2024 08:58:00 Referral None recorded. Procedures None recorded. Surgeries None recorded. Imaging US, duplex, venous, lower extremity , unilatera l - *Please call pt to schedule* [email or web address] [place] [address], [address] [place] [address] [address], [place], [address], 10/31/2023 09:06:22 US, duplex, arterial, lower extremity , complete - Duplicate [email or web address] [place] [address], [address], [place], [address], 11/03/2023 08:51:25 Medication Orders permethri n 5 % topical cream 2022 023 [email or web address] [facility] [address] In [facility], [address], [place], [address], 02/12/2024 12:18:06 escitalop xiomara 20 mg tablet 2023 024 [facility], [address] [facility], [place], [address], 10/13/2023 15:14:01 ciproflox acin 500 mg tablet 2023 024 [facility] [address] In [facility], [address], [place], [address], 02/12/2024 12:50:26 Patient TargetsNo targets recorded. Patient Instructions Encounter Date Encounter Id Patient Instructions Last Modified By Organization Details Last Modified Time 02/12/2024 [id number] dementia rating scale-2* [email or web address] Not available 02/12/2024 13:07:09 alcohol misuse* [email or web address] Not available 02/12/2024 13:07:14 depression screening* [email or web address] Not available 02/12/2024 13:07:21 multi-dimensiona l health assessment questionnaire* [email or web address] Not available 02/12/2024 13:07:03 Personalized [facility] Plan and Screening Recommendations Advance Directives - Do you have one? Advance Directives - Do we have your advance directive on file in your health record? Primary Prevention/Interven tion (prevents or decreases the chance of common diseases from occurring) Smoking Risk: Alcohol Misuse Screening: Negative Weight: Appropriate continue your current weight loss efforts Physical activity: Nutrition: Good Average Fall Risk (screened today): Low Vaccines Pneumococcal: Ordered Recommended today Recommended today, but you have declined Influenza: Ordered Recommended today Recommended today, but you have declined Chronic Disease Risks Stroke: Low Risk I have no recommendations Act meng diagnosis, Continue current treatment plan Heart Attack: Low risk I have no recommendations Act meng diagnosis, Continue current treatment plan Clogging of the Arteries: Low risk I have no recommendations Act meng diagnosis, Continue current treatment plan Diabetes: Low Risk Secondary Prevention/Interven tion (detects treatable diseases before they may cause symptoms, disability, or ) Breast Cancer Screening with mammogram: Your next mammogram: Ordered Recommended today Cervical/Uterine/Ov ai Cancer Screening: Osteoporosis Screening: Your next DEXA in: Ordered Recomme nded today Date Screening Last Performed: Colon Cancer Screening: Colonoscopy In: Ordered Recomme nded Recommended today, but you have declined Date Screening Last Performed: Eye Disease Screening: Dementia Risk: Low I have no recommendations Depression Screening: Negative [email or web address] Not available 01/12/2024 12:45:08 Reason for Referral None Reported. Results Created Date Observation Date Name Description Value Unit Range Abnormal Flag Note LastModifiedBy Organization Detail LastModifiedTime 12/05/19 22 12/04/2021 TSH thyroid-stim ulating hormone 0.882 uIU/m L 0.465- 4.680 Not Available [facility] (Lab) [address] [place], [address], 12/04/2021 13:58:51 12/05/1912/04/2021 T4 FREE free T4 1.42 NG/dL 0.78-2 .19 Not Available [facility] (Lab) [address] [place], [address], 12/04/2021 13:52:59 12/05/1912/04/2021 COMPR EHENS MENG METAB OLIC PANEL sodium 139 mmol/ L 137-14 5 Not Available [facility] (Lab) [address] [place], [address], 12/04/2021 13:50:03 12/05/1912/04/2021 COMPR EHENS MENG METAB OLIC PANEL potassium 4.2 mmol/ L 3.5-5. 1 Not Available [facility] (Lab) [address] [place], [address], 12/04/2021 13:50:03 12/05/19 22 12/04/2021 COMPR EHENS MENG METAB OLIC PANEL chloride 101 mmol/ L 98-107 Not Available [facility] (Lab) [address] [place], [address], 12/04/2021 13:50:03 12/05/19 22 12/04/2021 COMPR EHENS MENG METAB OLIC PANEL carbon dioxide 28 mmol/ L 22-30 Not Available [facility] (Lab) [address] [place], [address], 12/04/2021 13:50:03 12/05/19 22 12/04/2021 COMPR EHENS MENG METAB OLIC PANEL anion gap 14.2 mmol/ L 14-22 Not Available [facility] (Lab) [address] [place], [address], 12/04/2021 13:50:03 12/05/19 22 12/04/2021 COMPR EHENS MENG METAB OLIC PANEL glucose 114 mg/dL 70-99 high Not Available [facility] (Lab) [address] [place], [address], 12/04/2021 13:50:03 12/05/19 22 12/04/2021 COMPR EHENS MENG METAB OLIC PANEL BUN 15 mg/dL 8-19 Not Available [facility] (Lab) [address] [place], [address], 12/04/2021 13:50:03 12/05/19 22 12/04/2021 COMPR EHENS MENG METAB OLIC PANEL creatinine 0.69 mg/dL 0.66-1 .25 Not Available [facility] (Lab) [address] [place], [address], 12/04/2021 13:50:03 12/05/19 22 12/04/2021 COMPR EHENS MENG METAB OLIC PANEL GFR >60 Refer ence Range : [place] ge GFR Healt hy Adult : >60 mL/mi n/1.7 3 m2 Chron ic Kidne y Disea se: 15-60 mL/mi n/1.7 3 m2 Kidne y Failu re: <15/m L/min /1.73 m2 www.n iddk. nih.g ov The MDRD study equat ion has not been valid ated in child mirtha <18 years of age; pregn ant women ; the elder ly >85 years of age; or in some racia l or ethni c subgr oups, such as Hispa nics. Outsi de the valid ated ralf eters , estim ated GFR is less accur ate, requi ring clini khurram judgm ent on a case- by-ca se basis . Clini khurram inter preta tion for other races and ages must be made by the clini lora. The MDRD study equat ion has not been valid ated for the evalu ation of serum creat inine relat ed to nutri darren l statu s or medic ation usage . For perso ns <18 years of age, a pedia tric GFR calcu lator is avail able on the [facility] websi te: https ://lyle w.pilo harvey.o rg/pr ofess ional s/kdo qi/gf r_cal culat or Not Available [facility] (Lab) [address] [place], [address], 12/04/2021 13:50:03 12/05/19 22 12/04/2021 COMPR EHENS MENG METAB OLIC PANEL alkaline phosphatase 61 U/L 38-126 Not Available [facility] (Lab) [address] [place], [address], 12/04/2021 13:50:03 12/05/19 22 12/04/2021 COMPR EHENS MENG METAB OLIC PANEL alanine aminotransfe rase 19 U/L 0-35 Not Available [facility] (Lab) [address] [place], [address], 12/04/2021 13:50:03 12/05/19 22 12/04/2021 COMPR EHENS MENG METAB OLIC PANEL aspartate aminotransfe rase 26 U/L 15-37 Not Available [facility] (Lab) [address] [place], [address], 12/04/2021 13:50:03 12/05/19 22 12/04/2021 COMPR EHENS MENG METAB OLIC PANEL bilirubin, total 0.40 mg/dL 0.20-1 .30 Not Available [facility] (Lab) [address] [place], [address], 12/04/2021 13:50:03 12/05/19 22 12/04/2021 COMPR EHENS MENG METAB OLIC PANEL calcium 9.7 mg/dL 8.4-10 .2 Not Available [facility] (Lab) [address] [place], [address], 12/04/2021 13:50:03 12/05/19 22 12/04/2021 COMPR EHENS MENG METAB OLIC PANEL total protein 7.2 g/dL 6.3-8. 2 Not Available [facility] (Lab) [address] [place], [address], 12/04/2021 13:50:03 12/05/19 22 12/04/2021 COMPR EHENS MENG METAB OLIC PANEL albumin 4.6 g/dL 3.0-4. 4 high Not Available [facility] (Lab) [address] [place], [address], 12/04/2021 13:50:03 12/05/19 22 12/04/2021 COMPR EHENS MENG METAB OLIC PANEL globulin 2.6 g/dL 2.6-4. 2 Not Available [facility] (Lab) [address] [place], [address], 12/04/2021 13:50:03 12/05/19 22 12/04/2021 COMPR EHENS MENG METAB OLIC PANEL A/G ratio 1.8 ratio 1.0-2. 0 Not Available [facility] (Lab) [address] [place], [address], 12/04/2021 13:50:03 12/05/1912/04/2021 PHOSP HORUS phosphorus 3.6 mg/dL 2.5-4. 5 Not Available [facility] (Lab) [address] [place], [address], 12/04/2021 13:49:55 12/05/1912/04/2021 VITAM IN D 25-HY DROXY [id number] 74.9 NG/mL 30-100 Vitam in D Statu s: Defic ient: <20 ng/mL Insuf ficie nt: 20-29 ng/mL Suffi cient : 30-10 0 ng/mL Not Available [facility] (Lab) [address] [place], [address], 12/04/2021 13:39:40 01/02/20 22 01/02/2022 HEMOG LOBIN FRACT ION/E LECTR OPH. hemoglobin S 0.0 % 0.0 Not Available [facility] (Lab) [address] [place], [address], 01/02/2022 14:12:40 01/02/20 22 01/02/2022 HEMOG LOBIN FRACT ION/E LECTR OPH. hemoglobin F 0.0 % 0.0-2. 0 Not Available [facility] (Lab) [address] [place], [address], 01/02/2022 14:12:40 01/02/20 22 01/02/2022 HEMOG LOBIN FRACT ION/E LECTR OPH. hemoglobin A 97.6 % 96.4-9 8.8 Not Available [facility] (Lab) [address] [place], [address], 01/02/2022 14:12:40 01/02/20 22 01/02/2022 HEMOG LOBIN FRACT ION/E LECTR OPH. hemoglobin A2 2.4 % 1.8-3. 2 Not Available [facility] (Lab) [address] [place], [address], 01/02/2022 14:12:40 01/02/20 22 01/02/2022 HEMOG LOBIN FRACT ION/E LECTR OPH. interpretati on: commen t Juany l hemog lobin prese nt; no hemog lobin varia nt or beta thala ssemi a ident ified . Note: Alpha thala ssemi a may not be detec ritchie by the Hgb Fract ionat ion [place] panel . If alpha thala ssemi a is suspe cted, [facility] offer s Alpha -Thal assem ia DNA Indira sis (#[id number]). Perfo rmed at: [place] [address] Lab Direc tor: Ugo murillo PhD, Phone : [phone] Not Available [facility] (Lab) [address] [place], [address], 01/02/2022 14:12:40 01/02/20 22 01/01/2022 VITAM IN D 25-HY DROXY vd25oh 57.3 NG/mL 30-100 Vitam in D Statu s: Defic ient: <20 ng/mL Insuf ficie nt: 20-29 ng/mL Suffi cient : 30-10 0 ng/mL Not Available [facility] (Lab) [address] [place], [address], 01/01/2022 14:00:24 01/02/20 22 01/01/2022 PARAT HY.HO RM(PT H)INT ACT-W /O CA intact parathyroid hormone 36.6 pg/mL 24.0-7 8.0 Not Available [facility] (Lab) [address] [place], [address], 01/01/2022 14:00:20 01/02/20 22 01/01/2022 COMPR EHENS MENG METAB OLIC PANEL sodium 138 mmol/ L 137-14 5 Not Available [facility] (Lab) [address] [place], [address], 01/01/2022 13:42:18 01/02/20 22 01/01/2022 COMPR EHENS MENG METAB OLIC PANEL potassium 4.5 mmol/ L 3.5-5. 1 Not Available [facility] (Lab) [address] [place], [address], 01/01/2022 13:42:18 01/02/20 22 01/01/2022 COMPR EHENS MENG METAB OLIC PANEL chloride 100 mmol/ L 98-107 Not Available [facility] (Lab) [address] [place], [address], 01/01/2022 13:42:18 01/02/20 22 01/01/2022 COMPR EHENS MENG METAB OLIC PANEL carbon dioxide 30 mmol/ L 22-30 Not Available [facility] (Lab) [address] [place], [address], 01/01/2022 13:42:18 01/02/20 22 01/01/2022 COMPR EHENS MENG METAB OLIC PANEL anion gap 12.5 mmol/ L 14-22 low Not Available [facility] (Lab) [address] [place], [address], 01/01/2022 13:42:18 01/02/20 22 01/01/2022 COMPR EHENS MENG METAB OLIC PANEL glucose 88 mg/dL 70-99 Not Available [facility] (Lab) [address] [place], [address], 01/01/2022 13:42:18 01/02/20 22 01/01/2022 COMPR EHENS MENG METAB OLIC PANEL BUN 17 mg/dL 8-19 Not Available [facility] (Lab) [address] [place], [address], 01/01/2022 13:42:18 01/02/20 22 01/01/2022 COMPR EHENS MENG METAB OLIC PANEL creatinine 0.75 mg/dL 0.66-1 .25 Not Available [facility] (Lab) [address] [place], [address], 01/01/2022 13:42:18 01/02/20 22 01/01/2022 COMPR EHENS MENG METAB OLIC PANEL GFR >60 Refer ence Range : [place] ge GFR Healt hy Adult : >60 mL/mi n/1.7 3 m2 Chron ic Kidne y Disea se: 15-60 mL/mi n/1.7 3 m2 Kidne y Failu re: <15/m L/min /1.73 m2 www.n iddk. nih.g ov The MDRD study equat ion has not been valid ated in child mirtha <18 years of age; pregn ant women ; the elder ly >85 years of age; or in some racia l or ethni c subgr oups, such as Hiswa nics. Outsi de the valid ated ralf eters , estim ated GFR is less accur ate, requi ring clini khurram judgm ent on a case- by-ca se basis . Clini khurram inter preta tion for other races and ages must be made by the clini lora. The MDRD study equat ion has not been valid ated for the evalu ation of serum creat inine relat ed to nutri darren l statu s or medic ation usage . For perso ns <18 years of age, a pedia tric GFR calcu lator is avail able on the F websi te: https ://lyle harvey.o summer/pr serenityess ional s/kdo qi/gf r_cal culat or Not Available [facility] (Lab) [address] [place], [address], 01/01/2022 13:42:18 01/02/20 22 01/01/2022 COMPR EHENS MENG METAB OLIC PANEL alkaline phosphatase 67 U/L 38-126 Not Available [facility] (Lab) [address] [place], [address], 01/01/2022 13:42:18 01/02/20 22 01/01/2022 COMPR EHENS MENG METAB OLIC PANEL alanine aminotransfe rase 14 U/L 0-35 Not Available [facility] (Lab) [address] [place], [address], 01/01/2022 13:42:18 01/02/20 22 01/01/2022 COMPR EHENS MENG METAB OLIC PANEL aspartate aminotransfe rase 25 U/L 15-37 Not Available [facility] (Lab) [address] [place], [address], 01/01/2022 13:42:18 01/02/20 22 01/01/2022 COMPR EHENS MENG METAB OLIC PANEL bilirubin, total 0.30 mg/dL 0.20-1 .30 Not Available [facility] (Lab) [address] [place], [address], 01/01/2022 13:42:18 01/02/20 22 01/01/2022 COMPR EHENS MENG METAB OLIC PANEL calcium 9.5 mg/dL 8.4-10 .2 Not Available [facility] (Lab) [address] [place], [address], 01/01/2022 13:42:18 01/02/20 22 01/01/2022 COMPR EHENS MENG METAB OLIC PANEL total protein 7.3 g/dL 6.3-8. 2 Not Available [facility] (Lab) [address] [place], [address], 01/01/2022 13:42:18 01/02/20 22 01/01/2022 COMPR EHENS MENG METAB OLIC PANEL albumin 4.5 g/dL 3.0-4. 4 high Not Available [facility] (Lab) [address] [place], [address], 01/01/2022 13:42:18 01/02/20 22 01/01/2022 COMPR EHENS MENG METAB OLIC PANEL globulin 2.8 g/dL 2.6-4. 2 Not Available [facility] (Lab) [address] [place], [address], 01/01/2022 13:42:18 01/02/20 22 01/01/2022 COMPR EHENS MENG METAB OLIC PANEL A/G ratio 1.6 ratio 1.0-2. 0 Not Available [facility] (Lab) [address] [place], [address], 01/01/2022 13:42:18 01/02/20 22 01/01/2022 PHOSP HORUS phosphorus 3.9 mg/dL 2.5-4. 5 Not Available [facility] (Lab) [address] [place], [address], 01/01/2022 13:42:12 01/02/20 22 01/01/2022 CBC/C OMPLE TE BLD COUNT W/DIF F white blood cells 7.7 x10'3 /uL 4.2-10 .8 Not Available [facility] (Lab) [address] [place], [address], 01/01/2022 13:05:19 01/02/20 22 01/01/2022 CBC/C OMPLE TE BLD COUNT W/DIF F red blood cells 4.23 x10'6 /uL 3.80-5 .20 Not Available [facility] (Lab) [address] [place], [address], 01/01/2022 13:05:19 01/02/20 22 01/01/2022 CBC/C OMPLE TE BLD COUNT W/DIF F hemoglobin 11.9 g/dL 12.0-1 5.6 low Not Available [facility] (Lab) [address] [place], [address], 01/01/2022 13:05:19 01/02/20 22 01/01/2022 CBC/C OMPLE TE BLD COUNT W/DIF F hematocrit 38.5 % 35.7-4 5.7 Not Available [facility] (Lab) [address] [place], [address], 01/01/2022 13:05:19 01/02/20 22 01/01/2022 CBC/C OMPLE TE BLD COUNT W/DIF F mean red cell volume 91.0 fL 82.0-9 9.0 Not Available [facility] (Lab) [address] [place], [address], 01/01/2022 13:05:19 01/02/20 22 01/01/2022 CBC/C OMPLE TE BLD COUNT W/DIF F mean red cell hemoglobin 28.1 pg 27.0-3 3.0 Not Available [facility] (Lab) [address] [place], [address], 01/01/2022 13:05:01/02/20 22 01/01/2022 CBC/C OMPLE TE BLD COUNT W/DIF F mean RBC HGB concentratio n 30.9 g/dL 31.0-3 6.0 low Not Available [facility] (Lab) [address] [place], [address], 01/01/2022 13:05:19 01/02/20 22 01/01/2022 CBC/C OMPLE TE BLD COUNT W/DIF F red cell distribution width 15.5 % 11.8-1 5.5 Not Available [facility] (Lab) [address] [place], [address], 01/01/2022 13:05:19 01/02/20 22 01/01/2022 CBC/C OMPLE TE BLD COUNT W/DIF F platelets 377 x10'3 /uL 150-40 0 Not Available [facility] (Lab) [address] [place], [address], 01/01/2022 13:05:19 01/02/20 22 01/01/2022 CBC/C OMPLE TE BLD COUNT W/DIF F mean platelet volume 10.3 fL 9.0-12 .4 Not Available [facility] (Lab) [address] [place], [address], 01/01/2022 13:05:01/02/20 22 01/01/2022 CBC/C OMPLE TE BLD COUNT W/DIF F neutrophils 61.6 % 39.0-7 2.0 Not Available [facility] (Lab) [address] [place], [address], 01/01/2022 13:05:01/02/20 22 01/01/2022 CBC/C OMPLE TE BLD COUNT W/DIF F lymphocytes 30.3 % 16.0-4 7.0 Not Available [facility] (Lab) [address] [place], [address], 01/01/2022 13:05:01/02/20 22 01/01/2022 CBC/C OMPLE TE BLD COUNT W/DIF F monocytes 5.8 % 5.0-12 .0 Not Available [facility] (Lab) [address] [place], [address], 01/01/2022 13:05:01/02/20 22 01/01/2022 CBC/C OMPLE TE BLD COUNT W/DIF F eosinophils 1.6 % 1.0-7. 0 Not Available [facility] (Lab) [address] [place], [address], 01/01/2022 13:05:01/02/20 22 01/01/2022 CBC/C OMPLE TE BLD COUNT W/DIF F basophils 0.4 % 0.0-2. 0 Not Available [facility] (Lab) [address] [place], [address], 01/01/2022 13:05:19 01/02/20 22 01/01/2022 CBC/C OMPLE TE BLD COUNT W/DIF F immature granulocytes 0.3 % 0.00-0 .50 Not Available [facility] (Lab) [address] [place], [address], 01/01/2022 13:05:01/02/20 22 01/01/2022 CBC/C OMPLE TE BLD COUNT W/DIF F neutrophils, absolute count 4.72 x10'3 /uL 1.5-8. 0 Not Available [facility] (Lab) [address] [place], [address], 01/01/2022 13:05:01/02/20 22 01/01/2022 CBC/C OMPLE TE BLD COUNT W/DIF F lymphocytes, absolute count 2.32 x10'3 /uL 1.07-3 .43 Not Available [facility] (Lab) [address] [place], [address], 01/01/2022 13:05:01/02/20 22 01/01/2022 CBC/C OMPLE TE BLD COUNT W/DIF F monocytes, absolute count 0.44 x10'3 /uL 0.29-0 .99 Not Available [facility] (Lab) [address] [place], [address], 01/01/2022 13:05:01/02/20 22 01/01/2022 CBC/C OMPLE TE BLD COUNT W/DIF F eosinophils, absolute count 0.12 x10'3 /uL 0.02-0 .53 Not Available [facility] (Lab) [address] [place], [address], 01/01/2022 13:05:19 01/02/20 22 01/01/2022 CBC/C OMPLE TE BLD COUNT W/DIF F basophils, absolute count 0.03 x10'3 /uL 0.01-0 .08 Not Available [facility] (Lab) [address] [place], [address], 01/01/2022 13:05:19 01/02/20 22 01/01/2022 CBC/C OMPLE TE BLD COUNT W/DIF F immature granulocytes ,absolute 0.02 x10'3 /uL 0.00-0 .05 Not Available [facility] (Lab) [address] [place], [address], 01/01/2022 13:05:19 01/02/20 22 01/01/2022 CBC/C OMPLE TE BLD COUNT W/DIF F nucleated red blood cells 0.0 % -0 Not Available [facility] (Lab) [address] [place], [address], 01/01/2022 13:05:19 01/02/20 22 01/01/2022 CBC/C OMPLE TE BLD COUNT W/DIF F NRBC# 0.00 x10'3 /uL Not Available [facility] (Lab) [address] [place], [address], 01/01/2022 13:05:19 02/12/20 24 02/12/2024 urina lysis , dipst ick Leukocytes (reference range: negative era/? ? ?l) Small Not Available [facility] [address] [place], [place], [address], 02/12/2024 12:46:30 02/12/2002/12/2024 urina lysis , dipst ick Nitrite (reference rage: negative mg/dl) negati ve Not Available [facility] [address] [place], [place], [address], 02/12/2024 12:46:30 02/12/20 24 02/12/2024 urina lysis , dipst ick Urobilinogen (reference range: 0.2-1 mg/dl) 0.2 Not Available [address] [place], [place], [address], 02/12/2024 12:46:30 02/12/2002/12/2024 urina lysis , dipst ick Protein (reference range: negative mg/dl) Negati ve Not Available [address] [place], [place], [address], 02/12/2024 12:46:30 02/12/2002/12/2024 urina lysis , dipst ick pH (reference range: 5-7) 5.5 Not Available [address] [place], [place], [address], 02/12/2024 12:46:30 02/12/2002/12/2024 urina lysis , dipst ick Blood (reference range: negative Chalo/? ? ?l) Modera te Not Available [address] [place], [place], [address], 02/12/2024 12:46:30 02/12/2002/12/2024 urina lysis , dipst ick Specific Pi[place]on (reference range: 1.005-1.030) 1.030 Not Available [address] [place], [place], [address], 02/12/2024 12:46:30 02/12/2002/12/2024 urina lysis , dipst ick Ketone (reference range: negative mg/dl) Negati ve Not Available [address] [place], [place], [address], 02/12/2024 12:46:30 02/12/20 24 02/12/2024 urina lysis , dipst ick Bilirubin (reference range: negative mg/dl) Negati ve Not Available [address] [place], [place], [address], 02/12/2024 12:46:30 02/12/2002/12/2024 urina lysis , dipst ick Glucose (reference range: negative mg/dl) Negati ve Not Available [address] [place], [place], [place], [address], 02/12/2024 12:46:30 02/12/20 24 02/12/2024 urina lysis , dipst ick Appearance Cloudy Not Available [address] [place], [place], [address], 02/12/2024 12:46:30 02/12/2002/12/2024 urina lysis , dipst ick Color Dark Yellow Not Available [address] [place], [place], [address], 02/12/2024 12:46:30 03/26/20 22 US, pelvi s, trans abdom inal + trans vagin al [facility] [address] [address] Patien t Name: LOULOU SKAGGS Access ion #: [id number] Sex: F : 1954 7 Locati on: RA2 Attend ing Physic mone: MARGUERITE COHEN, RUNDA Orderi ng Physic mone: MARGUERITE COHEN RUNDA Exam Date: 2021 1:45 PM Exam Name: US PELVIS NON OB W/GOLD VAGINA L Admitt ing Diagno sis(es ): RADIOL OGY REPORT - FINAL EXAM: US PELVIS NON OB W/GOLD VAGINA L HISTOR Y: pelvic pain COMPAR ISMAEL: 2020 TECHNI QUE: Transv aginal and transa bdomin al pelvic ultras ound was perfor med. FINDIN GS: Uterus : The uterus measur es 5.5 x 2.3 x 3.8 cm. The myomet rial echo appear ance is inhomo genous . The endome trium measur es 2.5 mm in thickn ess. Naboth mone cysts are noted. Calcif icatio ns are noted which may relate to sites of involu ting leiomy omata. Right ovary: The right ovary measur es 1 x 0.8 x 0.8 cm. The right ovary is Page 1 of 2 [facility] Name: LOULOU SKAGGS Access ion #: [id number] Sex: F : 1954 7 Exam Date: 2021 1:45 PM Exam Name: US PELVIS NON OB W/GOLD VAGINA L Admitt ing Diagno sis(es ): normal in appear ance and demons trates normal color Dopple r blood flow. Left ovary: The left ovary measur es 1.8 x 1.1 x 0.8 cm. The left ovary demons trates a few calcif icatio ns, nonspe cific. In appear ance and demons trates normal color Dopple r blood flow. Cul-de -sac: No free fluid IMPRES ISAIAH: Calcif icatio ns of the left ovary re-clara ntifie d, nonspe cific. See above. Create d and electr onical ly signed by: Donald shaikh MD Signed Date: 2021 5:31 PM (CT) Dictat ed by: Donald shaikh MD DD: 2021 5:31 PM (CT) DT: 2021 5:31 PM (CT) Page 2 of 2 [id number] [facility] (Imaging) [address] [place] [address], [address], 06/12/2022 08:50:25 03/26/20 22 US, head + neck, soft tissu e [facility] [address] [facility] [address], [place] [address] dEuin vidal Name: LOULOU SKAGGS Access ion #: [id number] Sex: F : 1954 7 Locati on: RA2 Attend ing Physic mone: ELKHAT IB, RUNDA Orderi ng Physic mone: ELKHAT IB, RUNDA Exam Date: 2021 1:45 PM Exam Name: US NECK/H EAD SOFT TISSUE Admitt ing Diagno sis(es ): RADIOL OGY REPORT - FINAL EXAM: US NECK/H EAD SOFT TISSUE HISTOR Y: thyroi d nodule COMPAR ISMAEL: None. TECHNI QUE: Ultras ound evalua tion of the thyroi d gland was perfor med. FINDIN GS: Right thyroi d lobe: The right lobe of the thyroi d gland measur es 4.1 x 1.6 x 1.4 cm. The thyroi d parenc hyma is hetero geneou s demons tratin g a 0.5 x 0.4 x 0.5 cm hypoec hoic solid nodule superi luis fernando withou t calcif icatio n, within the mid thyroi d lobe is a hetero geneou sly solid 0.8 x 0.5 x 0.7 cm nodule . No abnorm al color Dopple r blood flow or suspic ious calcif icatio ns. Page 1 of 2 [facility] Eduin vidal Name: LOULOU SKAGGS Access ion #: [id number] Sex: F : 1954 7 Exam Date: 2021 1:45 PM Exam Name: US NECK/H EAD SOFT TISSUE Admitt ing Diagno sis(es ): Left thyroi d lobe: The left lobe of the thyroi d gland measur es 4.5 x 1.4 x 1.8 cm. The thyroi d parenc hyma is hetero geneou s demons tratin g a superi or 2.1 x 1.0 x 1.2 cm hetero geneou s solid mass. No abnorm al color Dopple r blood flow or suspic ious calcif icatio ns. Isthmu s: The thyroi d isthmu s measur es 4 mm in width. The thyroi d parenc hyma is hetero geneou s demons tratin g a 0.8 x 0.4 x 0.7 cm hypoec hoic solid nodule . No abnorm al color Dopple r blood flow or suspic ious calcif icatio ns. IMPRES ISAIAH: Ti-Rad s 3: Mildly suspic ious. Recomm end annual survei llance . Create d and electr onical ly signed by: Donald shaikh MD Signed Date: 2021 5:28 PM (CT) Dictat ed by: Donald shaikh MD DD: 2021 5:28 PM (CT) DT: 2021 5:28 PM (CT) Page 2 of 2 [id number] [facility] (Imaging) [address] [place], [address], 06/12/2022 08:50:25 03/26/20 22 03/26/2022 US, thyro id No observ ation record ed. [id number]. [id number] [facility] On [facility] Orders [address] [place], [address], 06/12/2022 08:50:25 03/26/20 22 03/26/2022 US, pelvi s, compl ete No observ ation record ed. [id number] [facility] On [facility] Orders [address] [place], [address], 06/12/2022 08:50:25 04/23/19 23 04/23/2022 CT, angio gram, chest , w/ contr ast No observ ation record ed. [id number] [facility] Add On [facility] Orders [address] [place], [address], 06/12/2022 08:50:25 07/26/19 23 07/25/2022 XR, chest , 2 view No observ ation record ed. [address] [address], [place], [address], 07/26/2022 09:10:55 07/26/19 23 07/25/2022 imagi ng/di agnos tic resul t No observ ation record ed. [address] [address], [place], [address], 07/26/2022 09:11:26 07/27/19 23 07/26/2022 imagi ng/di agnos tic resul t No observ ation record ed. [address] [address], [place], [address], 07/26/2022 09:16:52 07/27/19 23 07/26/2022 imagi ng/di agnos tic resul t No observ ation record ed. [address] [address], [place], [address], 07/26/2022 12:37:29 07/27/19 23 07/26/2022 imagi ng/di agnos tic resul t No observ ation record ed. [address] [address], [place], [address], 07/29/2022 08:38:53 07/28/19 23 07/27/2022 imagi ng/di agnos tic resul t No observ ation record ed. [address] [address], [place], [address], 07/29/2022 08:39:51 02/19/20 23 02/17/2023 CT, abdom en + pelvi s, w/o contr ast No observ ation record ed. [address] [address], [place], [address], 02/18/2023 08:47:10 06/30/19 24 06/30/2023 CT, chest + abdom en + pelvi s, w/ contr ast No observ ation record ed. [address] [facility] [address], [place], [address], 07/01/2023 10:26:53 03/29/20 24 03/29/2024 imagi ng/di agnos tic resul t No observ ation record ed. [facility] [address] [facility] [address], [place], [address], 03/29/2024 10:50:50 Result Notes None recorded. Problems Name Problem SNOMED Code Status Onset Date Resolution Date Notes Provider Name and Address Organization Details Recorded Time Irritable bowel syndrome 46101921 Active Not Available [facility] 3 08:46:28 Abdominal pain 54079408 Active 2021 Not Available [facility] 3 08:46:28 Pain in pelvis 26389976 Active 2021 Not Available [facility] 3 08:46:28 Imaging result abnormal 862360888 Active 2021 Not Available [facility] 3 08:46:28 Anxiety 13460949 Active Not Available [facility] 3 08:46:28 Hyperlipidemi a 18027598 Active Not Available [facility] 3 08:46:28 Osteoporosis 02823828 Active Not Available [facility] 3 08:46:28 Epigastric pain 04811388 Active Not Available [facility] 3 08:46:28 Malignant tumor of colon 458487224 Active 2022 ALEIDA Moncada null, [email or web address] [facility] [employer] 3 11:40:20 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 725373001 Active 2022 Donal Granados MD [address] [place] [address], [place], [address] , [facility] [employer] 3 11:16:27 Primary malignant neoplasm of ascending colon 92531886 Active 2022 Moni Cedillo RN null, [facility] 3 15:32:11 Depressive disorder 53866488 Active 2023 CLEMENTE Cool [address] [facility], [place] [address], [place], [address] , [facility] [employer] [facility] 4 15:12:42 Numbness of foot 553723498 Active 2023 CLEMENTE Cool [address] [facility], [place] [address], [place], [address] , [facility] [employer] [facility] 4 15:18:53 Fatigue 12116247 Active 2023 CLEMENTE Cool [address] [facility], [facility] [address], [place], [address] , [facility] [employer] [facility] 4 15:25:18 Right flank pain 324893125 Active 2023 Coral Phillips RN [facility], [facility] [employer] [facility] 4 12:46:42 Problem Notes None recorded. Procedures Surgical History Date Name Laterality Status Provider Name and Address Organization Details Recorded Time 02/12/20 24 Medicare Wellness CPT Code, subsequent completed July PALOMO Zaidi [facility] [employer] [facility] 01/12/2024 12:23:03 06/16/19 screening colonoscopy completed Lalit Saldivar RN [facility] [employer] [facility] 06/19/2023 08:55:13 procedure on stomach completed Zoë Estevez MA [facility] [employer] [facility] 02/19/2023 11:05:48 Imaging Results Imaging Date Name Status LastModified by Organization Details LastModified Time 04/23/2022 CT, angiogram, chest, w/ contrast completed [id number] [facility] [address] [place], [address], 06/12/2022 08:50:25 03/26/2022 US, pelvis, transabdominal + transvaginal completed [id number] [facility] (Imaging) [address] [place], [address], 06/12/2022 08:50:25 03/26/2022 US, head + neck, soft tissue completed [id number] [facility] (Imaging) [address] [place], [address], 06/12/2022 08:50:25 03/26/2022 US, thyroid completed [id number] [facility] On [facility] Orders [address] [place], [address], 06/12/2022 08:50:25 03/26/2022 US, pelvis, complete completed [id number] [facility] On [facility] Orders [address] [place], [address], 06/12/2022 08:50:25 07/25/2022 XR, chest, 2 view completed [address], [address], 07/26/2022 09:10:55 07/25/2022 imaging/diagnostic result completed [address], [address], 07/26/2022 09:11:26 07/26/2022 imaging/diagnostic result completed [address], [address], 07/26/2022 09:16:52 07/26/2022 imaging/diagnostic result completed [address], [address], 07/26/2022 12:37:29 07/26/2022 imaging/diagnostic result completed [address], [address], 07/29/2022 08:38:53 07/27/2022 imaging/diagnostic result completed [address], [address], 07/29/2022 08:39:51 02/17/2023 CT, abdomen + pelvis, w/o contrast completed [address], [place], [address], 02/18/2023 08:47:10 06/30/2023 CT, chest + abdomen + pelvis, w/ contrast completed [address], [place], [address], 07/01/2023 10:26:53 03/29/2024 imaging/diagnostic result active [address], [place], [address], 03/29/2024 10:50:50 Procedure Notes None recorded. Medical Equipment None Reported. Allergies No known drug allergies Medications Name Sig Start Date Stop Date Status Note LastModified by Organization Details LastModified Time fluoxetin e 40 mg capsule active Not Available Not Available Not Available megestrol 400 mg/10 mL (40 mg/mL) oral suspensio n TAKE 5 MILLILIT ERS (200 MG) BY MOUTH DAILY. 02/11 completed Not Available Not Available Not Available Procto-Pa k 1 % topical cream perineal applicato r APPLY A THIN LAYER TO THE AFFECTED AREA(S) BY TOPICAL ROUTE 2-4 TIMESDAI LY active Not Available Not Available No t Available trazodone 50 mg tablet TAKE 1 TABLET BY MOUTH EVERY NIGHT AT BEDTIME NEEDED active Not Available Not Available No t Available azithromy may 250 mg tablet TAKE 2 TABLETS (500 MG) BY ORAL ROUTE ONCE DAILY FOR 1 DAY THEN 1 TABLET (250 MG) BY ORAL ROUTE ONCE DAILY FOR 4 DAYS 11/14 completed Not Available Not Available Not Available fluconazo le 150 mg tablet Take 1 tablet every day by oral route for 1 day. 03/03 completed Not Available Not Available Not Available ondansetr on HCl 4 mg tablet TAKE ONE TABLET AT 12:00PM AND 7:00PM THE DAY BEFORE SURGERY 10/12 completed Not Available Not Available Not Available clonazepa m 0.5 mg tablet TAKE 1 TABLET BY MOUTH TWICE A DAY NEEDED active Not Available Not Available No t Available fluoxetin e 10 mg tablet 03/10 completed Not Available Not Available Not Available permethri n 5 % topical cream PLEASE SEE ATTACHED FOR DETAILED DIRECTIO NS 02/11 completed Not Available Not Available Not Available diphenoxy late-atro pine 2.5 mg-0.025 mg tablet TAKE 1 TABLET BY MOUTH FOUR TIMES A DAY NEEDED FOR DIARRHEA /LOOSE STOOLS active Not Available Not Available No t Available metronida zole 500 mg tablet TAKE 1 TABLET BY MOUTH 3 TIMES DAILY FOR 7 DAYS 10/12 completed Not Available Not Available Not Available capecitab ine 500 mg tablet 10/12 completed Not Available Not Available Not Available ciproflox acin 500 mg tablet TAKE 1 TABLET BY MOUTH EVERY 12 HOURS FOR 10 DAYS active Not Available Not Available No t Available peg-elect rolyte solution 420 gram oral solution TAKE DIRECTED BY OFFICE 10/12 completed Not Available Not Available Not Available omeprazol e 40 mg capsule,d elayed release Take 1 capsule every day by oral route. active Not Available Not Available No t Available triamcino lone acetonide 0.1 % topical cream active Not Available Not Available Not Available simvastat in 40 mg tablet TAKE 1 TABLET BY MOUTH EVERY DAY 10/12 completed Not Available Not Available Not Available ondansetr on 8 mg disintegr ating tablet PLEASE SEE ATTACHED FOR DETAILED DIRECTIO NS 10/12 completed Not Available Not Available Not Available hydrocort isone acetate 25 mg rectal supposito ry Insert 1 supposit ory twice a day by rectal route for 14 days. 11/14 completed Not Available Not Available Not Available oxycodone -acetamin ophen 5 mg-325 mg tablet TAKE 1-2 TABLETS BY MOUTH EVERY 6 HOURS NEEDED FOR PAIN 10/12 completed Not Available Not Available Not Available famotidin e 20 mg tablet active Not Available Not Available Not Available simvastat in 20 mg tablet TAKE 2 TABLETS BY MOUTH EVERY DAY active Not Available Not Available No t Available mirtazapi ne 30 mg tablet 02/11 completed Not Available Not Available Not Available ferrous sulfate 325 mg (65 mg iron) tablet TAKE 1 TABLET BY MOUTH EVERY DAY 10/12 completed Not Available Not Available Not Available fluoxetin e 20 mg tablet 08/19 completed Not Available Not Available Not Available neomycin- polymyxin -dexameth 3.5 mg/mL-10, 000 unit/mL-0 .1% eye drops INSTILL 2 DROPS INTO AFFECTED EYE(S) EVERY 4 TO 6 HOURS 02/11 completed Not Available Not Available Not Available ranitidin e 150 mg tablet Take 1 tablet twice a day by oral route. 02/02 completed Not Available Not Available Not Available promethaz ine 25 mg tablet TAKE 1/2 TABLET BY MOUTH EVERY 6 HOURS NEEDED FOR NAUSEA 02/11 completed Not Available Not Available Not Available capecitab ine 150 mg tablet 10/12 completed Not Available Not Available Not Available fluoxetin e 10 mg capsule 10/12 completed dose adjustme nt Not Available Not Available Not Available gabapenti n 300 mg capsule 10/12 completed pt states caused depressi on Not Available Not Available Not Available mupirocin 2 % topical ointment 02/11 completed Not Available Not Available Not Available ibuprofen 600 mg tablet TAKE 1 TABLET BY MOUTH EVERY 6 HOURS NEEDED FOR PAIN active Not Available Not Available No t Available methylpre dnisolone 4 mg tablets in a dose pack TAKE 6 TABLETS ON DAY 1 DIRECTED ON PACKAGE AND DECREASE BY 1 TAB EACH DAY FOR A TOTAL OF 6 DAYS 10/12 completed Not Available Not Available Not Available SF 5000 Plus 1.1 % dental cream 01/22 completed Not Available Not Available Not Available fluoxetin e 20 mg capsule 10/12 completed dose adjustme nt Not Available Not Available Not Available lamotrigi ne 100 mg tablet Take 1 tablet every day by oral route. 10/12 completed Not Available Not Available Not Available spironola ctone 50 mg tablet 02/11 completed Not Available Not Available Not Available escitalop xiomara 20 mg tablet Take 1 tablet every day by oral route in the morning for 30 days. active Not Available Not Available No t Available Klor-Con M10 mEq tablet,ex tended release TAKE 1 TABLET BY MOUTH TWICE A DAY 10/12 completed Not Available Not Available Not Available ibandrona te 150 mg tablet TAKE 1 TABLET EVERY MONTH 10/12 completed Not Available Not Available Not Available fluoxetin e 30mg 08/19 completed Not Available Not Available Not Available Calcium 500 2015 active Not Available Not Available Not Avai lable Prolia 60 mg/mL subcutane ous syringe inject 60 mg SQ once every 6 months 10/12 completed Not Available Not Available Not Available Suprep Bowel Prep Kit 17.5 gram-3.13 gram-1.6 gram oral solution 03/10 completed Not Available Not Available Not Available Fluarix Quad 4583-1713 (PF) 60 mcg (15 mcg x 4)/0.5 mL IM syringe 08/19 completed Not Available Not Available Not Available Anusol-HC 2.5 % topical cream with perineal applicato r APPLY A THIN LAYER TO THE AFFECTED AREA(S) BY TOPICAL ROUTE 2-4 TIMESDAI LY 11/14 completed Not Available Not Available Not Available Tymlos 80 mcg/dose (3,120 mcg/1.56 mL) subcutane ous pen injector Inject 80 microgra ms every day by subcutan eous route in the evening for 90 days. 10/12 completed Not Available Not Available Not Available Fluarix Quad 5762-5026 (PF) 60 mcg (15 mcg x 4)/0.5 mL IM syringe 03/10 completed Not Available Not Available Not Available Afluria Quad 60 mcg (15 mcg x 4)/0.5 mL IM suspensio n 01/22 completed Not Available Not Available Not Available Afluria Quad 60 mcg (15 mcg x 4)/0.5 mL intramusc ular susp. 03/03 completed Not Available Not Available Not Available Vitals Date Recorded Body mass index (BMI) Body height Oxygen saturation Oxygen saturation in Arterial blood by Pulse oximetry Heart rate Body temperature Body weight Systolic blood pressure Diastolic blood pressure Provider Name and Address Organization Details Last Updated DateTime 2 26 kg/m2 157.48 cm 97 % 97 % 75 /min 97.9 [degF] 35687.1 2 g 116 mm[Hg] 80 mm[Hg] Not Available [facility] 3 08:44:43 Date Recorded Body mass index (BMI) Body height Oxygen saturation Oxygen saturation in Arterial blood by Pulse oximetry Heart rate Body temperature Body weight Systolic blood pressure Diastolic blood pressure Provider Name and Address Organization Details Last Updated DateTime 2 25.6 kg/m2 157.48 cm 98 % 98 % 78 /min 98.3 [degF] 47271.9 3 g 122 mm[Hg] 74 mm[Hg] Not Available [facility] 3 08:44:43 Date Recorded Body weight Body temperature Heart rate Oxygen saturation Oxygen saturation in Arterial blood by Pulse oximetry Systolic blood pressure Diastolic blood pressure Provider Name and Address Organization Details Last Updated DateTime 3 60298.9 8 g 97.5 [degF] 100 /min 98 % 98 % 102 mm[Hg] 66 mm[Hg] Zoë Estevez MA [facility] [employer] 3 11:05:01 Date Recorded Body mass index (BMI) Body height Provider Name and Address Organization Details Last Updated DateTime 02/19/2023 19.8 kg/m2 157.48 cm Donal Granados MD [address] [place] [address], [address], [facility] [employer] 02/19/2023 11:09:37 Date Recorded Body height Body mass index (BMI) Body weight Body temperature Heart rate Oxygen saturation Oxygen saturation in Arterial blood by Pulse oximetry Respiratory rate Systolic blood pressure Diastolic blood pressure Provider Name and Address Organization Details Last Updated DateTime 4 157.48 cm 23.8 kg/m2 94439.0 1 g 97.8 [degF] 83 /min 99 % 99 % 16 /min 114 mm[Hg] 82 mm[Hg] Coral Phillips RN [facility] [employer] 4 14:47:52 Date Recorded Body height Body mass index (BMI) Body weight Body temperature Heart rate Oxygen saturation Oxygen saturation in Arterial blood by Pulse oximetry Systolic blood pressure Diastolic blood pressure Provider Name and Address Organization Details Last Updated DateTime 4 157.48 cm 24.5 kg/m2 66377.3 8 g 97.7 [degF] 80 /min 98 % 98 % 116 mm[Hg] 74 mm[Hg] Coral Phillips RN [facility] [employer] 4 12:20:51 Social History Question Answer Notes LastModified by Organizat ion Details LastModified Time Tobacco Smoking Status Never Smoker Not Available [facility] 06/12/2022 08:43:23 Do You Have An Advance Directive? No [id number] Information not available 06/12/2022 What Is Your Level Of Alcohol Consumption? None [id number] Information not available 06/12/2022 Are You Blind Or Do You Have Difficulty Seeing? No [id number].014161 8108 Information not available 06/12/2022 What Is Your Level Of Caffeine Consumption? Occasional [id number] 1211 Information not available 06/12/2022 How Much Tobacco Do You Chew? None [id number].[id number] Information not available 06/12/2022 In The 14 Days Before Symptom Onset, Have You Had Close Contact With A Laboratory-confir med COVID-19 While That Case Was Ill? No [id number].[id number] 0073 Information not available 06/12/2022 In The 14 Days Before Symptom Onset, Have You Had Close Contact With A Person Who Is Under Investigation For COVID-19 While That Person Was Ill? No [id number].[id number] [id number] Information not available 06/12/2022 Are You Deaf Or Do You Have Serious Difficulty Hearing? No [id number].[id number] 8019 Information not available 06/12/2022 What Type Of Diet Are You Following? REGULAR [id number].[id number] 1992 Information not available 06/12/2022 Which Illicit Or Recreational Drugs Have You Used? None [id number].[id number] 3165 Information not available 06/12/2022 Do You Or Have You Ever Used E-cigarettes Or Vape? Never Used Electronic Cigarettes MIGRATION.015179 8363 Information not available 06/12/2022 What Is Your Occupation? Disabled MIGRATION.[id number] 4525 Information not available 06/12/2022 Advance Directive- Providers Has Reviewed Directive And Consents To Follow Them (insert Provider Name With Any Objectives In Notes Field) No [id number].279157 0252 Information not available 06/12/2022 Are You Passively Exposed To Smoke? No MIGRATION.[id number] [id number] Information not available 06/12/2022 Do You Or Have You Ever Used Smokeless Tobacco? Never Used Smokeless Tobacco MIGRATION.179702 1098 Information not available 06/12/2022 How Much Tobacco Do You Smoke? No MIGRATION.407058 9515 Information not available 06/12/2022 Sex: Unknown Functional Status Question Answer Note LastModified by Organizat ion Details LastModified Time Do you have difficulty walking or climbing stairs? No [id number] 26 Information not available 06/12/2022 Do you have difficulty doing errands alone? No [id number] 26 Information not available 06/12/2022 Do you have difficulty dressing or bathing? No [id number].[id number] 26 Information not available 06/12/2022 What is your exercise level? Moderate [id number].[id number] 26 Information not available 06/12/2022 Mental Status Question Answer Note LastModified by Organizat ion Details LastModified Time Do you have difficulty concentrating, remembering or making decisions? No [id number] 6 Information not available 06/12/2022 Family History Relationship Description Onset Age of this Age Resolved Age Notes LastModified by Organization Details LastModified Time Father Heart disease [id number] Not available 06/12/2022 08:43:36 Mother Heart disease [id number] Not available 06/12/2022 08:43:36 Sister Heart disease [id number] [id number] Not available 06/12/2022 08:43:36 Medical History Condition Response OSTEOPOROSIS Y GI PROBLEMS Y ANXIETY DISORDER Y HIGH CHOLESTEROL / HYPERLIPIDEMIA Y Gynecological HistoryNo gynecological history recorded. Obstetrics History GPAL:G 0 P 0 0 0 0 Immunizations Vaccine Type Date Status Note Provider Nam e and Address Organization Details Recorded Time Influenza, split virus, quadrivalent, PF 1 completed Not Available [facility] 06/12/2022 08:50:09 SARS-COV-2 (COVID-19) vaccine, UNSPECIFIED 1 completed Not Available [facility] 06/12/2022 08:50:09 Tdap 9 completed Not Available [facility] 06/12/2022 08:50:09 zoster live 7 completed Not Available [facility] 06/12/2022 08:50:09 Past Encounters Encounter ID Performer Location Encounter Start Date Encounter Closed Date Diagnosis/Indication Diagnosis SNOMED-CT Code Diagnosis ICD10 Code [id number] [facility] Sushil moeller [address] [place] [address] 08/14/2020 00:00:00 08/15/2020 10:33:02 [id number] [facility] Sushil moeller [address] [place] [address] 11/14/2020 00:00:00 11/15/2020 06:26:47 [id number] [facility] [place] [address] [place] [address] 01/25/2021 00:00:00 01/25/2021 21:12:13 [id number] [facility] [place] [address] [place] [address] 02/02/2021 00:00:00 02/02/2021 12:48:11 [id number] [facility] [place] [address] [place] [address] 05/10/2021 00:00:00 05/10/2021 12:49:15 [id number] [facility] [place] [address] [place] [address] 06/11/2021 00:00:00 06/11/2021 18:02:30 [id number] [facility] [place] [address] , [place] [address] 07/06/2021 00:00:00 07/07/2021 11:43:33 [id number] [facility] [place] [address] , [place] [address] 07/16/2021 00:00:00 07/16/2021 22:10:05 [id number] [facility] [place] [address] [place] [address] 08/15/2021 00:00:00 08/15/2021 12:32:47 [id number] [facility] [address] [facility] [address] [address] 09/20/2021 00:00:00 09/20/2021 13:08:08 [id number] [facility] [place] [address] [place] [address] 10/16/2021 00:00:00 10/16/2021 19:17:[id number] [facility] [address] , [place] [address] 11/05/2021 00:00:00 11/05/2021 20:49:[id number] [facility] Endo Alpesh Smith [address] [place] [address] 12/10/2021 00:00:00 12/10/2021 15:48:41 [id number] [place] [address] , [place] [address] 01/01/2022 00:00:00 01/02/2022 06:14:10 [id number] [place] [address] [place] [address] 01/11/2022 00:00:00 01/11/2022 18:21:54 [id number] Donal Granados MD [address] [place] [address] 02/19/2023 10:56:47 02/19/2023 11:25:30 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 [id number] [place] [address] [place] [address] 10/13/2023 14:20:06 10/13/2023 15:26:30 Depressive disorder 29019558 F32.A Numbness of foot 8352790 00 R20.0 Fatigue 79213148 R53.83 Anxiety 59171660 F41.9 Hyperlipidemia 71073163 E78.5 Irritable bowel syndrome 22270190 K58.9 Malignant tumor of colon 747130017 C18.9 Osteoporosis 80323780 M8 1.0 Primary ma lignant neoplasm of ascending colon 80975351 C18.2 [id number] CLEMENTE Cool [place] [place] [address] 02/12/2024 12:02:44 02/12/2024 12:52:10 Adult health examination 282250607 Z00.00 Screening for disorder 470570901 Z13.9 Right flank pain 0606136 09 R10.9 Abdominal pain 71724800 R10.9 Anxiety 44871539 F41.9 Depressive disorder 3548 9007 F32.A Hyperlipidemia 36374832 E78.5 Irritable bowel syndrome 44311323 K58.9 Health Concerns Section Related Observation LastModified by Organization Detai ls LastModified Time None Recorded Concern Status LastModified by Organization Details LastModified Time None Recorded Advance Directives Directive N: Payers Encounter Date Sequence Insurance Name Policy Number Policy Carvalho Covered Member ID Carvalho Member ID Guarantor Name 02/19/2023 1 [employer] - GOLD PLUS (MEDICARE REPLACEMENT HMO) Loulou Karateew [id number] Loul[employer] Karateew 10/13/2023 1 [employer] - GOLD PLUS (MEDICARE REPLACEMENT HMO) Loulou Karateew [id number] Loulou Lucyew 02/12/2024 1 [employer] - GOLD PLUS (MEDICARE REPLACEMENT HMO) Loulou Karateew [id number] Loulou Lucyew Notes Date Note Type Note Provider Name and Address Organization Details Recorded Time 02/19/2023 text/html Here today c/o rash on hands. Everyone at home has it there is a lot of itching. Has had rash x 3 months now. Was given prednisone and no help. Using otc stuff and no help. Donal Granados MD [address], [place], [address], [employer] 02/19/2023 13:28:26 10/13/2023 text/html stage 3 colon cancer , got chemo, no radiation CLEMENTE Cool [address], [place], [address], [employer] 10/20/2023 16:21:25 02/12/2024 text/html slight right abdominal pain CLEMENTE Cool [address], [place], [address], [employer] 03/08/2024 15:20:59 OBGyn Episode No OBEpisode recorded.
--- OUTSIDE RECORDS SUMMARY | 2024-04-04 23:30 | XMS_ITS | Referral Summary ---
Author Organization [facility] Address [address] [place] [address] Care Team Providers Care Compliance Mgr Name Role Phone Donal Granados MD Unavailable Batsheva Vergara Primary Care Provider [phone] Allergies No known active allergies Medications No known medications Active Problems No known active problems Social History Tobacco Use Types Packs/Day Years Used Date Smoking Tobacco: Never Assessed Comments Unknown Sex and Gender Information Value Date Recorded Sex Assigned at Not on file Legal Sex Female 10:14 AM MAINTENANCE INSPECTOR Gender Identity Not on file Sexual Orientation Not on file Last Filed Vital Signs Vital Sign Reading Time Taken Comments Blood Pressure 125/84 04/28/2022 11:00 AM MAINTENANCE INSPECTOR Pulse 91 04/28/2022 11:00 AM MAINTENANCE INSPECTOR Temperature 37.1 ??C (98.7 ??F) 04/28/2022 11:[address] Respiratory Rate 16 04/28/2022 11:00 AM MAINTENANCE INSPECTOR Oxygen Saturation 97% 04/28/2022 11:00 AM MAINTENANCE INSPECTOR Inhaled Oxygen Concentration - - Weight 61.2 kg (135 lb) 04/28/2022 11:00 AM MAINTENANCE INSPECTOR Height 157.5 cm (5' 2 ) 04/28/2022 11:00 AM MAINTENANCE INSPECTOR Body Mass Index 24.69 04/28/2022 11:00 AM MAINTENANCE INSPECTOR Plan of Treatment Not on file Insurance HUMANA MEDICARE HMO HUMANA CHOICE MEDICARE PPO HUMANA CHOICE MEDICARE PPO Care Teams Compliance Mgr Relationship Specialty Start Date End Date Batsheva Vergara [address] [facility] [address], [place] [address] PCP - General 04/28/22 Donal Granados MD [facility] [place], [place] [address] Referring Physician Family Medicine 03/13/22
--- OUTSIDE RECORDS SUMMARY | 2024-04-04 23:30 | XMS_ITS | Encounter Summary ---
Author Organization [facility] Healthcare Address [address] [place] [address] Care Team Providers Care Research Physician Name Role Phone Unavailable Primary Care Provider Unavailabl e Reason for Referral * Diagnostic Imaging (Routine) - Closed Specialty Diagnoses / Procedures Referred By Angie vidal Referred To Contact Radiology Diagnoses Family history of ischemic heart disease and other diseases of the circulatory system Procedures CT CORONARY CALCIUM SCORING Rober Burton MD [address] [place] [address] [place] [address] Phone: tel: fax: [place] [address] [place] [address] Referral ID Status Reason Start Date Expiration Date Visits Re quested Visits Authorized [id number] Closed 03/08/2019 09/16/2020 1 1 OR DIRECTOR FINANCE Reason for Visit * Diagnostic Imaging (Routine) - Closed Specialty Diagnoses / Procedures Referred By Angie vidal Referred To Contact Radiology Diagnoses Family history of ischemic heart disease and other diseases of the circulatory system Procedures CT CORONARY CALCIUM SCORING Rober Burton MD [address] [place] [address] [place] [address] Phone: tel: fax: [place] [place] [address] Referral ID Status Reason Start Date Expiration Date Visits Re quested Visits Authorized [id number] Closed 03/08/2019 09/16/2020 1 1 Encounter Details Date Type Department Care Team (Latest Contact Info) Description 03/18/2019 12:37 PM SENIOR DIRECTOR FINANCE - 03/18/2019 11:59 PM SENIOR DIRECTOR FINANCE Hospital Encounter [facility] - Imaging [address] [place] [address] Rober Burton MD [address] [place] [address] [place] [address] Family history of ischemic heart disease and other diseases of the circulatory system Discharge Disposition: Discharge to home or self care Social History Tobacco Use Types Packs/Day Years Used Date Smoking Tobacco: Never Assessed Comments Unknown Sex and Gender Information Value Date Recorded Sex Assigned at Not on file Legal Sex Female 10:14 AM SENIOR DIRECTOR FINANCE Gender Identity Not on file Sexual Orientation Not on file documented as of this encounter Discharge Disposition Disposition Code Departure Means Destination Discharge to home or self care documented in this encounter Plan of Treatment Not on file documented as of this encounter Procedures Procedure Name Priority Date/Time Associated Diagnosis Comments CT HEART CALCIUM Schedule Routine, Read Routine (OP Routine) 03/18/2019 12:54 PM SENIOR DIRECTOR FINANCE Family history of ischemic heart disease and other diseases of the circulatory system documented in this encounter Results * CT CORONARY CALCIUM SCORING (03/18/2019 12:54 PM SENIOR DIRECTOR FINANCE) Anatomical Region Laterality Modality Chest Computed Tomogra phy 03/18/2019 4:07 PM SENIOR DIRECTOR FINANCE Narrative 03/18/2019 4:[address] CORONARY CALCIUM SCORING HISTORY: Family history of ischemic heart disease. Your patient underwent CT coronary artery calcium scoring at [facility] . ??The coronary artery calcium score is an indicator for atherosclerotic plaque in the blood vessels. ??It has been shown that there is a direct correlation between the severity of coronary artery disease and the coronary calcium score. ??Transaxial helical scanning was performed through the heart. ??A calcium score was computed for each coronary artery and their major branches based on the volume and density of the calcium deposits. The total calcium score was computed and compared graphically to age and sex matched controls. ??Any abnormalities in the adjacent chest are also noted. RESULTS: The total coronary artery calcium score is 13. The percentile rank for age/sex matched controls is 55. These values correspond to: ?? Definite at least mild atherosclerotic plaque with mild or minimal coronary narrowings likely. Recommendations: ?? Score: ??13 This score indicates that calcified plaque is present in the coronary arteries. ??The higher the score, the greater the likelihood of a coronary event. Additional findings: In the anterior aspect of the included lower lobe of the left lung, note is made of an 8 x 11 mm nodule with mildly irregular margins. This is suspicious for a small lung malignancy. Are there any prior outside studies for comparison? This is not amenable to percutaneous biopsy given its size and location. A dedicated diagnostic CT of the chest could be performed to fully assess the lungs and the presence of any additional suspicious pulmonary nodules/masses. Further evaluation of at least the included left lower lobe nodule will be required. 1. ??CALCIUM SCORE of 0; IMPLICATION - no identifiable plaque; RISK OF CORONARY DISEASE - very low, generally less than 5% 2. ??CALCIUM SCORE of 1-10; IMPLICATION - minimal identifiable plaque; RISK OF CORONARY DISEASE - very unlikely, less than 10% 3. ??CALCIUM SCORE of 11-100; IMPLICATION - definite, at least mild atherosclerotic plaque; RISK OF CORONARY DISEASE - mild or minimal coronary narrowings likely 4. ??CALCIUM SCORE of 101-400; IMPLICATION - definite, at least moderate atherosclerotic plaque; RISK OF CORONARY DISEASE - mild coronary artery disease highly likely, significant narrowings possible 5. ??CALCIUM SCORE OF 401 and higher; IMPLICATION - extensive atherosclerotic plaque; RISK OF CORONARY DISEASE - high likelihood of at least one significant coronary narrowing Significant-Mo Bap message has been communicated to PROVIDER DONN via the Si[employer] Critical Result system on 03/18/2019 4:14 PM, Message ID [id number]. Electronically signed by: Arias Ford M.D. Procedure Note Arias Ford MD - 03/18/2019 CT CORONARY CALCIUM SCORING HISTORY: Family history of ischemic heart disease. Your patient underwent CT coronary artery calcium scoring at [facility] . The coronary artery calcium score is an indicator for atherosclerotic plaque in the blood vessels. It has been shown that there is a direct correlation between the severity of coronary artery disease and the coronary calcium score. Transaxial helical scanning was performed through the heart. A calcium score was computed for each coronary artery and their major branches based on the volume and density of the calcium deposits. The total calcium score was computed and compared graphically to age and sex matched controls. Any abnormalities in the adjacent chest are also noted. RESULTS: The total coronary artery calcium score is 13. The percentile rank for age/sex matched controls is 55. These values correspond to: Definite at least mild atherosclerotic plaque with mild or minimal coronary narrowings likely. Recommendations: Score: 13 This score indicates that calcified plaque is present in the coronary arteries. The higher the score, the greater the likelihood of a coronary event. Additional findings: In the anterior aspect of the included lower lobe of the left lung, note is made of an 8 x 11 mm nodule with mildly irregular margins. This is suspicious for a small lung malignancy. Are there any prior outside studies for comparison? This is not amenable to percutaneous biopsy given its size and location. A dedicated diagnostic CT of the chest could be performed to fully assess the lungs and the presence of any additional suspicious pulmonary nodules/masses. Further evaluation of at least the included left lower lobe nodule will be required. 1. CALCIUM SCORE of 0; IMPLICATION - no identifiable plaque; RISK OF CORONARY DISEASE - very low, generally less than 5% 2. CALCIUM SCORE of 1-10; IMPLICATION - minimal identifiable plaque; RISK OF CORONARY DISEASE - very unlikely, less than 10% 3. CALCIUM SCORE of 11-100; IMPLICATION - definite, at least mild atherosclerotic plaque; RISK OF CORONARY DISEASE - mild or minimal coronary narrowings likely 4. CALCIUM SCORE of 101-400; IMPLICATION - definite, at least moderate atherosclerotic plaque; RISK OF CORONARY DISEASE - mild coronary artery disease highly likely, significant narrowings possible 5. CALCIUM SCORE OF 401 and higher; IMPLICATION - extensive atherosclerotic plaque; RISK OF CORONARY DISEASE - high likelihood of at least one significant coronary narrowing Significant-Mo Bap message has been communicated to PROVIDER DONN via the SiOx Critical Result system on 03/18/2019 4:14 PM, Message ID [id number]. Electronically signed by: Arias Ford M.D. Rober Burton MD IMG CT PROCEDURES Final Res ult documented in this encounter Visit Diagnoses Diagnosis Family history of ischemic heart disease and other diseases of the circulatory system documented in this encounter
--- OUTSIDE RECORDS SUMMARY | 2024-04-04 23:30 | XMS_ITS | Encounter Summary ---
Author Organization [facility] Address [address] [place] [address] Care Team Providers Care Veterinary Attendant Name Role Phone Donal Granados MD Unavailable [phone] Batsheva Vergara Primary Care Provider [phone] Encounter Details Date Type Department Care Team (Late st Contact Info) Description 04/29/2022 Telephone [facility] [address] [address] Patty Abrams RN Social History Tobacco Use Types Packs/Day Years Used Date Smoking Tobacco: Never Assessed Comments Unknown Sex and Gender Information Value Date Recorded Sex Assigned at Not on file Legal Sex Female 10:14 AM FILTER WASHER Gender Identity Not on file Sexual Orientation Not on file documented as of this encounter Miscellaneous Notes * Telephone Encounter - Patty Abrams MA - 04/29/2022 4:07 PM CST Pt notified and voiced understanding ER WASHER * Telephone Encounter - Patty Abrams MA - 04/29/2022 4:07 PM CST ----- Message from Alanis Mckoy NP sent at 04/29/2022 12:59 PM FILTER WASHER ----- Please alert patient of negative strep culture. Patient should continue tylenol/ibuprofen as directed for discomfort and f/u with PCP if symptoms persist. ER WASHER documented in this encounter Plan of Treatment Not on file documented as of this encounter Visit Diagnoses Not on filedocumented in this encounter Additional Health Concerns Infection Onset Date Last Indicated Resolved Time COVID19 04/28/2022 04/28/2022 05/08/2022 3:05 AM FILTER WASHER documented as of this encounter Care Teams Veterinary Attendant Relationship Specialty Start Date End Date Batsheva Vergara [address] [facility] [address], [place] [address] PCP - General 04/28/22 Donal Granados MD [facility] [place] [address] Referring Physician Family Medicine 03/13/22 documented as of this encounter
--- OUTSIDE RECORDS SUMMARY | 2024-04-04 23:30 | XMS_ITS | Encounter Summary ---
Author Organization [facility] Healthcare Address [address] [place] [address] Care Team Providers Care Load Dispatcher Name Role Phone Donal Granados MD Unavailable [phone] Batsheva Vergara Primary Care Provider [phone] Encounter Details Date Type Department Care Team (Latest Contact Info) Description 04/28/2022 11:02 AM CONTACT LENS BLOCKER - 04/28/2022 11:59 PM CONTACT LENS BLOCKER Hospital Encounter [facility] [address] [place] [address] Acute nasopharyngitis Discharge Disposition: Discharge to home or self care Social History Tobacco Use Types Packs/Day Years Used Date Smoking Tobacco: Never Assessed Comments Unknown Sex and Gender Information Value Date Recorded Sex Assigned at Not on file Legal Sex Female 10:14 AM CONTACT LENS BLOCKER Gender Identity Not on file Sexual Orientation Not on file documented as of this encounter Discharge Disposition Disposition Code Departure Means Destination Discharge to home or self care documented in this encounter Miscellaneous Notes * Result Encounter Note - Alanis Mckoy NP - 04/28/2022 11:59 PM CONTACT LENS BLOCKER Please alert patient of negative strep culture. Patient should continue tylenol/ibuprofen as directed for discomfort and f/u with PCP if symptoms persist. ACT LENS BLOCKER * Result Encounter Note - Moni Shepherd MA - 04/28/2022 4:14 PM CST Patient aware. ACT LENS BLOCKER * Result Encounter Note - Waqas Nelson NP - 04/28/2022 3:18 PM CST Please notify patient of positive covid-19 test. If he/she develops increased shortness of breath or worsening symptoms, he/she should go to the ER. Patient should isolate for a minimum of 5 days from symptoms onset, and symptoms must be improving, and pt should be fever free for at least 24 hours prior to ending quarantine/isolation. Then if out of quarantine prior to 10 days, pt should continueto wear a mask around people for an additional 5 days. Patient should notify individuals they may have had contact with while ill and 2 days prior to symptoms onset. ACT LENS BLOCKER documented in this encounter Plan of Treatment Not on file documented as of this encounter Procedures Procedure Name Priority Date/Time Associated Diagnosis Comments INFLUENZA A/B, RSV, AND COVID-19 PCR Routine 04/28/2022 11:02 AM CONTACT LENS BLOCKER Acute nasopharyngitis MYCOLOGY (FUNGAL) CULTURE Routine 04/28/2022 11:02 AM CONTACT LENS BLOCKER Acute nasopharyngitis THROAT CULTURE Routine 04/28/2022 11:02 AM CONTACT LENS BLOCKER Acute nasopharyngitis documented in this encounter Results * (ABNORMAL) Influenza A/B, RSV, and COVID-19 PCR Nasopharyngeal (04/28/2022 11:02 AM CONTACT LENS BLOCKER) Pathologist [facility] COVID-19 RNA Positive(A) Negative [facility] Influenza A RNA Negative Negative [facility] Influenza B RNA Negative Negative [facility] RSV RNA Negative Negative [facility] Comment: Interpretive data: This test is performed using the duuin Xpert Xpress CoV-2/Flu/RSV plus assay. This is [...] revised 2021. Nasopharyngeal 04/28/2022 11 :02 AM CONTACT LENS BLOCKER 04/28/2022 2:01 PM CONTACT LENS BLOCKER Narrative TALI LANDA - 04/28/2022 3:11 PM CONTACT LENS BLOCKER Is the Patient experiencing symptoms consistent with COVID?->Yes Date of Symptom Onset->04/26/22 Reason for testing?->Symptomatic Known exposure to confirmed or suspected COVID-19 case?->No Is the patient experiencing any symptoms consistent with COVID (eg. Fever, cough, shortness of breath)?->Yes What is the reason for testing?->Symptoms of COVID-19 in low-risk group (Batched) Waqas Nelson NP LAB MICROBIOLOGY - [facility] Final Result Performing Organization Address [facility]/ZIP Co de Phone Number TALI LANDA [address] [place] [address] * Mycology (fungal) culture Wound Oral (04/28/2022 11:02 AM CONTACT LENS BLOCKER) Report Final Report: No growth of fungus TALI LANDA Comment:Testing performed by : [facility], [address] [place] [address]., [id number] Wound (Oral) 04/28/2022 11:0 2 AM CONTACT LENS BLOCKER 04/28/2022 5:53 PM CONTACT LENS BLOCKER Narrative TALI LANDA - 05/26/2022 8:57 AM CONTACT LENS BLOCKER Specimen received on an ESwab. Testing performed by [facility] Microbiology Laboratory ([phone]). Waqas Nelson NP LAB MICROBIOLOGY - GENERAL ORDE [facility] Final Result TALI [address] [place] [address] * Throat culture Throat (04/28/2022 11:02 AM CONTACT LENS BLOCKER) Report Final Report: No growth of pathogens. TALI LANDA Comment:Testing performed by : [facility], [address] [place]., [address] Throat 04/28/2022 11:0 2 AM CONTACT LENS BLOCKER 04/28/2022 5:01 PM CONTACT LENS BLOCKER Narrative TALI - 04/29/2022 12:18 PM CONTACT LENS BLOCKER Testing performed by [facility] ([phone]). us Waqas Nelson CAN FILLING MACHINE OPERATOR LAB MICROBIOLOGY - GENERAL ORDSrinivas COY Final Result [facility] [address] [address] Department [place] [address] documented in this encounter Visit Diagnoses Diagnosis Acute nasopharyngitis Acute nasopharyngitis (common cold) documented in this encounter Additional Health Concerns Infection Onset Date Last Indicated Resolved Time COVID: Suspected 04/28/2022 04/28/2022 04/28/2022 11:43 AM CONTACT LENS BLOCKER COVID: Suspected 04/28/2022 04/28/2022 04/28/2022 3:11 PM CONTACT LENS BLOCKER COVID19 04/28/2022 04/28/2022 05/08/2022 3:05 AM CONTACT LENS BLOCKER documented as of this encounter Care Teams Load Dispatcher Relationship Specialty Start Date End Date Batsheva Vergara [address] [facility] [address] [place] [address] PCP - General 04/28/22 Donal Granados MD [address] [place] [address] Referring Physician Family Medicine 03/13/22 documented as of this encounter
--- OUTSIDE RECORDS SUMMARY | 2024-04-04 23:30 | XMS_ITS | Continuity of Care Document ---
Author Organization [facility], [facility] Address [address] [place] [address] [place] [address] Assessment No assessment recorded. Plan of Treatment Reminders Order Date Submit Date Provider Last Modified By Organization Details Last Modified Time Details Appointments Follow Up 15 2024 11:00A M CLEMENTE Cool Not available Not available Not available Lab urinalysi s, dipstick [email or web address] [place], [place], [address], 02/12/2024 12:48:56 culture, urine + sensitivi ty 2023 [facility], [address] [place] [address] [place], [address], 02/16/2024 08:58:00 Referral None recorded. Procedures None recorded. Surgeries None recorded. Imaging None recorded. Medication Orders ciproflox acin 500 mg tablet 2023 [facility] [address] [facility], [address], [place], [address], 02/12/2024 12:50:26 Patient TargetsNo targets recorded. Patient Instructions Encounter Date Encounter Id Patient Instructions Last Modified By Organization Details Last Modified Time 02/12/2024 [id number] dementia rating scale-2* [email or web address] Not available 02/12/2024 13:07:09 alcohol misuse* [email or web address] Not available 02/12/2024 13:07:14 depression screening* [email or web address] Not available 02/12/2024 13:07:21 multi-dimensiona l health assessment questionnaire* [email or web address] Not available 02/12/2024 13:07:[address] [facility] Plan and Screening Recommendations Advance Directives - [...] Low Risk I have no recommendations Act dhruv diagnosis, Continue current treatment plan Heart Attack: Low risk I have no recommendations Act dhruv diagnosis, Continue current treatment plan Clogging of the Arteries: Low risk I have no recommendations Act dhruv diagnosis, Continue current treatment plan Diabetes: Low [...] Abnormal Flag Note LastModifiedBy Organization Detail LastModifiedTime 02/12/2002/12/2024 urina lysis , dipst ick Leukocytes (reference range: negative era/? ? ?l) Small Not Available [facility] [address] [place], [place], [address], 02/12/2024 12:46:30 02/12/2002/12/2024 urina lysis , dipst ick Nitrite (reference rage: negative mg/dl) negati ve Not Available [address] [place], [place], [address], 02/12/2024 12:46:30 02/12/20 24 02/12/2024 urina lysis , dipst ick Urobilinogen (reference range: 0.2-1 mg/dl) 0.2 Not Available [address] [place], [place], [address], 02/12/2024 12:46:30 02/12/2002/12/2024 urina lysis , dipst ick Protein (reference range: negative mg/dl) Negati ve Not Available [address] [place], [place], [address], 02/12/2024 12:46:30 02/12/2002/12/2024 urina lysis , dipst ick pH (reference range: 5-7) 5.5 Not Available [address] [place], [place], [address], 02/12/2024 12:46:30 02/12/20 24 02/12/2024 urina lysis , dipst ick Blood (reference range: negative Chalo/? ? ?l) Modera te Not Available [address] [place], [place], [address], 02/12/2024 12:46:30 02/12/2002/12/2024 urina lysis , dipst ick Specific Dumas (reference range: 1.005-1.030) 1.030 Not Available [address] [place], [place], [address], 02/12/2024 12:46:30 02/12/2002/12/2024 urina lysis , dipst ick Ketone (reference range: negative mg/dl) Negati ve Not Available [address] [place], [place], [address], 02/12/2024 12:46:30 02/12/20 24 02/12/2024 urina lysis , dipst ick Bilirubin (reference range: negative mg/dl) Negati ve Not Available [address] [place], [place], [address], 02/12/2024 12:46:30 02/12/2002/12/2024 urina lysis , dipst ick Glucose (reference range: negative mg/dl) Negati ve Not Available [address] [place], [place], [address], 02/12/2024 12:46:30 02/12/20 24 02/12/2024 urina lysis , dipst ick Appearance Cloudy Not Available [address] [place], [place], [address], 02/12/2024 12:46:30 02/12/20 24 02/12/2024 urina lysis , dipst ick Color Dark Yellow Not Available [address] [place], [place], [address], 02/12/2024 12:46:30 03/29/20 24 03/29/2024 imagi ng/di agnos tic resul t No observ ation record ed. [facility] [address], [place], [address], 03/29/2024 10:50:50 Result Notes None recorded. Problems Name Problem SNOMED Code Status Onset Date Resolution Date Notes Provider Name and Address Organization Details Recorded Time Irritable bowel syndrome 37052714 Active Not Available [facility] 3 08:46:28 Abdominal pain 80747929 Active 2021 Not Available [facility] 3 08:46:28 Pain in pelvis 36346550 Active 2021 Not Available [facility] 3 08:46:28 Imaging result abnormal 886433666 Active 2021 Not Available [facility] 3 08:46:28 Anxiety 22148823 Active Not Available [facility] 3 08:46:28 Hyperlipidemi a 19909583 Active Not Available [facility] 3 08:46:28 Osteoporosis 80762024 Active Not Available [facility] 3 08:46:28 Epigastric pain 27870654 Active Not Available [facility] 3 08:46:28 Malignant tumor of colon 056908327 Active 2022 ALEIDA Moncada null, [facility] 3 11:40:20 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 Active 2022 Donal Granados MD [address], [place], [address] , [facility] 3 11:16:27 Primary malignant neoplasm of ascending colon 89618885 Active 2022 Moni Cedillo RN null, [facility] 3 15:32:11 Depressive disorder 52162879 Active 2023 CLEMENTE Cool [address], [place], [address] , [facility] 4 15:12:42 Numbness of foot 099260726 Active 2023 CLEMENTE Cool [address], [place], [address] , [facility] 4 15:18:53 Fatigue 66151126 Active 2023 CLEMENTE Cool [address], [place], [address] , [facility] 15:25:18 Right flank pain 524418300 Active 2023 Coral Phillips RN [facility], [facility] [employer] [facility] 12:46:42 Problem Notes None recorded. Procedures Surgical History Date Name Laterality Status Provider Name and Address Organization Details Recorded Time 02/12/20 Medicare Wellness CPT Code, subsequent completed July PALOMO Zaidi [facility] [facility] 01/12/2024 12:23:03 06/16/19 screening colonoscopy completed Lalit Saldivar RN [facility] [employer] [facility] 06/19/2023 08:55:13 procedure on stomach completed Zoë Estevez MA [facility] [employer] [facility] 02/19/2023 11:05:48 Imaging Results None recorded. Procedure Notes None recorded. Medical Equipment None [...] Available Not Available Not Available Fluarix Quad (PF) 60 mcg (15 mcg x 4)/0.5 [...] Available Not Available Not Available Fluarix Quad 3601-1725 (PF) 60 mcg (15 mcg x 4)/0.5 mL IM syringe 03/10 completed Not Available Not Available Not Available Afluria Quad 60 mcg (15 mcg x 4)/0.5 mL IM suspensio n 01/22 completed Not Available Not Available Not Available Afluria Quad 60 mcg (15 mcg x 4)/0.5 mL intramusc ular susp. 03/03 completed Not Available Not Available Not Available Vitals Date Recorded Body height Body mass index (BMI) Body weight Body temperature Heart rate Oxygen saturation Oxygen saturation in Arterial blood by Pulse oximetry Systolic blood pressure Diastolic blood pressure Provider Name and Address Organization Details Last Updated DateTime 4 157.48 cm 24.5 kg/m2 13168.3 8 g 97.7 [degF] 80 /min 98 % 98 % 116 mm[Hg] 74 mm[Hg] Coral Phillips, RN [place] [facility] 12:20:51 Social History Question Answer Notes LastModified by Organizat ion Details LastModified Time Tobacco Smoking Status Never Smoker Not Available [facility] 06/12/2022 08:43:23 Do You Have An Advance Directive? No [id number].[id number] Information not available 06/12/2022 What Is Your Level Of Alcohol Consumption? None MIGRATION.365413 9505 Information not available 06/12/2022 Are You Blind Or Do You Have Difficulty Seeing? No MIGRATION.435371 5600 Information not available 06/12/2022 What Is Your Level Of Caffeine Consumption? Occasional MIGRATION.604873 2183 Information not available 06/12/2022 How Much Tobacco Do You Chew? None MIGRATION.608226 9150 Information not available 06/12/2022 In The 14 Days Before Symptom Onset, Have You Had Close Contact With A Laboratory-confir med COVID-19 While That Case Was Ill? No MIGRATION.308368 4170 Information not available 06/12/2022 In The 14 Days Before Symptom Onset, Have You Had Close Contact With A Person Who Is Under Investigation For COVID-19 While That Person Was Ill? No MIGRATION.518339 9641 Information not available 06/12/2022 Are You Deaf Or Do You Have Serious Difficulty Hearing? No MIGRATION.856469 3024 Information not available 06/12/2022 What Type Of Diet Are You Following? REGULAR MIGRATION.616687 0193 Information not available 06/12/2022 Which Illicit Or Recreational Drugs Have You Used? None MIGRATION.422720 9439 Information not available 06/12/2022 Do You Or Have You Ever Used E-cigarettes Or Vape? Never Used Electronic Cigarettes MIGRATION.438244 0457 Information not available 06/12/2022 What Is Your Occupation? Disabled MIGRATION.735916 8291 Information not available 06/12/2022 Advance Directive- Providers Has Reviewed Directive And Consents To Follow Them (insert Provider Name With Any Objectives In Notes Field) No MIGRATION.217551 0390 Information not available 06/12/2022 Are You Passively Exposed To Smoke? No MIGRATION.475684 5641 Information not available 06/12/2022 Do You Or Have You Ever Used Smokeless Tobacco? Never Used Smokeless Tobacco MIGRATION.842764 2861 Information not available 06/12/2022 How Much Tobacco Do You Smoke? No MIGRATION.927172 5516 Information not available 06/12/2022 Sex: Unknown Functional Status Question Answer Note LastModified by Organizat ion Details LastModified Time Do you have difficulty walking or climbing stairs? No MIGRATION.10683319 26 Information not available 06/12/2022 Do you have difficulty doing errands alone? No MIGRATION.11669436 26 Information not available 06/12/2022 Do you have difficulty dressing or bathing? No MIGRATION.89207148 26 Information not available 06/12/2022 What is your exercise level? Moderate MIGRATION.48135752 26 Information not available 06/12/2022 Mental Status Question Answer Note LastModified by Organizat ion Details LastModified Time Do you have difficulty concentrating, remembering or making decisions? No MIGRATION.746741399 6 Information not available 06/12/2022 Family History Relationship Description Onset Age of this Age Resolved Age Notes LastModified by Organization Details LastModified Time Father Heart disease [id number] Not available 06/12/2022 08:43:36 Mother Heart disease MIGRATION.709 [id number] Not available 06/12/2022 08:43:36 Sister Heart disease MIGRATION.834 [id number] Not available 06/12/2022 08:43:36 Medical History Condition Response OSTEOPOROSIS Y GI PROBLEMS Y ANXIETY DISORDER Y HIGH CHOLESTEROL / HYPERLIPIDEMIA Y Gynecological HistoryNo gynecological history recorded. Obstetrics History GPAL:G 0 P 0 0 0 0 Immunizations Vaccine Type Date Status Note Provider Nam e and Address Organization Details Recorded Time Influenza, split virus, quadrivalent, PF 1 completed Not Available [facility] 06/12/2022 08:50:09 SARS-COV-2 (COVID-19) vaccine, UNSPECIFIED 1 completed Not Available [facility] 06/12/2022 08:50:09 Tdap 9 completed Not Available [facility] 06/12/2022 08:50:09 zoster live 7 completed Not Available [facility] 06/12/2022 08:50:09 Past Encounters Encounter ID Performer Location Encounter Start Date Encounter Closed Date Diagnosis/Indication Diagnosis SNOMED-CT Code Diagnosis ICD10 Code [id number] CLEMENTE Cool [facility] Sushil moeller [address] , [place] [address] 02/12/2024 12:02:44 02/12/2024 12:52:10 Adult health examination 988188006 Z00.00 Screening for disorder 161906992 Z13.9 Right flank pain 4872776 09 R10.9 Abdominal pain 71749302 R10.9 Anxiety 98418860 F41.9 Depressive disorder 3548 9007 F32.A Hyperlipidemia 80684742 E78.5 Irritable bowel syndrome 83028728 K58.9 Health Concerns Section Related Observation LastModified by Organization Detai ls LastModified Time None Recorded Concern Status LastModified by Organization Details LastModified Time None Recorded Payers Encounter Date Sequence Insurance Name Policy Number Policy Carvalho Covered Member ID Carvalho Member ID Guarantor Name 02/12/2024 1 [employer] - GOLD PLUS (MEDICARE REPLACEMENT HMO) Loulou Lanier [id number] Loulou Lanier Notes Date Note Type Note Provider Name and Address Organization Details Recorded Time 02/12/2024 text/html slight right abdominal pain CLEMENTE Cool [address] [facility], [facility] [address], [place], [address], [place] [facility] 03/08/2024 15:20:59 OBGyn Episode No OBEpisode recorded.
--- OUTSIDE RECORDS SUMMARY | 2024-04-04 23:31 | XMS_ITS | Encounter Summary ---
Author Organization [facility] Address [address] [place] [address] Care Team Providers Care Diagnostic Technologist Name Role Phone Donal Granados MD Primary Care Provider [phone] Reason for Visit * Reason Onset Date Comments Lab Results 11/27/2023 Encounter Details Date Type Department Care Team (Late st Contact Info) Description 11/27/[address] [facility] Oncology and Hematology - [place] [address] [facility] [address] [place] [address] Nicho Napoles MD [address] [facility] [address] [place] [address] Lab Results Social History Tobacco Use Types Packs/Day Years Used Date Smoking Tobacco: Never Smokeless Tobacco: Never Alcohol Use Standard Drinks/Week Comments Not Currently 0 (1 standard drink = 0.6 oz pur e alcohol) Sex and Gender Information Value Date Recorded Sex Assigned at Not on file Gender Identity Not on file Sexual Orientation Not on file documented as of this encounter Miscellaneous Notes * Telephone Encounter - Karla Duran - 11/27/2023 8:05 AM CDT I called patient to inform them about the tests being ordered. Patient states understanding. * Telephone Encounter - Karla Duran - 11/27/2023 8:05 AM CDT ----- Message from Dr. Nicho Napoles sent at 11/26/2023 4:19 PM CDT ----- Regarding: RE: c diff uti Please order stool C. difficile antigen and UA for possible UTI. ----- Message ----- From: Karla Duran Sent: 11/26/2023 3:38 PM CDT To: Nicho Napoles MD Subject: c diff uti Patient called saying for a couple of days she has diarrhea that smells, body aches, abdominal painon the right side and low back pain. Patient stated her apatite has decreased but no nausea or vomiting. Patient denies any fevers. Patient stated she might have c-diff or a UTI. Please advise documented in this encounter Plan of Treatment Upcoming Encounters Date Type Department Care Team (Late st Contact Info) Description 04/26/2024 2:30 PM WOOL MIXER Office Visit [facility] Oncology and Hematology - [place] [address] [facility] [address] [place] [address] Nicho Napoles MD [address] [facility] [address] [place] [address] documented as of this encounter Visit Diagnoses Not on filedocumented in this encounter Care Teams Diagnostic Technologist Relationship Specialty Start Date End Date Donal Granados MD PCP - General Family Practice 07/02/22 documented as of this encounter
--- OUTSIDE RECORDS SUMMARY | 2024-04-04 23:31 | XMS_ITS | Encounter Summary ---
Author Organization [facility] Address [address] [place] [address] Care Team Providers Care Bullion Weigher Name Role Phone Donal Granados MD Primary Care Provider [phone] Encounter Details Date Type Department Care Team (Late Contact Info) Description 11/10/2023 Orders Only [facility] Oncology and Hematology [facility] [address] [place] [address] [place] [address] [place] [address] [employer] [address] [place] [address] Social History Tobacco Use Types Packs/Day Years Used Date Smoking Tobacco: Never Smokeless Tobacco: Never Alcohol Use Standard Drinks/Week Comments Not Currently 0 (1 standard drink = 0.6 oz pur e alcohol) Sex and Gender Information Value Date Recorded Sex Assigned at Not on file Gender Identity Not on file Sexual Orientation Not on file documented as of this encounter Plan of Treatment Upcoming Encounters Date Type Department Care Team (Late Contact Info) Description 04/26/2024 2:30 PM ART SPECIALIST Office Visit [facility] Oncology and Hematology - [place] [address] [place] [address] Nicho Napoles MD [address] [email or web address] [address] [place] [address] documented as of this encounter Procedures Procedure Name Priority Date/Time Associated Diagnosis Comments COMPREHENSIVE METABOLIC PANEL Routine 11/07/2023 12:48 PM CDT BASIC METABOLIC PANEL Routine 11/07/2023 12:06 PM CDT CBC WITH DIFFERENTIAL Routine 11/07/2023 12:03 PM CDT documented in this encounter Results * COMPREHENSIVE METABOLIC PANEL (11/07/2023 12:48 PM CDT) Blood Nicho Napoles MD CHEMISTRY ORDERABLES * BASIC METABOLIC PANEL (11/07/2023 12:06 PM CDT) Blood Nicho Napoles MD CHEMISTRY ORDERABLES * CBC WITH DIFFERENTIAL (11/07/2023 12:03 PM CDT) Blood Nicho Napoles MD HEMATOLOGY ORDERABLE S documented in this encounter Visit Diagnoses Not on filedocumented in this encounter Care Teams Bullion Weigher Relationship Specialty Start Date End Date Donal Granados MD PCP - General Family Practice 07/02/22 documented as of this encounter
--- OUTSIDE RECORDS SUMMARY | 2024-04-04 23:31 | XMS_ITS | Encounter Summary ---
Author Organization [facility] Address [address] [place] [address] Care Team Providers Care Rehabilitation Caseworker Name Role Phone Donal Granados MD Primary Care Provider [phone] Encounter Details Date Type Department Care Team (Late st Contact Info) Description 01/20/2024 External Device Data STL ABSTRACTION Provider, Abstract NO ADDRESS ON FILE Social History Tobacco Use Types Packs/Day Years [...] st Contact Info) Description 04/26/2024 2:30 PM RADIO INSTALLER Office Visit [facility] Oncology and Hematology - [place] [address] [place] [address] [facility] [address] [place] [address] Nicho Napoles MD [address] [facility] [address] [place] [address] documented as of this encounter Visit Diagnoses Not on filedocumented in this encounter Care Teams Rehabilitation Caseworker Relationship Specialty Start Date End Date Donal Granados MD PCP - General Family Practice 07/02/22 documented as of this encounter
--- OUTSIDE RECORDS SUMMARY | 2024-04-04 23:31 | XMS_ITS | Encounter Summary ---
Author Organization [facility] Address [address] [place] [address] Care Team Providers Care Track Watchman Name Role Phone Donal Granados MD Primary Care Provider [phone] Reason for Visit * Reason Onset Date Comments reschedule appointment 03/15/2024 Encounter Details Date Type Department Care Team (Late Contact Info) Description 03/15/2024 Telephone [facility] Oncology and Hematology - [place] [address] [place] [address] Nicho Napoles MD [address] [facility] [address] [place] [address] reschedule appointment Social History Tobacco Use Types Packs/Day Years [...] * Telephone Encounter - Karla Duran - 03/15/2024 10:33 AM CST Left voicemail for patient to call back to reschedule appointment since CT was not done along with lab work. Patient will need to reschedule appointment. IRON DIPPER documented in this encounter Plan of Treatment Upcoming Encounters Date Type Department Care Team (Late Contact Info) Description 04/26/2024 2:30 PM CAST IRON DIPPER Office Visit [facility] Oncology and Hematology - [place] [address] [place] [address] Nicho Napoles MD [facility] [address] [place] [address] documented as of this encounter Visit Diagnoses Not on filedocumented in this encounter Care Teams Track Watchman Relationship Specialty Start Date End Date Donal Granados MD PCP - General Family Practice 07/02/22 documented as of this encounter
--- OUTSIDE RECORDS SUMMARY | 2024-04-04 23:31 | XMS_ITS | Encounter Summary ---
Author Organization [facility] Address [address] [place] [address] Care Team Providers Care Lithographic Stripper Name Role Phone Donal Granados MD Primary Care Provider Encounter Details Date Type Department Care Team (Late st Contact Info) Description 12/03/2023 External Device Data STL ABSTRACTION Provider, Abstract [...] st Contact Info) Description 04/26/2024 2:30 PM CINETECHNICIAN Office Visit [facility] Oncology and Hematology - [place] [address] [place] [address] [facility] [address] [place] [address] Nicho Napoles MD [address] [facility] [address] [place] [address] documented as of this encounter Visit Diagnoses Not on filedocumented in this encounter Care Teams Lithographic Stripper Relationship Specialty Start Date End Date Donal Granados MD PCP - General Family Practice 07/02/22 documented as of this encounter
--- OUTSIDE RECORDS SUMMARY | 2024-04-04 23:31 | XMS_ITS | Encounter Summary ---
Author Organization [facility] Address [address] [place] [address] Care Team Providers Care Environmental Services Manager Name Role Phone Donal Granados MD Primary Care Provider [phone] Encounter Details Date Type Department Care Team (Late st Contact Info) Description 10/28/2023 External Device Data STL ABSTRACTION Provider, Abstract [...] st Contact Info) Description 04/26/2024 2:30 PM SHIPBUILDING DRAFTSPERSON Office Visit [facility] Oncology and Hematology - [place] [address] [place] [address] [facility] [address] [place] [address] Nicho Napoles MD [address] [facility] [address] [place] [address] documented as of this encounter Visit Diagnoses Not on filedocumented in this encounter Care Teams Environmental Services Manager Relationship Specialty Start Date End Date Donal Granados MD PCP - General Family Practice 07/02/22 documented as of this encounter
--- OUTSIDE RECORDS SUMMARY | 2024-04-04 23:31 | XMS_ITS | Encounter Summary ---
Author Organization [facility] Address [address] [place] [address] Care Team Providers Care Crm Manager Name Role Phone Donal Granados MD Primary Care Provider [phone] Encounter Details Date Type Department Care Team [...] st Contact Info) Description 04/26/2024 2:30 PM HOME THEATRE TECHNICIAN Office Visit [facility] Oncology and Hematology - [place] [address] [place] [address] [facility] [address] [place] [address] Nicho Napoles MD [address] [facility] [address] [place] [address] documented as of this encounter Visit Diagnoses Not on filedocumented in this encounter Care Teams Crm Manager Relationship Specialty Start Date End Date Donal Granados MD PCP - General Family Practice 07/02/22 documented as of this encounter
--- OUTSIDE RECORDS SUMMARY | 2024-04-04 23:31 | XMS_ITS | Clinical Summary ---
Author Organization [employer] [facility] Address [address] [facility] [place] [address] Care Team Providers Care Home Health Manager Name Role Phone Donal Granados MD Primary Care Provider [phone] Allergies No known active allergies Medications Medication Sig Dispensed Refills Start Date End Date Status denosumab (Prolia) 60 mg/mL Syringe INJECT 60 MG (1 ML) UNDER THE SKIN ONCE EVERY 6 MONTHS 1 mL 2 12/10/2021 Active omeprazole (PriLOSEC) 40 mg Capsule, Delayed Release(E.C.) 05/20/2022 Active simvastatin (ZOCOR) 40 mg tablet 05/27/2022 Active traZODone (DESYREL) 50 mg tablet 07/02/2022 Active clonazePAM (KlonoPIN) 0.5 mg Tablet TAKE 1 TABLET BY MOUTH TWICE A DAY NEEDED 06/22/2022 Active ondansetron (ZOFRAN ODT) 8 mg Tablet, Rapid Dissolve Dissolve 1 tablet on top of tongue then swallow with saliva every 8 hours as needed for nausea or vomiting 30 Tablet 1 07/17/2022 Active megestroL (MEGACE) 400 mg/10 mL (40 mg/mL) suspension Take 5 mL (200 mg) by mouth daily. 240 mL 1 07/17/2022 Active capecitabine (XELODA) 150 mg tablet 08/12/2022 Active Klor-Con M10 10 mEq Extended Release tabletIndications:Ma lignant neoplasm of colon, unspecified part of colon TAKE 1 TABLET BY MOUTH TWICE A DAY 180 Tablet 1 09/13/2022 Active capecitabine (XELODA) 500 mg tabletIndications:Ma lignant neoplasm of ascending colon Take 2 Tablets (1,000 mg) by mouth 2 times daily with meals. 90 Tablet 3 10/08/2022 Active diphenoxylate-atropi ne 2.5 mg-0.025 mg tablet Take 1 Tablet by mouth 4 times daily as needed for Diarrhea/Loose Stools. 40 Tablet 1 10/22/2022 Active methylPREDNISolone (MEDROL DOSPACK) 4 mg Tablets, Dose Pack Use as directed 21 Tablet 12/02/2022 Active gabapentin (NEURONTIN) 300 mg capsule Take 1 Capsule (300 mg) by mouth 2 times daily. 60 Capsule 2 02/25/2023 Active escitalopram oxalate (LEXAPRO) 20 mg tablet Take 20 mg by mouth daily. 10/14/2023 Active Active Problems Problem Noted Date Diagnosed Date Colon cancer 07/19/2022 Encounters Date Type Department Care Team Description 03/30/2024 Orders Only [facility] Oncology and Hematology [facility] [address] [place] [address] Nicho Napoles MD 03/15/2024 Telephone [facility] Oncology and Hematology [facility] [address] [place] [address] Nicho Napoles MD reschedule appointment 01/27/2024 External Device Data STL ABSTRACTION Provider, Abstract 01/20/2024 External Device Data STL ABSTRACTION Provider, Abstract 01/13/2024 External Device Data STL ABSTRACTION Provider, Abstract 2024 External Device Data STL ABSTRACTION Provider, Abstract from Last 3 Months Family History Medical History Relation Name Comments No Known Problems Daughter 1 No Known Problems Daughter 2 No Known Problems Daughter 3 Heart Disease Father Heart Disease Mother Heart Disease Sister Relation Name Status Comments Daughter 1 Alive Daughter 2 Alive Daughter 3 Alive Father Mother Sister Alive Social History Tobacco Use Types Packs/Day Years Used Date Smoking Tobacco: Never Smokeless Tobacco: Never Tobacco Cessation:Counseling Given: Not Answered Alcohol Use Standard Drinks/Week Comments Not Currently 0 (1 standard drink = 0.6 oz pur e alcohol) Sex and Gender Information Value Date Recorded Sex Assigned at Not on file Gender Identity Not on file Sexual Orientation Not on file Last Filed Vital Signs Vital Sign Reading Time Taken Comments Blood Pressure 111/76 11/10/2023 2:38 PM CDT Pulse 86 11/10/2023 2:38 PM CDT Temperature 36.8 ??C (98.2 ??F) 11/10/2023 2:38 PM CD T Respiratory Rate 18 11/10/2023 2:38 PM CDT Oxygen Saturation 96% 11/10/2023 2:38 PM CDT Inhaled Oxygen Concentration - - Weight 57.6 kg (127 lb) 11/10/2023 2:38 PM CDT Height 158.5 cm (5' 2.4 ) 07/02/2022 3:10 PM CDT Body Mass Index 22.93 07/02/2022 3:10 PM CDT Plan of Treatment Upcoming Encounters Date Type Department Care Team (Late st Contact Info) Description 04/26/2024 2:30 PM CLINICAL SUPERVISOR Office Visit [facility] Oncology and Hematology - [place] [address] [facility] [address] [place] [address] Nicho Napoles MD [address] [facility] [address] [place] [address] Health Maintenance Due Date Last Done Comments BREAST CANCER SCREENING 1997 ZOSTER VACCINE (2 of 3) 08/28/2016 07/03/2016 PNEUMOCOCCAL VACCINE 65+ YEA RS (1 of 1 - PCV) 2022 INFLUENZA VACCINE (#1) 2023 01/01/2021 DTAP/TDAP/TD VACCINES (2 - Td or Tdap) 07/06/2028 RSV VACCINE (60+ or ) (1 - 1-dose 75+ series) 01/07/2032 OSTEOPOROSIS SCREENING Completed 02/11/2021 COLORECTAL SCREENING Discontinued 06/15/2023, 04/17/19 23 Colorectal Cancer Screening Discontinued FIT-DNA Q 3 years Discontinued FIT/FOBT Q 1 year Discontinued Flex Sig/CT Colonography Q 5 years Discontinued Procedures Procedure Name Priority Date/Time Associated Diagnosis Comments CT ABDOMEN PELVIS W CONTRAST Routine 03/29/2024 11:16 AM CLINICAL SUPERVISOR CREATININE Routine 03/29/2024 11:10 AM CLINICAL SUPERVISOR from Last 3 Months Results * CT ABDOMEN PELVIS W CONTRAST (03/29/2024 11:16 AM CLINICAL SUPERVISOR) Anatomical Region Laterality Modality Abdomen Other Nicho Napoles MD CT ORDERABLES * CREATININE (03/29/2024 11:10 AM CLINICAL SUPERVISOR) Blood Nicho Napoles MD CHEMISTRY ORDERABLES from Last 3 Months Care Teams Home Health Manager Relationship Specialty Start Date End Date Donal Granados MD PCP - General Family Practice 07/02/22
--- OUTSIDE RECORDS SUMMARY | 2024-04-04 23:31 | XMS_ITS | Encounter Summary ---
Author Organization [facility] Address [address] [place] [address] Care Team Providers Care Veneer Joiner Name Role Phone Donal Granados MD Primary Care Provider [phone] Encounter Details Date Type Department Care Team (Late st Contact Info) Description 01/27/2024 External Device Data STL ABSTRACTION Provider, [...] st Contact Info) Description 04/26/2024 2:30 PM REGIONAL ECONOMIC LIAISON Office Visit [facility] Oncology and Hematology - [place] [address] [place] [address] [facility] [address] [place] [address] Nicho Napoles MD [address] [facility] [address] [place] [address] documented as of this encounter Visit Diagnoses Not on filedocumented in this encounter Care Teams Veneer Joiner Relationship Specialty Start Date End Date Donal Granados MD PCP - General Family Practice 07/02/22 documented as of this encounter
--- OUTSIDE RECORDS SUMMARY | 2024-04-04 23:31 | XMS_ITS | Encounter Summary ---
Author Organization [facility] Healthcare Address [address] [place] [address] Care Team Providers Care Nurse Leader Name Role Phone Unavailable Primary Care Provider Unavailabl e Encounter Details Date Type Department Care Team (Late st Contact Info) Description 04/10/2010 6:31 AM PHARMACOLOGY TEACHER - 04/10/2010 11:59 PM PHARMACOLOGY TEACHER Hospital Encounter [facility] Social History Tobacco Use Types Packs/Day Years Used Date Smoking Tobacco: Never Assessed Comments Unknown Sex and Gender Information Value Date Recorded Sex Assigned at Not on file Legal Sex Female 10:14 AM PHARMACOLOGY TEACHER Gender Identity Not on file Sexual Orientation Not on file documented as of this encounter Plan of Treatment Not on file documented as of this encounter Visit Diagnoses Not on filedocumented in this encounter
--- OUTSIDE RECORDS SUMMARY | 2024-04-04 23:31 | XMS_ITS | Encounter Summary ---
Author Organization [facility] Address [address] [place] [address] Care Team Providers Care Signal Apprentice Name Role Phone Donal Granados MD Primary Care Provider [phone] Encounter Details Date Type Department Care Team (Late st Contact Info) Description 12/02/2023 External Device Data STL ABSTRACTION Provider, Abstract [...] st Contact Info) Description 04/26/2024 2:30 PM VIBRATION ANALYST Office Visit [facility] Oncology and Hematology - [place] [address] [place] [address] [facility] [address] [place] [address] Nicho Napoles MD [address] [facility] [address] [place] [address] documented as of this encounter Visit Diagnoses Not on filedocumented in this encounter Care Teams Signal Apprentice Relationship Specialty Start Date End Date Donal Granados MD PCP - General Family Practice 07/02/22 documented as of this encounter
--- OUTSIDE RECORDS SUMMARY | 2024-04-04 23:31 | XMS_ITS | Encounter Summary ---
Author Organization [facility] Address [address] [place] [address] Care Team Providers Care Document Clerk Name Role Phone Donal Granados MD Primary Care Provider [phone] Reason for Referral * CT Scan (Routine) - Closed Specialty Diagnoses / Procedures Referred By Contfarzad t Referred To Contact Diagnoses Malignant neoplasm of ascending colon Procedures CT ABDOMEN PELVIS W CONTRAST Nicho Napoles MD [address] [place] [address] [place] [address] Referral ID Status Reason Start Date Expiration Date V isits Requested Visits Authorized [id number] Closed [facility] CTS 11/10/2023 12/10/2024 1 1 Reason for Visit * Reason Comments Follow Up Cancer Encounter Details Date Type Department Care Team (Late st Contact Info) Description 11/10/2023 2:30 PM CDT Office Visit [facility] Oncology and Hematology [place] [address] [address] [facility] [address] [place] [address] Nicho Napoles MD [address] [place] [address] Malignant neoplasm of ascending colon (Primary Dx) Social History Tobacco Use Types [...] (127 lb) 11/10/2023 2:38 PM CDT Height - - Body Mass Index 22.93 07/02/2022 3:10 PM CDT documented in this encounter Progress Notes * Nicho Napoles MD - 11/10/2023 3:46 PM CDT HEMATOLOGY / ONCOLOGY PROGRESS NOTE Patient Identification: Name: Loulou Lanier Age: 68 y.o. 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 Completed cycle 6 of chemotherapy on November 06, 2022. Surveillance colonoscopy done on June 16, 2023 showed no evidence of relapse of disease. SUBJECTIVE Patient came to the office for follow-up visit. She denies any chest pain or shortness of breath. No melena hematochezia. She has occasional abdominal discomfort. Weight and appetite stable. No othernew complaints. Review of system Constitutional: Patient did not mention fevers, sweats, complain of mild tiredness and fatigue, 3 pound weight loss HEENT: Patient did not mention sinus congestion, hearing or vision problems Respiratory: Patient did not mention cough, dyspnea, wheeze Cardiovascular: Patient did not mention chest pain, exertional chest pressure/discomfort, syncope, shortness of breath GI: Patient did not mention constipation, dsyphagia, reflux symptoms, vomiting, melena,, no nausea vomiting and diarrhea : Patient did not mention dysuria, frequency, incontinence, urgency Integumentary system: no lymphadenopathy, sweats, flushing Musculoskeletal: Patient not mention: myalgia, arthralgia Neurological: Patient did not mention blurry or disturbed vision, stable peripheral neuropathy Skin: No lumps, denies any rash 12 point review of system was reviewed Objective: Vital signs in last 24 hours: As per nursing note Exam: General appearance: alert, cooperative, no distress, appears stated age Head: normocephalic, without obvious abnormality, atraumatic Eyes: conjunctivae/corneas clear, EOM's intact Ears: normal external ear canals AU Nose: Nares normal. Septum midline. Mucosa normal. No drainage or sinus tenderness Throat: Lips, mucosa, and tongue normal. Teeth and gums normal Neck: supple, symmetrical, trachea midline. Lungs: clear to auscultation bilaterally Heart: regular rate and rhythm, S1, S2 normal, no murmur, click, rub or gallop Abdomen: soft, non-tender. Bowel sounds normal. No masses, No organomegaly Extremities: extremities normal, atraumatic, no cyanosis or edema Skin: Skin color, texture, turgor normal. Lymph nodes: No lymphadenopathy Neuro: No obvious focal deficit Exam as above PATH LABS Labs from July 17 showed WBC 8.7 hemoglobin 11.9 platelet 447,000 creatinine 0.7 Labs from August 13 showed potassium 3.2 WBC 9.0 hemoglobin 11.5 platelet 400,000 Labs from September 05 showed WBC 6.3 hemoglobin 11 platelets 324,000 creatinine 0.6 Labs from September 25 showed WBC 4.9 hemoglobin 11 platelet 349,000 potassium 3.3 Labs from October 16 showed WBC 5.8 hemoglobin 11.4 platelet 333,000 creatinine 0.7 Labs from October 22 showed WBC 7.9 hemoglobin 12.1 platelet 293,000 potassium 2.9 Labs from December 02 showed WBC 7.2 hemoglobin 12.1 platelet 228,000 creatinine 0.6 Labs from February 25 showed WBC 8.0 hemoglobin 12.8 platelet 317,000 creatinine 0.7 Labs from May 27 showed creatinine 0.6 CEA 3.1 Labs from July 29 showed WBC 7.9 hemoglobin 12.4 platelet 310,000 CEA 0.8 Labs from November 06 showed WBC 6.6 hemoglobin 12.5 platelet 325,000 creatinine 0.8 Assessment: Plan: Patient Active Problem List Diagnosis Date Noted Colon cancer 07/19/2022 Adenocarcinoma moderately differentiated of the cecum T3N1 resected 05/27/2022. Patient is status post right-sided colectomy. She started adjuvant chemotherapy with XELOX regimen on July 13, 2022. Completed cycle 6 of chemotherapy on November 06, 2022. Labs noted and stable. CEA is pending. Clinically there is no evidence of relapse of disease on my examination. Will order CT scan and labs on return to clinic in 4 months. Chemotherapy-induced neuropathy. Stable. She is off the gabapentin. Hypokalemia. Resolved. Follow-up in 4 months. TOBACCO COUNSELING She is not a tobacco/nicotine user. 11/10/2023 Nicho Napoles MD documented in this encounter Plan of Treatment Upcoming Encounters Date Type Department Care Team (Late st Contact Info) Description 04/26/2024 2:30 PM ARCHIVES SPECIALIST Office Visit [facility] Oncology and Hematology [facility] [address] [facility] [address] [place] [address] Nicho Napoles MD [address] [facility] [address] [place] [address] Scheduled Orders Name Type Priority Associated Diagnoses Orde r Schedule CBC WITH DIFFERENTIAL Lab Stat Malignant neoplasm of ascending colon Expected: 03/01/2024, Expires: 11/09/2024 CEA Lab Routine Malignant neoplasm of ascending colon Expected: 03/01/2024, Expires: 11/09/2024 COMPREHENSIVE METABOLIC PANEL Lab Stat Malignant neoplasm of ascending colon Expected: 03/01/2024, Expires: 11/09/2024 CT ABDOMEN PELVIS W CONTRAST Imaging Routine Malignant neoplasm of ascending colon Expected: 03/12/2024, Expires: 11/09/2024 documented as of this encounter Visit Diagnoses Diagnosis Malignant neoplasm of ascending colon- Primary documented in this encounter Care Teams Document Clerk Relationship Specialty Start Date End Date Donal Granados MD PCP - General Family Practice 07/02/22 documented as of this encounter
--- OUTSIDE RECORDS SUMMARY | 2024-04-04 23:31 | XMS_ITS | Encounter Summary ---
Author Organization [facility] Care Team Providers Care Quill Layer Name Role Phone Unavailable Primary Care Provider Unavailabl e Encounter Details Date Type Department Care Team (Late st Contact Info) Description 12/22/2012 - 12/22/2012 11:59 PM CDT Hospital [facility] Miller Daugherty, DMD [address] [address] Cysts of oral soft tissues Social History Tobacco Use Types Packs/Day Years Used Date Smoking Tobacco: Never Assessed Comments Unknown Sex and Gender Information Value Date Recorded Sex Assigned at Not on file Legal Sex Female 10:14 AM METALSMITH Gender Identity Not on file Sexual Orientation Not on file documented as of this encounter Plan of Treatment Not on file documented as of this encounter Procedures Procedure Name Priority Date/Time Associated Diagnosis Comments SURGICAL PATHOLOGY 12/22/2012 documented in this encounter Results * Surgical pathology (12/22/2012) Narrative 12/22/2012 Ordered by an unspecified provider. us Historical Provider MD LAB PATHOLOGY ORDERABLES Final Result documented in this encounter Visit Diagnoses Diagnosis Cysts of oral soft tissues documented in this encounter
--- OUTSIDE RECORDS SUMMARY | 2024-04-04 23:31 | XMS_ITS | Encounter Summary ---
Author Organization [facility] [employer] [facility] Address [address] [place] [address] Care Team Providers Care Grainer Machine Name Role Phone Donal Granados MD Primary Care Provider [phone] Encounter Details Date Type Department Care Team (Late Contact Info) Description 11/27/2023 Orders Only [facility] Oncology and Hematology [facility] [address] [place] [address] Nicho Napoles MD [address] [place], [place] [address] [address] [place] [address] C. difficile diarrhea (Primary Dx); UTI symptoms Social History Tobacco Use Types Packs/Day Years [...] (Late Contact Info) Description 04/26/2024 2:30 PM PASSENGER TIRE INSPECTOR Office Visit [facility] Oncology and Hematology [place] [address] [place] [address] Nicho Napoles MD [address] [place], [place] [address] [address] [place] [address] Scheduled Orders Name Type Priority Associated Diagnoses Orde r Schedule URINALYSIS WITH REFLEX MICROSCOPIC Lab Routine UTI symptoms Expected: 11/27/2023, Expires: 11/26/2024 C. DIFFICILE DETECTION Microbiology Routine C. difficile diarrhea Expected: 11/27/2023, Expires: 11/26/2024 documented as of this encounter Visit Diagnoses Diagnosis C. difficile diarrhea- Primary Intestinal infection due to clostridium difficile UTI symptoms documented in this encounter Care Teams Grainer Machine Relationship Specialty Start Date End Date Donal Granados MD PCP - General Family Practice 07/02/22 documented as of this encounter
--- OUTSIDE RECORDS SUMMARY | 2024-04-04 23:31 | XMS_ITS | Encounter Summary ---
Author Organization [facility] Address [address] [place] [address] Care Team Providers Care Director Of Learning Name Role Phone Donal Granados MD Primary Care Provider [phone] Encounter Details Date Type Department Care Team (Late st Contact Info) Description 01/13/2024 External Device Data STL ABSTRACTION Provider, [...] st Contact Info) Description 04/26/2024 2:30 PM INDUSTRIAL MACHINE SYSTEM TECHNICIAN Office Visit [facility] Oncology and Hematology - [place] [address] [place] [address] [facility] [address] [place] [address] Nicho Napoles MD [address] [facility] [address] [place] [address] documented as of this encounter Visit Diagnoses Not on filedocumented in this encounter Care Teams Director Of Learning Relationship Specialty Start Date End Date Donal Granados MD PCP - General Family Practice 07/02/22 documented as of this encounter
--- OUTSIDE RECORDS SUMMARY | 2024-04-04 23:31 | XMS_ITS | Encounter Summary ---
Author Organization [facility] Address [address] [place] [address] Care Team Providers Care Bat Carrier Name Role Phone Donal Granados MD Primary Care Provider [phone] Encounter Details Date Type Department Care Team (Late st Contact Info) Description 10/21/2023 External Device Data STL ABSTRACTION Provider, Abstract [...] st Contact Info) Description 04/26/2024 2:30 PM RESPIRATORY PHYSICIAN Office Visit [facility] Oncology and Hematology - [place] [address] [place] [address] [facility] [address] [place] [address] Nicho Napoles MD [address] [facility] [address] [place] [address] documented as of this encounter Visit Diagnoses Not on filedocumented in this encounter Care Teams Bat Carrier Relationship Specialty Start Date End Date Donal Granados MD PCP - General Family Practice 07/02/22 documented as of this encounter
--- OUTSIDE RECORDS SUMMARY | 2024-04-04 23:31 | XMS_ITS | Encounter Summary ---
Author Organization [facility] Address [address] [place] [address] Care Team Providers Care Child Therapist Name Role Phone Donal Granados MD Primary Care Provider [phone] Encounter Details Date Type Department Care Team (Late st Contact Info) Description 2024 External Device Data STL ABSTRACTION Provider, [...] st Contact Info) Description 04/26/2024 2:30 PM LICENSED CHEMICAL SPRAY TECHNICIAN Office Visit [facility] Oncology and Hematology - [place] [address] [place] [address] [facility] 200 [place] [address] Nicho Napoles MD [address] [facility] [address] [place] [address] documented as of this encounter Visit Diagnoses Not on filedocumented in this encounter Care Teams Child Therapist Relationship Specialty Start Date End Date Donal Granados MD PCP - General Family Practice 07/02/22 documented as of this encounter
--- OUTSIDE RECORDS SUMMARY | 2024-04-04 23:32 | XMS_ITS | Encounter Summary ---
Author Organization [facility] [employer] Address [address] [place] [address] Care Team Providers Care Donation Specialist Name Role Phone Donal Granados MD Primary Care Provider [phone] Encounter Details Date Type Department Care Team (Late Contact Info) Description 07/07/2023 Orders Only [facility] Oncology and Hematology [facility] [address] [place] [address] [place] [address] [place] [address] [employer] [address] [place] [address] Malignant neoplasm of ascending colon Social History Tobacco Use Types Packs/Day Years [...] (Late Contact Info) Description 04/26/2024 2:30 PM RUBBER AND POUNDER Office Visit [facility] Oncology and Hematology [facility] [address] [place] [address] Nicho Napoles MD [address] [employer] [address] [place] [address] documented as of this encounter Visit Diagnoses Diagnosis Malignant neoplasm of ascending colon documented in this encounter Care Teams Donation Specialist Relationship Specialty Start Date End Date Donal Granados MD PCP - General Family Practice 07/02/22 documented as of this encounter
--- OUTSIDE RECORDS SUMMARY | 2024-04-04 23:32 | XMS_ITS | Encounter Summary ---
Author Organization [facility] [employer] Address [address] [place] [address] Care Team Providers Care Doors Prefitter Name Role Phone Donal Granados MD Primary Care Provider [phone] Encounter Details Date Type Department Care Team (Late Contact Info) Description 06/16/2023 Orders Only [facility] Oncology and Hematology [facility] [address] [place] [address] [place] [address] [place] [address] [employer] [address] [place] [address] Malignant neoplasm of ascending colon Social [...] (Late Contact Info) Description 04/26/2024 2:30 PM ELECTRIC TRAIN DRIVER Office Visit [facility] Oncology and Hematology [facility] [address] [place] [address] Nicho Napoles MD 222[facility] [employer] [address] [place] [address] documented as of this encounter Visit Diagnoses Diagnosis Malignant neoplasm of ascending colon documented in this encounter Care Teams Doors Prefitter Relationship Specialty Start Date End Date Donal Granados MD PCP - General Family Practice 07/02/22 documented as of this encounter
--- OUTSIDE RECORDS SUMMARY | 2024-04-04 23:32 | XMS_ITS | Encounter Summary ---
Author Organization [facility] Address [address] [place] [address] Care Team Providers Care Senior Environmental Technician Name Role Phone Donal Granados MD Primary Care Provider [phone] Encounter Details Date Type Department Care Team (Late st Contact Info) Description 05/11/2023 External Device Data STL ABSTRACTION Provider, Abstract [...] st Contact Info) Description 04/26/2024 2:30 PM DIRECTOR OF INSTITUTIONAL RESEARCH Office Visit [facility] Oncology and Hematology - [place] [address] [place] [address] [facility] [address] [place] [address] Nicho Napoles MD 2227 [facility] [address] [place] [address] documented as of this encounter Visit Diagnoses Not on filedocumented in this encounter Care Teams Senior Environmental Technician Relationship Specialty Start Date End Date Donal Granados MD PCP - General Family Practice 07/02/22 documented as of this encounter
--- OUTSIDE RECORDS SUMMARY | 2024-04-04 23:32 | XMS_ITS | Encounter Summary ---
Author Organization [facility] ANJEL[facility]arisa [facility] Address [address] [place] [address] Care Team Providers Care Film Laboratory Technician Name Role Phone Donal Granados MD Primary Care Provider [phone] Reason for Visit * Reason Comments Cancer Encounter Details Date Type Department Care Team (Late st Contact Info) Description 08/01/2023 10:30 AM CDT Office Visit [facility] Oncology and Hematology - [place] [address] [facility] [address] [place] [address] Nicho Napoles MD 2227 [facility] [address] [place] [address] Malignant neoplasm of ascending colon [...] Sign Reading Time Taken Comments Blood Pressure 119/77 08/01/2023 11:01 AM CDT Pulse 84 08/01/2023 11:01 AM CDT Temperature 36.5 ??C (97.7 ??F) 08/01/2023 11:01 AM C DT Respiratory Rate 18 08/01/2023 11:01 AM CDT Oxygen Saturation 98% 08/01/2023 11:01 AM CDT Inhaled Oxygen Concentration - - Weight 59 kg (130 lb) 08/01/2023 11:01 AM CDT Height - - Body Mass Index 23.47 07/02/2022 3:10 PM CDT documented in this encounter Progress Notes * Nicho Napoles MD - 08/01/2023 11:28 AM CDT HEMATOLOGY / ONCOLOGY PROGRESS NOTE Patient [...] to the office for follow-up visit. She is still have some persistent peripheral neuropathy. She has gained 5 pound weight. No diarrhea and constipation. Denies any melena hematochezia. No other new complaints. Review of system Constitutional: Patient did not mention fevers, sweats, 1 denies any tiredness and fatigue, 5 poundweight gain HEENT: Patient did not mention sinus congestion, [...] did not mention blurry or disturbed vision, complain of peripheral neuropathy Skin: No lumps, denies any [...] 7.9 hemoglobin 12.4 platelet 310,000 CEA 0.8 Assessment: Plan: Patient Active Problem List Diagnosis Date Noted Colon cancer 07/19/2022 Adenocarcinoma moderately differentiated of the cecum T3N1 resected 05/27/2022. Patient is status post right-sided colectomy. She started adjuvant chemotherapy with XELOX regimen on July 13, 2022. Completed cycle 6 of chemotherapy on November 06, 2022. Patient is clinically asymptomatic. Labs showed normal CEA level. CT scan chest abdomen pelvis doneon June 29 showed no evidence of relapse of disease. Patient had surveillance colonoscopy done on June 15 showed no evidence of disease. I will see her back in 3 months with repeat labs. After next appointment we will change her appointment to every 4 months basis. Chemotherapy-induced neuropathy. Stable. She stopped taking gabapentin due to drowsiness. Hypokalemia. Resolved. Follow-up in 3 months with labs on return to clinic. TOBACCO COUNSELING She is not a tobacco/nicotine user. 08/01/2023 Nicho Napoles MD documented in this encounter Plan of Treatment Upcoming Encounters Date Type Department Care Team (Late st Contact Info) Description 04/26/2024 2:30 PM MANDREL CLEANER Office Visit [facility] Oncology and Hematology [facility] [address] [facility] [address] [place] [address] Nicho Napoles MD 222 [facility] [address] [place] [address] Scheduled Orders Name Type Priority Associated Diagnoses Orde r Schedule CBC WITH DIFFERENTIAL Lab Stat Malignant neoplasm of ascending colon Expected: 10/24/2023, Expires: 07/31/2024 CEA Lab Routine Malignant neoplasm of ascending colon Expected: 10/24/2023, Expires: 07/31/2024 COMPREHENSIVE METABOLIC PANEL Lab Stat Malignant neoplasm of ascending colon Expected: 10/24/2023, Expires: 07/31/2024 documented as of this encounter Visit Diagnoses Diagnosis Malignant neoplasm of ascending colon- Primary documented in this encounter Care Teams Film Laboratory Technician Relationship Specialty Start Date End Date Donal Granados MD PCP - General Family Practice 07/02/22 documented as of this encounter
--- OUTSIDE RECORDS SUMMARY | 2024-04-04 23:32 | XMS_ITS | Encounter Summary ---
Author Organization [facility] [employer] Address [address] [place] [address] Care Team Providers Care Station Installer And Repairer Name Role Phone Donal Granados MD Primary Care Provider [phone] Encounter Details Date Type Department Care Team (Late Contact Info) Description 06/23/2023 Orders Only [facility] Oncology and Hematology [facility] [address] [place] [address] [place] [address] [place] [address] [employer] [address] [place] [phone] Malignant neoplasm of ascending colon Social [...] (Late Contact Info) Description 04/26/2024 2:30 PM CERT OCCUPATIONAL THERAPY ASST Office Visit [facility] Oncology and Hematology [facility] [address] [place] [address] Nicho Napoles MD 222[facility] [employer] [address] [place] [address] documented as of this encounter Visit Diagnoses Diagnosis Malignant neoplasm of ascending colon documented in this encounter Care Teams Station Installer And Repairer Relationship Specialty Start Date End Date oDnal Granados MD PCP - General Family Practice 07/02/22 documented as of this encounter
--- OUTSIDE RECORDS SUMMARY | 2024-04-04 23:32 | XMS_ITS | Encounter Summary ---
Author Organization [facility] Address [address] [place] [address] Care Team Providers Care Carbide Grinder Name Role Phone Donal Granados MD Primary Care Provider [phone] Encounter Details Date Type Department Care Team (Late st Contact Info) Description 06/17/2023 External Device Data STL ABSTRACTION Provider, Abstract [...] st Contact Info) Description 04/26/2024 2:30 PM TECHNICAL APPLICATIONS SPECIALIST Office Visit [facility] Oncology and Hematology - [place] [address] [place] [address] [facility] [address] [place] [address] Nicho Napoles MD 2[address] [facility] [address] [place] [address] documented as of this encounter Visit Diagnoses Not on filedocumented in this encounter Care Teams Carbide Grinder Relationship Specialty Start Date End Date Donal Granados MD PCP - General Family Practice 07/02/22 documented as of this encounter
--- OUTSIDE RECORDS SUMMARY | 2024-04-04 23:32 | XMS_ITS | Encounter Summary ---
Author Organization [facility] [employer] Address [address] [place] [address] Care Team Providers Care Information Consultant Name Role Phone Donal Granados MD Primary Care Provider [phone] Encounter Details Date Type Department Care Team (Late Contact Info) Description 06/30/2023 Orders Only [facility] Oncology and Hematology [facility] [address] [place] [address] Nicho Napoles MD [address] [place] [address] [employer] [address] [place] [address] Malignant neoplasm of ascending colon Social [...] (Late Contact Info) Description 04/26/2024 2:30 PM GENERAL ADJUSTER Office Visit [facility] Oncology and Hematology [facility] [address] [place] [address] [place] [address] [place] [address] [employer] [address] [place] [address] documented as of this encounter Procedures Procedure Name Priority Date/Time Associated Diagnosis Comments CT CHEST ABDOMEN PELVIS W CONT Routine 06/30/2023 3:42 PM CDT documented in this encounter Results * CT CHEST ABDOMEN PELVIS W CONT (06/30/2023 3:42 PM CDT) Anatomical Region Laterality Modality Chest Other Nicho Napoles MD CT ORDERABLES documented in this encounter Visit Diagnoses Diagnosis Malignant neoplasm of ascending colon documented in this encounter Care Teams Information Consultant Relationship Specialty Start Date End Date Donal Granados MD PCP - General Family Practice 07/02/22 documented as of this encounter
--- OUTSIDE RECORDS SUMMARY | 2024-04-04 23:32 | XMS_ITS | Encounter Summary ---
Author Organization [facility] [employer] Address [address] [place] [address] Care Team Providers Care Chocolate Temperer Name Role Phone Donal Granados MD Primary Care Provider [phone] Encounter Details Date Type Department Care Team (Late Contact Info) Description 05/26/2023 Orders Only [facility] Oncology and Hematology [facility] [address] [place] [address] [place] [address] [place] [address] [employer] [address] [place] [address] Malignant neoplasm of ascending colon Social [...] (Late Contact Info) Description 04/26/2024 2:30 PM BINGO MANAGER Office Visit [facility] Oncology and Hematology [facility] [address] [place] [address] Nicho Napoles MD 222[facility] [employer] [address] [place] [address] documented as of this encounter Visit Diagnoses Diagnosis Malignant neoplasm of ascending colon documented in this encounter Care Teams Chocolate Temperer Relationship Specialty Start Date End Date Donal Granados MD PCP - General Family Practice 07/02/22 documented as of this encounter
--- OUTSIDE RECORDS SUMMARY | 2024-04-04 23:32 | XMS_ITS | Encounter Summary ---
Author Organization [facility] Address [address] [place] [address] Care Team Providers Care Power Brake Rebuilder Name Role Phone Donal Granados MD Primary Care Provider [phone] Encounter Details Date Type Department Care Team (Late st Contact Info) Description 07/15/2023 External Device Data STL ABSTRACTION Provider, Abstract [...] st Contact Info) Description 04/26/2024 2:30 PM ELEVATOR SERVICE MECHANIC Office Visit [facility] Oncology and Hematology - [place] [address] [place] [address] [facility] 200 [place] [address] Nicho Napoles MD [address] [facility] [address] [place] [address] documented as of this encounter Visit Diagnoses Not on filedocumented in this encounter Care Teams Power Brake Rebuilder Relationship Specialty Start Date End Date Donal Granados MD PCP - General Family Practice 07/02/22 documented as of this encounter
--- OUTSIDE RECORDS SUMMARY | 2024-04-04 23:32 | XMS_ITS | Encounter Summary ---
Author Organization [facility]EL[facility] Address [address] [place] [address] Care Team Providers Care Secondary Connector Armature Name Role Phone Donal Granados MD Primary Care Provider [phone] Reason for Visit * Reason Onset Date Comments port flush 05/29/2023 Encounter Details Date Type Department Care Team (Late st Contact Info) Description 05/29/2023 Telephone [facility] Oncology and Hematology - [place] [address] [facility] 200 [place] [address] Nicho Napoles MD 2[address] [facility] [address] [place] [address] port flush Social History Tobacco Use Types Packs/Day Years [...] encounter Miscellaneous Notes * Telephone Encounter - Marivel Erickson - 05/29/2023 10:26 AM CST ----- Message from Nicho Napoles MD sent at 05/27/2023 5:10 PM SUPERVISOR INSTANT POTATO PROCESSING ----- Regarding: RE: Port Please remind me tomorrow ----- Message ----- From: Marivel Erickson Sent: 05/27/2023 8:29 AM SUPERVISOR INSTANT POTATO PROCESSING To: Nicho Napoles MD Subject: Port Raymond from infusion called today and stated that patient has not had her port flushed since October of 2022. She states that they have tried to call patient many times and that she will not return their phone call. Just wanted to make you aware of this, she has an appointment tomorrow with you. RVISOR INSTANT POTATO PROCESSING documented in this encounter Plan of Treatment Upcoming Encounters Date Type Department Care Team (Late st Contact Info) Description 04/26/2024 2:30 PM SUPERVISOR INSTANT POTATO PROCESSING Office Visit [facility] Oncology and Hematology - [place] [address] [facility] [address] [place] [address] Nicho Napoles MD [address] [facility] [address] [place] [address] documented as of this encounter Visit Diagnoses Not on filedocumented in this encounter Care Teams Secondary Connector Armature Relationship Specialty Start Date End Date Donal Granados MD PCP - General Family Practice 07/02/22 documented as of this encounter
--- OUTSIDE RECORDS SUMMARY | 2024-04-04 23:32 | XMS_ITS | Encounter Summary ---
Author Organization [facility] [employer] Address [address] [place] [address] Care Team Providers Care Improvement Manager Name Role Phone Donal Granados MD Primary Care Provider [phone] Encounter Details Date Type Department Care Team (Late Contact Info) Description 05/19/2023 Orders Only [facility] Oncology and Hematology [facility] [address] [place] [address] [place] [address] [place] [address] [email or web address] [address] [place] [phone] Malignant neoplasm of ascending colon Social [...] (Late Contact Info) Description 04/26/2024 2:30 PM LOADER UNLOADER Office Visit [facility] Oncology and Hematology [facility] [address] [place] [address] Nicho Napoles MD 222[facility] [email or web address] [address] [place] [address] documented as of this encounter Visit Diagnoses Diagnosis Malignant neoplasm of ascending colon documented in this encounter Care Teams Improvement Manager Relationship Specialty Start Date End Date Donal Granados MD PCP - General Family Practice 07/02/22 documented as of this encounter
--- OUTSIDE RECORDS SUMMARY | 2024-04-04 23:32 | XMS_ITS | Encounter Summary ---
Author Organization [facility] [employer] Address [address] [place] [address] Care Team Providers Care Research Technician Name Role Phone Donal Granados MD Primary Care Provider [phone] Encounter Details Date Type Department Care Team (Late Contact Info) Description 04/28/2023 Orders Only [facility] Oncology and Hematology [facility] [address] [place] [address] [place] [address] [place] [address] [employer] [address] [place] [address] Malignant neoplasm of ascending colon Social [...] (Late Contact Info) Description 04/26/2024 2:30 PM FRESH WORK WRAPPER LAYER Office Visit [facility] Oncology and Hematology [facility] [address] [place] [address] Nicho Napoles MD 222[facility] [employer] [address] [place] [address] documented as of this encounter Visit Diagnoses Diagnosis Malignant neoplasm of ascending colon documented in this encounter Care Teams Research Technician Relationship Specialty Start Date End Date Donal Granados MD PCP - General Family Practice 07/02/22 documented as of this encounter
--- OUTSIDE RECORDS SUMMARY | 2024-04-04 23:32 | XMS_ITS | Encounter Summary ---
Author Organization [facility] Address [address] [place] [address] Care Team Providers Care Resort Manager Name Role Phone Donal Granados MD Primary Care Provider [phone] Encounter Details Date Type Department Care Team (Late st Contact Info) Description 06/02/2023 External Device Data STL ABSTRACTION Provider, Abstract [...] st Contact Info) Description 04/26/2024 2:30 PM BOARDING MOTHER Office Visit [facility] Oncology and Hematology - [place] [address] [place] [address] [facility] 200 [place] [address] Nicho Napoles MD [address] [facility] [address] [place] [address] documented as of this encounter Visit Diagnoses Not on filedocumented in this encounter Care Teams Resort Manager Relationship Specialty Start Date End Date Donal Granados MD PCP - General Family Practice 07/02/22 documented as of this encounter
--- OUTSIDE RECORDS SUMMARY | 2024-04-04 23:32 | XMS_ITS | Encounter Summary ---
Author Organization [facility] Address [address] [place] [address] Care Team Providers Care Records Management Manager Name Role Phone Donal Granados MD Primary Care Provider [phone] Encounter Details Date Type Department Care Team (Late st Contact Info) Description 05/10/2023 External Device Data STL ABSTRACTION Provider, Abstract [...] st Contact Info) Description 04/26/2024 2:30 PM PHYSICAL THERAPY ASSISTANT INSTRUCTOR Office Visit [facility] Oncology and Hematology - [place] [address] [place] [address] [facility] 200 [place] [address] Nicho Napoles MD [address] [facility] [address] [place] [address] documented as of this encounter Visit Diagnoses Not on filedocumented in this encounter Care Teams Records Management Manager Relationship Specialty Start Date End Date Donal Granados MD PCP - General Family Practice 07/02/22 documented as of this encounter
--- OUTSIDE RECORDS SUMMARY | 2024-04-04 23:32 | XMS_ITS | Encounter Summary ---
Author Organization [facility] [employer] Address [address] [place] [address] Care Team Providers Care Wheat Cleaner Name Role Phone Donal Granados MD Primary Care Provider [phone] Encounter Details Date Type Department Care Team (Late Contact Info) Description 06/02/2023 Orders Only [facility] Oncology and Hematology [facility] [address] [place] [address] [place] [address] [place] [address] [employer] [address] [place] [address] Malignant neoplasm of ascending colon Social [...] (Late Contact Info) Description 04/26/2024 2:30 PM INGOT SUPERVISOR Office Visit [facility] Oncology and Hematology [facility] [address] [place] [address] Nicho Napoles MD 222[facility] [employer] [address] [place] [address] documented as of this encounter Visit Diagnoses Diagnosis Malignant neoplasm of ascending colon documented in this encounter Care Teams Wheat Cleaner Relationship Specialty Start Date End Date Donal Granados MD PCP - General Family Practice 07/02/22 documented as of this encounter
--- OUTSIDE RECORDS SUMMARY | 2024-04-04 23:32 | XMS_ITS | Encounter Summary ---
Author Organization [facility] [employer] Address [address] [place] [address] Care Team Providers Care Set Up Mechanic Automatic Line Name Role Phone Donal Granados MD Primary Care Provider Encounter Details Date Type Department Care Team (Late Contact Info) Description 05/12/2023 Orders Only [facility] Oncology and Hematology [facility] [address] [place] [address] [place] [address] [place] [address] [employer] [address] [place] [address] Malignant neoplasm of ascending colon Social [...] (Late Contact Info) Description 04/26/2024 2:30 PM OCC THERAPIST Office Visit [facility] Oncology and Hematology [facility] [address] [place] [address] Nicho Napoles MD 222[facility] CenterCommunic[facility] [employer] [address] [place] [address] documented as of this encounter Visit Diagnoses Diagnosis Malignant neoplasm of ascending colon documented in this encounter Care Teams Set Up Mechanic Automatic Line Relationship Specialty Start Date End Date Donal Granados MD PCP - General Family Practice 07/02/22 documented as of this encounter
--- OUTSIDE RECORDS SUMMARY | 2024-04-04 23:32 | XMS_ITS | Encounter Summary ---
Author Organization [facility] [employer] Address [address] [place] [address] Care Team Providers Care Park Ranger Name Role Phone Donal Granados MD Primary Care Provider [phone] Encounter Details Date Type Department Care Team (Late Contact Info) Description 05/05/[address] [facility] Oncology and Hematology [facility] [address] [place] [address] [place] [address] [place] [address] [employer] [address] [place] [address] Malignant neoplasm of ascending colon Social [...] (Late Contact Info) Description 04/26/2024 2:30 PM FENCE REPAIRMAN Office Visit [facility] Oncology and Hematology [facility] [address] [place] [address] Nicho Napoles MD 222[facility] [employer] [address] [place] [address] documented as of this encounter Visit Diagnoses Diagnosis Malignant neoplasm of ascending colon documented in this encounter Care Teams Park Ranger Relationship Specialty Start Date End Date Donal Granados MD PCP - General Family Practice 07/02/22 documented as of this encounter
--- OUTSIDE RECORDS SUMMARY | 2024-04-04 23:32 | XMS_ITS | Encounter Summary ---
Author Organization [facility] CONCHITA Tavera [facility] Address [address] [place] [address] Care Team Providers Care Senior Clinical Data Manager Name Role Phone Donal Granados MD Primary Care Provider [phone] Reason for Referral * CT Scan (Routine) - Closed Specialty Diagnoses / Procedures Referred By Angie vidal Referred To Contact Diagnoses Malignant neoplasm of ascending colon Procedures CT CHEST ABDOMEN PELVIS W Nicho Shaffer MD [address] [place] [address] [place] [address] Referral ID Status Reason Start Date Expiration Date V isits Requested Visits Authorized [id number] Closed STL CTS 05/29/2023 06/28/2024 1 1 T STUFFER Reason for Visit * Reason Comments Cancer Encounter Details Date Type Department Care Team (Late st Contact Info) Description 05/29/2023 10:00 AM QUILT STUFFER Office Visit [facility] Oncology and Hematology [place] [address] [address] Nicho Napoles MD [address] [place] [address] Malignant neoplasm of ascending colon [...] Sign Reading Time Taken Comments Blood Pressure 126/81 05/29/2023 10:20 AM QUILT STUFFER Pulse 91 05/29/2023 10:20 AM QUILT STUFFER Temperature 36.6 ??C (97.8 ??F) 05/29/2023 10:[address] Respiratory Rate 14 05/29/2023 10:20 AM QUILT STUFFER Oxygen Saturation 97% 05/29/2023 10:20 AM QUILT STUFFER Inhaled Oxygen Concentration - - Weight 56.7 kg (125 lb) 05/29/2023 10:20 AM QUILT STUFFER Height - - Body Mass Index 22.57 07/02/2022 3:10 PM CDT documented in this encounter Progress Notes * Nicho Napoles MD - 05/29/2023 10:50 AM CST HEMATOLOGY / ONCOLOGY PROGRESS NOTE Patient Identification: Name: Loulou Lanier Age: 68 y.o. 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 Completed cycle 6 of chemotherapy on November 06, 2022. SUBJECTIVE Patient came to the office for follow-up visit. She has gained 19 pound weight. She still have persistent neuropathy. No bleeding and bruising. No other new complaints. Review of system Constitutional: Patient did not mention fevers, sweats, 19 pound weight gain on without much tiredness and fatigue HEENT: Patient did not mention sinus congestion, [...] mention blurry or disturbed vision, complain of persistent neuropathy Skin: No lumps, denies any rash [...] May 27 showed creatinine 0.6 CEA 3.1 Assessment: Plan: Patient Active Problem List Diagnosis Date Noted Colon cancer 07/19/2022 Adenocarcinoma moderately differentiated of the cecum T3N1 resected 05/27/2022. Patient is status post right-sided colectomy. She started adjuvant chemotherapy with XELOX regimen on July 13, 2022. Completed cycle 6 of chemotherapy on November 06, 2022. Clinically is asymptomatic. Labs showed slightly elevated CEA of 3.1. She is going to have colonoscopy on June 15. I will order CT chest abdomen pelvis in 6 weeks and follow-up in 8 weeks. We can send her for port removal after colonoscopy and CT scan. Chemotherapy-induced neuropathy. She stopped taking gabapentin due to depression and drowsiness. Hypokalemia. Resolved. Follow-up in [address] scan. TOBACCO COUNSELING She is not a tobacco/nicotine user. 05/29/2023 Nicho Napoles MD T STUFFER documented in this encounter Plan of Treatment Upcoming Encounters Date Type Department Care Team (Late st Contact Info) Description 04/26/2024 2:30 PM QUILT STUFFER Office Visit [facility] Oncology and Hematology - [place] [address] [facility] [address] [place] [address] Nicho Napoles MD [address] [facility] [address] [place] [address] Scheduled Orders Name Type Priority Associated Diagnoses Orde r Schedule CBC WITH DIFFERENTIAL Lab Stat Malignant neoplasm of ascending colon Expected: 07/24/2023, Expires: 05/29/2024 CEA Lab Routine Malignant neoplasm of ascending colon Expected: 07/24/2023, Expires: 05/29/2024 COMPREHENSIVE METABOLIC PANEL Lab Stat Malignant neoplasm of ascending colon Expected: 07/24/2023, Expires: 05/29/2024 CT CHEST ABDOMEN PELVIS W CONT Imaging Routine Malignant neoplasm of ascending colon Expected: 07/10/2023, Expires: 05/29/2024 documented as of this encounter Visit Diagnoses Diagnosis Malignant neoplasm of ascending colon- Primary documented in this encounter Care Teams Senior Clinical Data Manager Relationship Specialty Start Date End Date Donal Granados MD PCP - General Family Practice 07/02/22 documented as of this encounter
--- OUTSIDE RECORDS SUMMARY | 2024-04-04 23:32 | XMS_ITS | Encounter Summary ---
Author Organization [facility] [employer] Address [address] [place] [address] Care Team Providers Care Industrial Boilermaker Name Role Phone Donal Granados MD Primary Care Provider [phone] Encounter Details Date Type Department Care Team (Late Contact Info) Description 04/21/2023 Orders Only [facility] Oncology and Hematology [facility] [address] [place] [address] [place] [address] [place] [address] [employer] [address] [place] [phone] Malignant neoplasm of ascending colon Social [...] (Late Contact Info) Description 04/26/2024 2:30 PM SALES MANAGER [place] Office Visit [facility] Oncology and Hematology [facility] [address] [place] [address] Nicho Napoles MD 222[facility] CenterLineaQuatt[facility] [employer] [address] [place] [phone] documented as of this encounter Visit Diagnoses Diagnosis Malignant neoplasm of ascending colon documented in this encounter Care Teams Industrial Boilermaker Relationship Specialty Start Date End Date Donal Granados MD PCP - General Family Practice 07/02/22 documented as of this encounter
--- OUTSIDE RECORDS SUMMARY | 2024-04-04 23:32 | XMS_ITS | Encounter Summary ---
Author Organization [facility] Address [address] [place] [address] Care Team Providers Care Aircraft Mechanic Armament Name Role Phone Donal Granados MD Primary Care Provider [phone] Encounter Details Date Type Department Care Team (Late Contact Info) Description 04/14/2023 Orders Only [facility] Oncology and Hematology [facility] [address] [place] [address] [place] [address] [place] [address] [employer] [address] [place] [phone] Malignant neoplasm of ascending colon Social [...] (Late Contact Info) Description 04/26/2024 2:30 PM DYE RANGE FEEDER Office Visit [facility] Oncology and Hematology [facility] [address] [place] [address] Nicho Napoles MD [address] [facility] [employer] [address] [place] [phone] documented as of this encounter Visit Diagnoses Diagnosis Malignant neoplasm of ascending colon documented in this encounter Care Teams Aircraft Mechanic Armament Relationship Specialty Start Date End Date Donal Granados MD PCP - General Family Practice 07/02/22 documented as of this encounter
--- OUTSIDE RECORDS SUMMARY | 2024-04-04 23:32 | XMS_ITS | Encounter Summary ---
Author Organization [facility] [employer] Address [address] [place] [address] Care Team Providers Care Reel Slitter Name Role Phone Donal Granados MD Primary Care Provider [phone] Encounter Details Date Type Department Care Team (Late Contact Info) Description 07/14/2023 Orders Only [facility] Oncology and Hematology [facility] [address] [place] [address] [place] [address] [place] [address] [employer] [address] [place] [phone] Malignant neoplasm of ascending colon Social [...] (Late Contact Info) Description 04/26/2024 2:30 PM AUTO BODY ESTIMATOR Office Visit [facility] Oncology and Hematology [facility] [address] [place] [address] Nicho Napoles MD 222[facility] [employer] [address] [place] [phone] documented as of this encounter Visit Diagnoses Diagnosis Malignant neoplasm of ascending colon documented in this encounter Care Teams Reel Slitter Relationship Specialty Start Date End Date Donal Granados MD PCP - General Family Practice 07/02/22 documented as of this encounter
--- OUTSIDE RECORDS SUMMARY | 2024-04-04 23:32 | XMS_ITS | Encounter Summary ---
Author Organization [facility] Address [address] [place] [address] Care Team Providers Care Dispatcher Street Department Name Role Phone Donal Granados MD Primary Care Provider [phone] Encounter Details Date Type Department Care Team (Late st Contact Info) Description 05/14/2023 External Device Data STL ABSTRACTION Provider, Abstract [...] st Contact Info) Description 04/26/2024 2:30 PM GLUTEN SETTLING TENDER Office Visit [facility] Oncology and Hematology - [place] [address] [place] [address] [facility] [address] [place] [address] Nicho Napoles MD [address] [facility] [address] [place] [address] documented as of this encounter Visit Diagnoses Not on filedocumented in this encounter Care Teams Dispatcher Street Department Relationship Specialty Start Date End Date Donal Granados MD PCP - General Family Practice 07/02/22 documented as of this encounter
--- OUTSIDE RECORDS SUMMARY | 2024-04-04 23:32 | XMS_ITS | Encounter Summary ---
Author Organization [facility] [employer] Address [address] [place] [address] Care Team Providers Care Goodwill Representative Name Role Phone Donal Granados MD Primary Care Provider Encounter Details Date Type Department Care Team (Late Contact Info) Description 06/09/2023 Orders Only [facility] Oncology and Hematology [facility] [address] [place] [address] [place] [address] [place] [address] [employer] [address] [place] [phone] Malignant neoplasm of ascending colon Social [...] (Late Contact Info) Description 04/26/2024 2:30 PM FURNITURE SERVICER Office Visit [facility] Oncology and Hematology [facility] [address] [place] [address] Nicho Napoles MD 222[facility] CenterDOOMOROwinslow [facility] [employer] [address] [place] [phone] documented as of this encounter Visit Diagnoses Diagnosis Malignant neoplasm of ascending colon documented in this encounter Care Teams Goodwill Representative Relationship Specialty Start Date End Date Donal Granados MD PCP - General Family Practice 07/02/22 documented as of this encounter
--- OUTSIDE RECORDS SUMMARY | 2024-04-04 23:32 | XMS_ITS | Encounter Summary ---
Author Organization [facility] [employer] Address [address] [place] [address] Care Team Providers Care Land Commissioner Name Role Phone Donal Granados MD Primary Care Provider [phone] Encounter Details Date Type Department Care Team (Late Contact Info) Description 06/17/2023 Abstract [facility] Oncology and Hematology [place] [address] [place] [address] Nicho Napoles MD [address] [place] [address] [employer] [address] [place] [phone] Social History Tobacco Use Types Packs/Day [...] (Late Contact Info) Description 04/26/2024 2:30 PM COST CONTROL SUPERVISOR Office Visit [facility] Oncology and Hematology [place] [address] [place] [address] [place] [address] [place] [address] [employer] [address] [place] [phone] documented as of this encounter Visit Diagnoses Not on filedocumented in this encounter Care Teams Land Commissioner Relationship Specialty Start Date End Date Donal Granados MD PCP - General Family Practice 07/02/22 documented as of this encounter
--- OUTSIDE RECORDS SUMMARY | 2024-04-04 23:32 | XMS_ITS | Encounter Summary ---
Author Organization [facility] [employer] Address [address] [place] [address] Care Team Providers Care Director Child Development Center Name Role Phone Donal Granados MD Primary Care Provider [phone] Encounter Details Date Type Department Care Team (Late Contact Info) Description 07/28/2023 Orders Only [facility] Oncology and Hematology [facility] [address] [place] [address] [place] [address] [place] [address] [employer] [address] [place] [phone] Malignant neoplasm of ascending colon Social [...] (Late Contact Info) Description 04/26/2024 2:30 PM SUPPLIER DEVELOPMENT MANAGER Office Visit [facility] Oncology and Hematology [facility] [address] [place] [address] Nicho Napoles MD 222[facility] [employer] [address] [place] [phone] documented as of this encounter Visit Diagnoses Diagnosis Malignant neoplasm of ascending colon documented in this encounter Care Teams Director Child Development Center Relationship Specialty Start Date End Date Donal Granados MD PCP - General Family Practice 07/02/22 documented as of this encounter
--- OUTSIDE RECORDS SUMMARY | 2024-04-04 23:32 | XMS_ITS | Encounter Summary ---
Author Organization [facility] Address [address] [place] [address] Care Team Providers Care Deep Fat Fry Cook Name Role Phone Donal Granados MD Primary Care Provider [phone] Encounter Details Date Type Department Care Team (Late Contact Info) Description 08/01/2023 Orders Only [facility] Oncology and Hematology [facility] [address] [place] [address] [place] [address] [place] [address] [employer] [address] [place] [phone] Social History Tobacco Use Types Packs/Day [...] (Late Contact Info) Description 04/26/2024 2:30 PM COMMERCIAL PRODUCER Office Visit [facility] Oncology and Hematology - [place] [address] [place] [address] Nicho Napoles MD 2[address] [facility] CenterBrowsaritys[facility] [employer] [address] [place] [phone] documented as of this encounter Procedures Procedure Name Priority Date/Time Associated Diagnosis Comments CBC WITH DIFFERENTIAL Routine 07/30/2023 11:29 AM CDT documented in this encounter Results * CBC WITH DIFFERENTIAL (07/30/2023 11:29 AM CDT) Blood Nicho Napoles MD HEMATOLOGY ORDERABLE S documented in this encounter Visit Diagnoses Not on filedocumented in this encounter Care Teams Deep Fat Fry Cook Relationship Specialty Start Date End Date Donal Granados MD PCP - General Family Practice 07/02/22 documented as of this encounter
--- OUTSIDE RECORDS SUMMARY | 2024-04-04 23:32 | XMS_ITS | Encounter Summary ---
Author Organization [facility] Address [address] [place] [address] Care Team Providers Care Enterostomal Therapy Nurse Name Role Phone Donal Granados MD Primary Care Provider [phone] Encounter Details Date Type Department Care Team (Late st Contact Info) Description 05/09/2023 External Device Data STL ABSTRACTION Provider, Abstract [...] st Contact Info) Description 04/26/2024 2:30 PM METAL WORKER Office Visit [facility] Oncology and Hematology - [place] [address] [place] [address] [facility] [address] [place] [address] Nicho Napoles MD [address] [facility] [address] [place] [address] documented as of this encounter Visit Diagnoses Not on filedocumented in this encounter Care Teams Enterostomal Therapy Nurse Relationship Specialty Start Date End Date Donal Granados MD PCP - General Family Practice 07/02/22 documented as of this encounter
--- OUTSIDE RECORDS SUMMARY | 2024-04-04 23:33 | XMS_ITS | Encounter Summary ---
Author Organization [facility] [employer] Address [address] [place] [address] Care Team Providers Care Lapper Name Role Phone Donal Granados MD Primary Care Provider [phone] Encounter Details Date Type Department Care Team (Late Contact Info) Description 02/24/[address] [facility] Oncology and Hematology [facility] [address] [place] [address] [place] [address] [place] [address] [employer] [address] [place] [phone] Malignant neoplasm of ascending colon Social [...] (Late Contact Info) Description 04/26/2024 2:30 PM DIRECTOR OF EMAIL MARKETING Office Visit [facility] Oncology and Hematology [facility] [address] [place] [address] Nicho Napoles MD 222[facility]Cosyforyout[facility] [employer] [address] [place] [phone] documented as of this encounter Visit Diagnoses Diagnosis Malignant neoplasm of ascending colon documented in this encounter Care Teams Lapper Relationship Specialty Start Date End Date Donal Granados MD PCP - General Family Practice 07/02/22 documented as of this encounter
--- OUTSIDE RECORDS SUMMARY | 2024-04-04 23:33 | XMS_ITS | Encounter Summary ---
Author Organization [facility] [employer] Address [address] [place] [address] Care Team Providers Care Manager Of Sustainability Name Role Phone Donal Granados MD Primary Care Provider [phone] Encounter Details Date Type Department Care Team (Late Contact Info) Description 03/17/[address] [facility] Oncology and Hematology [facility] [address] [place] [address] [place] [address] [place] [address] [employer] [address] [place] [phone] Malignant neoplasm of ascending colon Social [...] (Late Contact Info) Description 04/26/2024 2:30 PM FAT PRESSROOM WORKER Office Visit [facility] Oncology and Hematology [facility] [address] [place] [address] Nicho Napoles MD 222[facility] HospitalJail Education Solutionsmn [employer] [address] [place] [phone] documented as of this encounter Visit Diagnoses Diagnosis Malignant neoplasm of ascending colon documented in this encounter Care Teams Manager Of Sustainability Relationship Specialty Start Date End Date Donal Granados MD PCP - General Family Practice 07/02/22 documented as of this encounter
--- OUTSIDE RECORDS SUMMARY | 2024-04-04 23:33 | XMS_ITS | Encounter Summary ---
Author Organization [facility] [employer] Address [address] [place] [address] Care Team Providers Care Nissan Sales Consultant Name Role Phone Donal Granados MD Primary Care Provider [phone] Encounter Details Date Type Department Care Team (Late Contact Info) Description 01/27/2023 Orders Only [facility] Oncology and Hematology [facility] [address] [place] [address] [place] [address] [place] [address] [employer] [address] [place] [phone] Malignant neoplasm of ascending colon Social [...] (Late Contact Info) Description 04/26/2024 2:30 PM CRAP SHOOTER Office Visit [facility] Oncology and Hematology [facility] [address] [place] [address] Nicho Napoles MD 222[facility] Medical CenterThromboVisionny [employer] [address] [place] [phone] documented as of this encounter Visit Diagnoses Diagnosis Malignant neoplasm of ascending colon documented in this encounter Care Teams Nissan Sales Consultant Relationship Specialty Start Date End Date Donal Granados MD PCP - General Family Practice 07/02/22 documented as of this encounter
--- OUTSIDE RECORDS SUMMARY | 2024-04-04 23:33 | XMS_ITS | Encounter Summary ---
Author Organization [facility] [employer] Address [address] [place] [address] Care Team Providers Care Business Risk Consultant Name Role Phone Donal Granados MD Primary Care Provider [phone] Encounter Details Date Type Department Care Team (Late Contact Info) Description 03/31/2023 Orders Only [facility] Oncology and Hematology [facility] [address] [place] [address] [place] [address] [place] [address] [employer] [address] [place] [phone] Malignant neoplasm of ascending colon Social [...] (Late Contact Info) Description 04/26/2024 2:30 PM CLIP ON SUNGLASSES INSPECTOR Office Visit [facility] Oncology and Hematology [facility] [address] [place] [address] Nicho Napoles MD 222[facility] CenterSpotlessCitytuba [facility] [employer] [address] [place] [phone] documented as of this encounter Visit Diagnoses Diagnosis Malignant neoplasm of ascending colon documented in this encounter Care Teams Business Risk Consultant Relationship Specialty Start Date End Date Donal Granados MD PCP - General Family Practice 07/02/22 documented as of this encounter
--- OUTSIDE RECORDS SUMMARY | 2024-04-04 23:33 | XMS_ITS | Encounter Summary ---
Author Organization [facility] [employer] Address [address] [place] [address] Care Team Providers Care Ar Manager Name Role Phone Donal Granados MD Primary Care Provider Encounter Details Date Type Department Care Team (Late Contact Info) Description 03/03/2023 Orders Only [facility] Oncology and Hematology [facility] [address] [place] [address] [place] [address] [place] [address] [employer] [address] [place] [phone] Malignant neoplasm of ascending colon Social [...] (Late Contact Info) Description 04/26/2024 2:30 PM FLOOR INSPECTOR Office Visit [facility] Oncology and Hematology [facility] [address] [place] [address] Nicho Napoles MD 222[facility] [employer] [address] [place] [address] documented as of this encounter Visit Diagnoses Diagnosis Malignant neoplasm of ascending colon documented in this encounter Care Teams Ar Manager Relationship Specialty Start Date End Date Donal Granados MD PCP - General Family Practice 07/02/22 documented as of this encounter
--- OUTSIDE RECORDS SUMMARY | 2024-04-04 23:33 | XMS_ITS | Encounter Summary ---
Author Organization [facility] [employer] Address [address] [place] [address] Care Team Providers Care Core Cutter Name Role Phone Donal Granados MD Primary Care Provider [phone] Encounter Details Date Type Department Care Team (Late Contact Info) Description 02/18/2023 Orders Only [facility] Oncology and Hematology [place] [address] [place] [address] [place] [address] [place] [address] [facility] [address] [place] [phone] Social History Tobacco Use Types Packs/Day [...] (Late Contact Info) Description 04/26/2024 2:30 PM ORTHODONTIC LABORATORY TECHNICIAN Office Visit [facility] Oncology and Hematology - [place] [address] [place] [address] Nicho Napoles MD 2224 [facility] [address] [place] [address] documented as of this encounter Procedures Procedure Name Priority Date/Time Associated Diagnosis Comments CT ABDOMEN PELVIS W CONTRAST Routine 02/17/2023 8:58 AM ORTHODONTIC LABORATORY TECHNICIAN documented in this encounter Results * CT ABDOMEN PELVIS W CONTRAST (02/17/2023 8:58 AM ORTHODONTIC LABORATORY TECHNICIAN) Anatomical Region Laterality Modality Abdomen Other Nicho Napoles MD CT ORDERABLES documented in this encounter Visit Diagnoses Not on filedocumented in this encounter Care Teams Core Cutter Relationship Specialty Start Date End Date Donal Granados MD PCP - General Family Practice 07/02/22 documented as of this encounter
--- OUTSIDE RECORDS SUMMARY | 2024-04-04 23:33 | XMS_ITS | Encounter Summary ---
Author Organization [facility] Address [address] [place] [address] Care Team Providers Care Air Quality Engineer Name Role Phone Donal Granados MD Primary Care Provider [phone] Encounter Details Date Type Department Care Team (Late st Contact Info) Description 03/26/2023 External Device Data STL ABSTRACTION Provider, Abstract [...] st Contact Info) Description 04/26/2024 2:30 PM TELECOMMUNICATIONS SWITCH TECHNICIAN Office Visit [facility] Oncology and Hematology - [place] [address] [place] [address] [facility] [address] [place] [address] Nicho Napoles MD [address] [facility] [address] [place] [address] documented as of this encounter Visit Diagnoses Not on filedocumented in this encounter Care Teams Air Quality Engineer Relationship Specialty Start Date End Date Donal Granados MD PCP - General Family Practice 07/02/22 documented as of this encounter
--- OUTSIDE RECORDS SUMMARY | 2024-04-04 23:33 | XMS_ITS | Encounter Summary ---
Author Organization [facility] [employer] Address [address] [place] [address] Care Team Providers Care Pension Adviser Name Role Phone Donal Granados MD Primary Care Provider [phone] Encounter Details Date Type Department Care Team (Late Contact Info) Description 12/09/2022 Orders Only [facility] Oncology and Hematology [facility] [address] [place] [address] [place] [address] [place] [address] [employer] [address] [place] [phone] Malignant neoplasm of ascending colon Social [...] (Late Contact Info) Description 04/26/2024 2:30 PM SPECIAL NEEDS BABYSITTER Office Visit [facility] Oncology and Hematology [facility] [address] [place] [address] Nicho Napoles MD 222[facility] Hospital[facility] Solutions[facility] [employer] [address] [place] [phone] documented as of this encounter Visit Diagnoses Diagnosis Malignant neoplasm of ascending colon documented in this encounter Care Teams Pension Adviser Relationship Specialty Start Date End Date Donal Granados MD PCP - General Family Practice 07/02/22 documented as of this encounter
--- OUTSIDE RECORDS SUMMARY | 2024-04-04 23:33 | XMS_ITS | Encounter Summary ---
Author Organization [facility] Address [address] [place] [address] Care Team Providers Care Sales Trainer Name Role Phone Donal Granados MD Primary Care Provider [phone] Reason for Referral * Eval and Treat (Routine) - Closed Specialty Diagnoses / Procedures Referred By Contfarzad t Referred To Contact Gastroenterology Diagnoses Malignant neoplasm of ascending colon Procedures [place] OFFICE/OUTPATIENT ESTABLISHED MOD MDM 30-39 MIN [place] OFFICE/OUTPATIENT NEW MODERATE MDM 45-59 MINUTES Nicho Napoles MD [address] [employer] [address] [place] [address] [place] [address] Referral ID Status Reason Start Date Expiration Date V isits Requested Visits Authorized [id number] Closed [facility] CTS 02/25/2023 02/25/2024 1 1 HANDISE DISTRIBUTOR Reason for Visit * Reason Comments Follow Up Encounter Details Date Type Department Care Team (Late st Contact Info) Description 02/25/2023 2:30 PM MERCHANDISE DISTRIBUTOR Office Visit [facility] Oncology and Hematology - [place] [address] [facility] [address] [place] [address] Nicho Napoles MD [address] [employer] [address] [place] [address] Malignant neoplasm of ascending colon [...] Sign Reading Time Taken Comments Blood Pressure 110/78 02/25/2023 2:25 PM MERCHANDISE DISTRIBUTOR Pulse 92 02/25/2023 2:25 PM MERCHANDISE DISTRIBUTOR Temperature 36.4 ??C (97.6 ??F) 02/25/2023 2:25 PM CS T Respiratory Rate 10 02/25/2023 2:25 PM MERCHANDISE DISTRIBUTOR Oxygen Saturation 100% 02/25/2023 2:25 PM MERCHANDISE DISTRIBUTOR Inhaled Oxygen Concentration - - Weight 48.1 kg (106 lb) 02/25/2023 2:25 PM MERCHANDISE DISTRIBUTOR Height - - Body Mass Index 19.14 07/02/2022 3:10 PM CDT documented in this encounter Progress Notes * Nicho Napoles MD - 02/25/2023 2:49 PM CST HEMATOLOGY / ONCOLOGY PROGRESS NOTE Patient [...] on November 06, 2022. SUBJECTIVE Patient came into the office for follow-up visit after the CT scan was performed. She still complain of neuropathy involving the fingers and toes. Denies any diarrhea and constipation. Occasional hemorrhoidal bleeding. Weight and appetite stable. No other new complaints. 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 Patient is status post right-sided colectomy. She started adjuvant chemotherapy with XELOX regimen on July 13, 2022. Completed cycle 6 of chemotherapy on November 06, 2022. Labs stable. CT scan done on N6 showed no evidence of relapse of disease. I will refer her to Dr. Cruz for surveillance colonoscopy in May 2022. Follow-up with me in 3 months. Chemotherapy-induced neuropathy. She is complaining of some more neuropathy and will prescribe her gabapentin 300 mg twice daily. Hypokalemia. Resolved. Follow-up in 3 months. 02/25/2023 Nicho Napoles MD HANDISE DISTRIBUTOR documented in this encounter Plan of Treatment Upcoming Encounters Date Type Department Care Team (Late st Contact Info) Description 04/26/2024 2:30 PM MERCHANDISE DISTRIBUTOR Office Visit [facility] Oncology and Hematology - [place] [address] [facility] [address] [place] [address] Nicho Napoles MD [address] [facility] [address] [place] [address] Scheduled Referrals Name Type Priority Associated Diagnoses Order Schedule AMB REFERRAL TO GASTROENTEROLOGY Outpatient Referral Routine Malignant neoplasm of ascending colon Ordered: 02/25/2023 documented as of this encounter Visit Diagnoses Diagnosis Malignant neoplasm of ascending colon- Primary documented in this encounter Care Teams Sales Trainer Relationship Specialty Start Date End Date Donal Granados MD PCP - General Family Practice 07/02/22 documented as of this encounter
--- OUTSIDE RECORDS SUMMARY | 2024-04-04 23:33 | XMS_ITS | Encounter Summary ---
Author Organization [facility] [employer] Address [address] [place] [address] Care Team Providers Care Clinical Implementation Specialist Name Role Phone Donal Granados MD Primary Care Provider [phone] Encounter Details Date Type Department Care Team (Late Contact Info) Description 02/17/2023 Orders Only [facility] Oncology and Hematology [facility] [address] [place] [address] [place] [address] [place] [address] [employer] [address] [place] [phone] Malignant neoplasm of ascending colon Social [...] (Late Contact Info) Description 04/26/2024 2:30 PM PICTURE FRAMER Office Visit [facility] Oncology and Hematology [facility] [address] [place] [address] Nicho Napoles MD 222[facility] [employer] [address] [place] [address] documented as of this encounter Visit Diagnoses Diagnosis Malignant neoplasm of ascending colon documented in this encounter Care Teams Clinical Implementation Specialist Relationship Specialty Start Date End Date Donal Granados MD PCP - General Family Practice 07/02/22 documented as of this encounter
--- OUTSIDE RECORDS SUMMARY | 2024-04-04 23:33 | XMS_ITS | Encounter Summary ---
Author Organization [facility] [employer] Address [address] [place] [address] Care Team Providers Care Chiropractor Assistant Name Role Phone Donal Granados MD Primary Care Provider [phone] Encounter Details Date Type Department Care Team (Late Contact Info) Description 12/23/2022 Orders Only [facility] Oncology and Hematology [facility] [address] [place] [address] [place] [address] [place] [address] [employer] [address] [place] [phone] Malignant neoplasm of ascending colon Social [...] (Late Contact Info) Description 04/26/2024 2:30 PM ORACLE BPM CONSULTANT Office Visit [facility] Oncology and Hematology [facility] [address] [place] [address] Nicho Napoles MD 222[facility] Hospital[facility] Security [employer] [address] [place] [phone] documented as of this encounter Visit Diagnoses Diagnosis Malignant neoplasm of ascending colon documented in this encounter Care Teams Chiropractor Assistant Relationship Specialty Start Date End Date Donal Granados MD PCP - General Family Practice 07/02/22 documented as of this encounter
--- OUTSIDE RECORDS SUMMARY | 2024-04-04 23:33 | XMS_ITS | Encounter Summary ---
Author Organization [facility] [employer] [facility] Address [address] [place] [address] Care Team Providers Care Temporary Office Assistant Name Role Phone Donal Granados MD Primary Care Provider [phone] Encounter Details Date Type Department Care Team (Late Contact Info) Description 02/26/2023 Orders Only [facility] Oncology and Hematology [place] [address] [place] [address] [place] [address] [place] [address] [employer] [address] [place] [phone] Social History Tobacco Use Types Packs/Day [...] (Late Contact Info) Description 04/26/2024 2:30 PM HYDROPULPER OPERATOR Office Visit [facility] Oncology and Hematology - [place] [address] [place] [address] Nicho Napoles MD [address] [place] [address] documented as of this encounter Procedures Procedure Name Priority Date/Time Associated Diagnosis Comments CBC WITH DIFFERENTIAL Routine 02/25/2023 8:24 AM HYDROPULPER OPERATOR documented in this encounter Results * CBC WITH DIFFERENTIAL (02/25/2023 8:24 AM HYDROPULPER OPERATOR) Blood Nicho Napoles MD HEMATOLOGY ORDERABLE S documented in this encounter Visit Diagnoses Not on filedocumented in this encounter Care Teams Temporary Office Assistant Relationship Specialty Start Date End Date Donal Granados MD PCP - General Family Practice 07/02/22 documented as of this encounter
--- OUTSIDE RECORDS SUMMARY | 2024-04-04 23:33 | XMS_ITS | Encounter Summary ---
Author Organization [facility] [employer] Address [address] [place] [address] Care Team Providers Care Machine Applicator Cementer Name Role Phone Donal Granados MD Primary Care Provider [phone] Encounter Details Date Type Department Care Team (Late Contact Info) Description 01/13/2023 Orders Only [facility] Oncology and Hematology [facility] [address] [place] [address] [place] [address] [place] [address] [employer] [address] [place] [phone] Malignant neoplasm of ascending colon Social [...] (Late Contact Info) Description 04/26/2024 2:30 PM TASSEL CLIPPER Office Visit [facility] Oncology and Hematology [facility] [address] [place] [address] Nicho Napoles MD 222[facility] HospitalCieslok Mediamd [employer] [address] [place] [phone] documented as of this encounter Visit Diagnoses Diagnosis Malignant neoplasm of ascending colon documented in this encounter Care Teams Machine Applicator Cementer Relationship Specialty Start Date End Date Donal Granados MD PCP - General Family Practice 07/02/22 documented as of this encounter
--- OUTSIDE RECORDS SUMMARY | 2024-04-04 23:33 | XMS_ITS | Encounter Summary ---
Author Organization [facility] [employer] Address [address] [place] [address] Care Team Providers Care Gis Software Engineer Name Role Phone Donal Granados MD Primary Care Provider [phone] Encounter Details Date Type Department Care Team (Late Contact Info) Description 01/20/2023 Orders Only [facility] Oncology and Hematology [facility] [address] [place] [address] [place] [address] [place] [address] [employer] [address] [place] [phone] Malignant neoplasm of ascending colon Social [...] (Late Contact Info) Description 04/26/2024 2:30 PM CORE BLOWER Office Visit [facility] Oncology and Hematology [facility] [address] [place] [address] Nicho Napoles MD 222[facility] Hospital[facility]ive Cit[facility] [employer] [address] [place] [phone] documented as of this encounter Visit Diagnoses Diagnosis Malignant neoplasm of ascending colon documented in this encounter Care Teams Gis Software Engineer Relationship Specialty Start Date End Date Donal Granados MD PCP - General Family Practice 07/02/22 documented as of this encounter
--- OUTSIDE RECORDS SUMMARY | 2024-04-04 23:33 | XMS_ITS | Encounter Summary ---
Author Organization [facility] Address [address] [place] [address] Care Team Providers Care Meter Reader Inspector Name Role Phone Donal Granados MD Primary Care Provider [phone] Encounter Details Date Type Department Care Team (Late Contact Info) Description 02/10/2023 Orders Only [facility] Oncology and Hematology [facility] [address] [place] [address] [place] [address] [place] [address] [address] [place] [phone] Malignant neoplasm of ascending colon Social [...] (Late Contact Info) Description 04/26/2024 2:30 PM COMMUTATOR UNDERCUTTER Office Visit [facility] Oncology and Hematology [facility] [address] [place] [address] Nicho Napoles MD 222[facility] HospitalShipwireid [address] [place] [phone] documented as of this encounter Visit Diagnoses Diagnosis Malignant neoplasm of ascending colon documented in this encounter Care Teams Meter Reader Inspector Relationship Specialty Start Date End Date Donal Granados MD PCP - General Family Practice 07/02/22 documented as of this encounter
--- OUTSIDE RECORDS SUMMARY | 2024-04-04 23:33 | XMS_ITS | Encounter Summary ---
Author Organization [facility] [email or web address] Address [address] [place] [address] Care Team Providers Care Exhibit Display Representative Name Role Phone Donal Granados MD Primary Care Provider [phone] Encounter Details Date Type Department Care Team (Late Contact Info) Description 12/16/2022 Orders Only [facility] Oncology and Hematology [facility] [address] [place] [address] [place] [address] [place] [address] [employer] [address] [place] [phone] Malignant neoplasm of ascending colon Social [...] (Late Contact Info) Description 04/26/2024 2:30 PM INSURANCE PROCESSING CLERK Office Visit [facility] Oncology and Hematology [facility] [address] [place] [address] Nicho Napoles MD 222[facility] HospitaldINKmo [employer] [address] [place] [phone] documented as of this encounter Visit Diagnoses Diagnosis Malignant neoplasm of ascending colon documented in this encounter Care Teams Exhibit Display Representative Relationship Specialty Start Date End Date Donal Granados MD PCP - General Family Practice 07/02/22 documented as of this encounter
--- OUTSIDE RECORDS SUMMARY | 2024-04-04 23:33 | XMS_ITS | Encounter Summary ---
Author Organization [facility] [employer] Address [address] [place] [address] Care Team Providers Care Retail Merchandising Manager Name Role Phone Donal Granados MD Primary Care Provider [phone] Encounter Details Date Type Department Care Team (Late Contact Info) Description 04/07/2023 Orders Only [facility] Oncology and Hematology [facility] [address] [place] [address] [place] [address] [place] [address] [employer] [address] [place] [phone] Malignant neoplasm of ascending colon Social [...] (Late Contact Info) Description 04/26/2024 2:30 PM WAITER/WAITRESS TAVERN Office Visit [facility] Oncology and Hematology [facility] [address] [place] [address] Nicho Napoles MD 222[facility] HospitalC[facility] [employer] [address] [place] [address] documented as of this encounter Visit Diagnoses Diagnosis Malignant neoplasm of ascending colon documented in this encounter Care Teams Retail Merchandising Manager Relationship Specialty Start Date End Date Donal Granados MD PCP - General Family Practice 07/02/22 documented as of this encounter
--- OUTSIDE RECORDS SUMMARY | 2024-04-04 23:33 | XMS_ITS | Encounter Summary ---
Author Organization [facility] CONCHITA Tavera [facility] Address [address] [place] [address] Care Team Providers Care Inseamer Name Role Phone Donal Granados MD Primary Care Provider [phone] Reason for Visit * Reason Comments Follow Up Encounter Details Date Type Department Care Team (Late st Contact Info) Description 12/02/2022 2:15 PM CDT Office Visit [facility] Oncology and Hematology - [place] [address] [facility] [address] [place] [address] Nicho Napoles MD 2[address] [facility] [address] [place] [address] Malignant neoplasm of ascending colon Social [...] Sign Reading Time Taken Comments Blood Pressure 110/83 12/02/2022 2:22 PM CDT Pulse 108 12/02/2022 2:22 PM CDT Temperature 36.7 ??C (98 ??F) 12/02/2022 2:22 PM CDT Respiratory Rate 10 12/02/2022 2:22 PM CDT Oxygen Saturation 99% 12/02/2022 2:22 PM CDT Inhaled Oxygen Concentration - - Weight 45.8 kg (101 lb) 12/02/2022 2:22 PM CDT Height - - Body Mass Index 18.24 07/02/2022 3:10 PM CDT documented in this encounter Progress Notes * Nicho Napoles MD - 12/02/2022 4:50 PM CDT HEMATOLOGY / ONCOLOGY PROGRESS NOTE Patient Identification: Name: Loulou Lanier Age: 67 y.o. 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 Completed cycle 6 of chemotherapy on November 06, 2022. SUBJECTIVE Patient came to the office for follow-up visit after completion of chemotherapy treatment. Neuropathy is improving. She is complaining of rash involving back and chest. She is complaining of itching as well. Denies any diarrhea and constipation. No other new complaint. Review of system Constitutional: Patient did not mention fevers, sweats, improved and in tiredness and fatigue HEENT: Patient did not [...] did not mention blurry or disturbed vision, improvement in neuropathy Skin: No lumps, complaint of rash involving chest and back 12 point review system was reviewed Objective: Vital signs in [...] edema Skin: Skin color, texture, turgor normal. 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 Patient is status post right-sided colectomy. She started adjuvant chemotherapy with XELOX regimen on July 13, 2022. Completed cycle 6 of chemotherapy on November 06, 2022. Clinically she is asymptomatic. There is no evidence of relapse of disease. We will order CT abdomen and pelvis with labs on return to clinic in 3 months. She will have repeat surveillance colonoscopy in May 2023. Rash. Could be drug-induced. I will start her on Medrol Dosepak. Chemotherapy-induced neuropathy. Improving. Hypokalemia. Potassium normal and she will discontinue potassium supplements. Follow-up in [address] scan. 12/02/2022 Nicho Napoles MD documented in this encounter Plan of Treatment Upcoming Encounters Date Type Department Care Team (Late st Contact Info) Description 04/26/2024 2:30 PM ENTRY LEVEL STAFF ACCOUNTANT Office Visit [facility] Oncology and Hematology [facility] [address] [place] [phone] Nicho Napoles MD [facility] [address] [place] [phone] documented as of this encounter Visit Diagnoses Diagnosis Malignant neoplasm of ascending colon documented in this encounter Care Teams Inseamer Relationship Specialty Start Date End Date Donal Granados MD PCP - General Family Practice 07/02/22 documented as of this encounter
--- OUTSIDE RECORDS SUMMARY | 2024-04-04 23:33 | XMS_ITS | Encounter Summary ---
Author Organization [facility] Address [address] [place] [address] Care Team Providers Care Power System Dispatcher Name Role Phone Donal Granados MD Primary Care Provider [phone] Encounter Details Date Type Department Care Team (Late Contact Info) Description 02/03/2023 Orders Only [facility] Oncology and Hematology [facility] [address] [place] [address] [place] [address] [place] [address] [facility] [address] [place] [phone] Malignant neoplasm of ascending colon Social [...] Contact Info) Description 04/26/2024 2:30 PM SALES AGENT BUSINESS SERVICES Office Visit [facility] Oncology and Hematology [facility] [address] [place] [address] Nicho Napoles MD [facility] [address] [place] [phone] documented as of this encounter Visit Diagnoses Diagnosis Malignant neoplasm of ascending colon documented in this encounter Care Teams Power System Dispatcher Relationship Specialty Start Date End Date Donal Granados MD PCP - General Family Practice 07/02/22 documented as of this encounter
--- OUTSIDE RECORDS SUMMARY | 2024-04-04 23:33 | XMS_ITS | Encounter Summary ---
Author Organization [facility] [employer] Address [address] [place] [address] Care Team Providers Care Industrial Property Appraiser Name Role Phone Donal Granados MD Primary Care Provider [phone] Reason for Visit * Reason Onset Date Comments Medication Refill 11/13/2022 Encounter Details Date Type Department Care Team ([facility] Contact Info) Description 11/13/2022 Refill [facility] Oncology and Hematology [place] [address] [place] [address] Nicho Napoles MD [address] [place], [place] [address] [address] [place] [phone] Social History Tobacco Use Types Packs/Day [...] Upcoming Encounters Date Type Department Care Team ([facility] Contact Info) Description 04/26/2024 2:30 PM CARBON CAPTURE POWER PLANT OPERATOR Office Visit [facility] Oncology and Hematology - [place] [address] [place] [address] Nicho Napoles MD [address] [place], [place] [address] [address] [place] [phone] documented as of this encounter Visit Diagnoses Not on filedocumented in this encounter Care Teams Industrial Property Appraiser Relationship Specialty Start Date End Date Donal Granados MD PCP - General Family Practice 07/02/22 documented as of this encounter
--- OUTSIDE RECORDS SUMMARY | 2024-04-04 23:33 | XMS_ITS | Encounter Summary ---
Author Organization [facility] [employer] Address [address] [place] [address] Care Team Providers Care Equipment Sales Specialist Name Role Phone Donal Granados MD Primary Care Provider [phone] Encounter Details Date Type Department Care Team (Late Contact Info) Description 2023 Orders Only [facility] Oncology and Hematology [facility] [address] [place] [address] Nicho Napoles MD [address] [place] [address] [employer] [address] [place] [phone] Malignant neoplasm of ascending colon Social [...] (Late Contact Info) Description 04/26/2024 2:30 PM FIREWORKS ASSEMBLER Office Visit [facility] Oncology and Hematology [facility] [address] [place] [address] Nicho Napoles MD 222[facility] HospitalIntentive Communicationsms [employer] [address] [place] [phone] documented as of this encounter Visit Diagnoses Diagnosis Malignant neoplasm of ascending colon documented in this encounter Care Teams Equipment Sales Specialist Relationship Specialty Start Date End Date Donal Graandos MD PCP - General Family Practice 07/02/22 documented as of this encounter
--- OUTSIDE RECORDS SUMMARY | 2024-04-04 23:33 | XMS_ITS | Encounter Summary ---
Author Organization [facility] [employer] Address [address] [place] [address] Care Team Providers Care Graduate Student Name Role Phone Donal Granados MD Primary Care Provider [phone] Encounter Details Date Type Department Care Team (Late Contact Info) Description 11/25/2022 Orders Only [facility] Oncology and Hematology [facility] [address] [place] [address] [place] [address] [place] [address] [employer] [address] [place] [phone] Malignant neoplasm of ascending colon Social [...] (Late Contact Info) Description 04/26/2024 2:30 PM AIR INTELLIGENCE SPECIALIST Office Visit [facility] Oncology and Hematology [facility] [address] [place] [address] Nicho Napoles MD 222[facility] HospitalCompanyLoopwy [employer] [address] [place] [phone] documented as of this encounter Visit Diagnoses Diagnosis Malignant neoplasm of ascending colon documented in this encounter Care Teams Graduate Student Relationship Specialty Start Date End Date Donal Granados MD PCP - General Family Practice 07/02/22 documented as of this encounter
--- OUTSIDE RECORDS SUMMARY | 2024-04-04 23:33 | XMS_ITS | Encounter Summary ---
Author Organization [facility] [employer] Address [address] [place] [address] Care Team Providers Care Neon Tube Bender Name Role Phone Donal Granados MD Primary Care Provider Encounter Details Date Type Department Care Team (Late Contact Info) Description 03/24/2023 Orders Only [facility] Oncology and Hematology [facility] [address] [place] [address] [place] [address] [place] [address] [employer] [address] [place] [phone] Malignant neoplasm of ascending colon Social [...] (Late Contact Info) Description 04/26/2024 2:30 PM BUILDING OPERATOR Office Visit [facility] Oncology and Hematology [facility] [address] [place] [address] Nicho Napoles MD 222[facility] HospitalTouchOfModernmi [employer] [address] [place] [phone] documented as of this encounter Visit Diagnoses Diagnosis Malignant neoplasm of ascending colon documented in this encounter Care Teams Neon Tube Bender Relationship Specialty Start Date End Date Donal Granados MD PCP - General Family Practice 07/02/22 documented as of this encounter
--- OUTSIDE RECORDS SUMMARY | 2024-04-04 23:33 | XMS_ITS | Encounter Summary ---
Author Organization [facility] [employer] Address [address] [place] [address] Care Team Providers Care Gas Load Dispatcher Name Role Phone Donal Granados MD Primary Care Provider [phone] Encounter Details Date Type Department Care Team (Late Contact Info) Description 03/10/[address] [facility] Oncology and Hematology [facility] [address] [place] [address] [place] [address] [place] [address] [employer] [address] [place] [phone] Malignant neoplasm of ascending colon Social [...] (Late Contact Info) Description 04/26/2024 2:30 PM TRANSACTION PROCESSOR Office Visit [facility] Oncology and Hematology [facility] [address] [place] [address] Nicho Napoles MD 222[facility] MantecaEmbee [facility] [employer] [address] [place] [phone] documented as of this encounter Visit Diagnoses Diagnosis Malignant neoplasm of ascending colon documented in this encounter Care Teams Gas Load Dispatcher Relationship Specialty Start Date End Date Donal Granados MD PCP - General Family Practice 07/02/22 documented as of this encounter
--- OUTSIDE RECORDS SUMMARY | 2024-04-04 23:33 | XMS_ITS | Encounter Summary ---
Author Organization [facility] [employer] Address [address] [place] [address] Care Team Providers Care Hook Loader Name Role Phone Donal Granados MD Primary Care Provider [phone] Encounter Details Date Type Department Care Team (Late Contact Info) Description 12/30/2022 Orders Only [facility] Oncology and Hematology [facility] [address] [place] [address] [place] [address] [place] [address] [employer] [address] [place] [phone] Malignant neoplasm of ascending colon Social [...] (Late Contact Info) Description 04/26/2024 2:30 PM TAX COMPLIANCE AGENT Office Visit [facility] Oncology and Hematology [facility] [address] [place] [address] Nicho Napoles MD 222[facility] CenterePod [employer] [address] [place] [phone] documented as of this encounter Visit Diagnoses Diagnosis Malignant neoplasm of ascending colon documented in this encounter Care Teams Hook Loader Relationship Specialty Start Date End Date Donal Granados MD PCP - General Family Practice 07/02/22 documented as of this encounter
--- OUTSIDE RECORDS SUMMARY | 2024-04-04 23:33 | XMS_ITS | Encounter Summary ---
Author Organization [facility] [employer] Address [address] [place] [address] Care Team Providers Care Commercial Designer Name Role Phone Donal Granados MD Primary Care Provider [phone] Encounter Details Date Type Department Care Team (Late Contact Info) Description 11/18/2022 Orders Only [facility] Oncology and Hematology [facility] [address] [place] [address] [place] [address] [place] [address] [employer] [address] [place] [phone] Malignant neoplasm of ascending colon Social [...] (Late Contact Info) Description 04/26/2024 2:30 PM SUPERVISOR PLASTIC SHEETS Office Visit [facility] Oncology and Hematology [facility] [address] [place] [address] Nicho Napoles MD 222[facility] HospitalWoven Orthopedic Technologiesct [employer] [address] [place] [phone] documented as of this encounter Visit Diagnoses Diagnosis Malignant neoplasm of ascending colon documented in this encounter Care Teams Commercial Designer Relationship Specialty Start Date End Date Donal Granados MD PCP - General Family Practice 07/02/22 documented as of this encounter
--- OUTSIDE RECORDS SUMMARY | 2024-04-04 23:33 | XMS_ITS | Encounter Summary ---
Author Organization [facility] Address [address] [place] [address] Care Team Providers Care Integrated Circuit Layout Designer Name Role Phone Donal Granados MD Primary Care Provider [phone] Encounter Details Date Type Department Care Team (Late st Contact Info) Description 11/07/2022 [facility] Oncology and Hematology [place] [address] [facility] [address] [place] [address] Mar[employer] Erickson Social History Tobacco Use Types Packs/Day Years [...] st Contact Info) Description 04/26/2024 2:30 PM LOADER MALT HOUSE Office Visit [facility] Oncology and Hematology [facility] [address] [place] [address] [place] [address] [place] [address] [address] [place] [address] documented as of this encounter Visit Diagnoses Not on filedocumented in this encounter Care Teams Integrated Circuit Layout Designer Relationship Specialty Start Date End Date Donal Granados MD PCP - General Family Practice 07/02/22 documented as of this encounter
--- OUTSIDE RECORDS SUMMARY | 2024-04-04 23:33 | XMS_ITS | Encounter Summary ---
Author Organization [facility] [employer] Address [address] [place] [address] Care Team Providers Care Intermediate Teacher Name Role Phone Donal Granados MD Primary Care Provider [phone] Encounter Details Date Type Department Care Team (Late Contact Info) Description 11/11/2022 Orders Only [facility] Oncology and Hematology [facility] [address] [place] [address] [place] [address] [place] [address] [employer] [address] [place] [phone] Malignant neoplasm of ascending colon Social [...] (Late Contact Info) Description 04/26/2024 2:30 PM TELEVISION PICTURE TUBE REBUILDER Office Visit [facility] Oncology and Hematology [facility] [address] [place] [address] Nicho Napoles MD 222[facility] HospitalFanTreeut [employer] [address] [place] [phone] documented as of this encounter Visit Diagnoses Diagnosis Malignant neoplasm of ascending colon documented in this encounter Care Teams Intermediate Teacher Relationship Specialty Start Date End Date Donal Granados MD PCP - General Family Practice 07/02/22 documented as of this encounter
--- OUTSIDE RECORDS SUMMARY | 2024-04-04 23:34 | XMS_ITS | Encounter Summary ---
Author Organization [facility] Address [address] [place] [address] Care Team Providers Care Top Taper Machine Name Role Phone Donal Granados MD Primary Care Provider [phone] Encounter Details Date Type Department Care Team ([facility] Contact Info) Description 07/10/2022 Specialty Pharmacy [facility] [address] [facility] [address] [place] [address] Emy Tavares PHARMACIST Social History Tobacco Use Types Packs/Day Years [...] was confirmed or suspected to have Coronavirus/COVID-19? No / Unsure 07/02/2022 2:59 PM CDT documented as of this encounter Plan of Treatment Upcoming Encounters Date Type Department Care Team (Late st Contact Info) Description 04/26/2024 2:30 PM HEAVY COIL WINDER Office Visit [facility] Oncology and Hematology - [place] [address] [facility] [address] [place] [address] Nicho Napoles MD [address] [facility] [address] [place] [address] documented as of this encounter Visit Diagnoses Not on filedocumented in this encounter Care Teams Top Taper Machine Relationship Specialty Start Date End Date Donal Granados MD PCP - General Family Practice 07/02/22 documented as of this encounter
--- OUTSIDE RECORDS SUMMARY | 2024-04-04 23:34 | XMS_ITS | Encounter Summary ---
Author Organization [facility] Address [address] [place] [address] Care Team Providers Care Tread Cutter Name Role Phone Donal Granados MD Primary Care Provider [phone] Reason for Visit * Reason Comments Chemotherapy Encounter Details Date Type Department Care Team (Late st Contact Info) Description 09/25/2022 8:30 AM CDT Office Visit [facility] Oncology and Hematology - [place] [address] [facility] [address] [place] [address] Nicho Napoles MD [address] [facility] [address] [place] [address] Malignant neoplasm of ascending colon [...] Sign Reading Time Taken Comments Blood Pressure 107/76 09/25/2022 8:43 AM CDT Pulse 105 09/25/2022 8:43 AM CDT Temperature 36 ??C (96.8 ??F) 09/25/2022 8:43 AM CDT Respiratory Rate 10 09/25/2022 8:43 AM CDT Oxygen Saturation 100% 09/25/2022 8:43 AM CDT Inhaled Oxygen Concentration - - Weight 49.4 kg (109 lb) 09/25/2022 8:43 AM CDT Height - - Body Mass Index 19.68 07/02/2022 3:10 PM CDT documented in this encounter Progress Notes * Nicho Napoles MD - 09/25/2022 9:28 AM CDT HEMATOLOGY / ONCOLOGY PROGRESS NOTE Patient Identification: Name: Loulou Lanier Age: 67 y.o. 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 TREATMENT HISTORY Adenocarcinoma moderately differentiated of the cecum T3N1 resected 05/27/2022 SUBJECTIVE Patient came to the office for follow-up visit and continuation of chemotherapy cycle #4. She has been tolerating treatment well with dose reduction on the Xeloda. She still has some peripheral neuropathy and intermittent diarrhea. No other new complaints. Review of system Constitutional: Patient did not mention fevers, sweats, complain of tiredness and fatigue HEENT: Patient did not mention sinus congestion, hearing or vision problems Respiratory: Patient did not mention cough, dyspnea, wheeze Cardiovascular: Patient did not mention chest pain, exertional chest pressure/discomfort, syncope, shortness of breath GI: Patient did not mention constipation, dsyphagia, reflux symptoms, vomiting, melena,, complain of intermittent diarrhea : Patient did not mention dysuria, frequency, incontinence, urgency Integumentary system: no lymphadenopathy, sweats, flushing Musculoskeletal: Patient not mention: myalgia, arthralgia Neurological: Patient did not mention blurry or disturbed vision, slight worsening of peripheral neuropathy Skin: No lumps, bumps or rashes. 12 point review system was reviewed Objective: [...] edema Skin: Skin color, texture, turgor normal. No rashes or lesions Lymph nodes: No lymphadenopathy Neuro: No obvious [...] 4.9 hemoglobin 11 platelet 349,000 potassium 3.3 @IMAGEIMP@ Assessment: Plan: Patient Active Problem List Diagnosis Date Noted Colon cancer 07/19/2022 Adenocarcinoma moderately differentiated of the cecum T3N1 resected 05/27/2022. Patient is status post right-sided colectomy. She started adjuvant chemotherapy with XELOX regimen on July 13, 2022. Labs noted. We will proceed with cycle #4 of chemotherapy with XELOX regimen today. She will continue Xeloda 2 weeks on and 1 week off. So far she is been tolerating treatment well. Follow-up with [facility] 3 weeks. Hypokalemia. I have recommended her to take potassium 20 mEq twice a day. Chemotherapy-induced neuropathy. Stable. Chemotherapy-induced nausea. Continue Zofran. Chemotherapy-induced diarrhea. Patient is on Imodium. Follow-up in 3 weeks. 09/25/2022 Nicho Napoles MD documented in this encounter Plan of Treatment Upcoming Encounters Date Type Department Care Team (Late st Contact Info) Description 04/26/2024 2:30 PM SAFETY AND OCCUPATIONAL HEALTH MANAGER Office Visit [facility] Oncology and Hematology - [place] [address] [facility] [address] [place] [address] Nicho Napoles MD [address] [facility] [address] [place] [address] documented as of this encounter Visit Diagnoses Diagnosis Malignant neoplasm of ascending colon- Primary documented in this encounter Care Teams Tread Cutter Relationship Specialty Start Date End Date oDnal Granados MD PCP - General Family Practice 07/02/22 documented as of this encounter
--- OUTSIDE RECORDS SUMMARY | 2024-04-04 23:34 | XMS_ITS | Encounter Summary ---
Author Organization [facility] [employer] Address [address] [place] [address] Care Team Providers Care Physician Interventional Cardiologist Name Role Phone Donal Granados MD Primary Care Provider [phone] Encounter Details Date Type Department Care Team (Late Contact Info) Description 09/16/2022 Orders Only [facility] Oncology and Hematology [facility] [address] [place] [address] [place] [address] [place] [address] [employer] [address] [place] [address] Malignant neoplasm of ascending colon Social [...] Contact Info) Description 04/26/2024 2:30 PM SPECIAL OFFICER Office Visit [facility] Oncology and Hematology [facility] [address] [place] [address] Nicho Napoles MD [facility] [employer] [address] [place] [address] documented as of this encounter Visit Diagnoses Diagnosis Malignant neoplasm of ascending colon documented in this encounter Care Teams Physician Interventional Cardiologist Relationship Specialty Start Date End Date Donal Granados MD PCP - General Family Practice 07/02/22 documented as of this encounter
--- OUTSIDE RECORDS SUMMARY | 2024-04-04 23:34 | XMS_ITS | Encounter Summary ---
Author Organization [facility] [employer] Address [address] [place] [address] Care Team Providers Care Music Ministries Director Name Role Phone Donal Granados MD Primary Care Provider [phone] Encounter Details Date Type Department Care Team (Late Contact Info) Description 07/17/[address] [facility] Oncology [facility] [address] [place] [address] IceMariaa castanon Social History Tobacco Use Types Packs/Day Years [...] suspected to have Coronavirus/COVID-19? No / Unsure 07/17/2022 8:37 AM CDT documented as of this encounter Plan of Treatment Upcoming Encounters Date Type Department Care Team (Late Contact Info) Description 04/26/2024 2:30 PM ENVIRONMENTAL SERVICES DIRECTOR Office Visit [facility] Oncology [facility] [address] [place] [address] Nicho Napoles MD [address] [facility] [address] [place] [address] documented as of this encounter Visit Diagnoses Not on filedocumented in this encounter Care Teams Music Ministries Director Relationship Specialty Start Date End Date Donal Granados MD PCP - General Family Practice 07/02/22 documented as of this encounter
--- OUTSIDE RECORDS SUMMARY | 2024-04-04 23:34 | XMS_ITS | Encounter Summary ---
Author Organization [facility] [employer] Address [address] [place] [address] Care Team Providers Care Transfer Professor Name Role Phone Donal Granados MD Primary Care Provider [phone] Encounter Details Date Type Department Care Team (Late Contact Info) Description 08/05/2022 Orders Only [facility] Oncology and Hematology [facility] [address] [place] [address] Nicho Napoles MD [address] [place] [address] Malignant neoplasm of ascending colon [...] Contact Info) Description 04/26/2024 2:30 PM HOME DECORATOR Office Visit [facility] Oncology and Hematology [place] [address] [place] [address] Nicho Napoles MD [address] [place] [address] documented as of this encounter Visit Diagnoses Diagnosis Malignant neoplasm of ascending colon documented in this encounter Care Teams Transfer Professor Relationship Specialty Start Date End Date Donal Granados MD PCP - General Family Practice 07/02/22 documented as of this encounter
--- OUTSIDE RECORDS SUMMARY | 2024-04-04 23:34 | XMS_ITS | Encounter Summary ---
Author Organization [facility] [employer] [facility] Address [address] [place] [address] Care Team Providers Care Parking Enforcement Technician Name Role Phone Donal Granados MD Primary Care Provider [phone] Reason for Visit * Reason Comments Chemotherapy Encounter Details Date Type Department Care Team (Late st Contact Info) Description 08/13/2022 8:30 AM CDT Office Visit [facility] Oncology and Hematology - [place] [address] [facility] [address] [place] [address] Nicho Napoles MD [address] [facility] [address] [place] [address] Malignant neoplasm of ascending colon [...] suspected to have Coronavirus/COVID-19? No / Unsure 08/13/2022 8:28 AM CDT documented as of this encounter Last Filed Vital Signs Vital Sign Reading Time Taken Comments Blood Pressure 114/85 08/13/2022 8:31 AM CDT Pulse 114 08/13/2022 8:31 AM CDT Temperature 36.3 ??C (97.4 ??F) 08/13/2022 8:31 AM CD T Respiratory Rate 10 08/13/2022 8:31 AM CDT Oxygen Saturation 99% 08/13/2022 8:31 AM CDT Inhaled Oxygen Concentration - - Weight 51.5 kg (113 lb 9.6 oz) 08/13/2022 8:31 A M CDT Height - - Body Mass Index 20.51 07/02/2022 3:10 PM CDT documented in this encounter Progress Notes * Nicho Napoles MD - 08/13/2022 10:01 AM CDT HEMATOLOGY / ONCOLOGY PROGRESS NOTE [...] for follow-up visit and continuation of chemotherapy with oxaliplatin. She has been tolerating treatment well other than some shakiness and tiredness and fatigue. Denies any neuropathy. She has few days of diarrhea. No other new complaints. Review of system Constitutional: Patient did not mention fevers, sweats, complain of tiredness and fatigue HEENT: Patient did not mention sinus congestion, hearing or vision problems Respiratory: Patient did not mention cough, dyspnea, wheeze Cardiovascular: Patient did not mention chest pain, exertional chest pressure/discomfort, syncope, shortness of breath GI: Patient did not mention constipation, dsyphagia, reflux symptoms, vomiting, melena, complain ofintermittent diarrhea : Patient did not mention dysuria, frequency, incontinence, urgency Integumentary system: no lymphadenopathy, sweats, flushing Musculoskeletal: Patient not mention: myalgia, arthralgia Neurological: Patient did not mention blurry or disturbed vision, numbness/weakness, dizziness Skin: No lumps, bumps or rashes. 12 point review of system was reviewed [...] 3.2 WBC 9.0 hemoglobin 11.5 platelet 400,000 @IMAGEIMP@ Assessment: Plan: Patient Active Problem List Diagnosis Date Noted Colon cancer 07/19/2022 Adenocarcinoma moderately differentiated of the cecum T3N1 resected 05/27/2022. Patient is status post right-sided colectomy. She started adjuvant chemotherapy with XELOX regimen on July 13, 2022. Labs noted. Patient potassium is down. We will proceed with cycle #2 of chemotherapy with XELOX regimen today. I will see her back in 3 weeks. Hypokalemia. We will start potassium 10 mg twice a day. Chemotherapy-induced nausea. Continue Zofran as needed. Chemotherapy-induced diarrhea. I recommended to take Imodium as needed. Follow-up in 3 weeks. TOBACCO COUNSELING She is not a tobacco user. 08/13/2022 Nicho Napoles MD documented in this encounter Plan of Treatment Upcoming Encounters Date Type Department Care Team (Late st Contact Info) Description 04/26/2024 2:30 PM CORE OVEN TENDER Office Visit [facility] Oncology and Hematology - [place] [address] [facility] [address] [place] [address] Nicho Napoles MD [address] [facility] [address] [place] [address] documented as of this encounter Visit Diagnoses Diagnosis Malignant neoplasm of ascending colon- Primary documented in this encounter Care Teams Parking Enforcement Technician Relationship Specialty Start Date End Date Donal Granados MD PCP - General Family Practice 07/02/22 documented as of this encounter
--- OUTSIDE RECORDS SUMMARY | 2024-04-04 23:34 | XMS_ITS | Encounter Summary ---
Author Organization [facility] [employer] Address [address] [place] [address] Care Team Providers Care Sweatband Decorating Machine Operator Name Role Phone Donal Granados MD Primary Care Provider Encounter Details Date Type Department Care Team (Late Contact Info) Description 09/02/2022 Orders Only [facility] Oncology and Hematology [facility] [address] [place] [address] Nicho Napoles MD [address] [place] [address] Malignant neoplasm of ascending colon [...] (Late Contact Info) Description 04/26/2024 2:30 PM TRAVELING SALES EXECUTIVE Office Visit [facility] Oncology and Hematology [place] [address] [place] [address] Nicho Napoles MD [address] [place] [address] documented as of this encounter Visit Diagnoses Diagnosis Malignant neoplasm of ascending colon documented in this encounter Care Teams Sweatband Decorating Machine Operator Relationship Specialty Start Date End Date Donal Granados MD PCP - General Family Practice 07/02/22 documented as of this encounter
--- OUTSIDE RECORDS SUMMARY | 2024-04-04 23:34 | XMS_ITS | Encounter Summary ---
Author Organization [facility] [employer] Address [address] [place] [address] Care Team Providers Care Acoustic Engineer Name Role Phone Donal Granados MD Primary Care Provider [phone] Encounter Details Date Type Department Care Team ([facility] Contact Info) Description 08/14/2022 Orders Only [facility] Oncology [facility] [address] [facility] [address] [place] [address] AnuMariaa castanon Malignant neoplasm of ascending colon Social History [...] (Late Contact Info) Description 04/26/2024 2:30 PM LINK TRAINER OPERATOR Office Visit [facility] Oncology [facility] [address] [place] [address] Nicho Napoles MD [address] [facility] [address] [place] [address] documented as of this encounter Visit Diagnoses Diagnosis Malignant neoplasm of ascending colon documented in this encounter Care Teams Acoustic Engineer Relationship Specialty Start Date End Date Donal Granados MD PCP - General Family Practice 07/02/22 documented as of this encounter
--- OUTSIDE RECORDS SUMMARY | 2024-04-04 23:34 | XMS_ITS | Encounter Summary ---
Author Organization [facility] [employer] [facility] Address [address] [place] [address] Care Team Providers Care Methane Gas Collection System Operator Name Role Phone Donal Granados MD Primary Care Provider Reason for Visit * Reason Comments Chemotherapy Encounter Details Date Type Department Care Team (Late st Contact Info) Description 09/05/2022 11:00 AM CDT Office Visit [facility] Oncology and Hematology - [place] [address] [facility] [address] [place] [address] Nicho Napoles MD [address] [facility] [address] [place] [address] Malignant neoplasm of ascending colon [...] Sign Reading Time Taken Comments Blood Pressure 107/79 09/05/2022 11:06 AM CDT Pulse 115 09/05/2022 11:06 AM CDT Temperature 36.3 ??C (97.4 ??F) 09/05/2022 11:06 AM C DT Respiratory Rate 10 09/05/2022 11:06 AM CDT Oxygen Saturation 97% 09/05/2022 11:06 AM CDT Inhaled Oxygen Concentration - - Weight 49.9 kg (110 lb) 09/05/2022 11:06 AM CDT Height - - Body Mass Index 19.86 07/02/2022 3:10 PM CDT documented in this encounter Progress Notes * Nicho Napoles MD - 09/05/2022 11:56 AM CDT HEMATOLOGY / ONCOLOGY PROGRESS NOTE [...] for follow-up visit and continuation of chemotherapy treatment. So far she has been tolerating chemotherapy well other than some tiredness and fatigue. She has been taking fluoxetine for depression. She has mild neuropathy. Intermittent diarrhea. She has lost 3 pound weight. No other new complaint. Review of system Constitutional: Patient did not mention fevers, sweats, complain of tiredness and fatigue and 3 pound weight loss HEENT: Patient did not mention sinus congestion, hearing or vision problems Respiratory: Patient did not mention cough, dyspnea, wheeze Cardiovascular: Patient did not mention chest pain, exertional chest pressure/discomfort, syncope, shortness of breath GI: Patient did not mention constipation, dsyphagia, reflux symptoms, vomiting, melena, complain ofdiarrhea : Patient did not mention dysuria, frequency, incontinence, urgency Integumentary system: no lymphadenopathy, sweats, flushing Musculoskeletal: Patient not mention: myalgia, arthralgia Neurological: Patient did not mention blurry or disturbed vision, complain of mild peripheral neuropathy Skin: No lumps, bumps or [...] No lymphadenopathy Neuro: No obvious focal deficit exam as above PATH LABS Labs from July 17 showed WBC 8.7 hemoglobin 11.9 platelet 447,000 creatinine 0.7 Labs from August 13 showed potassium 3.2 WBC 9.0 hemoglobin 11.5 platelet 400,000 Labs from September 05 showed WBC 6.3 hemoglobin 11 platelets 324,000 creatinine 0.6 @IMAGEIMP@ Assessment: Plan: Patient Active Problem List Diagnosis Date Noted Colon cancer 07/19/2022 Adenocarcinoma moderately differentiated of the cecum T3N1 resected 05/27/2022. Patient is status post right-sided colectomy. She started adjuvant chemotherapy with XELOX regimen on July 13, 2022. Labs noted. Patient will proceed with cycle 3 of chemotherapy with XELOX regimen today. I have instructed her to take Xeloda for 2 weeks on and 1 week off. Follow-up with me in 3 weeks to discuss further continuation of chemotherapy. Hypokalemia. Potassium has improved to 3.4. Continue potassium 20 mg twice a day. Chemotherapy-induced neuropathy. We will reduce Xeloda to the 2 weeks on and 1 week off schedule. Chemotherapy-induced nausea. Continue Zofran. Chemotherapy-induced diarrhea. Continue Imodium as needed. Follow-up in 3 weeks. TOBACCO COUNSELING She is not a tobacco/nicotine user. 09/05/2022 Nicho Napoles MD documented in this encounter Plan of Treatment Upcoming Encounters Date Type Department Care Team (Late st Contact Info) Description 04/26/2024 2:30 PM EMERGENCY VEHICLE TECHNICIAN Office Visit [facility] Oncology and Hematology [place] [address] [place] [address] Nicho Napoles MD [facility] [address] [place] [address] documented as of this encounter Visit Diagnoses Diagnosis Malignant neoplasm of ascending colon- Primary documented in this encounter Care Teams Methane Gas Collection System Operator Relationship Specialty Start Date End Date Donal Granados MD PCP - General Family Practice 07/02/22 documented as of this encounter
--- OUTSIDE RECORDS SUMMARY | 2024-04-04 23:34 | XMS_ITS | Encounter Summary ---
Author Organization [facility] [employer] [facility] Address [address] [place] [address] Care Team Providers Care Boom Master Name Role Phone Donal Granados MD Primary Care Provider [phone] Reason for Referral * Eval and Treat (Routine) - Closed Specialty Diagnoses / Procedures Referred By Angie vidal Referred To Contact Surgery Diagnoses Malignant neoplasm of ascending colon Procedures OR OFFICE/OUTPATIENT ESTABLISHED MOD MDM 30-39 MIN OR OFFICE/OUTPATIENT NEW MODERATE MDM 45-59 MINUTES Nicho Napoles MD [address] [place] [address] Keyur Henao, [address] [facility] [address] [facility] [address] [place] [address] Referral ID Status Reason Start Date Expiration Date V isits Requested Visits Authorized [id number] Closed CRS To Schedule (STL) 07/17/2022 07/17/2023 1 1 Reason for Visit * Reason Comments Chemotherapy Encounter Details Date Type Department Care Team (Late st Contact Info) Description 07/17/2022 9:00 AM CDT Office Visit [facility] Oncology and Hematology - [place] [address] [place] [address] Nicho Napoles MD [address] [place] [address] Malignant neoplasm of ascending colon [...] In the last 10 days, have willard u been in contact with someone who was confirmed or suspected to have Coronavirus/COVID-19? No / Unsure 07/17/2022 8:37 AM CDT documented as of this encounter Last Filed Vital Signs Vital Sign Reading Time Taken Comments Blood Pressure 133/88 07/17/2022 8:47 AM CDT Pulse 86 07/17/2022 8:47 AM CDT Temperature 36.8 ??C (98.3 ??F) 07/17/2022 8:47 AM CD T Respiratory Rate 10 07/17/2022 8:47 AM CDT Oxygen Saturation 99% 07/17/2022 8:47 AM CDT Inhaled Oxygen Concentration - - Weight 54.6 kg (120 lb 6.4 oz) 07/17/2022 8:47 A M CDT Height - - Body Mass Index 21.74 07/02/2022 3:10 PM CDT documented in this encounter Progress Notes * Nicho Napoles MD - 07/17/2022 1:03 PM CDT HEMATOLOGY / ONCOLOGY PROGRESS NOTE Patient Identification: Name: Loulou Lanier Age: 67 y.o. 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 TREATMENT HISTORY Adenocarcinoma moderately differentiated of the cecum T3N1 resected 05/27/2022 SUBJECTIVE Patient to the office for follow-up visit and to start chemotherapy with oxaliplatin. She has been tolerating Xeloda well. She has some nausea. Denies any significant diarrhea. No neuropathy. No other new complaints. Review of system Constitutional: Patient did not mention fevers, sweats, fatigue, malaise, weight loss HEENT: Patient did not mention sinus congestion, hearing or vision problems Respiratory: Patient did not mention cough, dyspnea, wheeze Cardiovascular: Patient did not mention chest pain, exertional chest pressure/discomfort, syncope, shortness of breath GI: Patient did not mention constipation, diarrhea, dsyphagia, reflux symptoms, vomiting, melena : Patient did not mention dysuria, frequency, incontinence, urgency Integumentary system: no lymphadenopathy, sweats, flushing Musculoskeletal: Patient not mention: myalgia, arthralgia Neurological: Patient did not mention blurry or disturbed vision, numbness/weakness, dizziness Skin: No lumps, bumps or rashes. Objective: Vital signs in last 24 hours: [...] No lymphadenopathy Neuro: No obvious focal deficit PATH LABS Labs from July 17 showed WBC 8.7 hemoglobin 11.9 platelet 447,000 creatinine 0.7 @IMAGEIMP@ Assessment: Plan: There are no problems to display for this patient. Adenocarcinoma moderately differentiated of the cecum T3N1 resected 05/27/2022. Patient is status post right-sided colectomy. She started adjuvant chemotherapy with XELOX regimen on July 13, 2022. Today she is in the office to start treatment with oxaliplatin. We will also refer her for Mediport placement. My plan is to give 3 to 6 months of chemotherapy based on her tolerance. Follow-up with me in 3 weeks. Chemotherapy-induced nausea. She will continue Zofran as needed. Anorexia and weight loss. Will prescribe Megace. ? TOBACCO COUNSELING She is not a tobacco user. 07/17/2022 Nicho Napoles MD documented in this encounter Plan of Treatment Upcoming Encounters Date Type Department Care Team (Late st Contact Info) Description 04/26/2024 2:30 PM DEVICE REPAIR TECHNICIAN Office Visit [facility] Oncology and Hematology - [place] [address] [facility] [address] [place] [address] Nicho Napoles MD [address] [facility] [address] [place] [address] Scheduled Orders Name Type Priority Associated Diagnoses Orde r Schedule COMPREHENSIVE METABOLIC PANEL Lab Stat Malignant neoplasm of ascending colon Expected: 08/07/2022, Expires: 07/18/2023 Scheduled Referrals Name Type Priority Associated Diagnoses Order Schedule AMB REFERRAL TO COLORECTAL SURGERY Outpatient Referral Routine Malignant neoplasm of ascending colon Ordered: 07/17/2022 documented as of this encounter Visit Diagnoses Diagnosis Malignant neoplasm of ascending colon- Primary documented in this encounter Care Teams Boom Master Relationship Specialty Start Date End Date Donal Granados MD PCP - General Family Practice 07/02/22 documented as of this encounter
--- OUTSIDE RECORDS SUMMARY | 2024-04-04 23:34 | XMS_ITS | Encounter Summary ---
Author Organization [facility] [employer] Address [address] [place] [address] Care Team Providers Care Classroom Technology Coach Name Role Phone Donal Granados MD Primary Care Provider Encounter Details Date Type Department Care Team (Late Contact Info) Description 10/07/2022 Orders Only [facility] Oncology and Hematology [facility] [address] [place] [address] [place] [address] [place] [address] [email or web address] [address] [place] [address] Malignant neoplasm [...] (Late Contact Info) Description 04/26/2024 2:30 PM ACCOUNTANCY PROFESSOR Office Visit [facility] Oncology and Hematology [facility] [address] [place] [address] Nicho Napoles MD [facility] [email or web address] [address] [place] [address] documented as of this encounter Visit Diagnoses Diagnosis Malignant neoplasm of ascending colon documented in this encounter Care Teams Classroom Technology Coach Relationship Specialty Start Date End Date Donal Granados MD PCP - General Family Practice 07/02/22 documented as of this encounter
--- OUTSIDE RECORDS SUMMARY | 2024-04-04 23:34 | XMS_ITS | Encounter Summary ---
Author Organization [facility] [employer] Address [address] [place] [address] Care Team Providers Care Higher Level Teaching Assistant Name Role Phone Donal Granados MD Primary Care Provider [phone] Encounter Details Date Type Department Care Team (Late Contact Info) Description 09/09/2022 Orders Only [facility] Oncology and Hematology [facility] [address] [place] [address] Nicho Napoles MD [address] [place] [address] Malignant neoplasm of ascending colon [...] Contact Info) Description 04/26/2024 2:30 PM TAX ATTORNEY Office Visit [facility] Oncology and Hematology [place] [address] [place] [address] Nicho Napoles MD [address] [place] [address] documented as of this encounter Visit Diagnoses Diagnosis Malignant neoplasm of ascending colon documented in this encounter Care Teams Higher Level Teaching Assistant Relationship Specialty Start Date End Date Donal Granados MD PCP - General Family Practice 07/02/22 documented as of this encounter
--- OUTSIDE RECORDS SUMMARY | 2024-04-04 23:34 | XMS_ITS | Encounter Summary ---
Author Organization [facility] [employer] [facility] Address [address] [place] [address] Care Team Providers Care Admin Asst Name Role Phone Donal Granados MD Primary Care Provider [phone] Encounter Details Date Type Department Care Team (Late Contact Info) Description 10/23/2022 Orders Only [facility] Oncology and Hematology [facility] [address] [place] [address] [place] [address] [place] [address] [address] [place] [address] Social History Tobacco Use Types Packs/Day [...] (Late Contact Info) Description 04/26/2024 2:30 PM OPERATIONS SUPPORT ANALYST Office Visit [facility] Oncology and Hematology [place] [address] [place] [address] Nicho Napoles MD [address] [facility] [employer] [address] [place] [address] documented as of this encounter Procedures Procedure Name Priority Date/Time Associated Diagnosis Comments C. DIFFICILE DETECTION Routine 10/22/2022 10:57 AM CDT documented in this encounter Results * C. DIFFICILE DETECTION (10/22/2022 10:57 AM CDT) Stool STOOL SPECIMEN / Unknown Nicho Napoles MD MICROBIOLOGY - GENER AL ORDERABLES documented in this encounter Visit Diagnoses Not on filedocumented in this encounter Care Teams Admin Asst Relationship Specialty Start Date End Date Donal Granados MD PCP - General Family Practice 07/02/22 documented as of this encounter
--- OUTSIDE RECORDS SUMMARY | 2024-04-04 23:34 | XMS_ITS | Encounter Summary ---
Author Organization [facility] [employer] Address [address] [place] [address] Care Team Providers Care Library Serials Assistant Name Role Phone Donal Granados MD Primary Care Provider [phone] Encounter Details Date Type Department Care Team (Late Contact Info) Description 07/22/2022 Orders Only [facility] Oncology and Hematology [facility] [address] [place] [address] Nicho Napoles MD [address] [employer] [address] [place] [address] Malignant neoplasm of ascending colon [...] st Contact Info) Description 04/26/2024 2:30 PM SCOREBOARD OPERATOR Office Visit [facility] Oncology and Hematology [place] [address] [place] [address] Nicho Napoles MD [address] [place] [address] documented as of this encounter Visit Diagnoses Diagnosis Malignant neoplasm of ascending colon documented in this encounter Care Teams Library Serials Assistant Relationship Specialty Start Date End Date Donal Granados MD PCP - General Family Practice 07/02/22 documented as of this encounter
--- OUTSIDE RECORDS SUMMARY | 2024-04-04 23:34 | XMS_ITS | Encounter Summary ---
Author Organization [facility] [employer] Address [address] [place] [address] Care Team Providers Care City Attorney Name Role Phone Donal Granados MD Primary Care Provider [phone] Encounter Details Date Type Department Care Team ([facility] Contact Info) Description 09/06/[address] [facility] Oncology [facility] [address] [facility] [address] [place] [address] AnuMariaa castanon Malignant neoplasm of [...] (Late Contact Info) Description 04/26/2024 2:30 PM STONE POLISHER HAND Office Visit [facility] Oncology [facility] [address] [place] [address] Nicho Napoles MD [address] [facility] [address] [place] [address] documented as of this encounter Visit Diagnoses Diagnosis Malignant neoplasm of ascending colon documented in this encounter Care Teams City Attorney Relationship Specialty Start Date End Date Donal Granados MD PCP - General Family Practice 07/02/22 documented as of this encounter
--- OUTSIDE RECORDS SUMMARY | 2024-04-04 23:34 | XMS_ITS | Encounter Summary ---
Author Organization [facility] [email or web address] Address [address] [place] [address] Care Team Providers Care Certified Athletic Trainer Name Role Phone Donal Granados MD Primary Care Provider [phone] Reason for Visit * Reason Onset Date Comments lab orders 07/16/2022 Encounter Details Date Type Department Care Team ([facility] Contact Info) Description 07/16/2022 Telephone [facility] Oncology [facility] [address] [place] [address] Nicho Napoles MD [address] [facility] [address] [place] [address] lab orders Social History Tobacco Use Types Packs/Day Years [...] (Late Contact Info) Description 04/26/2024 2:30 PM BED PLACEMENT COORDINATOR Office Visit [facility] Oncology [facility] [address] [place] [address] Nicho Napoles MD [address] [place] [address] Scheduled Orders Name Type Priority Associated Diagnoses Orde r Schedule CBC WITH DIFFERENTIAL Lab Routine Malignant neoplasm of ascending colon 1 TIME A WEEK for 99 Occurrences starting 07/16/2022 until 07/17/2023 COMPREHENSIVE METABOLIC PANEL Lab Routine Malignant neoplasm of ascending colon 1 TIME A WEEK for 99 Occurrences starting 07/16/2022 until 07/17/2023 documented as of this encounter Visit Diagnoses Diagnosis Malignant neoplasm of ascending colon- Primary documented in this encounter Care Teams Certified Athletic Trainer Relationship Specialty Start Date End Date Donal Granados MD PCP - General Family Practice 07/02/22 documented as of this encounter
--- OUTSIDE RECORDS SUMMARY | 2024-04-04 23:34 | XMS_ITS | Encounter Summary ---
Author Organization [facility] [employer] Address [address] [place] [address] Care Team Providers Care Clinical Statistical Programmer Name Role Phone Donal Granados MD Primary Care Provider [phone] Encounter Details Date Type Department Care Team (Late Contact Info) Description 07/04/2022 Abstract [facility] Oncology [facility] [address] [place] [address] IceMariaa castanon Social History Tobacco [...] Contact Info) Description 04/26/2024 2:30 PM DIRECTOR SOFTWARE Office Visit [facility] Oncology [facility] [address] [place] [address] Nicho Napoles MD [address] [facility] [address] [place] [address] documented as of this encounter Visit Diagnoses Not on filedocumented in this encounter Care Teams Clinical Statistical Programmer Relationship Specialty Start Date End Date Donal Granados MD PCP - General Family Practice 07/02/22 documented as of this encounter
--- OUTSIDE RECORDS SUMMARY | 2024-04-04 23:34 | XMS_ITS | Encounter Summary ---
Author Organization [facility] [employer] Address [address] [place] [address] Care Team Providers Care Metalworking Instructor Name Role Phone Donal Granados MD Primary Care Provider [phone] Encounter Details Date Type Department Care Team (Late Contact Info) Description 11/06/[address] [facility] Oncology and Hematology [facility] [address] [place] [address] Nicho Napoles MD [facility] [employer] [address] [place] [address] Social History Tobacco Use Types Packs/Day [...] (Late Contact Info) Description 04/26/2024 2:30 PM SKIP LOCATOR Office Visit [facility] Oncology and Hematology - [place] [address] [place] [address] Nicho Napoles MD [address] [place] [address] documented as of this encounter Procedures Procedure Name Priority Date/Time Associated Diagnosis Comments COMPREHENSIVE METABOLIC PANEL Routine 11/06/2022 3:38 PM CDT documented in this encounter Results * COMPREHENSIVE METABOLIC PANEL (11/06/2022 3:38 PM CDT) Blood Nicho Napoles MD CHEMISTRY ORDERABLES documented in this encounter Visit Diagnoses Not on filedocumented in this encounter Care Teams Metalworking Instructor Relationship Specialty Start Date End Date Donal Granados MD PCP - General Family Practice 07/02/22 documented as of this encounter
--- OUTSIDE RECORDS SUMMARY | 2024-04-04 23:34 | XMS_ITS | Encounter Summary ---
Author Organization [facility] [employer] Address [address] [place] [address] Care Team Providers Care Manager Enterprise Name Role Phone Donal Granados MD Primary Care Provider Reason for Visit * Reason Onset Date Comments Medication Refill 07/09/2022 Encounter Details Date Type Department Care Team (Late Contact Info) Description 07/09/2022 Refill [facility] Oncology and Hematology [facility] [address] [place] [address] Nicho Napoles MD [address] [place] [address] Malignant neoplasm of ascending colon Social [...] Upcoming Encounters Date Type Department Care Team ([facility] Contact Info) Description 04/26/2024 2:30 PM TEXTILE KNITTER Office Visit [facility] Oncology and Hematology [facility] [address] [place] [address] Nicho Napoles MD [address] [place] [address] documented as of this encounter Visit Diagnoses Diagnosis Malignant neoplasm of ascending colon documented in this encounter Care Teams Manager Enterprise Relationship Specialty Start Date End Date Donal Granados MD PCP - General Family Practice 07/02/22 documented as of this encounter
--- OUTSIDE RECORDS SUMMARY | 2024-04-04 23:34 | XMS_ITS | Encounter Summary ---
Author Organization [facility] [employer] Address [address] [place] [address] Care Team Providers Care Casing Material Weigher Name Role Phone Donal Granados MD Primary Care Provider [phone] Reason for Visit * Reason Onset Date Comments Medication Refill 07/17/2022 Encounter Details Date Type Department Care Team (Late Contact Info) Description 07/17/2022 Refill [facility] Oncology and Hematology [facility] [address] [place] [address] Nicho Napoles MD [address] [place] [address] Malignant neoplasm of ascending colon Social [...] Upcoming Encounters Date Type Department Care Team ([facility] Contact Info) Description 04/26/2024 2:30 PM PHOTOVOLTAIC PANEL INSTALLER Office Visit [facility] Oncology and Hematology [facility] [address] [facility] [address] [place] [address] Nicho Napoles MD [address] [place] [address] documented as of this encounter Visit Diagnoses Diagnosis Malignant neoplasm of ascending colon documented in this encounter Care Teams Casing Material Weigher Relationship Specialty Start Date End Date Donal Granados MD PCP - General Family Practice 07/02/22 documented as of this encounter
--- OUTSIDE RECORDS SUMMARY | 2024-04-04 23:34 | XMS_ITS | Encounter Summary ---
Author Organization [facility] [employer] Address [address] [place] [address] Care Team Providers Care Forest Supervisor Name Role Phone Donal Granados MD Primary Care Provider [phone] Reason for Visit * Reason Comments Med Refill Encounter Details Date Type Department Care Team ([facility] Contact Info) Description 09/04/2022 Refill [facility] Oncology and [facility] [address] [facility] [address] [place] [address] Nicho Napoles MD [address] [email or web address] [address] [place] [address] Malignant neoplasm of colon, unspecified part of colon (Primary Dx) Social History Tobacco Use [...] Upcoming Encounters Date Type Department Care Team ([facility] Contact Info) Description 04/26/2024 2:30 PM AIRPORT SCREENER Office Visit [facility] Oncology and [facility] [address] [facility] [address] [place] [address] Nicho Napoles MD [email or web address] [place] [address] documented as of this encounter Visit Diagnoses Diagnosis Malignant neoplasm of colon, unspecified part of colon- Primary documented in this encounter Care Teams Forest Supervisor Relationship Specialty Start Date End Date Donal Granados MD PCP - General Family Practice 07/02/22 documented as of this encounter
--- OUTSIDE RECORDS SUMMARY | 2024-04-04 23:34 | XMS_ITS | Encounter Summary ---
Author Organization [facility] [employer] Address [address] [place] [address] Care Team Providers Care Medical Technologist Generalist Name Role Phone Donal Granados MD Primary Care Provider [phone] Reason for Visit * Reason Onset Date Comments Nausea 10/21/2022 Encounter Details Date Type Department Care Team (Late Contact Info) Description 10/21/2022 Telephone [facility] Oncology and Hematology [facility] [address] [place] [address] Nicho Napoles MD [address] [facility] [address] [place] [address] Nausea Social History Tobacco Use Types Packs/Day Years [...] encounter Miscellaneous Notes * Telephone Encounter - Jaki Dennis RN - 10/21/2022 3:26 PM CDT Patient called with complaints of nausea, vomiting, diarrhea, weakness, dizziness and abdominal pain. Appointment scheduled for tomorrow at 8:30am. documented in this encounter Plan of Treatment Upcoming Encounters Date Type Department Care Team (Late st Contact Info) Description 04/26/2024 2:30 PM TAPE RULES PRINTING MACHINE OPERATOR Office Visit [facility] Oncology and Hematology [facility] [address] [place] [address] Nicho Napoles MD [facility] [address] [place] [address] documented as of this encounter Visit Diagnoses Not on filedocumented in this encounter Care Teams Medical Technologist Generalist Relationship Specialty Start Date End Date Donal Granados MD PCP - General Family Practice 07/02/22 documented as of this encounter
--- OUTSIDE RECORDS SUMMARY | 2024-04-04 23:34 | XMS_ITS | Encounter Summary ---
Author Organization [facility] [employer] Address [address] [place] [address] Care Team Providers Care Steel Burner Name Role Phone Donal Granados MD Primary Care Provider [phone] Encounter Details Date Type Department Care Team (Late Contact Info) Description 10/21/2022 Orders Only [facility] Oncology and Hematology [facility] [address] [place] [address] [place] [address] [place] [address] [employer] [address] [place] [address] Malignant neoplasm of ascending colon Social [...] Contact Info) Description 04/26/2024 2:30 PM DYE COLORIST FORMULATOR Office Visit [facility] Oncology and Hematology [facility] [address] [place] [address] Nicho Napoles MD [facility] Angeles[facility]atter[facility] Networks[facility] [employer] [address] [place] [address] documented as of this encounter Visit Diagnoses Diagnosis Malignant neoplasm of ascending colon documented in this encounter Care Teams Steel Burner Relationship Specialty Start Date End Date Donal Granados MD PCP - General Family Practice 07/02/22 documented as of this encounter
--- OUTSIDE RECORDS SUMMARY | 2024-04-04 23:34 | XMS_ITS | Encounter Summary ---
Author Organization [facility] [employer] [facility] Address [address] [place] [address] Care Team Providers Care Clamshell Operator Name Role Phone Donal Granados MD Primary Care Provider [phone] Reason for Visit * Reason Comments Chemotherapy Encounter Details Date Type Department Care Team (Late st Contact Info) Description 10/16/2022 10:00 AM CDT Office Visit [facility] Oncology and Hematology - [place] [address] [facility] [address] [place] [address] Nicho Napoles MD [address] [facility] [address] [place] [address] Malignant neoplasm of ascending colon [...] Sign Reading Time Taken Comments Blood Pressure 108/77 10/16/2022 9:53 AM CDT Pulse 100 10/16/2022 9:53 AM CDT Temperature 36 ??C (96.8 ??F) 10/16/2022 9:53 AM CDT Respiratory Rate 10 10/16/2022 9:53 AM CDT Oxygen Saturation 98% 10/16/2022 9:53 AM CDT Inhaled Oxygen Concentration - - Weight 48.5 kg (107 lb) 10/16/2022 9:53 AM CDT Height - - Body Mass Index 19.32 07/02/2022 3:10 PM CDT documented in this encounter Progress Notes * Nicho Napoles MD - 10/16/2022 10:21 AM CDT HEMATOLOGY / ONCOLOGY PROGRESS NOTE Patient Identification: Name: Loulou Lanier Age: 67 y.o. 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 TREATMENT HISTORY Adenocarcinoma moderately differentiated of the cecum T3N1 resected 05/27/2022 SUBJECTIVE Patient came into the office for follow-up visit and continuation of chemotherapy cycle #5 today. She has been tolerating chemotherapy well other than some neuropathy. Complain of some rectal area pain. No other new complaints. Review of system Constitutional: Patient did not mention fevers, sweats, denies any excessive tiredness and fatigue HEENT: Patient did not [...] vision, stable peripheral neuropathy Skin: No lumps, bumps or [...] 5.8 hemoglobin 11.4 platelet 333,000 creatinine 0.7 @IMAGEIMP@ Assessment: Plan: Patient Active Problem List Diagnosis Date Noted Colon cancer 07/19/2022 Adenocarcinoma moderately differentiated of the cecum T3N1 resected 05/27/2022. Patient is status post right-sided colectomy. She started adjuvant chemotherapy with XELOX regimen on July 13, 2022. Labs noted and stable. She has been tolerating chemotherapy well other than some peripheral neuropathy. She will proceed with cycle #5 of XELOX regimen today. I will see her back in 3 weeks for the last round of chemotherapy. Hypokalemia. Potassium normal. Continue potassium 20 mg twice a day. Chemotherapy-induced neuropathy. Stable. Chemotherapy-induced nausea. Continue Zofran as needed. Chemotherapy-induced diarrhea. Stable on Imodium. Follow-up in 3 weeks. 10/16/2022 Nicho Napoles MD documented in this encounter Plan of Treatment Upcoming Encounters Date Type Department Care Team (Late st Contact Info) Description 04/26/2024 2:30 PM DATA ANALYSIS MANAGER Office Visit [facility] Oncology and Hematology - [place] [address] [facility] [address] [place] [address] Nicho Napoles MD [address] [facility] [address] [place] [address] documented as of this encounter Visit Diagnoses Diagnosis Malignant neoplasm of ascending colon- Primary documented in this encounter Care Teams Clamshell Operator Relationship Specialty Start Date End Date Donal Granados MD PCP - General Family Practice 07/02/22 documented as of this encounter
--- OUTSIDE RECORDS SUMMARY | 2024-04-04 23:34 | XMS_ITS | Encounter Summary ---
Author Organization [facility] [employer] Address [address] [place] [address] Care Team Providers Care Administrative Volunteer Name Role Phone Donal Granados MD Primary Care Provider [phone] Encounter Details Date Type Department Care Team ([facility] Contact Info) Description 09/05/2022 Orders Only [facility] Oncology [facility] [address] [facility] [address] [place] [address] AnuMariaa castanon Malignant neoplasm of [...] (Late Contact Info) Description 04/26/2024 2:30 PM NETWORK RELAY TESTER Office Visit [facility] Oncology [facility] [address] [place] [address] Nicho Napoles MD [address] [facility] [address] [place] [address] documented as of this encounter Visit Diagnoses Diagnosis Malignant neoplasm of ascending colon documented in this encounter Care Teams Administrative Volunteer Relationship Specialty Start Date End Date Donal Granados MD PCP - General Family Practice 07/02/22 documented as of this encounter
--- OUTSIDE RECORDS SUMMARY | 2024-04-04 23:34 | XMS_ITS | Encounter Summary ---
Author Organization [facility] [employer] Address [address] [place] [address] Care Team Providers Care Inspector [employer] Name Role Phone Donal Granados MD Primary Care Provider [phone] Encounter Details Date Type Department Care Team (Late Contact Info) Description 07/29/2022 Orders Only [facility] Oncology and Hematology [facility] [address] [place] [address] Nicho Napoles MD [address] [place] [address] Malignant neoplasm of ascending colon [...] st Contact Info) Description 04/26/2024 2:30 PM CAR AUDIO INSTALLER Office Visit [facility] Oncology and Hematology [place] [address] [place] [address] Nicho Napoles MD [address] [place] [address] documented as of this encounter Visit Diagnoses Diagnosis Malignant neoplasm of ascending colon documented in this encounter Care Teams Inspector [employer] Relationship Specialty Start Date End Date Donal Granados MD PCP - General Family Practice 07/02/22 documented as of this encounter
--- OUTSIDE RECORDS SUMMARY | 2024-04-04 23:34 | XMS_ITS | Encounter Summary ---
Author Organization [facility] [employer] Address [address] [place] [address] Care Team Providers Care Animal Shelter Worker Name Role Phone Donal Granados MD Primary Care Provider [phone] Encounter Details Date Type Department Care Team (Late Contact Info) Description 08/19/2022 Orders Only [facility] Oncology and Hematology [facility] [address] [place] [address] Nicho Napoles MD [address] [place] [address] Malignant neoplasm of ascending colon [...] (Late Contact Info) Description 04/26/2024 2:30 PM INFO ANALYST Office Visit [facility] Oncology and Hematology [place] [address] [place] [address] Nicho Napoles MD [address] [place] [address] documented as of this encounter Visit Diagnoses Diagnosis Malignant neoplasm of ascending colon documented in this encounter Care Teams Animal Shelter Worker Relationship Specialty Start Date End Date Donal Granados MD PCP - General Family Practice 07/02/22 documented as of this encounter
--- OUTSIDE RECORDS SUMMARY | 2024-04-04 23:34 | XMS_ITS | Encounter Summary ---
Author Organization [facility] [employer] Address [address] [place] [address] Care Team Providers Care Machine I Cutter Name Role Phone Donal Granados MD Primary Care Provider [phone] Encounter Details Date Type Department Care Team (Late Contact Info) Description 08/26/2022 Orders Only [facility] Oncology and Hematology [facility] [address] [place] [address] Nicho Napoles MD [address] [place] [address] Malignant neoplasm of ascending colon [...] (Late Contact Info) Description 04/26/2024 2:30 PM RECREATION PROFESSOR Office Visit [facility] Oncology and Hematology [place] [address] [place] [address] Nicho Napoles MD [address] [place] [address] documented as of this encounter Visit Diagnoses Diagnosis Malignant neoplasm of ascending colon documented in this encounter Care Teams Machine I Cutter Relationship Specialty Start Date End Date Donal Granados MD PCP - General Family Practice 07/02/22 documented as of this encounter
--- OUTSIDE RECORDS SUMMARY | 2024-04-04 23:34 | XMS_ITS | Encounter Summary ---
Author Organization [facility] [employer] Address [address] [place] [address] Care Team Providers Care Licensing Specialist Name Role Phone Donal Granados MD Primary Care Provider [phone] Encounter Details Date Type Department Care Team (Late Contact Info) Description 10/14/2022 Orders Only [facility] Oncology and Hematology [facility] [address] [place] [address] [place] [address] [place] [address] [employer] [address] [place] [address] Malignant neoplasm of ascending colon Social [...] (Late Contact Info) Description 04/26/2024 2:30 PM RESIDENTIAL CARPET INSTALLER Office Visit [facility] Oncology and Hematology [facility] [address] [place] [address] Nicho Napoles MD [facility] [employer] [address] [place] [address] documented as of this encounter Visit Diagnoses Diagnosis Malignant neoplasm of ascending colon documented in this encounter Care Teams Licensing Specialist Relationship Specialty Start Date End Date Donal Granados MD PCP - General Family Practice 07/02/22 documented as of this encounter
--- OUTSIDE RECORDS SUMMARY | 2024-04-04 23:34 | XMS_ITS | Encounter Summary ---
Author Organization [facility] [employer] Address [address] [place] [address] Care Team Providers Care Office Machine Embossograph Operator Name Role Phone Donal Granados MD Primary Care Provider [phone] Encounter Details Date Type Department Care Team (Late Contact Info) Description 10/28/2022 Orders Only [facility] Oncology and Hematology [facility] [address] [place] [address] [place] [address] [place] [address] [email or web address] [address] [place] [address] Malignant neoplasm of ascending colon Social [...] (Late Contact Info) Description 04/26/2024 2:30 PM ANIMAL NUTRITION CONSULTANT Office Visit [facility] Oncology and Hematology [facility] [address] [place] [address] Nicho Napoles MD 222[facility] [email or web address] [address] [place] [address] documented as of this encounter Visit Diagnoses Diagnosis Malignant neoplasm of ascending colon documented in this encounter Care Teams Office Machine Embossograph Operator Relationship Specialty Start Date End Date Donal Granados MD PCP - General Family Practice 07/02/22 documented as of this encounter
--- OUTSIDE RECORDS SUMMARY | 2024-04-04 23:34 | XMS_ITS | Encounter Summary ---
Author Organization [facility] [employer] Address [address] [place] [address] Care Team Providers Care Mushroom Grower Name Role Phone Donal Granados MD Primary Care Provider [phone] Encounter Details Date Type Department Care Team (Late Contact Info) Description 11/04/2022 Orders Only [facility] Oncology and Hematology [facility] [address] [place] [address] [place] [address] [place] [address] [employer] [address] [place] [address] Malignant neoplasm of ascending colon Social [...] (Late Contact Info) Description 04/26/2024 2:30 PM AUDITING CODER Office Visit [facility] Oncology and Hematology [facility] [address] [place] [address] Nihco Napoles MD [facility] [address] [place] [address] documented as of this encounter Visit Diagnoses Diagnosis Malignant neoplasm of ascending colon documented in this encounter Care Teams Mushroom Grower Relationship Specialty Start Date End Date Donal Granados MD PCP - General Family Practice 07/02/22 documented as of this encounter
--- OUTSIDE RECORDS SUMMARY | 2024-04-04 23:34 | XMS_ITS | Encounter Summary ---
Author Organization [facility] [employer] Address [address] [place] [address] Care Team Providers Care Director Of Music Name Role Phone Donal Granados MD Primary Care Provider [phone] Encounter Details Date Type Department Care Team (Late Contact Info) Description 08/12/2022 Orders Only [facility] Oncology and Hematology [facility] [address] [place] [address] Nicho Napoles MD [address] [place] [address] Malignant neoplasm of ascending colon [...] (Late Contact Info) Description 04/26/2024 2:30 PM AUTOMATIC CASTING MACHINE OPERATOR Office Visit [facility] Oncology and Hematology [place] [address] [place] [address] Nicho Napoles MD [address] [place] [address] Scheduled Orders Name Type Priority Associated Diagnoses Orde r Schedule BASIC METABOLIC PANEL Lab Stat Malignant neoplasm of ascending colon Every Two Weeks for 99 Occurrences starting 08/13/2022 until 08/14/2023 documented as of this encounter Visit Diagnoses Diagnosis Malignant neoplasm of ascending colon documented in this encounter Care Teams Director Of Music Relationship Specialty Start Date End Date Donal Granados MD PCP - General Family Practice 07/02/22 documented as of this encounter
--- OUTSIDE RECORDS SUMMARY | 2024-04-04 23:34 | XMS_ITS | Encounter Summary ---
Author Organization [facility] Address [address] [facility] Attn: Epic Prelude ADT [place] [address] Care Team Providers Care Construction Person Name Role Phone Donal Granados MD Primary Care Provider [phone] Encounter Details Date Type Department Care Team (Latest Contact Info) Description 08/13/2022 Travel Social History Tobacco Use Types Packs/Day [...] st Contact Info) Description 04/26/2024 2:30 PM NATIONAL DEDICATED TRUCK DRIVER Office Visit [facility] Oncology and Hematology - [place] [address] [facility] [address] [place] [address] Nicho Napoles MD [address] [facility] [address] [place] [address] documented as of this encounter Visit Diagnoses Not on filedocumented in this encounter Care Teams Construction Person Relationship Specialty Start Date End Date Donal Granados MD PCP - General Family Practice 07/02/22 documented as of this encounter
--- OUTSIDE RECORDS SUMMARY | 2024-04-04 23:34 | XMS_ITS | Encounter Summary ---
Author Organization [facility] [employer] [facility] Address [address] [place] [address] Care Team Providers Care Return Agent Name Role Phone Donal Granados MD Primary Care Provider [phone] Reason for Visit * Reason Comments Follow Up Encounter Details Date Type Department Care Team (Late st Contact Info) Description 10/22/2022 8:30 AM CDT Office Visit [facility] Oncology and Hematology - [place] [address] [facility] [address] [place] [address] Nicho Napoles MD [address] [facility] [address] [place] [address] Malignant neoplasm of ascending colon [...] Sign Reading Time Taken Comments Blood Pressure 121/75 10/22/2022 8:22 AM CDT Pulse 100 10/22/2022 8:22 AM CDT Temperature 36.5 ??C (97.7 ??F) 10/22/2022 8:22 AM CD T Respiratory Rate 10 10/22/2022 8:22 AM CDT Oxygen Saturation 98% 10/22/2022 8:22 AM CDT Inhaled Oxygen Concentration - - Weight - - Height - - Body Mass Index - - documented in this encounter Progress Notes * Nicho Napoles MD - 10/22/2022 5:10 PM CDT HEMATOLOGY / ONCOLOGY PROGRESS NOTE Patient Identification: Name: Loulou Lanier Age: 67 y.o. 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 TREATMENT HISTORY Adenocarcinoma moderately differentiated of the cecum T3N1 resected 05/27/2022 SUBJECTIVE Patient came to the office due to complaint of tiredness fatigue nausea vomiting abdominal crampingand diarrhea after the last round of chemotherapy. Denies any other complaint Review of system Constitutional: Patient did not [...] 7.9 hemoglobin 12.1 platelet 293,000 potassium 2.9 @IMAGEIMP@ Assessment: Plan: Patient Active Problem List Diagnosis Date Noted Colon cancer 07/19/2022 Adenocarcinoma moderately differentiated of the cecum T3N1 resected 05/27/2022. Patient is status post right-sided colectomy. She started adjuvant chemotherapy with XELOX regimen on July 13, 2022. Labs reviewed. We will give her 1 L of normal saline with 20 of potassium today. I have again recommended her to start taking potassium twice a day for 3 days then once a day afterwards. She is due for her last round of chemotherapy with XELOX regimen in 2 weeks. Follow-up with me in 2 weeks. Dehydration secondary to diarrhea. She will continue Imodium and will prescribe Lomotil refill as well. Chemotherapy-induced neuropathy. Stable. Hypokalemia. Patient received 20 mEq of potassium with IV fluid today and then continue home potassium supplement. Follow-up in 2 weeks. 10/22/2022 Nicho Napoles MD documented in this encounter Plan of Treatment Upcoming Encounters Date Type Department Care Team (Late st Contact Info) Description 04/26/2024 2:30 PM TIMING MACHINE OPERATOR Office Visit [facility] Oncology and Hematology [facility] [address] [place] [address] Nicho Napoles MD [address] [facility] [address] [place] [address] documented as of this encounter Visit Diagnoses Diagnosis Malignant neoplasm of ascending colon- Primary documented in this encounter Care Teams Return Agent Relationship Specialty Start Date End Date Donal Granados MD PCP - General Family Practice 07/02/22 documented as of this encounter
--- OUTSIDE RECORDS SUMMARY | 2024-04-04 23:34 | XMS_ITS | Encounter Summary ---
Author Organization [facility] [employer] Address [address] [place] [address] Care Team Providers Care Track Watchman Name Role Phone Donal Granados MD Primary Care Provider [phone] Encounter Details Date Type Department Care Team ([facility] Contact Info) Description 07/30/2022 Abstract [facility] Oncology [facility] [address] [facility] [address] [place] [address] Jaki Dennis RN Social History Tobacco Use Types Packs/Day [...] (Late Contact Info) Description 04/26/2024 2:30 PM GROUND NUCLEAR WEAPONS ASSEMBLY OFFICER Office Visit [facility] Oncology [facility] [address] [place] [address] Nicho Napoles MD [address] [facility] [address] [place] [address] documented as of this encounter Visit Diagnoses Not on filedocumented in this encounter Care Teams Track Watchman Relationship Specialty Start Date End Date Donal Granados MD PCP - General Family Practice 07/02/22 documented as of this encounter
--- OUTSIDE RECORDS SUMMARY | 2024-04-04 23:34 | XMS_ITS | Encounter Summary ---
Author Organization [facility] Address [address] [facility] Attn: Epic Prelude ADT [place] [address] Care Team Providers Care Residential Green Building Designer Name Role Phone Donal Granados MD Primary Care Provider [phone] Encounter Details Date Type Department Care Team (Latest Contact Info) Description 07/17/2022 Travel Social History Tobacco Use Types Packs/Day [...] st Contact Info) Description 04/26/2024 2:30 PM DINKEY ENGINE FIRER/FIREMAN Office Visit [facility] Oncology and Hematology - [place] [address] [facility] [address] [place] [address] Nicho Napoles MD [address] [facility] [address] [place] [address] documented as of this encounter Visit Diagnoses Not on filedocumented in this encounter Care Teams Residential Green Building Designer Relationship Specialty Start Date End Date Donla Granados MD PCP - General Family Practice 07/02/22 documented as of this encounter
--- OUTSIDE RECORDS SUMMARY | 2024-04-04 23:34 | XMS_ITS | Encounter Summary ---
Author Organization [facility] [employer] Address [address] [place] [address] Care Team Providers Care Receiving Associate Name Role Phone Donal Granados MD Primary Care Provider [phone] Encounter Details Date Type Department Care Team (Late Contact Info) Description 09/23/2022 Orders Only [facility] Oncology and Hematology [facility] [address] [place] [address] [place] [address] [place] [address] [employer] [address] [place] [address] Malignant neoplasm of ascending colon Social [...] (Late Contact Info) Description 04/26/2024 2:30 PM CASH ANALYST Office Visit [facility] Oncology and Hematology [facility] [address] [place] [address] Nicho Napoles MD [facility] [employer] [address] [place] [address] documented as of this encounter Visit Diagnoses Diagnosis Malignant neoplasm of ascending colon documented in this encounter Care Teams Receiving Associate Relationship Specialty Start Date End Date Donal Granados MD PCP - General Family Practice 07/02/22 documented as of this encounter
--- OUTSIDE RECORDS SUMMARY | 2024-04-04 23:34 | XMS_ITS | Encounter Summary ---
Author Organization [facility] Address [address] [place] [address] Care Team Providers Care Public Space Attendant Name Role Phone Donal Granados MD Primary Care Provider [phone] Reason for Visit * Reason Comments Chemotherapy Encounter Details Date Type Department Care Team (Late st Contact Info) Description 11/06/2022 9:45 AM CDT Office Visit [facility] Oncology and Hematology - [place] [address] [place] [address] Flower Vides MD [address] [place] [address] Malignant neoplasm of ascending colon [...] Sign Reading Time Taken Comments Blood Pressure 100/72 11/06/2022 10:12 AM CDT Pulse 100 11/06/2022 10:12 AM CDT Temperature 36.6 ??C (97.8 ??F) 11/06/2022 10:12 AM C DT Respiratory Rate 10 11/06/2022 10:12 AM CDT Oxygen Saturation 97% 11/06/2022 10:12 AM CDT Inhaled Oxygen Concentration - - Weight 46.7 kg (103 lb) 11/06/2022 10:12 AM CDT Height - - Body Mass Index 18.6 07/02/2022 3:10 PM CDT documented in this encounter Progress Notes * Marivel Erickson - 11/06/2022 10:[address] Dailey's notes scanned into digital media director. documented in this encounter Plan of Treatment Upcoming Encounters Date Type Department Care Team (Late st Contact Info) Description 04/26/2024 2:30 PM SPECIAL LIBRARIAN Office Visit [facility] Oncology and Hematology - [place] [address] [facility] [address] [place] [address] Nicho Napoles MD [address] [facility] [address] [place] [address] documented as of this encounter Visit Diagnoses Diagnosis Malignant neoplasm of ascending colon- Primary documented in this encounter Care Teams Public Space Attendant Relationship Specialty Start Date End Date Donal Granados MD PCP - General Family Practice 07/02/22 documented as of this encounter
--- OUTSIDE RECORDS SUMMARY | 2024-04-04 23:34 | XMS_ITS | Encounter Summary ---
Author Organization [facility] [employer] Address [address] [place] [address] Care Team Providers Care Belt Fixer Name Role Phone Donal Granados MD Primary Care Provider [phone] Reason for Visit * Reason Comments Med Change Request Encounter Details Date Type Department Care Team ([facility] Contact Info) Description 09/12/2022 Refill [facility] Oncology and Hematology [facility] [address] [place] [address] Nicho Napoles MD [address] [place] [address] Malignant neoplasm of colon, unspecified part of colon Social History Tobacco Use Types Packs/Day [...] Upcoming Encounters Date Type Department Care Team ([facility] Contact Info) Description 04/26/2024 2:30 PM PROJECT CONSULTANT Office Visit [facility] Oncology and Hematology [facility] [address] [place] [address] Nicho Napoles MD [address] [place] [address] documented as of this encounter Visit Diagnoses Diagnosis Malignant neoplasm of colon, unspecified part of colon documented in this encounter Care Teams Belt Fixer Relationship Specialty Start Date End Date Donal Granados MD PCP - General Family Practice 07/02/22 documented as of this encounter
--- OUTSIDE RECORDS SUMMARY | 2024-04-04 23:34 | XMS_ITS | Encounter Summary ---
Author Organization [facility] [employer] Address [address] [place] [address] Care Team Providers Care Cardiology Nurse Practitioner Name Role Phone Donal Granados MD Primary Care Provider [phone] Reason for Visit * Reason Onset Date Comments Medication Refill 07/04/2022 Encounter Details Date Type Department Care Team ([facility] Contact Info) Description 07/04/[address] [facility] Oncology [facility] [address] [place] [address] Nicho Napoles MD [facility] [employer] [address] [place] [address] Malignant neoplasm of ascending colon (Primary [...] Upcoming Encounters Date Type Department Care Team ([facility] Contact Info) Description 04/26/2024 2:30 PM COTTON GINNER HELPER Office Visit [facility] Oncology [facility] [address] [facility] [address] [place] [address] Nicho Napoles MD [address] [employer] [address] [place] [address] documented as of this encounter Visit Diagnoses Diagnosis Malignant neoplasm of ascending colon- Primary documented in this encounter Care Teams Cardiology Nurse Practitioner Relationship Specialty Start Date End Date Donal Granados MD PCP - General Family Practice 07/02/22 documented as of this encounter
--- OUTSIDE RECORDS SUMMARY | 2024-04-04 23:34 | XMS_ITS | Encounter Summary ---
Author Organization [facility] [employer] Address [address] [place] [address] Care Team Providers Care Communications Program Manager Name Role Phone Donal Granados MD Primary Care Provider Encounter Details Date Type Department Care Team (Late Contact Info) Description 09/30/2022 Orders Only [facility] Oncology and Hematology [facility] [address] [place] [address] [place] [address] [place] [address] [employer] [address] [place] [address] Malignant neoplasm of ascending colon Social [...] (Late Contact Info) Description 04/26/2024 2:30 PM NUTRITION FACULTY MEMBER Office Visit [facility] Oncology and Hematology [facility] [address] [place] [address] Nicho Napoles MD 222[facility] [employer] [address] [place] [address] documented as of this encounter Visit Diagnoses Diagnosis Malignant neoplasm of ascending colon documented in this encounter Care Teams Communications Program Manager Relationship Specialty Start Date End Date Donal Granados MD PCP - General Family Practice 07/02/22 documented as of this encounter
--- OUTSIDE RECORDS SUMMARY | 2024-04-04 23:34 | XMS_ITS | Encounter Summary ---
Author Organization [facility] [employer] Address [address] [place] [address] Care Team Providers Care Repossessor Name Role Phone Donal Granados MD Primary Care Provider [phone] Reason for Visit * Reason Onset Date Comments Print script 10/22/2022 Encounter Details Date Type Department Care Team ([facility] Contact Info) Description 10/22/2022 Telephone [facility] Oncology and Hematology [place] [address] [place] [address] Nicho Napoles MD [facility] [employer] [address] [place] [address] Print script Social History Tobacco Use Types Packs/Day Years [...] Upcoming Encounters Date Type Department Care Team ([facility] Contact Info) Description 04/26/2024 2:30 PM CUFF SETTER OVERLOCK Office Visit [facility] Oncology and Hematology - [place] [address] [place] [address] Nicho Napoles MD [address] [employer] [address] [place] [address] documented as of this encounter Visit Diagnoses Diagnosis C. difficile diarrhea- Primary Intestinal infection due to clostridium difficile documented in this encounter Care Teams Repossessor Relationship Specialty Start Date End Date Donal Granados MD PCP - General Family Practice 07/02/22 documented as of this encounter
--- OUTSIDE RECORDS SUMMARY | 2024-04-04 23:34 | XMS_ITS | Encounter Summary ---
Author Organization [facility] [place] Address [address] [place] [address] Care Team Providers Care Test Carrier Name Role Phone Donal Granados MD Primary Care Provider [phone] Encounter Details Date Type Department Care Team ([facility] Contact Info) Description 07/09/2022 Abstract [facility] Oncology [facility] [place] [place] [address] [place] [address] Jaki Dennis RN Social History [...] (Late Contact Info) Description 04/26/2024 2:30 PM FIRE ALARM INSTALLER Office Visit [facility] Oncology [facility] [place] [place] [address] [place] [address] Nicho Napoles MD [address] [place] [address] documented as of this encounter Visit Diagnoses Not on filedocumented in this encounter Care Teams Test Carrier Relationship Specialty Start Date End Date Donal Granados MD PCP - General Family Practice 07/02/22 documented as of this encounter
--- OUTSIDE RECORDS SUMMARY | 2024-04-04 23:34 | XMS_ITS | Encounter Summary ---
Author Organization [facility] Address [address] [facility] Attn: Epic Prelude ADT JOSE [place] [address] Care Team Providers Care Genetics Nurse Name Role Phone Donal Granados MD Primary Care Provider [phone] Encounter Details Date Type Department Care Team (Latest Contact Info) Description 07/02/2022 Travel Social History Tobacco Use Types Packs/Day [...] st Contact Info) Description 04/26/2024 2:30 PM REPAIR MANAGER Office Visit [facility] Oncology and Hematology - [place] [address] [facility] [address] [place] [address] Nicho Napoles MD [address] [facility] [address] [place] [address] documented as of this encounter Visit Diagnoses Not on filedocumented in this encounter Care Teams Genetics Nurse Relationship Specialty Start Date End Date Donal Granados MD PCP - General Family Practice 07/02/22 documented as of this encounter
--- OUTSIDE RECORDS SUMMARY | 2024-04-04 23:34 | XMS_ITS | Encounter Summary ---
Author Organization [facility] Address [address] [place] [address] Care Team Providers Care Custom Van Converter Name Role Phone Donal Granados MD Primary Care Provider [phone] Encounter Details Date Type Department Care Team (Late st Contact Info) Description 07/10/2022 Specialty Pharmacy [facility] [place] [address] [place] [address] Emy Tavares PHARMACIST Specialty Pharmacy Prior Auth Coordination Social History Tobacco Use Types Packs/Day Years [...] PM CDT documented as of this encounter Progress Notes * Emy Tavares PHARMACIST - 07/10/2022 12:55 PM CDT [facility] [place] Prior Authorization Approval Note Loulou Lanier 1955 Name of medication, strength, formulation: CAPECITABINE 150+500MG TABS Quantity 168/28 for 21 days supply Prior authorization approval effective dates: from 07/05/22 to 04/13/23 Diagnosis & ICD 10 Code: C18.2 COLON Per Polish Maker: SAUL Additional information: ADV PLAN $20.18 Approval letter scanned into chart. Completed by: Emy Tavares, PHARMACIST documented in this encounter Plan of Treatment Upcoming Encounters Date Type Department Care Team (Late st Contact Info) Description 04/26/2024 2:30 PM WET CLEANER MACHINE Office Visit [facility] Oncology and Hematology - [place] [address] [facility] [address] [place] [address] Nicho Napoles MD [address] [facility] [address] [place] [address] documented as of this encounter Visit Diagnoses Not on filedocumented in this encounter Care Teams Custom Van Converter Relationship Specialty Start Date End Date Donal Granados MD PCP - General Family Practice 07/02/22 documented as of this encounter
--- OUTSIDE RECORDS SUMMARY | 2024-04-04 23:34 | XMS_ITS | Encounter Summary ---
Author Organization [facility] [employer] Address [address] [place] [address] Care Team Providers Care Compounder Flavorings Name Role Phone Donal Granados MD Primary Care Provider [phone] Reason for Visit * Reason Onset Date Comments Medication Refill 10/08/2022 Encounter Details Date Type Department Care Team ([facility] Contact Info) Description 10/08/2022 Refill [facility] Oncology and Hematology [place] [address] [place] [address] Nicho Napoles MD [address] [place], [place] [address] [address] [place] [address] Malignant neoplasm of ascending colon Social [...] Upcoming Encounters Date Type Department Care Team ([facility] Contact Info) Description 04/26/2024 2:30 PM CASEWORKER PROTECTIVE SERVICES Office Visit [facility] Oncology and Hematology [place] [address] [place] [address] [place] [address] [place], [place] [address] [address] [place] [address] documented as of this encounter Visit Diagnoses Diagnosis Malignant neoplasm of ascending colon documented in this encounter Care Teams Compounder Flavorings Relationship Specialty Start Date End Date Donal Granados MD PCP - General Family Practice 07/02/22 documented as of this encounter
--- OUTSIDE RECORDS SUMMARY | 2024-04-04 23:34 | XMS_ITS | Encounter Summary ---
Author Organization [facility] [employer] [employer] [facility] Address [address] [place] [address] Care Team Providers Care Manufacturing Millwright Name Role Phone Donal Granados MD Primary Care Provider [phone] Encounter Details Date Type Department Care Team ([facility] Contact Info) Description 11/07/2022 Orders Only [facility] Oncology and Hematology [place] [address] [place] [address] [place] [address] [place] [address] [employer] [address] [place] [address] Social History Tobacco Use Types Packs/Day [...] (Late Contact Info) Description 04/26/2024 2:30 PM POLYMERIZATION OVEN OPERATOR Office Visit [facility] Oncology and Hematology - [place] [address] [place] [address] Nicho Napoles MD [address] [facility] [employer] [address] [place] [address] documented as of this encounter Procedures Procedure Name Priority Date/Time Associated Diagnosis Comments CBC WITH DIFFERENTIAL Routine 11/06/2022 10:53 AM CDT BASIC METABOLIC PANEL Routine 11/06/2022 10:43 AM CDT documented in this encounter Results * CBC WITH DIFFERENTIAL (11/06/2022 10:53 AM CDT) Blood Nicho Napoles MD HEMATOLOGY ORDERABLE S * BASIC METABOLIC PANEL (11/06/2022 10:43 AM CDT) Blood Nicho Napoles MD CHEMISTRY ORDERABLES documented in this encounter Visit Diagnoses Not on filedocumented in this encounter Care Teams Manufacturing Millwright Relationship Specialty Start Date End Date Donal Granados MD PCP - General Family Practice 07/02/22 documented as of this encounter
--- OUTSIDE RECORDS SUMMARY | 2024-04-04 23:35 | XMS_ITS | Encounter Summary ---
Author Organization [facility] Address [address] [place] [address] Care Team Providers Care Cash Applications Specialist Name Role Phone Donal Granados MD Primary Care Provider Reason for Visit * Reason Comments Establish Care Encounter Details Date Type Department Care Team (Late st Contact Info) Description 07/02/2022 3:15 PM CDT Office Visit [facility] Oncology and Hematology - [place] [address] [place] [address] Jens Dumont MD [address] [place] [address] Malignant neoplasm of ascending colon [...] PM CDT documented as of this encounter Last Filed Vital Signs Vital Sign Reading Time Taken Comments Blood Pressure 130/89 07/02/2022 3:16 PM CDT Pulse 103 07/02/2022 3:10 PM CDT Temperature 36.8 ??C (98.3 ??F) 07/02/2022 3:10 PM CD T Respiratory Rate 10 07/02/2022 3:10 PM CDT Oxygen Saturation 98% 07/02/2022 3:10 PM CDT Inhaled Oxygen Concentration - - Weight 56.7 kg (125 lb) 07/02/2022 3:10 PM CDT Height 158.5 cm (5' 2.4 ) 07/02/2022 3:10 PM CDT Body Mass Index 22.57 07/02/2022 3:10 PM CDT documented in this encounter Progress Notes * Jens Dumont MD - 07/02/2022 4:01 PM CDT HEMATOLOGY / ONCOLOGY PROGRESS NOTE Patient Identification: Name: Loulou Lanier Age: 67 y.o. 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 05/27/2022 CURRENT TREATMENT Status post laparoscopic right colectomy SUBJECTIVE This is a 67-year-old female who was diagnosed with a adenocarcinoma of the cecum on 05/27/2022 underwent a laparoscopic sending colectomy pathology showed a adenocarcinoma of the cecum moderately differentiated 3.5 cm invaded the pericolonic fat with no lymphovascular invasion margins were negative metastatic adenocarcinoma was found in one of the 15 lymph nodes T3N1A low risk MSI negative Patient underwent procedure without any complications suffers however from chronic low appetite andhas history of chronic depression for which she is receiving treatment her describes her having a poor appetite and low oral intake Past medical history significant for hyperlipidemia anxiety depression irritable bowel syndrome osteoporosis Review of system Constitutional: denies fevers, sweats, fatigue, malaise, weight loss HEENT: denies sinus congestion, hearing or vision problems Respiratory: denies cough, dyspnea, wheeze Cardiovascular: denies chest pain, exertional chest pressure/discomfort, nausea, syncope, shortnessof breath GI: denies constipation, diarrhea, dsyphagia, reflux symptoms, vomiting, melena : denies dysuria, frequency, incontinence, urgency Integumentary system: no lymphadenopathy, sweats, flushing Musculoskeletal: denies: myalgia, arthralgia Neurological: denies blurry or disturbed vision, numbness/weakness, dizziness Skin: [...] lymphadenopathy Neuro: No obvious focal deficit PATH as above T3N1A adenocarcinoma of the cecum Assessment: Plan: Options were discussed with the patient and spouse I explained that she is low risk and as such would probably benefit equally from 3 months or 6 months of chemotherapy the options were provided wereeither FOLFOX infusional or CapeOx the patient preferred the option of CapeOx which would be an infusion of oxaliplatin once every 3 weeks and 14 days of capecitabine Possible side effects were explained to the patient patient will undergo chemotherapy teaching by the nurse and will not initiate chemotherapy as soon as feasible ? TOBACCO COUNSELING She is not a tobacco user. 07/02/2022 This note was transcribed using [employer] speaking computerized voice recognition without a human hop sorter. This report may or may not have been adjusted for typographical, grammaticaland syntax errors. Jens Dumont MD documented in this encounter Plan of Treatment Upcoming Encounters Date Type Department Care Team (Late st Contact Info) Description 04/26/2024 2:30 PM TRANSPORT ASSISTANT Office Visit [facility] Oncology and Hematology - [place] [address] [place] [address] Nicho Napoles MD [address] [facility] [address] [place] [address] documented as of this encounter Visit Diagnoses Diagnosis Malignant neoplasm of ascending colon- Primary documented in this encounter Care Teams Cash Applications Specialist Relationship Specialty Start Date End Date Donal Granados MD PCP - General Family Practice 07/02/22 documented as of this encounter
== END 2024-03-29 09:03 | disposition home or self-care (01) ==
PROVIDERS: PCP Family Medicine; Visit Provider Internal Medicine Hematology & Oncology
DX: K40.90 Unilateral inguinal hernia, without obstruction or gangrene, not specified as recurrent (principal); C18.2 Malignant neoplasm of ascending colon
CPT/HCPCS: 74177; Q9967

== ENCOUNTER 2024-08-19 14:47 | Outpatient (CLI) | payer MEDICARE, SELFPAY ==
--- OUTSIDE RECORDS SUMMARY | 2024-08-19 14:50 | XMS_ITS | Referral Summary ---
Author Organization [facility] Address [address] [place] [address] Care Team Providers Care Stem Roller Name Role Phone Donal Granados MD Unavailable [phone] Batsheva Vergara Primary Care Provider [phone] Allergies No known active allergies Medications No known medications Active Problems No known active problems Social History Tobacco Use Types Packs/Day Years Used Date Smoking Tobacco: Never Assessed Comments Unknown Sex and Gender Information Value Date Recorded Sex Assigned at Not on file Legal Sex Female 10:14 AM SUPPLY CHAIN LOGISTICS MANAGER Gender Identity Not on file Sexual Orientation Not on file Last Filed Vital Signs Vital Sign Reading Time Taken Comments Blood Pressure 125/84 04/28/2022 11:00 AM SUPPLY CHAIN LOGISTICS MANAGER Pulse 91 04/28/2022 11:00 AM SUPPLY CHAIN LOGISTICS MANAGER Temperature 37.1 C (98.7 F) 04/28/2022 11:00 AM SUPPLY CHAIN LOGISTICS MANAGER Respiratory Rate 16 04/28/2022 11:00 AM SUPPLY CHAIN LOGISTICS MANAGER Oxygen Saturation 97% 04/28/2022 11:00 AM SUPPLY CHAIN LOGISTICS MANAGER Inhaled Oxygen Concentration - - Weight 61.2 kg (135 lb) 04/28/2022 11:00 AM SUPPLY CHAIN LOGISTICS MANAGER Height 157.5 cm (5' 2 ) 04/28/2022 11:00 AM SUPPLY CHAIN LOGISTICS MANAGER Body Mass Index 24.69 04/28/2022 11:00 AM SUPPLY CHAIN LOGISTICS MANAGER Plan of Treatment Not on file Insurance [employer] MEDICARE HMO [employer] CHOICE MEDICARE PPO [employer] MEDICARE PPO Care Teams Stem Roller Relationship Specialty Start Date End Date Batsheva Vergara [address] [facility] [address], [place] [address] PCP - General 04/28/22 Donal Granados MD [address] [place] [address] Referring Physician Family Medicine 03/13/22
--- OUTSIDE RECORDS SUMMARY | 2024-08-19 14:50 | XMS_ITS | Data Portability ---
Author Organization [facility] [employer], Main Office Address [address] [place] [address] Assessment No assessment recorded. Plan of Treatment Reminders Order Date Submit Date Provider Last Modified By Organization Details Last Modified Time Details Appointments Follow Up 15 2024 10:00A CLEMENTE Valle Not available Not available Not available Lab urinalysi s, dipstick 2024 025 DEDRICK [facility], [address] [place] [address], [address], 05/24/2024 12:15:24 culture, urine + sensitivi ty [address] ([facility]), [address] [place], [address], 05/24/2024 12:17:15 urinalysi s, dipstick 2023 024 [email or web address] [place], [place], [address], 02/12/2024 12:48:56 culture, urine + sensitivi ty 2023 024 DEDRICK Not available 02/16/2024 08:58:00 TSH, serum or plasma 2023 024 [email or web address] Not available 10/20/2023 08:14:40 vitamin B12, serum 2023 024 Not available 10/20/2023 08:14:40 folate, serum 2023 024 [email or web address] Not available 10/20/2023 08:14:41 iron + total iron-bind ing capacity (TIBC), serum 2023 024 [email or web address] Not available 10/20/2023 08:14:41 CMP, serum or plasma 2023 024 [email or web address] Not available 10/20/2023 08:14:41 vitamin D, 25-hydrox y, total, serum 2023 024 [email or web address] Not available 10/20/2023 08:14:41 T4, free, serum 2023 024 [email or web address] Not available 10/20/2023 08:14:41 glycohemo globin, total, blood 2023 024 [email or web address] Not available 10/20/2023 08:14:41 ferritin, serum or plasma 2023 024 [email or web address] Not available 10/20/2023 08:14:42 Referral None recorded. Procedures None recorded. Surgeries None recorded. Imaging MAMMO, screening , digital, bilateral 2024 025 [email or web address] [facility], [address], [place] [address], [place], [address], 06/07/2024 10:51:01 US, duplex, venous, lower extremity , unilatera l - *Please call pt to schedule* [address] [place] [address], [facility], [place], [address], 10/31/2023 09:06:22 US, duplex, arterial, lower extremity , complete - Duplicate [address] [place] [address], [facility], [place], [address], 11/03/2023 08:51:25 Medication Orders ciproflox acin 500 mg tablet 2024 025 DEDRICK [facility], [address] , [place], [address], 05/24/2024 11:42:40 omeprazol e 40 mg capsule,d elayed release 2024 025 DEDRICK [facility], [address], [place], [address], 05/24/2024 11:42:41 ciproflox acin 500 mg tablet 2023 DEDRICK [facility], [address] , [place], [address], 02/12/2024 12:50:26 escitalop xiomara 20 mg tablet 2023 [facility], [address] [facility], [place], [address], 10/13/2023 15:14:01 permethri n 5 % topical cream 2022 023 [email or web address] [id number], [address], [place], [address], 02/12/2024 12:18:06 Patient TargetsNo targets recorded. Patient Instructions Encounter Date Encounter Id Patient Instructions Last Modified By Organization Details Last Modified Time 02/12/2024 [id number] dementia rating scale-2* [email or web address] Not available 02/12/2024 13:07:09 alcohol misuse* [email or web address] Not available 02/12/2024 13:07:14 depression screening* Not available 02/12/2024 13:07:21 multi-dimensiona l health assessment questionnaire* [email or web address] Not available 02/12/2024 13:07:03 Personalized [facility] Plan and Screening Recommendations Advance Directives - Do you have one? No Advance Directives - Do we have your advance directive on file in your health record? Primary Prevention/Interven tion (prevents or decreases the chance of common diseases from occurring) Smoking Risk: Alcohol Misuse Screening: Negative Weight: Appropriate continue your current weight loss efforts Physical activity: Need more exercise/physical activity Nutrition: Good Average Fall Risk (screened today): [...] Continue current treatment plan Diabetes: Low Risk Active diagnosis, Continue current treatment plan Secondary Prevention/Interven tion (detects treatable diseases before they may cause symptoms, disability, or ) Breast Cancer Screening with mammogram: Your next mammogram: Ordered Recommended today Cervical/Uterine/Ov ai Cancer Screening: No screening necessary Osteoporosis Screening: Your next DEXA in: Ordered Recomme nded today Date Screening Last Performed: Colon Cancer Screening: Colonoscopy In: Ordered Recomme nded Recommended today, but you have declined Date Screening Last Performed: Eye Disease Screening: No Eye exam necessary Dementia Risk: Low I have no recommendations Depression Screening: Negative Active diagnosis, Continue current treatment plan [email or web address] Not available 01/12/2024 12:45:08 Reason for Referral None Reported. Results Created Date Observation Date Name Description Value Unit Range Abnormal Flag Note LastModifiedBy Organization Detail LastModifiedTime 01/02/20 22 01/02/2022 HEMOG LOBIN FRACT ION/E LECTR OPH. hemoglobin S 0.0 % 0.0 Not Available [facility] (Lab) [address] [place], [address], 01/02/2022 14:12:40 01/02/20 22 01/02/2022 HEMOG LOBIN FRACT ION/E LECTR OPH. hemoglobin F 0.0 % 0.0-2. 0 Not Available [facility] (Lab) [address] [place], [address], 01/02/2022 14:12:40 01/02/20 22 01/02/2022 HEMOG LOBIN FRACT ION/E LECTR OPH. hemoglobin A 97.6 % 96.4-9 8.8 Not Available [facility] (Lab) [address] [place], [address], 01/02/2022 14:12:40 01/02/20 22 01/02/2022 HEMOG LOBIN FRACT ION/E LECTR OPH. hemoglobin A2 2.4 % 1.8-3. 2 Not Available [facility] (Lab) [address] [place], [address], 01/02/2022 14:12:40 01/02/20 22 01/02/2022 HEMOG LOBIN FRACT ION/E LECTR OPH. interpretati on: commen t Juany l hemog lobin prese nt; no hemog lobin varia nt or beta thala ssemi a ident ified . Note: Alpha thala ssemi a may not be detec ritchie by the Hgb Fract ionat ion [place] panel . If alpha thala ssemi a is suspe cted, [facility] offer s Alpha -Thal assem ia DNA Indira sis (#[phone]). Perfo rmed at: [address], [place] [address] Lab Direc tor: Ugo murillo PhD, Phone : [phone] Not Available [facility] (Lab) [address] [place], [address], 01/02/2022 14:12:40 01/02/20 22 01/01/2022 VITAM IN D 25-HY DROXY [id number] 57.3 NG/mL 30-100 Vitam in D Statu s: Defic ient: <20 ng/mL Insuf ficie nt: 20-29 ng/mL Suffi cient : 30-10 0 ng/mL Not Available [facility] (Lab) [address] [place], [address], 01/01/2022 14:00:24 01/02/20 22 01/01/2022 PARAT HY.HO RM(PT H)INT ACT-W /O CA intact parathyroid hormone 36.6 pg/mL 24.0-7 8.0 Not Available [facility] (Lab) [address] [place], [address], 01/01/2022 14:00:20 01/02/20 22 01/01/2022 COMPR EHENS MENG METAB OLIC PANEL sodium 138 mmol/ L 137-14 5 Not Available [facility] (Lab) [address] [place], [address], 01/01/2022 13:42:18 01/02/20 22 01/01/2022 COMPR EHENS MENG METAB OLIC PANEL potassium 4.5 mmol/ L 3.5-5. 1 Not Available [facility] (Lab) [address] [place], [address], 01/01/2022 13:42:18 01/02/20 22 01/01/2022 COMPR EHENS MENG METAB OLIC PANEL chloride 100 mmol/ L 98-107 Not Available [facility] (Lab) [address] [place], [address], 01/01/2022 13:42:18 01/02/20 22 01/01/2022 COMPR EHENS MENG METAB OLIC PANEL carbon dioxide 30 mmol/ L 22-30 Not Available [facility] (Lab) [address] [place], [address], 01/01/2022 13:42:18 01/02/20 22 01/01/2022 COMPR EHENS MENG METAB OLIC PANEL anion gap 12.5 mmol/ L 14-22 low Not Available [facility] (Lab) [address] [place], [address], 01/01/2022 13:42:18 01/02/20 22 01/01/2022 COMPR EHENS MENG METAB OLIC PANEL glucose 88 mg/dL 70-99 Not Available [facility] (Lab) [address] [place], [address], 01/01/2022 13:42:18 01/02/20 22 01/01/2022 COMPR EHENS MENG METAB OLIC PANEL BUN 17 mg/dL 8-19 Not Available [facility] (Lab) [address] [facility] [place], [address], 01/01/2022 13:42:18 01/02/20 22 01/01/2022 COMPR EHENS MENG METAB OLIC PANEL creatinine 0.75 mg/dL 0.66-1 .25 Not Available [facility] (Lab) [address] [facility], [place], [address], 01/01/2022 13:42:18 01/02/20 22 01/01/2022 COMPR EHENS MENG METAB OLIC PANEL GFR >60 Refer ence Range : [place] ge GFR Healt hy Adult : >60 [...] or ethni c subgr oups, such as [facility] nics. Outsi de the valid ated ralf [...] calcu lator is avail able on the [facility] websi te: https ://lyle wkelli harvey.o rg/pr ofess ional s/kdo qi/gf r_cal culat or Not Available [facility] (Lab) [address] [place], [address], 01/01/2022 13:42:18 01/02/20 22 01/01/2022 COMPR EHENS MENG METAB OLIC PANEL alkaline phosphatase 67 U/L 38-126 Not Available [facility] (Lab) [address] [facility] [place], [address], 01/01/2022 13:42:18 01/02/20 22 01/01/2022 COMPR EHENS MENG METAB OLIC PANEL alanine aminotransfe rase 14 U/L 0-35 Not Available [facility] (Lab) [address] [facility] [place], [address], 01/01/2022 13:42:18 01/02/20 22 01/01/2022 COMPR EHENS MENG METAB OLIC PANEL aspartate aminotransfe rase 25 U/L 15-37 Not Available [facility] (Lab) [address] [place], [address], 01/01/2022 13:42:18 01/02/20 22 01/01/2022 COMPR EHENS MENG METAB OLIC PANEL bilirubin, total 0.30 mg/dL 0.20-1 .30 Not Available [facility] (Lab) [address] [place], [address], 01/01/2022 13:42:18 01/02/20 22 01/01/2022 COMPR EHENS MENG METAB OLIC PANEL calcium 9.5 mg/dL 8.4-10 .2 Not Available [facility] (Lab) [address] [place], [address], 01/01/2022 13:42:18 01/02/20 22 01/01/2022 COMPR EHENS MENG METAB OLIC PANEL total protein 7.3 g/dL 6.3-8. 2 Not Available [facility] (Lab) [address] [place], [address], 01/01/2022 13:42:18 01/02/20 22 01/01/2022 COMPR EHENS MENG METAB OLIC PANEL albumin 4.5 g/dL 3.0-4. 4 high Not Available [facility] (Lab) [address] [place], [address], 01/01/2022 13:42:18 01/02/20 22 01/01/2022 COMPR EHENS MENG METAB OLIC PANEL globulin 2.8 g/dL 2.6-4. 2 Not Available [facility] (Lab) [address] [place], [address], 01/01/2022 13:42:18 01/02/20 22 01/01/2022 COMPR EHENS MENG METAB OLIC PANEL A/G ratio 1.6 ratio 1.0-2. 0 Not Available [facility] (Lab) [address] [place], [address], 01/01/2022 13:42:18 01/02/20 22 01/01/2022 PHOSP HORUS phosphorus 3.9 mg/dL 2.5-4. 5 Not Available [facility] (Lab) [address] [place], [address], 01/01/2022 13:42:12 01/02/20 22 01/01/2022 CBC/C OMPLE TE BLD COUNT W/DIF F white blood cells 7.7 x10'3 /uL 4.2-10 .8 Not Available [facility] (Lab) [address] [place], [address], 01/01/2022 13:05:19 01/02/20 22 01/01/2022 CBC/C OMPLE TE BLD COUNT W/DIF F red blood cells 4.23 x10'6 /uL 3.80-5 .20 Not Available [facility] (Lab) [address] [place], [address], 01/01/2022 13:05:19 01/02/20 22 01/01/2022 CBC/C OMPLE TE BLD COUNT W/DIF F hemoglobin 11.9 g/dL 12.0-1 5.6 low Not Available [facility] (Lab) [address] [place], [address], 01/01/2022 13:05:19 01/02/20 22 01/01/2022 CBC/C OMPLE TE BLD COUNT W/DIF F hematocrit 38.5 % 35.7-4 5.7 Not Available [facility] (Lab) [address] [place], [address], 01/01/2022 13:05:19 01/02/20 22 01/01/2022 CBC/C OMPLE TE BLD COUNT W/DIF F mean red cell volume 91.0 fL 82.0-9 9.0 Not Available [facility] (Lab) [address] [place], [address], 01/01/2022 13:05:01/02/20 22 01/01/2022 CBC/C OMPLE TE BLD COUNT W/DIF F mean red cell hemoglobin 28.1 pg 27.0-3 3.0 Not Available [facility] (Lab) [address] [place], [address], 01/01/2022 13:05:01/02/20 22 01/01/2022 CBC/C OMPLE TE BLD COUNT W/DIF F mean RBC HGB concentratio n 30.9 g/dL 31.0-3 6.0 low Not Available [facility] (Lab) [address] [place], [address], 01/01/2022 13:05:19 01/02/20 22 01/01/2022 CBC/C OMPLE TE BLD COUNT W/DIF F red cell distribution width 15.5 % 11.8-1 5.5 Not Available [facility] (Lab) [address] [place], [address], 01/01/2022 13:05:19 01/02/20 22 01/01/2022 CBC/C OMPLE TE BLD COUNT W/DIF F platelets 377 x10'3 /uL 150-40 0 Not Available [facility] (Lab) [address] [place], [address], 01/01/2022 13:05:19 01/02/20 22 01/01/2022 CBC/C OMPLE TE BLD COUNT W/DIF F mean platelet volume 10.3 fL 9.0-12 .4 Not Available [facility] (Lab) [address] [place], [address], 01/01/2022 13:05:01/02/20 22 01/01/2022 CBC/C OMPLE TE BLD COUNT W/DIF F neutrophils 61.6 % 39.0-7 2.0 Not Available [facility] (Lab) [address] [place], [address], 01/01/2022 13:05:01/02/20 22 01/01/2022 CBC/C OMPLE TE BLD COUNT W/DIF F lymphocytes 30.3 % 16.0-4 7.0 Not Available [facility] (Lab) [address] [place], [address], 01/01/2022 13:05:19 01/02/20 22 01/01/2022 CBC/C OMPLE TE BLD COUNT W/DIF F monocytes 5.8 % 5.0-12 .0 Not Available [facility] (Lab) [address] [place], [address], 01/01/2022 13:05:19 01/02/20 22 01/01/2022 CBC/C OMPLE TE BLD COUNT W/DIF F eosinophils 1.6 % 1.0-7. 0 Not Available [facility] (Lab) [address] [place], [address], 01/01/2022 13:05:19 01/02/20 22 01/01/2022 CBC/C OMPLE TE BLD COUNT W/DIF F basophils 0.4 % 0.0-2. 0 Not Available [facility] (Lab) [address] [place], [address], 01/01/2022 13:05:01/02/20 22 01/01/2022 CBC/C OMPLE TE BLD COUNT W/DIF F immature granulocytes 0.3 % 0.00-0 .50 Not Available [facility] (Lab) [address] [place], [address], 01/01/2022 13:05:19 01/02/20 22 01/01/2022 CBC/C OMPLE TE BLD COUNT W/DIF F neutrophils, absolute count 4.72 x10'3 /uL 1.5-8. 0 Not Available [facility] (Lab) [address] [place], [address], 01/01/2022 13:05:01/02/20 22 01/01/2022 CBC/C OMPLE TE BLD COUNT W/DIF F lymphocytes, absolute count 2.32 x10'3 /uL 1.07-3 .43 Not Available [facility] (Lab) [address] [place], [address], 01/01/2022 13:05:01/02/20 22 01/01/2022 CBC/C OMPLE TE BLD COUNT W/DIF F monocytes, absolute count 0.44 x10'3 /uL 0.29-0 .99 Not Available [facility] (Lab) [address] [place], [address], 01/01/2022 13:05:19 01/02/20 22 01/01/2022 CBC/C OMPLE TE BLD COUNT W/DIF F eosinophils, absolute count 0.12 x10'3 /uL 0.02-0 .53 Not Available [facility] (Lab) [address] [place], [address], 01/01/2022 13:05:19 01/02/20 22 01/01/2022 CBC/C OMPLE TE BLD COUNT W/DIF F basophils, absolute count 0.03 x10'3 /uL 0.01-0 .08 Not Available [facility] (Lab) [address] [place], [address], 01/01/2022 13:05:19 01/02/20 22 01/01/2022 CBC/C OMPLE TE BLD COUNT W/DIF F immature granulocytes ,absolute 0.02 x10'3 /uL 0.00-0 .05 Not Available [facility] (Lab) [address] [place], [address], 01/01/2022 13:05:19 01/02/20 22 01/01/2022 CBC/C OMPLE TE BLD COUNT W/DIF F nucleated red blood cells 0.0 % -0 Not Available [facility] (Lab) [address] [place], [address], 01/01/2022 13:05:19 01/02/20 22 01/01/2022 CBC/C OMPLE TE BLD COUNT W/DIF F NRBC# 0.00 x10'3 /uL Not Available [facility] (Lab) [address] [place], [address], 01/01/2022 13:05:19 02/12/20 24 02/12/2024 urina lysis , dipst ick Leukocytes (reference range: negative era/ l) Small Not Available [facility] [address] [place], [place], [address], 02/12/2024 12:46:30 02/12/20 24 02/12/2024 urina lysis , dipst ick Nitrite (reference rage: negative mg/dl) negati ve Not Available [address] [place], [place], [address], 02/12/2024 12:46:30 02/12/2002/12/2024 urina lysis , dipst ick Urobilinogen (reference range: 0.2-1 mg/dl) 0.2 Not Available [address] [place], [place], [address], 02/12/2024 12:46:30 02/12/2002/12/2024 urina lysis , dipst ick Protein (reference range: negative mg/dl) Negati ve Not Available [address] [place], [place], [address], 02/12/2024 12:46:30 02/12/2002/12/2024 urina lysis , dipst ick pH (reference range: 5-7) 5.5 Not Available [address] [place], [place], [address], 02/12/2024 12:46:30 02/12/2002/12/2024 urina lysis , dipst ick Blood (reference range: negative Chalo/ l) Modera te Not Available [address] [place], [place], [address], 02/12/2024 12:46:30 02/12/2002/12/2024 urina lysis , dipst ick Specific [place] (reference range: 1.005-1.030) 1.030 Not Available [address] [place], [place], [address], 02/12/2024 12:46:30 02/12/20 24 02/12/2024 urina lysis , dipst ick Ketone (reference range: negative mg/dl) Negati ve Not Available [address] [place], [place], [address], 02/12/2024 12:46:30 02/12/20 24 02/12/2024 urina lysis , dipst ick Bilirubin (reference range: negative mg/dl) Negati ve Not Available [address] [place], [place], [address], 02/12/2024 12:46:30 02/12/2002/12/2024 urina lysis , dipst ick Glucose (reference range: negative mg/dl) Negati ve Not Available [address] [place], [place], [address], 02/12/2024 12:46:30 02/12/20 24 02/12/2024 urina lysis , dipst ick Appearance Cloudy Not Available [address] [place], [place], [address], 02/12/2024 12:46:30 02/12/20 24 02/12/2024 urina lysis , dipst ick Color Dark Yellow Not Available [address] [place], [place], [address], 02/12/2024 12:46:30 05/24/19 25 05/24/2024 urina lysis , dipst ick Leukocytes (reference range: negative era/ l) Negati ve Not Available [address], [place], [address], 05/24/2024 11:47:39 05/24/19 25 05/24/2024 urina lysis , dipst ick Nitrite (reference rage: negative mg/dl) negati ve Not Available [address], [address], 05/24/2024 11:47:39 05/24/19 25 05/24/2024 urina lysis , dipst ick Urobilinogen (reference range: 0.2-1 mg/dl) 0.2 Not Available [address], [address], 05/24/2024 11:47:39 05/24/19 25 05/24/2024 urina lysis , dipst ick Protein (reference range: negative mg/dl) Small Not Available [address], [address], 05/24/2024 11:47:39 05/24/19 25 05/24/2024 urina lysis , dipst ick pH (reference range: 5-7) 6.0 Not Available [address], [address], 05/24/2024 11:47:39 05/24/19 25 05/24/2024 urina lysis , dipst ick Blood (reference range: negative Ch[place]/ l) Non-He molyze d: Trace Not Available [address], [address], 05/24/2024 11:47:39 05/24/19 25 05/24/2024 urina lysis , dipst ick Specific [place] (reference range: 1.005-1.030) 1.020 Not Available [address], [address], 05/24/2024 11:47:39 05/24/19 25 05/24/2024 urina lysis , dipst ick Ketone (reference range: negative mg/dl) Trace Not Available [address], [address], 05/24/2024 11:47:39 05/24/19 25 05/24/2024 urina lysis , dipst ick Bilirubin (reference range: negative mg/dl) Small Not Available [address], [address], 05/24/2024 11:47:39 05/24/1905/24/2024 urina lysis , dipst ick Glucose (reference range: negative mg/dl) Negati ve Not Available [address], [address], 05/24/2024 11:47:39 05/24/19 25 05/24/2024 urina lysis , dipst ick Appearance Clear Not Available [address], [address], 05/24/2024 11:47:39 05/24/19 25 05/24/2024 urina lysis , dipst ick Color Dark Yellow Not Available [address], [address], 05/24/2024 11:47:39 03/26/20 22 US, pelvi s, trans abdom inal + trans vagin al [facility] [address] [place] [address] [phone] Patien t Name: LOULOU SKAGGS Access ion #: [id number] Sex: F : 1954 7 Locati on: RA2 Attend ing Physic mone: MARGUERITE IB, RUNDA Orderi ng Physic mone: ELRICHAT IB, MELODYDA Exam Date: 2021 1:45 PM Exam Name: [...] right ovary is Page 1 of 2 [facility] Name: LOULOU SKAGGS Access ion #: [id number] Sex: F : 1954 7 Exam [...] 5:31 PM (CT) Page 2 of 2 [id number] [facility] (Imaging) [address], [place], [address], 06/12/2022 08:50:25 03/26/20 22 US, head + neck, soft tissu e [facility] [address], [place] [address] Eduin vidal Name: LOULOU SKAGGS Access ion #: [id number] Sex: F : 1954 7 Locati on: RA2 Attend ing Physic mone: DONAL ALMANZA Orderi ng Physic mone: MARGUERITE COHEN RUNDA [...] calcif icatio ns. Page 1 of 2 [facility] dEuin vidal Name: LOULOU SKAGGS Access ion #: [id number] Sex: F : 1954 7 Exam [...] 5:28 PM (CT) Page 2 of 2 [id number] [facility] (Imaging) [address] [place], [address], 06/12/2022 08:50:25 03/26/20 22 03/26/2022 US, thyro id No observ ation record ed. MIGRATION. [facility] On [facility] Orders [address] [place], [address], 06/12/2022 08:50:25 03/26/20 22 03/26/2022 US, pelvi s, compl ete No observ ation record ed. MIGRATION. [facility] Orders [address] [place], [address], 06/12/2022 08:50:25 04/23/19 23 04/23/2022 CT, angio gram, chest , w/ contr ast No observ ation record ed. [id number] [facility] On [facility] Orders [address] [facility], [place], [address], 06/12/2022 08:50:25 07/26/19 23 07/25/2022 XR, chest , 2 view No observ ation record ed. [place] [address], [place], [address], 07/26/2022 09:10:55 07/26/19 23 07/25/2022 imagi ng/di agnos tic resul t No observ ation record ed. [place] [address], [place], [address], 07/26/2022 09:11:26 07/27/19 23 07/26/2022 imagi ng/di agnos tic resul t No observ ation record ed. [place] [address], [place], [address], 07/26/2022 09:16:52 07/27/19 23 07/26/2022 imagi ng/di agnos tic resul t No observ ation record ed. [place] [address], [place], [address], 07/26/2022 12:37:29 07/27/19 23 07/26/2022 imagi ng/di agnos tic resul t No observ ation record ed. [place] [address], [place], [address], 07/29/2022 08:38:53 07/28/19 23 07/27/2022 imagi ng/di agnos tic resul t No observ ation record ed. [place] [address], [place], [address], 07/29/2022 08:39:51 02/19/20 23 02/17/2023 CT, abdom en + pelvi s, w/o contr ast No observ ation record ed. [email or web address] [address], [place], [address], 02/18/2023 08:47:10 06/30/19 24 06/30/2023 CT, chest + abdom en + pelvi s, w/ contr ast No observ ation record ed. [address], [place], [address], 07/01/2023 10:26:53 03/29/20 24 03/29/2024 imagi ng/di agnos tic resul t No observ ation record ed. [place] [id number] [facility] [address], [place], [address], 03/29/2024 10:50:50 Result Notes None recorded. Problems Name Problem SNOMED Code Status Onset Date Resolution Date Notes Provider Name and Address Organization Details Recorded Time Irritable bowel syndrome 59714584 Active Not Available [facility] 3 08:46:28 Abdominal pain 60371451 Active 2021 Not Available [facility] 3 08:46:28 Pain in pelvis 74598284 Active 2021 Not Available [facility] 3 08:46:28 Imaging result abnormal 438087831 Active 2021 Not Available [facility] 3 08:46:28 Anxiety 28407499 Active Not Available [facility] 3 08:46:28 Hyperlipidemi a 65120104 Active Not Available [facility] 3 08:46:28 Osteoporosis 32504896 Active Not Available [facility] 3 08:46:28 Epigastric pain 10711341 Active Not Available [facility] 3 08:46:28 Malignant tumor of colon 695230012 Active 2022 ALEIDA Moncada, [facility] [employer] 3 11:40:20 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 3 15:32:11 Depressive disorder 36188703 Active 2023 CLEMENTE Cool [address], [address], [place], [address] , [facility] [employer] [facility] 4 15:12:42 Numbness of foot 373134999 Active 2023 CLEMENTE Cool [address] [facility], [address], [place], [address] , [facility] [employer] [facility] 4 15:18:53 Fatigue 19252053 Active 2023 CLEMENTE Cool [address] [facility], [place], [address] , [facility] [employer] [facility] 4 15:25:18 Right flank pain 465372719 Active 2023 Coral Phillips RN null, [facility] [employer] [facility] 4 12:46:42 Screening mammography Active 2024 CLEMENTE Cool [address] [employer], [address], [place], [address] , [facility] [employer] [facility] 5 11:44:17 Problem Notes None recorded. Procedures Surgical History Date Name Laterality Status Provider Name and Address Organization Details Recorded Time 02/12/20 24 Medicare Wellness CPT Code, subsequent completed Jia Zaidi RN [facility] [employer] [facility] 01/12/2024 12:23:03 06/16/19 24 screening colonoscopy completed Lalit Saldivar RN [facility] [employer] [facility] 06/19/2023 08:55:13 procedure on stomach completed Zoë Estevez MA [facility] [employer] [facility] 02/19/2023 11:05:48 Imaging Results Imaging Date Name Status LastModified by Organization Details LastModified Time 04/23/2022 CT, angiogram, chest, w/ contrast completed [id number] [facility] [address] [place], [address], 06/12/2022 08:50:25 03/26/2022 US, pelvis, transabdominal + transvaginal completed [id number].[id number] 3438 [facility] (Imaging) [address] [place], [address], 06/12/2022 08:50:25 03/26/2022 US, head + neck, soft tissue completed [id number] 1854 [facility] (Imaging) [address] [place], [address], 06/12/2022 08:50:25 03/26/2022 US, thyroid completed MIGRATION.[id number] 3 0026 [facility] [address] [place], [address], 06/12/2022 08:50:25 03/26/2022 US, pelvis, complete completed [id number] 8627 [facility] [address] [place], [address], 06/12/2022 08:50:25 07/25/2022 XR, chest, [address], [address], 07/26/2022 09:10:55 07/25/2022 imaging/diagnostic result completed [address], [address], 07/26/2022 09:11:26 07/26/2022 imaging/diagnostic result completed [address], [address], 07/26/2022 09:16:52 07/26/2022 imaging/diagnostic result completed [address], [address], 07/26/2022 12:37:29 07/26/2022 imaging/diagnostic result completed [address], [address], 07/29/2022 08:38:53 07/27/2022 imaging/diagnostic result completed [address], [place], [address], 07/29/2022 08:39:51 02/17/2023 CT, abdomen + pelvis, w/o contrast completed [address], [place], [address], 02/18/2023 08:47:10 06/30/2023 CT, chest + abdomen + pelvis, w/ contrast completed [address], [place], [address], 07/01/2023 10:26:53 03/29/2024 imaging/diagnostic result active [address], [place], [address], 03/29/2024 10:50:50 Procedure Notes None recorded. Medical [...] omeprazol e 40 mg capsule,d elayed release TAKE 1 CAPSULE EVERY DAY active Not Available Not Available [...] Available Not Available Not Available [employer]arix Quad 3926-5484 (PF) 60 mcg (15 mcg x 4)/0.5 [...] % 98 % 78 /min 98.3 [degF] 51981.9 3 g 122 mm[Hg] 74 mm[Hg] Not Available [employer] 3 08:44:43 Date Recorded Body weight Body temperature Heart rate Oxygen saturation Oxygen saturation in Arterial blood by Pulse oximetry Systolic blood pressure Diastolic blood pressure Provider Name and Address Organization Details Last Updated DateTime 3 30113.9 8 g 97.5 [degF] 100 /min 98 % 98 % 102 mm[Hg] 66 mm[Hg] Zoë Estevez MA [facility] [employer] 3 11:05:01 Date Recorded Body mass index (BMI) Body height Provider Name and Address Organization Details Last Updated DateTime 02/19/2023 19.8 kg/m2 157.48 cm Donal Granados MD [address] [address], [place], [address], [facility] [employer] 02/19/2023 11:09:37 Date Recorded Body height Body mass index (BMI) Body weight Body temperature Heart rate Oxygen saturation Oxygen saturation in Arterial blood by Pulse oximetry Respiratory rate Systolic blood pressure Diastolic blood pressure Provider Name and Address Organization Details Last Updated DateTime 4 157.48 cm 23.8 kg/m2 03179.0 1 g 97.8 [degF] 83 /min 99 % 99 % 16 /min 114 mm[Hg] 82 mm[Hg] Coral Phillips RN [facility] [employer] 4 14:47:52 Date Recorded Body height Body mass index (BMI) Body weight Body temperature Heart rate Oxygen saturation Oxygen saturation in Arterial blood by Pulse oximetry Systolic blood pressure Diastolic blood pressure Provider Name and Address Organization Details Last Updated DateTime 4 157.48 cm 24.5 kg/m2 10372.3 8 g 97.7 [degF] 80 /min 98 % 98 % 116 mm[Hg] 74 mm[Hg] Coral Phillips RN [facility] [employer] 4 12:20:51 Date Recorded Body height Body mass index (BMI) Body weight Body temperature Oxygen saturation Oxygen saturation in Arterial blood by Pulse oximetry Heart rate Systolic blood pressure Diastolic blood pressure Provider Name and Address Organization Details Last Updated DateTime 5 157.48 cm 24.2 kg/m2 36039.2 4 g 97.1 [degF] 95 % 95 % 69 /min 130 mm[Hg] 70 mm[Hg] Deandra Mejias RN [place] [facility] [employer] 5 11:30:34 Social History Question Answer Notes LastModified by Organizat ion Details LastModified Time Tobacco Smoking Status Never Smoker Not Available [facility] 06/12/2022 08:43:23 Do You Have An Advance Directive? No [id number] Information not available 06/12/2022 What Is Your Level Of Alcohol Consumption? None MIGRATION.[id number] 5420 Information not available 06/12/2022 Are You Blind Or Do You Have Difficulty Seeing? No MIGRATION.011290 3571 Information not available 06/12/2022 What Is Your Level Of Caffeine Consumption? Occasional MIGRATION.379054 3366 Information not available 06/12/2022 How Much Tobacco Do You Chew? None MIGRATION.618171 0332 Information not available 06/12/2022 In The 14 Days Before Symptom Onset, Have You Had Close Contact With A Laboratory-confir med COVID-19 While That Case Was Ill? No MIGRATION.207061 0413 Information not available 06/12/2022 In The 14 Days Before Symptom Onset, Have You Had Close Contact With A Person Who Is Under Investigation For COVID-19 While That Person Was Ill? No MIGRATION.963344 7549 Information not available 06/12/2022 Are You Deaf Or Do You Have Serious Difficulty Hearing? No MIGRATION.643083 6464 Information not available 06/12/2022 What Type Of Diet Are You Following? REGULAR MIGRATION.327713 9291 Information not available 06/12/2022 Which Illicit Or Recreational Drugs Have You Used? None MIGRATION.548927 5022 Information not available 06/12/2022 Do You Or Have You Ever Used E-cigarettes Or Vape? Never Used Electronic Cigarettes MIGRATION.376047 5157 Information not available 06/12/2022 What Is Your Occupation? Disabled MIGRATION.894653 0303 Information not available 06/12/2022 Advance Directive- Providers Has Reviewed Directive And Consents To Follow Them (insert Provider Name With Any Objectives In Notes Field) No MIGRATION.085462 2994 Information not available 06/12/2022 Are You Passively Exposed To Smoke? No MIGRATION.464130 5619 Information not available 06/12/2022 Do You Or Have You Ever Used Smokeless Tobacco? Never Used Smokeless Tobacco MIGRATION.710139 6523 Information not available 06/12/2022 How Much Tobacco Do You Smoke? No MIGRATION.294508 6267 Information not available 06/12/2022 Sex: Unknown Functional Status Question Answer Note LastModified by Organizat ion Details LastModified Time Do you have difficulty walking or climbing stairs? No MIGRATION.[id number] 26 Information not available 06/12/2022 Do you have difficulty doing errands alone? No MIGRATION.13864661 26 Information not available 06/12/2022 Do you have difficulty dressing or bathing? No MIGRATION.87139076 26 Information not available 06/12/2022 What is your exercise level? Moderate MIGRATION.43109453 26 Information not available 06/12/2022 Mental Status Question Answer Note LastModified by Organizat ion Details LastModified Time Do you have difficulty concentrating, remembering or making decisions? No MIGRATION.[id number] 6 Information not available 06/12/2022 Family History Relationship Description Onset Age of this Age Resolved Age Notes LastModified by Organization Details LastModified Time Father Heart disease [id number] Not available 06/12/2022 08:43:36 Mother Heart disease MIGRATION.472 [id number] Not available 06/12/2022 08:43:36 Sister Heart disease MIGRATION.797 [id number] Not available 06/12/2022 08:43:36 Medical History Condition Response GI PROBLEMS Y HIGH CHOLESTEROL / HYPERLIPIDEMIA Y ANXIETY DISORDER Y OSTEOPOROSIS Y Gynecological HistoryNo gynecological history recorded. Obstetrics History GPAL:G 0 P 0 0 0 0 Immunizations Vaccine Type Date Status Note Provider Nam e and Address Organization Details Recorded Time Influenza, split virus, quadrivalent, PF 1 completed Not Available [facility] 06/12/2022 08:50:09 SARS-COV-2 (COVID-19) vaccine, UNSPECIFIED 1 completed Not Available [facility] 06/12/2022 08:50:09 Tdap 9 completed Not Available [facility] 06/12/2022 08:50:09 zoster live 7 completed Not Available [facility] 06/12/2022 08:50:09 Past Encounters Encounter ID Performer Location Encounter Start Date Encounter Closed Date Diagnosis/Indication Diagnosis SNOMED-CT Code Diagnosis ICD10 Code Diagnosis Note [id number] Donal Granados MD [facility] [place] [address] [place] [address] 08/14/2020 00:00:00 08/15/2020 10:33:[id number] [facility] [place] [address] , [place] [address] 11/14/2020 00:00:00 11/15/2020 06:26:47 [id number] [facility] [place] [address] , [place] [address] 01/25/2021 00:00:00 01/25/2021 21:12:13 [id number] [address] [facility] [place] [address] [place] [address] 02/02/2021 00:00:00 02/02/2021 12:48:11 [id number] [facility] [place] [address] [place] [address] 05/10/2021 00:00:00 05/10/2021 12:49:15 [id number] [address] [facility] [place] [address] [place] [address] 06/11/2021 00:00:00 06/11/2021 18:02:30 [id number] [facility] [place] [address] [place] [address] 07/06/2021 00:00:00 07/07/2021 11:43:[id number] [facility] [place] [address] [place] [address] 07/16/2021 00:00:00 07/16/2021 22:10:[id number] [facility] [place] [address] [place] [address] 08/15/2021 00:00:00 08/15/2021 12:32:[id number] [facility] General Surgery 4 [facility], [facility] [address] [place] [address] 09/20/2021 00:00:00 09/20/2021 13:08:[id number] [facility] [place] [address] [place] [address] 10/16/2021 00:00:00 10/16/2021 19:17:[id number] [facility] [place] [address] [place] [address] 11/05/2021 00:00:00 11/05/2021 20:49:54 [id number] [facility] [place] [address] [place] [address] 12/10/2021 00:00:00 12/10/2021 15:48:41 [id number] [facility] [place] [address] [place] [address] 01/01/2022 00:00:00 01/02/2022 06:14:10 [id number] [facility] [place] [address] [place] [address] 01/11/2022 00:00:00 01/11/2022 18:21:[id number] [facility] [place] [address] [place] [address] 02/19/2023 10:56:47 02/19/2023 11:25:30 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 [id number] B86 Her and need to be treated and wash sheets the next morning in hot cycle. [id number] Amrik Bose MD [address] [place] [address] 10/13/2023 14:20:06 10/13/2023 15:26:30 Depressive disorder 22548185 F32.A Numbness of foot 4467560 00 R20.0 bilateral Fatigue 51205036 R53.83 Anxiety 64487126 F41.9 Hyperlipidemia 47210996 E78.5 Irritable bowel syndrome 28147491 K58.9 Malignant tumor of colon 775268392 C18.9 Osteoporosis 15091491 M8 1.0 Primary ma lignant neoplasm of ascending colon 71756320 C18.2 [id number] Amrik Bose MD [address] [place] [address] 02/12/2024 12:02:44 02/12/2024 12:52:10 Adult health examination 618280486 Z00.00 Screening for disorder 573303641 Z13.9 Right flank pain 2627729 09 R10.9 Abdominal pain 08086090 R10.9 Anxiety 34779812 F41.9 Depressive disorder 3548 9007 F32.A Hyperlipidemia 25837628 E78.5 Irritable bowel syndrome 52232691 K58.9 [id number] Amrik Bose MD [address] [address] 05/24/2024 11:22:33 05/24/2024 11:55:39 Right flank pain 796867421 R10.9 Renewal of prescription 837993688 Z76.0 Screening mammography 24 547776 Z12.31 Anxiety 57089626 F41.9 Depressive disorder 3548 9007 F32.A Hyperlipidemia 97267332 E78.5 Osteoporosis 14212049 M8 1.0 Health Concerns Section Related Observation LastModified by Organization Detai ls LastModified Time None Recorded Concern Status LastModified by Organization Details LastModified Time None Recorded Advance Directives Directive N: Payers Encounter Date Sequence Insurance Name Policy Number Policy Carvalho Covered Member ID Carvalho Member ID Guarantor Name 02/19/2023 1 [employer] (MEDICARE REPLACEMENT HMO) Loulou Yolande [id number] Loulou Yolande 10/13/2023 1 [employer] (MEDICARE REPLACEMENT HMO) Loulou Yolande [id number] Loulou Lanier 02/12/2024 1 [employer] (MEDICARE REPLACEMENT HMO) Loulou Yolande [id number] Loulou Lanier 05/24/2024 1 [employer] (MEDICARE REPLACEMENT HMO) Loulou Yolande [id number] Loulou Lanier Notes Date Note Type Note Provider Name and Address Organization Details Recorded Time 02/19/2023 text/html Here today c/o rash on hands. Everyone at home has it there is a lot of itching. Has had rash x 3 months now. Was given prednisone and no help. Using otc stuff and no help. Donal Granados MD [address], [place], [address], [employer] 02/19/2023 13:28:26 10/13/2023 text/html stage 3 colon cancer , got chemo, no radiation CLEMENTE Cool [address], [place], [address], [employer] 10/20/2023 16:21:25 02/12/2024 text/html slight right abdominal pain CLEMENTE Cool [address], [place], [address], [employer] 03/08/2024 15:20:59 05/24/2024 text/html right flank pain , no fever , chills ; cough and a cold CLEMENTE Cool [address], [place], [address], [employer] 05/27/2024 15:54:05 OBGyn Episode No OBEpisode recorded.
--- OUTSIDE RECORDS SUMMARY | 2024-08-19 14:50 | XMS_ITS | Clinical Summary ---
Author Organization [facility] Address [address] [place] [address] Care Team Providers Care Manufacturing Technologist Name Role Phone Donal Granados MD Unavailable [phone] Batsheva Vergara Primary Care Provider [phone] Allergies No known active allergies Medications No known medications Active Problems No known active problems Social History Tobacco Use Types Packs/Day Years Used Date Smoking Tobacco: Never Assessed Comments Unknown Sex and Gender Information Value Date Recorded Sex Assigned at Not on file Legal Sex Female 10:14 AM [employer]INTENANCE M[employer] Gender Identity Not on file Sexual Orientation Not on file Obstetrics History Last Filed Vital Signs Vital Sign Reading Time Taken Comments Blood Pressure 125/84 04/28/2022 11:00 AM [employer]INTENANCE M[employer]WR[employer] Pulse 91 04/28/2022 11:00 AM [employer]INTENANCE M[employer]WR[employer] Temperature 37.1 C (98.7 F) 04/28/2022 11:00 AM MAINTENANCE MILLWR[employer] Respiratory Rate 16 04/28/2022 11:00 AM MAINTENANCE MILLWRIGHT Oxygen Saturation 97% 04/28/2022 11:00 AM MAINTENANCE M[employer]WR[employer] Inhaled Oxygen Concentration - - Weight 61.2 kg (135 lb) 04/28/2022 11:00 AM MAINTENANCE MILLWR[employer] Height 157.5 cm (5' 2 ) 04/28/2022 11:00 AM MAINTENANCE M[employer]WR[employer] Body Mass Index 24.69 04/28/2022 11:00 AM MAINTENANCE MILLWRIGHT Plan of Treatment Health Maintenance Due Date Last Done Comments Breast Cancer Screening-Mammogram 1957 Colon Cancer Screening-Colonoscopy 1957 Depression Screening 1957 Fall Risk Assessment 1957 Hepatitis C Screening 1957 Osteoporosis Screening-Bone Density Scan 1957 Hepatitis B Screening 1975 Pneumococcal vaccine 65+ (1 of 1 - PCV) 2007 Zoster Vaccine (2 of 3) 08/28/2016 07/03/2016 Well Visit 65+ 2022 Influenza Vaccine (#1) 2023 01/01/2021 DTaP/Tdap/Td Vaccine (2 - Td or Tdap) 07/06/2028 Insurance [employer] MEDICARE HMO [employer] MEDICARE PPO [employer] MEDICARE PPO Care Teams Manufacturing Technologist Relationship Specialty Start Date End Date Batsheva Vergara [address] [address] PCP - General 04/28/22 Donal Granados MD [facility] [place] [address] Referring Physician Family Medicine 03/13/22
--- OUTSIDE RECORDS SUMMARY | 2024-08-19 14:50 | XMS_ITS | Clinical Summary ---
Author Organization [facility] Address [address] [place] [address] Care Team Providers Care Razor Grinder Name Role Phone Unavailable Primary Care Provider Unavailabl e Allergies No known active allergies Medications denosumab (Prolia) 60 mg/mL Syringe INJECT 60 MG (1 ML) UNDER THE SKIN ONCE EVERY 6 MONTHS 1 mL 2 2 Active omeprazole (PriLOSEC) 40 mg Capsule, Delayed Release(E.C.) 3 Active simvastatin (ZOCOR) 40 mg tablet 3 Active traZODone (DESYREL) 50 mg tablet 3 Active clonazePAM (KlonoPIN) 0.5 mg Tablet TAKE 1 TABLET BY MOUTH TWICE A DAY NEEDED 3 Active ondansetron (ZOFRAN ODT) 8 mg Tablet, Rapid Dissolve Dissolve 1 tablet on top of tongue then swallow with saliva every 8 hours as needed for nausea or vomiting 30 Tablet 1 3 Active megestroL (MEGACE) 400 mg/10 mL (40 mg/mL) suspension Take 5 mL (200 mg) by mouth daily. 240 mL 1 3 Active capecitabine (XELODA) 150 mg tablet 3 Active Klor-Con M10 10 mEq Extended Release tabletIndication s:Malignant neoplasm of colon, unspecified part of colon (CMS/HCC) TAKE 1 TABLET BY MOUTH TWICE A DAY 180 Tablet 1 3 Active capecitabine (XELODA) 500 mg tabletIndication s:Malignant neoplasm of ascending colon (CMS/HCC) Take 2 Tablets (1,000 mg) by mouth 2 times daily with meals. 90 Tablet 3 3 Active diphenoxylate-at ropine 2.5 mg-0.025 mg tablet Take 1 Tablet by mouth 4 times daily as needed for Diarrhea/Loos e Stools. 40 Tablet 1 3 Active methylPREDNISolo ne (MEDROL DOSPACK) 4 mg Tablets, Dose Pack Use as directed 21 Tablet 3 Active gabapentin (NEURONTIN) 300 mg capsule Take 1 Capsule (300 mg) by mouth 2 times daily. 60 Capsule 2 3 Active escitalopram oxalate (LEXAPRO) 20 mg tablet Take 20 mg by mouth daily. 4 Active Active Problems Problem Noted Date Diagnosed Date Colon cancer 07/19/2022 Encounters Date Type Department Care Team Description 07/27/2024 External Device Data [facility] ABSTRACTION Provider, Abstract 06/15/2024 External Device Data [facility] Provider, Abstract 06/02/2024 External Device Data [facility] Provider, Abstract 06/01/2024 External Device Data [facility] Provider, Abstract [...] drink = 0.6 oz pur e alcohol) Comments Unknown Sex and Gender Information Value Date Recorded Sex Assigned at Not on file Legal Sex Female 10:05 AM CDT Gender Identity Not on file Sexual Orientation Not on file Last Filed Vital Signs Vital Sign Reading Time Taken Comments Blood Pressure 124/79 04/26/2024 2:27 PM SENIOR UX DEVELOPER Pulse 98 04/26/2024 2:27 PM SENIOR UX DEVELOPER Temperature 36.2 C (97.1 F) 04/26/2024 2:27 PM SENIOR UX DEVELOPER Respiratory Rate 16 04/26/2024 2:27 PM SENIOR UX DEVELOPER Oxygen Saturation 95% 04/26/2024 2:27 PM SENIOR UX DEVELOPER Inhaled Oxygen Concentration - - Weight 59.8 kg (131 lb 12.8 oz) 04/26/2024 2:27 PM SENIOR UX DEVELOPER Height 158.5 cm (5' 2.4 ) 07/02/2022 3:10 PM CDT Body Mass Index 23.8 07/02/2022 3:10 PM CDT Plan of Treatment Upcoming Encounters Date Type Department Care Team (Late st Contact Info) Description 08/23/2024 2:45 PM CDT Office Visit [facility] [place] [address] [place] [address] Nicho Napoles MD [address] [facility] [address] [place] [address] Health Maintenance Due Date Last Done Comments BREAST CANCER SCREENING 1997 PNEUMOCOCCAL VACCINE 50+ YEA RS (1 of 1 - PCV) 2007 ZOSTER VACCINE (2 of 3) 08/28/2016 07/03/2016 INFLUENZA VACCINE (#1) 2023 01/01/2021 OSTEOPOROSIS SCREENING 02/11/2026 02/11/2021 DTAP/TDAP/TD VACCINES (2 - Td or Tdap) 07/06/2028 RSV VACCINE (60+ or ) (1 - 1-dose 75+ series) 01/07/2032 COLORECTAL SCREENING Discontinued 06/15/2023, 04/17/19 23 Colorectal Cancer Screening Discontinued FIT-DNA Q 3 years Discontinued FIT/FOBT Q 1 year Discontinued Flex Sig/CT Colonography Q 5 years Discontinued Insurance [employer] Medicare Part D [facility] M[facility]
--- OUTSIDE RECORDS SUMMARY | 2024-08-19 14:50 | XMS_ITS | Clinical Summary ---
Author Organization [facility] Address [address] [place] [address] Care Team Providers Care Hotbed Lever Operator Name Role Phone Bc Samuels MD Unavailable [phone] Donal Granados MD Primary Care Provider [phone] Source Comments [facility],non-owned Affiliates and Associated Physician Practices is amultiple site organization consisting of ambulatory clinics and hospital sitesin [place], [place], [place] and [place]. This disclosure is being madepursuant to the Care Everywhere program and may not contain all information available regarding this patient. Last updated 18.[facility] [employer] Allergies No known active allergies Medications * Be aware that medications may not be up to date on this document. Alwaysverify current medications with the patient. omeprazole (PriLOSEC) 40 MG capsule Take 1 [...] 7:00pm the day before surgery 2 tablet 3 Active neomycin-polymy emily-dexameth (Maxitrol) ophthalmic suspension Instill 1 (one) drop [...] and heating? Not hard at all 05/27/2022 [facility] [place] of Occupat ional Health - Occupational Stress [...] place to sleep or slept in a [place] health care facility (including now)? No 05/27/2022 Comments Unknown Sex and Gender Information Value Date Recorded Sex Assigned at Not on file Legal Sex Female 7:21 PM REAL ESTATE RENTAL AGENT Gender Identity Not on file Sexual Orientation Not on file Last Filed Vital Signs Vital Sign Reading Time Taken Comments Blood Pressure 154/85 06/01/2022 11:10 AM REAL ESTATE RENTAL AGENT Pulse 75 06/01/2022 11:10 AM REAL ESTATE RENTAL AGENT Temperature 36.5 C (97.7 F) 06/01/2022 11:10 AM REAL ESTATE RENTAL AGENT Respiratory Rate 18 06/01/2022 11:10 AM REAL ESTATE RENTAL AGENT Oxygen Saturation 96% 06/01/2022 11:10 AM REAL ESTATE RENTAL AGENT Inhaled Oxygen Concentration - - Weight 56.7 kg (125 lb) 06/18/2022 9:29 AM REAL ESTATE RENTAL AGENT Height 157.5 cm (5' 2 ) 06/18/2022 9:29 AM REAL ESTATE RENTAL AGENT Body Mass Index 22.86 06/18/2022 9:29 AM REAL ESTATE RENTAL AGENT Plan of Treatment Health Maintenance Due Date Last Done Comments BONE DENSITY TESTING 1955 COLOGUARD (AGES 45-75) - COL ON CA SCREENING 1957 CT COLONOGRAPHY - COLON CA SCREENING 1957 FIT - COLON CA SCREENING 1957 FLEX SIG - COLON CA SCREENING 1957 MAMMOGRAM 1955 HEPATITIS C SCREENING 01/02/1975 DTAP/TDAP/TD VACCINES (1 - Tdap) 01/07/1976 PNEUMOCOCCAL VACCINE 50+ (1 of 1 - PCV) 2007 ZOSTER VACCINE (1 of 2) 2007 COLON MONITORING 04/17/2023 04/17/2022 Colorectal Cancer Screening 04/17/2023 COVID-19 VACCINE (1 - 2023-2 5 season) 2023 DEPRESSION SCREENING 04/14/2024 INFLUENZA VACCINE (Season Ended) 2024 Respiratory Syncytial Virus (RSV) Vaccine Pt: or [...] patient's age to complete this topic MENINGOCOCCAL (Group B) VACCINE SHARED DECISION-MAKING Aged Out No longer eligible based on patient's age to complete this topic MENINGOCOCCAL GROUPS A/C/Y/W VACCINE Aged Out No longer eligible b ased on patient's age to complete this topic Procedures Procedure Name Priority Date/Time Associated Diagnosis Comments COLONOSCOPY Routine 04/17/2022 from Last 3 Months or Most Recently Relevant to Health Maintenance Results * COLONOSCOPY (04/17/2022) Historical Provider MD SCANNING ONLY Final Res ult from Last 3 Months or Most Recently Relevant to Health Maintenance Insurance [employer] SELF PAY NO INSURANCE Member Subscriber Plan / Payer (Ef fective for All Dates) Name:Loulou Lanier Member ID:Not on file Relation to Subscriber:Not on file Name:LOULOU LANIER Subscriber ID:Not on file Address: [address] [place] [address] Payer ID:Not on file Group ID:Not on file Type:Self Pay Address: [place], [place] [employer] SELF PAY NO INSURANCE Member Subscriber Plan / Payer (Ef fective for All Dates) Name:Loulou Lanier Member ID:Not on file Relation to Subscriber:Not on file Name:LOULOU LANIER Subscriber ID:Not on file Address: [address] [place] [address] Payer ID:Not on file Group ID:Not on file Type:Self Pay Address: [place], [place] [employer] SELF PAY NO INSURANCE Member Subscriber Plan / Payer (Ef fective for All Dates) Name:Loulou Lanier Member ID:Not on file Relation to Subscriber:Not on file Name:LOULOU LANIER Subscriber ID:Not on file Address: [address] [place] [address] Payer ID:Not on file Group ID:Not on file Type:Self Pay Address: [place], [place] Advance Directives * Full Code (Latest Code Status on File) Date Activated Date Inactivated Comments 05/27/2022 4:37 PM 06/01/2022 7:48 PM Care Teams Hotbed Lever Operator Relationship Specialty Start Date End Date Donal Granados MD [address] [place] [address] [address] [place] [address] PCP - General Family Medicine 06/18/22 Bc Samuels MD [address] [phone] Surgeon Colon and Rectal Surgery 04/09/22
[2024-08-19 14:59] LABS: Basophils Absolute Auto 0.1 K/mm3 (0.0-0.1); Basophils Percent Auto 0.6 % (0.2-1.2); Eosinophils Absolute Auto 0.1 K/mm3 (0-0.3); Hematocrit 37.7 % (37.0-47.0); Hemoglobin 12.2 g/dL (12.0-15.0); Immature Granulocyte Absolute 0.03 K/mm3 (0.00-0.031); Immature Granulocyte Percent A 0.4 % (0-0.5); Lymphocytes Absolute Auto 3.07 K/mm3 (0.9-3.2); Lymphocytes Percent Auto 38.8 % (18.3-44.2); Mean Corpuscular HGB Conc 32.4 g/dl (32-36); Mean Corpuscular Hemoglobin 29.8 pg (26-34); Mean Corpuscular Volume 92.2 fl (80-100); Mean Platelet Volume 9.4 fl (7.4-10.4); Monocytes Absolute Auto 0.4 K/mm3 (0.1-0.6); Monocytes Percent Auto 4.8 % (2.6-8.5); Neutrophils Absolute Auto 4.3 K/mm3 (1.3-6.7); Neutrophils Percent Auto 54.4 % (45.5-73.1); Platelet Count Result 349 k/mm3 (150-375); Red Blood Count 4.09 M/mm3 (4.2-5.4); Red Cell Distribution Width 14.5 % (11.5-14.5); White Blood Count 7.9 K/mm3 (4.5-10.0)
[2024-08-19 17:29] LABS: Alanine Aminotransferase 23 U/L (6-35); Albumin Level 4.4 g/dL (3.5-5.1); Alkaline Phosphatase 62 U/L (38-126); Anion Gap 8 mmol/L (4-12); Aspartate Amino Transferase 34 U/L (14-36); Bilirubin,Total 0.4 mg/dL (0.2-1.3); Blood Urea Nitrogen 20 mg/dL (7-17); Calcium 9.4 mg/dL (8.4-10.2); Carbon Dioxide 29 mmol/L (22-30); Chloride 103 mmol/L (98-107); Estimated Glomerular Filt Rate > 60; Glucose 102 mg/dL (65-110); Sodium 140 mmol/L (137-145)
== END 2024-08-19 14:48 | disposition home or self-care (01) ==
LOC: ANHLAB 14:48
PROVIDERS: PCP Family Medicine; Visit Provider Internal Medicine Hematology & Oncology
DX: C18.2 Malignant neoplasm of ascending colon (principal)
CPT/HCPCS: 36415; 80053; 82378; 85025

== ENCOUNTER 2024-12-27 09:18 | Outpatient (CLI) | payer MEDICARE, SELFPAY ==
--- NOTE | ~2024-12-27 | CT_ITS ---
EXAMINATION: CT abdomen pelvis w con DATE: 12/27/2024 09:58 INDICATION: Malignant neoplasm of ascending colon. TECHNIQUE: Computed tomography (CT) of the abdomen and pelvis was performed with 100 mL Omnipaque 350 intravenous contrast. Automated exposure control and iterative reconstruction technique were employed. The dose-length product was 234.25 mGy-cm. COMPARISON: CT abdomen and pelvis 03/29/2024 FINDINGS: The visualized portions of the lung bases demonstrate mild atelectasis. No pleural effusion. The heart size is normal. No pericardial effusion. There are cysts in the liver measuring up to 2.5 cm. There is focal hepatic steatosis adjacent to the falciform ligament. The gallbladder, spleen, pancreas, and adrenal glands are normal. There are cysts in the kidneys measuring up to 2.2 cm on the left. There are changes of right hemicolectomy. There are no dilated loops of bowel. There are no pathologically enlarged lymph nodes. There is no free intraperitoneal fluid. The periuterine veins are en larged, consistent with pelvic venous insufficiency. There is a right inguinal hernia containing fat. There is mild lumbar spondylosis. IMPRESSION: 1. No evidence of metastatic disease. Reviewed, dictated and finalized at location E.
[2024-12-27 09:51] LABS: Estimated Glomerular Filt Rate > 60
--- OUTSIDE RECORDS SUMMARY | 2024-12-27 10:15 | XMS_ITS | Clinical Summary ---
Author Organization [facility] Address [address] [place] [address] Care Team Providers Care Transcriber Name Role Phone Bc Samuels MD Unavailable [phone] Donal Granados MD Primary Care Provider [phone] Source Comments [facility],non-owned Affiliates and Associated Physician Practices is amultiple site organization consisting of ambulatory clinics and hospital sitesin [place], [place], [place] and [place]. This disclosure is being madepursuant to the Care Everywhere program and may not contain all information available regarding this patient. Last updated 18.[facility] [employer] Allergies No known active allergies Medications * [...] and heating? Not hard at all 05/27/2022 [facility] [place] of Occupat ional Health - Occupational [...] place to sleep or slept in a fdc (including now)? No 05/27/2022 Comments Unknown Sex and Gender Information Value Date Recorded Sex Assigned at Not on file Legal Sex Female 7:21 PM FORENSIC EXAMINER Gender Identity Not on file Sexual Orientation Not on file Last Filed Vital Signs Vital Sign Reading Time Taken Comments Blood Pressure 154/85 06/01/2022 11:10 AM FORENSIC EXAMINER Pulse 75 06/01/2022 11:10 AM FORENSIC EXAMINER Temperature 36.5 C (97.7 F) 06/01/2022 11:10 AM FORENSIC EXAMINER Respiratory Rate 18 06/01/2022 11:10 AM FORENSIC EXAMINER Oxygen Saturation 96% 06/01/2022 11:10 AM FORENSIC EXAMINER Inhaled Oxygen Concentration - - Weight 56.7 kg (125 lb) 06/18/2022 9:29 AM FORENSIC EXAMINER Height 157.5 cm (5' 2) 06/18/2022 9:29 AM FORENSIC EXAMINER Body Mass Index 22.86 06/18/2022 9:29 AM FORENSIC EXAMINER Plan of Treatment Health Maintenance Due Date [...] MONITORING 04/17/2023 04/17/2022 Colorectal Cancer Screening 04/17/2023 DEPRESSION SCREENING 04/14/2024 COVID-19 VACCINE (1 - 2023-2 5 season) 2024 INFLUENZA VACCINE (#1) 2024 Respiratory Syncytial Virus (RSV) Vaccine Pt: [...] LANIER Subscriber ID:Not on file Address: [address] [place] [address] Payer ID:Not on file Group ID:Not on file Type:Self Pay Address: [place], [place] [employer] SELF PAY NO INSURANCE Member Subscriber Plan / Payer (Ef fective for All Dates) Name:Loulou Lanier Member ID:Not on file Relation to Subscriber:Not on file Name:LOULOU LANIER Subscriber ID:Not on file Address: [address] [place] [address] Payer ID:Not on file Group ID:Not on file Type:Self Pay Address: [place], [place] [employer] SELF PAY NO INSURANCE Member Subscriber Plan / Payer (Ef fective for All Dates) Name:Loulou Lanier Member ID:Not on file Relation to Subscriber:Not on file Name:LOULOU LANIER Subscriber ID:Not on file Address: [address] [place] [address] Payer ID:Not on file Group ID:Not on file Type:Self Pay Address: [place], [place] Advance Directives * Full Code (Latest Code Status on File) Date Activated Date Inactivated Comments 05/27/2022 4:37 PM 06/01/2022 7:48 PM Care Teams Transcriber Relationship Specialty Start Date End Date Donal Granados MD [address] [place] [address] [address] [place] [address] PCP - General Family Medicine 06/18/22 Bc Samuels MD [address] [phone] Surgeon Colon and Rectal Surgery 04/09/22
--- OUTSIDE RECORDS SUMMARY | 2024-12-27 10:15 | XMS_ITS | Clinical Summary ---
Author Organization [facility] Address [address] [place] [address] Care Team Providers Care Ticket Worker Name Role Phone Donal Granados MD Unavailable Batsheva Vergara Primary Care Provider [phone] Allergies No known active allergies Medications No known medications Active Problems No known active problems Social History Tobacco Use Types Packs/Day Years Used Date Smoking Tobacco: Never Assessed Comments Unknown Sex and Gender Information Value Date Recorded Sex Assigned at Not on file Legal Sex Female 10:14 AM BUSINESS PROCESS MANAGER Gender Identity Not on file Sexual Orientation Not on file Obstetrics History Last Filed Vital Signs Vital Sign Reading Time Taken Comments Blood Pressure 125/84 04/28/2022 11:00 AM BUSINESS PROCESS MANAGER Pulse 91 04/28/2022 11:00 AM BUSINESS PROCESS MANAGER Temperature 37.1 C (98.7 F) 04/28/2022 11:00 AM BUSINESS PROCESS MANAGER Respiratory Rate 16 04/28/2022 11:00 AM BUSINESS PROCESS MANAGER Oxygen Saturation 97% 04/28/2022 11:00 AM BUSINESS PROCESS MANAGER Inhaled Oxygen Concentration - - Weight 61.2 kg (135 lb) 04/28/2022 11:00 AM BUSINESS PROCESS MANAGER Height 157.5 cm (5' 2) 04/28/2022 11:00 AM BUSINESS PROCESS MANAGER Body Mass Index 24.69 04/28/2022 11:00 AM BUSINESS PROCESS MANAGER Plan of Treatment Health Maintenance Due Date Last Done Comments Breast Cancer Screening-Mammogram 1957 Colon Cancer Screening-Colonoscopy 1957 Depression Screening 1957 Fall Risk Assessment 1957 Hepatitis C Screening 1957 Osteoporosis Screening-Bone Density Scan 1957 Hepatitis B Screening 1975 Pneumococcal vaccine 65+ (1 of 1 - PCV) 2007 Zoster Vaccine (2 of 3) 08/28/2016 07/03/2016 Well Visit 65+ 2022 Influenza Vaccine (#1) 2024 01/01/2021 DTaP/Tdap/Td Vaccine (2 - Td or Tdap) 07/06/2028 Insurance [employer] MEDICARE HMO scrible MEDICARE PPO [employer]rible MEDICARE PPO Care Teams Ticket Worker Relationship Specialty Start Date End Date Batsheva Vergara [address] [address] PCP - General 04/28/22 Donal Granados MD [facility] [place] [address] Referring Physician Family Medicine 03/13/22
--- OUTSIDE RECORDS SUMMARY | 2024-12-27 10:15 | XMS_ITS | Clinical Summary ---
Author Organization [employer] [facility] Address [address] [place] [address] Care Team Providers Care Anchor Tack Puller Name Role Phone Amrik Bose MD Primary Care Provider [phone] Allergies No known active allergies Medications denosumab [...] Encounters Date Type Department Care Team Description 12/14/2024 External Device Data STL ABSTRACTION Provider, Abstract 12/10/2024 Telephone [facility] Oncology and Hematology [facility] [address] [place] [address] Nicho Napoles MD Port removal 11/23/2024 External Device Data STL ABSTRACTION Provider, Abstract 11/23/2024 Telephone [facility] Oncology and Hematology [facility] [address] [place] [address] Nicho Napoles MD Referral Port Removal 11/22/2024 Orders Only [facility] Oncology and Hematology [facility] [address] [place] [address] Nicho Napoles MD Malignant neoplasm of ascending colon (CMS/HCC) (Primary Dx) 10/27/2024 External Device Data STL ABSTRACTION Provider, Abstract 10/27/2024 External Device Data STL ABSTRACTION Provider, Abstract 09/29/2024 External Device Data STL ABSTRACTION Provider, Abstract [...] Sign Reading Time Taken Comments Blood Pressure 123/72 08/23/2024 2:41 PM CDT Pulse 72 08/23/2024 2:41 PM CDT Temperature 36.7 C (98.1 F) 08/23/2024 2:41 PM CDT Respiratory Rate 15 08/23/2024 2:41 PM CDT Oxygen Saturation 95% 08/23/2024 2:41 PM CDT Inhaled Oxygen Concentration - - Weight 62.7 kg (138 lb 3.2 oz) 08/23/2024 2:41 P M CDT Height 158.5 cm (5' 2.4) 07/02/2022 3:10 PM CDT Body Mass Index 24.95 07/02/2022 3:10 PM CDT Plan of Treatment Upcoming Encounters Date Type Department Care Team (Late st Contact Info) Description 01/03/2025 2:00 PM CDT Office Visit [facility] Oncology and Hematology - [place] [address] [facility] [address] [place] [address] Nicho Napoles MD [address] [place] [address] Health Maintenance Due Date Last Done Comments BREAST CANCER SCREENING 1997 PNEUMOCOCCAL VACCINE 50+ YEA RS (1 of 1 - PCV) 2007 ZOSTER VACCINE (2 of 3) 08/28/2016 07/03/2016 [place] Prev entative Visit/Annual Wellness Visit 04/14/2024 02/12/2024 INFLUENZA VACCINE (#1) 2024 01/01/2021 OSTEOPOROSIS SCREENING 02/11/2026 02/11/2021 DTAP/TDAP/TD VACCINES (2 - T d or Tdap) 07/06/2028 07/06/2018 RSV VACCINE (60+ or ) (1 - 1-dose 75+ series) 01/07/2032 COLORECTAL SCREENING Discontinued 06/16/2023, 06/15/2023, 04/17/2022 Colorectal Cancer Screening Discontinued FIT-DNA Q 3 years Discontinued FIT/FOBT Q 1 year Discontinued Flex Sig/CT Colonography Q 5 years Discontinued Insurance RX [employer] Medicare Part D [facility] Care Teams Anchor Tack Puller Relationship Specialty Start Date End [place] [phone] PCP - General Family Practice 11/22/24
== END 2024-12-27 09:19 | disposition home or self-care (01) ==
LOC: ANHIMG 09:23
PROVIDERS: Visit Provider Internal Medicine Hematology & Oncology
DX: C18.2 Malignant neoplasm of ascending colon (principal)
CPT/HCPCS: 74177; Q9967

== ENCOUNTER 2024-12-27 10:09 | Outpatient (CLI) | payer MEDICARE, SELFPAY ==
[2024-12-27 10:25] LABS: Hematocrit 40.1 % (37.0-47.0); Hemoglobin 13.0 g/dL (12.0-15.0); Immature Granulocyte Percent A 0.1 % (0-0.5); Lymphocytes Absolute Auto 2.79 K/mm3 (0.9-3.2); Mean Corpuscular HGB Conc 32.4 g/dl (32-36); Mean Corpuscular Hemoglobin 29.6 pg (26-34); Mean Corpuscular Volume 91.3 fl (80-100); Nucleated Red Blood Cells Absolute Auto 0.000 K/mm3 (0.0-0.012); Nucleated Red Blood Cells Perc 0.0 % (0.0-0.2); Platelet Count Result 330 k/mm3 (150-375); Red Blood Count 4.39 M/mm3 (4.2-5.4); White Blood Count 6.8 K/mm3 (4.5-10.0)
--- OUTSIDE RECORDS SUMMARY | 2024-12-27 11:26 | XMS_ITS | Clinical Summary ---
Author Organization [facility] Address [address] [place] [address] Care Team Providers Care Home Care Aide Name Role Phone Bc Samuels MD Unavailable [phone] Donal Granados MD Primary Care Provider [phone] Source Comments [facility],non-owned Affiliates and Associated Physician Practices is amultiple site organization consisting of ambulatory clinics and hospital sitesin [place], [place], [place] and [place]. This disclosure is being madepursuant to the Care Everywhere program and may not contain all information available regarding this patient. Last updated 18.[facility] [employer] Allergies No known active allergies Medications * [...] and heating? Not hard at all 05/27/2022 [facility] [place] of Occupat ional Health - Occupational Stress [...] place to sleep or slept in a correction (including now)? No 05/27/2022 Comments Unknown Sex and Gender Information Value Date Recorded Sex Assigned at Not on file Legal Sex Female 7:21 PM WATER ATTENDANT Gender Identity Not on file Sexual Orientation Not on file Last Filed Vital Signs Vital Sign Reading Time Taken Comments Blood Pressure 154/85 06/01/2022 11:10 AM WATER ATTENDANT Pulse 75 06/01/2022 11:10 AM WATER ATTENDANT Temperature 36.5 C (97.7 F) 06/01/2022 11:10 AM WATER ATTENDANT Respiratory Rate 18 06/01/2022 11:10 AM WATER ATTENDANT Oxygen Saturation 96% 06/01/2022 11:10 AM WATER ATTENDANT Inhaled Oxygen Concentration - - Weight 56.7 kg (125 lb) 06/18/2022 9:29 AM WATER ATTENDANT Height 157.5 cm (5' 2) 06/18/2022 9:29 AM WATER ATTENDANT Body Mass Index 22.86 06/18/2022 9:29 AM WATER ATTENDANT Plan of Treatment Health Maintenance Due Date [...] LANIER Subscriber ID:Not on file Address: [address] [place] [address] Payer ID:Not on file Group ID:Not on file Type:Self Pay Address: [place], [place] [employer] SELF PAY NO INSURANCE Member Subscriber Plan / Payer (Ef fective for All Dates) Name:Loulou Lanier Member ID:Not on file Relation to Subscriber:Not on file Name:LOULOU LANIER Subscriber ID:Not on file Address: [address] [place] [address] Payer ID:Not on file Group ID:Not on file Type:Self Pay Address: [place] [employer] SELF PAY NO INSURANCE Member Subscriber Plan / Payer (Ef fective for All Dates) Name:Loulou Lanier Member ID:Not on file Relation to Subscriber:Not on file Name:LOULOU LANIER Subscriber ID:Not on file Address: [address] [place] [address] Payer ID:Not on file Group ID:Not on file Type:Self Pay Address: [place], [place] Advance Directives * Full Code (Latest Code Status on File) Date Activated Date Inactivated Comments 05/27/2022 4:37 PM 06/01/2022 7:48 PM Care Teams Home Care Aide Relationship Specialty Start Date End Date Donal Granados MD [address] [place] [address] [address] [place] [address] PCP - General Family Medicine 06/18/22 Bc Samuels MD [address] [phone] Surgeon Colon and Rectal Surgery 04/09/22
--- OUTSIDE RECORDS SUMMARY | 2024-12-27 11:26 | XMS_ITS | Clinical Summary ---
Author Organization [facility] Address [address] [place] [address] Care Team Providers Care Chief Credit Officer Name Role Phone Donal Granados MD Unavailable [phone] Batsheva Vergara Primary Care Provider [phone] Allergies No known active allergies Medications No known medications Active Problems No known active problems Social History Tobacco Use Types Packs/Day Years Used Date Smoking Tobacco: Never Assessed Comments Unknown Sex and Gender Information Value Date Recorded Sex Assigned at Not on file Legal Sex Female 10:14 AM ROCKET TEST FIRE WORKER Gender Identity Not on file Sexual Orientation Not on file Obstetrics History Last Filed Vital Signs Vital Sign Reading Time Taken Comments Blood Pressure 125/84 04/28/2022 11:00 AM ROCKET TEST FIRE WORKER Pulse 91 04/28/2022 11:00 AM ROCKET TEST FIRE WORKER Temperature 37.1 C (98.7 F) 04/28/2022 11:00 AM ROCKET TEST FIRE WORKER Respiratory Rate 16 04/28/2022 11:00 AM ROCKET TEST FIRE WORKER Oxygen Saturation 97% 04/28/2022 11:00 AM ROCKET TEST FIRE WORKER Inhaled Oxygen Concentration - - Weight 61.2 kg (135 lb) 04/28/2022 11:00 AM ROCKET TEST FIRE WORKER Height 157.5 cm (5' 2) 04/28/2022 11:00 AM ROCKET TEST FIRE WORKER Body Mass Index 24.69 04/28/2022 11:00 AM ROCKET TEST FIRE WORKER Plan of Treatment Health Maintenance Due Date [...] or Tdap) 07/06/2028 Insurance [employer] MEDICARE HMO [place] MEDICARE PPO [employer] MEDICARE PPO Care Teams Chief Credit Officer Relationship Specialty Start Date End Date Batsheva Vergara [address] [address] PCP - General 04/28/22 Donal Granados MD [facility] [place] [address] Referring Physician Family Medicine 03/13/22
--- OUTSIDE RECORDS SUMMARY | 2024-12-27 11:26 | XMS_ITS | Clinical Summary ---
Author Organization [employer] [facility] Address [address] [place] [address] Care Team Providers Care Motor Carrier Inspector Name Role Phone Amrik Bose MD Primary Care Provider [phone] Allergies No known active allergies Medications denosumab [...] Data STL ABSTRACTION Provider, Abstract 12/10/2024 Telephone [facility] Oncology and Hematology [facility] [address] [place] [address] Nicho Naoples MD Port removal 11/23/2024 External Device Data STL ABSTRACTION Provider, Abstract 11/23/2024 Telephone [facility] Oncology and Hematology [facility] [address] [place] [address] Nicho Napoles MD Referral Port Removal 11/22/2024 Orders Only [facility] Oncology and Hematology [facility] [address] [place] [address] Nicho Napoles MD Malignant neoplasm of ascending [...] Description 01/03/2025 2:00 PM CDT Office Visit [facility] Oncology and Hematology - [place] [address] [facility] [address] [place] [address] Nicho Napoles MD [address] [facility] [address] [place] [address] Health Maintenance Due Date Last Done Comments BREAST CANCER SCREENING 1997 PNEUMOCOCCAL VACCINE 50+ YEA RS (1 of 1 - PCV) 2007 ZOSTER VACCINE (2 of 3) 08/28/2016 07/03/2016 Medicare Advantage ([place]) Prev entative Visit/Annual Wellness Visit 04/14/2024 02/12/2024 [...] Colonography Q 5 years Discontinued Insurance RX [employer] Medicare Part D [facility] Care Teams Motor Carrier Inspector Relationship Specialty Start Date [place] [phone] PCP - General Family Practice 11/22/24
[2024-12-27 16:42] LABS: Alanine Aminotransferase 17 U/L (6-35); Albumin Level 4.4 g/dL (3.5-5.1); Alkaline Phosphatase 70 U/L (38-126); Anion Gap 8 mmol/L (4-12); Aspartate Amino Transferase 40 U/L (14-36); Bilirubin,Total 0.3 mg/dL (0.2-1.3); Blood Urea Nitrogen 14 mg/dL (7-17); Calcium 8.8 mg/dL (8.4-10.2); Carbon Dioxide 29 mmol/L (22-30); Chloride 100 mmol/L (98-107); Estimated Glomerular Filt Rate > 60; Glucose 99 mg/dL (65-110); Potassium 4.0 mmol/L (3.4-5.0); Sodium 137 mmol/L (137-145); Total Protein 8.0 g/dL (6.3-8.2)
[2024-12-27 17:18] LABS: Carcinoembryonic Antigen 0.9 ng/mL (0.0-3.0)
== END 2024-12-27 10:10 | disposition home or self-care (01) ==
LOC: ANHLAB 10:10
PROVIDERS: Visit Provider Internal Medicine Hematology & Oncology
DX: C18.2 Malignant neoplasm of ascending colon (principal)
CPT/HCPCS: 36415; 80053; 82378; 85025